=== PATIENT | female | born 1970 | race Caucasian/White ===

== ENCOUNTER 2020-06-24 16:20 | Outpatient (REF) | payer OTHER, SELFPAY | END 2020-06-24 16:21 | disposition home or self-care (01) | LOC: HO.LNP 16:20 | PROVIDERS: Visit Provider Hospitalist | DX: R30.0 Dysuria (principal) | CPT/HCPCS: 87086 ==

== ENCOUNTER 2020-07-11 10:23 | Emergency (ER) | payer OTHER, SELFPAY ==
--- NOTE | ~2020-07-11 | CT_ITS ---
EXAMINATION: CT ABDOMEN AND PELVIS WITHOUT CONTRAST CLINICAL INFORMATION: Left lower quadrant pain COMPARISON: Previous pelvic ultrasound from earlier the same day and previous CT scan of the abdomen and pelvis August 2017 TECHNIQUE: Multidetector volumetric imaging was performed from the superior aspect of the liver through the pubic symphysis. Sagittal and coronal reformatted images were obtained on the technologist's workstation. This CT examination was performed using dose optimization techniques as appropriate, variously including the following: *Automated exposure control *Adjustment of mA and/or kV according to patient size (this includes techniques or standardized protocols for targeted exams where dose is matched to indication/reason for exam; i.e. extremities or head) *Use of iterative reconstruction technique DLP: 131 mGy-cm FINDINGS: LUNG BASES: The visualized lung bases are unremarkable. LIVER, GALLBLADDER, AND BILIARY TREE: The liver is normal in size, shape, and attenuation. No focal hepatic lesion or biliary ductal dilatation is present. The gallbladder is unremarkable with no evidence of radiopaque gallstones, gallbladder wall thickening, or obvious pericholecystic inflammatory changes. PANCREAS: Unremarkable. SPLEEN: Unremarkable. ADRENAL GLANDS: Unremarkable. KIDNEYS AND URETERS: The kidneys are normal in size, shape, and attenuation. No hydronephrosis, hydroureter, or calculi seen. No perinephric stranding. BLADDER: Bladder is empty and not well evaluated. GASTROINTESTINAL TRACT: There is diverticulosis of the colon. There is wall thickening of the sigmoid colon and stranding of the surrounding fat suggestive of mild diverticulitis. No evidence of obstruction, perforation or abscess is seen. There may be a small esophageal hernia. The stomach is otherwise unremarkable. The appendix is not seen. ABDOMINAL WALL: There are several small upper abdominal ventral hernias containing fat. LYMPH NODES: Normal. VASCULAR: Unremarkable. PELVIC VISCERA: The right ovary is normal-appearing. There is question a small 1.2 x 1.3 cm right adnexal cyst versus a small amount of loculated fluid in the pelvis adjacent to the right side of the uterus, for example axial image 79 series 3 and coronal reconstructed image 56.. The uterus and left ovary are unremarkable.. OSSEOUS STRUCTURES: Unremarkable. CT/CT abdomen pelvis wo con IMPRESSION: Diverticulitis of the proximal sigmoid colon.
--- NOTE | ~2020-07-11 | US_ITS ---
EXAMINATION: PELVIC ULTRASOUND CLINICAL INFORMATION: Left-sided pelvic pain/tenderness COMPARISON: Previous CT of the abdomen and pelvis August 2017 TECHNIQUE: Transabdominal and transvaginal pelvic ultrasound was performed. Transvaginal exam was performed for better visualization of the uterus and visualization of the ovaries. Exam is limited due to patient body habitus. FINDINGS: The uterus is anteverted and measures 7.6 x 4.9 x 4.8 cm in dimension. There is a 2.3 x 2.2 x 2.2 cm hyperechoic lesion in the left anterior uterine body suggestive of a fibroid. No other focal uterine lesion is seen. Endometrial thickness is normal measuring 0.5 cm. There are nabothian cysts in the cervix. The ovaries are not identified. There is a 1.9 x 1 x 1.3 cm minimally complex cyst seen in the right pelvis. There is no free fluid in the pelvis. US/US pelvic complete IMPRESSION: Limited exam. 2.2 x 2.3 cm left anterior uterine body fibroid. Ovaries not seen. 1.9 x 1 x 1.3 cm minimally complex cyst in the right pelvis.
--- NOTE | ~2020-07-11 | US_ITS ---
EXAMINATION: PELVIC ULTRASOUND CLINICAL INFORMATION: Left-sided pelvic pain/tenderness COMPARISON: Previous CT of the abdomen and pelvis August 2017 TECHNIQUE: Transabdominal and transvaginal pelvic ultrasound was performed. Transvaginal exam was performed for better visualization of the uterus and visualization of the ovaries. Exam is limited due to patient body habitus. FINDINGS: The uterus is anteverted and measures 7.6 x 4.9 x 4.8 cm in dimension. There is a 2.3 x 2.2 x 2.2 cm hyperechoic lesion in the left anterior uterine body suggestive of a fibroid. No other focal uterine lesion is seen. Endometrial thickness is normal measuring 0.5 cm. There are nabothian cysts in the cervix. The ovaries are not identified. There is a 1.9 x 1 x 1.3 cm minimally complex cyst seen in the right pelvis. There is no free fluid in the pelvis. US/US transvaginal IMPRESSION: Limited exam. 2.2 x 2.3 cm left anterior uterine body fibroid. Ovaries not seen. 1.9 x 1 x 1.3 cm minimally complex cyst in the right pelvis.
[2020-07-11 10:26] VITALS: BP 186/129; PULSE 89; RESP 18; TEMP 36.9; O2SAT 100; BMI 47.9
--- NOTE | 2020-07-11 11:14 | ED.GENADULT ---
HPI - General Adult General Chief complaint: General Medical Stated complaint: pelvic pain Time Seen by Provider: 07/11/20 10:55 Source: patient Mode of arrival: ambulatory Limitations: no limitations History of Present Illness HPI narrative: 49 y/o female presenting with acute onset left sided pelvic pain for the last 2 days since the start of her menses. She reports her periods are irregular and last one was 2 months ago. For her last 3 cycles she has gotten LLQ/left sided pelvic pain however this time it is much worse. She states it comes and goes and it is excruciating at times. She took Tramadol last night with some improvement. She recalls several years ago she thinks she was diagnosed with an ovarian cyst. She denies any chance of , she is homosexual. She denies vaginal discharge. The bleeding is a bit heavier than her last menstrual cycle. She has no N/V/D or other abdominal pain. No fever or chills. MD complaint: left sided pelvic pain Onset (ago): day(s) (2) Location: abdomen and pelvis Radiation: non-radiation Severity: severe and similar to prior episodes Severity scale (1-10): 8 Quality: stabbing and sharp Pain Consistency: intermittent Relieving factors: rest (laying on left side helps) Exacerbating factors: movement Associated symptoms: denies other symptoms Treatments prior to arrival: none Related Data Home Medications Medication Instructions Recorded Confirmed ergocalciferol (vitamin D2) 1,250 1,250 mcg PO QWEEK 06/24/20 07/11/20 mcg (50,000 unit) capsule escitalopram oxalate 20 mg tablet 20 mg PO DAILY 06/24/20 07/11/20 tramadol 50 mg tablet 50 mg PO DAILY PRN 07/11/20 07/11/20 Previous Rx's Medication Instructions Recorded sulfamethoxazole 800 1 tab PO BID #14 tab 06/24/20 mg-trimethoprim 160 mg tablet ciprofloxacin HCl 500 mg PO Q12H #20 tab 07/11/20 ibuprofen 600 mg PO Q8H PRN #20 tab 07/11/20 metronidazole [Flagyl] 500 mg PO BID #20 tab 07/11/20 ondansetron HCl [Zofran] 4 mg PO Q8H PRN #7 tab 07/11/20 oxycodone 5 mg PO Q6H PRN #8 tab 07/11/20 Allergies Allergy/AdvReac Type Severity Reaction Status Date / Time No Known Allergies Allergy Mild NKA Verified 07/11/20 09:59 Review of Systems Review of Systems: Constitutional: No Fever, No Chills ENT/Mouth: No sore throat, No Rhinorrhea, No Swallowing Difficulty Cardiovascular: No Chest Pain, No SOB, No Orthopnea, No Edema Respiratory: No Cough, No Sputum, No Wheezing, No dyspnea Gastrointestinal: No Nausea, No Vomiting, No Diarrhea, + abdominal Pain, No Hematochezia, No Melena Genitourinary: No Dysuria, No Urinary Frequency, No Hematuria, +vaginal bleeding, no vaginal discharge Musculoskeletal: No joint pain, No Myalgias Skin: No Skin Lesions, No rash Neuro: No Weakness, No Numbness, No Dizziness, No Headache Psych: No Anxiety/Panic, No Depression Heme/Lymph: No Bruising, No Lymphadenopathy Endocrine: No Polyuria, No [facility]yd[facility]ia [facility] Social History Social History Alcohol intake: never Smoking Status: Never smoker Use of substances other than those prescribed or required for medical reasons: No Advance Directives: Yes Advance Directives Information Provided: No Advance Directives on File: No Physical Exam Vital Signs: Vital Signs: Last Vital Signs Temp 98.5 F 07/11/20 10:26 Pulse 89 07/11/20 10:26 Resp 18 07/11/20 10:26 BP 186/129 H 07/11/20 10:26 Pulse Ox 100 07/11/20 10:26 Body Mass Index 47.9 Appearance: Alert. Oriented X3. Appears to be in pain Eyes: Pupils equal, round and reactive to light. ENT: Pharynx normal. Neck: Normal inspection. Neck supple. CVS: Normal heart rate and rhythm. Pulses normal. Respiratory: No respiratory distress. Breath sounds normal. Abdomen: Obese, Soft with significant LLQ/left pelvic tenderness. +rebound +BS x4. Pelvic exam deferred at this time, patient declining due to pain Skin: Skin warm and dry. Normal skin color. Normal skin turgor. No rashes. Extremities: No lower extremity edema. Neuro: Oriented X 3. No motor deficit. No sensory deficit. Course Course Course Narrative: 49 y/o female presenting with 2 days of severe LLQ/left pelvic pain since start of her menses. ?hx of ovarian cyst. Will plan to treat pain with oxycodone and tylenol now, check labs, r/o and get pelvic US to assess for cyst and torsion. Pelvic exam deferred per patient request due to pain. Low suspicon for PID, no vaginal discharge, no hx STI, same monogamous partner. Reevaluation(s) Reevaluation #1: WBC 12.4. UA negative for infection. Pelvic ultrasound showed left anterior uterine fibroid which does not explain her tenderness fully. Ovaries unfortunately were not able to be seen. Spoke with Dr. Gamez who is recommending CT scan for further evaluation of possible ovarian masses or other non-gynecologic causes of her pain. Reevaluation #2: CT scan showing acute diverticulitis of the proximal sigmoid colon. No abscess. She has been tolerating PO. No N/V here. Her pain is improved after medications. She has been counseled on the results of her tests and management has been discussed. Warning signs/symptoms have been reviewed to prompt urgent return to the ED. Patient expressed understanding. She is stable for discharge with PO abx, pain control. Medical Decision Making Lab Data Result diagrams: 07/11/20 11:35 07/11/20 11:35 Labs: Lab Results 07/11/20 07/11/20 07/11/20 Range/Units 11:31 11:31 11:35 WBC 12.4 H (4.8-10.8) X10*3/uL RBC 4.79 (4.20-5.50) X10*6/uL Hgb 12.3 (12.0-16.0) g/dl Hct 39.4 (37-47) % MCV 82.3 (80-98) fL MCH 25.7 L (27.0-33.0) pg MCHC 31.2 (31.0-35.0) g/dl RDW 14.0 (11.0-16.0) % Plt Count 366 (160-400) X10*3/uL MPV 9.1 L (9.4-12.3) fL Immature Gran % (Auto) 0.3 (0.0-0.4) % Neut % (Auto) 79.8 H (45-73) % Lymph % (Auto) 13.4 L (20-40) % [place] % (Auto) 5.8 (2-11) % Eos % (Auto) 0.6 (0-4) % Baso % (Auto) 0.1 (0-2) % Lymph # (Auto) 1.7 (1.2-4.9) X10*3/uL [place] # (Auto) 0.7 (0.1-1.2) X10*3/uL Eos # (Auto) 0.1 (0.0-0.4) X10*3/uL Baso # (Auto) 0.0 (0.0-0.2) X10*3/uL Abs Immat Gran (auto) 0.04 H (0.00-0.03) X10*3/uL Absolute Neuts (auto) 9.9 H (2.0-8.3) X10*3/uL Absolute Nucleated RBC 0.000 (0.0-0.012) X10*3/uL Nucleated RBC % (auto) 0.0 (0.0-0.2) /100WBC Hold Blue Top Sodium (135-145) mmol/L Potassium (3.3-5.1) mmol/L Chloride (96-108) mmol/L Carbon Dioxide (22-29) mmol/L Anion Gap (12-20) BUN (9-16) mg/dL Creatinine (0.5-1.4) mg/dL Estim Creat Clear Calc Estimated GFR Random Glucose (60-115) mg/dL Calcium (8.4-10.2) mg/dL Urine Color PINK Urine Appearance CLOUDY Urine pH 7.5 (5.0-8.0) Ur Specific [place] 1.020 (1.005-1.025) Urine Protein TRACE (NEG-TRACE) MG/DL Urine Glucose (UA) NEG (NEG) MG/DL Urine Ketones NEG (NEG) MG/DL Urine Blood 3+ H (NEG) Urine Nitrite NEG (NEG) Ur Leukocyte Esterase NEG (NEG) Urine RBC TNTC H (0) /HPF Urine WBC 0-2 (0-4) /HPF Ur Squamous Epith Cells TRACE /LPF Urine Bacteria NONE /LPF Urine Test NEGATIVE (NEGATIVE) 07/11/20 07/11/20 Range/Units 11:35 11:35 WBC (4.8-10.8) X10*3/uL RBC (4.20-5.50) X10*6/uL Hgb (12.0-16.0) g/dl Hct (37-47) % MCV (80-98) fL MCH (27.0-33.0) pg MCHC (31.0-35.0) g/dl RDW (11.0-16.0) % Plt Count (160-400) X10*3/uL MPV (9.4-12.3) fL Immature Gran % (Auto) (0.0-0.4) % Neut % (Auto) (45-73) % Lymph % (Auto) (20-40) % [place] % (Auto) (2-11) % Eos % (Auto) (0-4) % Baso % (Auto) (0-2) % Lymph # (Auto) (1.2-4.9) X10*3/uL [place] # (Auto) (0.1-1.2) X10*3/uL Eos # (Auto) (0.0-0.4) X10*3/uL Baso # (Auto) (0.0-0.2) X10*3/uL Abs Immat Gran (auto) (0.00-0.03) X10*3/uL Absolute Neuts (auto) (2.0-8.3) X10*3/uL Absolute Nucleated RBC (0.0-0.012) X10*3/uL Nucleated RBC % (auto) (0.0-0.2) /100WBC Hold Blue Top SEE NOTE Sodium 137 (135-145) mmol/L Potassium 4.3 (3.3-5.1) mmol/L Chloride 102 (96-108) mmol/L Carbon Dioxide 27 (22-29) mmol/L Anion Gap 12 (12-20) BUN 10 (9-16) mg/dL Creatinine 0.78 (0.5-1.4) mg/dL Estim Creat Clear Calc 138.9 Estimated GFR > 60 Random Glucose 126 H (60-115) mg/dL Calcium 8.7 (8.4-10.2) mg/dL Urine Color Urine Appearance Urine pH (5.0-8.0) Ur Specific [place] (1.005-1.025) Urine Protein (NEG-TRACE) MG/DL Urine Glucose (UA) (NEG) MG/DL Urine Ketones (NEG) MG/DL Urine Blood (NEG) Urine Nitrite (NEG) Ur Leukocyte Esterase (NEG) Urine RBC (0) /HPF Urine WBC (0-4) /HPF Ur Squamous Epith Cells /LPF Urine Bacteria /LPF Urine Test (NEGATIVE) Discharge Plan Discharge Clinical Impression: Diverticulitis Patient Disposition: Home, Self-Care Instructions: Diverticulitis (ED) Additional Instructions: Your CT scan showed diverticulitis of your sigmoid colon. Take the prescribed antibiotics for this. Complete the entire course. Take the prescribed anti-inflammatory medications and pain medications as needed Stick to a bland diet while you are feeling unwell. Avoid foods with seeds. Follow up with your doctor this week. If you have worsening symptoms come back to the ER for futher evaluation. Prescriptions: New metronidazole [Flagyl] 500 mg tablet 500 mg PO BID Qty: 20 RF: 0 ciprofloxacin HCl 500 mg tablet 500 mg PO Q12H Qty: 20 RF: 0 ibuprofen 600 mg tablet 600 mg PO Q8H PRN (Reason: pain) Qty: 20 RF: 0 ondansetron HCl [Zofran] 4 mg tablet 4 mg PO Q8H PRN (Reason: nausea and vomiting) Qty: 7 RF: 0 oxycodone 5 mg tablet 5 mg PO Q6H PRN (Reason: pain) Qty: 8 RF: 0 No Action escitalopram oxalate 20 mg tablet 20 mg PO DAILY RF: 0 ergocalciferol (vitamin D2) 1,250 mcg (50,000 unit) capsule 1,250 mcg PO QWEEK RF: 0 sulfamethoxazole-trimethoprim [Bactrim DS] 800-160 mg tablet 1 tab PO BID Qty: 14 RF: 0 tramadol 50 mg tablet 50 mg PO DAILY PRNRF: 0 Referrals: Sugar Muse MD [Physician] - 1 week (diverticulitis )
[2020-07-11] MEDS: oxyCODONE HCl Immed Release 5 MG TABLET PO (11:16)
[2020-07-11] MEDS: Acetaminophen 325 MG TABLET 975 MG PO (11:16)
--- NOTE | 2020-07-11 11:22 | PC.NURSE ---
pt medicated per emar, pct at bedside to draw labs, awaiting us. wctm.
[2020-07-11 11:46] LABS: MANUAL DIFF FLAG NO
[2020-07-11 11:49] LABS: Basophils Percent Auto 0.1 % (0-2); Eosinophils Absolute Auto 0.1 X10*3/uL (0.0-0.4); Eosinophils Percent Auto 0.6 % (0-4); Hematocrit 39.4 % (37-47); Hemoglobin 12.3 g/dl (12.0-16.0); Imm Gran Abs Auto 0.04 X10*3/uL (0.00-0.03); Imm Gran Pct Auto 0.3 % (0.0-0.4); Lymphocytes Absolute Auto 1.7 X10*3/uL (1.2-4.9); Lymphocytes Percent Auto 13.4 % (20-40); Mean Corpuscular HGB Conc 31.2 g/dl (31.0-35.0); Mean Corpuscular Hemoglobin 25.7 pg (27.0-33.0); Mean Corpuscular Volume 82.3 fL (80-98); Mean Platelet Volume 9.1 fL (9.4-12.3); Monocytes Absolute Auto 0.7 X10*3/uL (0.1-1.2); Monocytes Percent Auto 5.8 % (2-11); Neutrophils Absolute Auto 9.9 X10*3/uL (2.0-8.3); Neutrophils Percent Auto 79.8 % (45-73); Platelet Count 366 X10*3/uL (160-400); Red Blood Count 4.79 X10*6/uL (4.20-5.50); White Blood Count 12.4 X10*3/uL (4.8-10.8)
[2020-07-11 11:51] LABS: Glucose Urine UA NEG (NEG); Leukocyte Esterase Urine NEG (NEG); Nitrite Urine NEG (NEG); PH 7.5 (5.0-8.0); Urine Blood 3+ (NEG); Urine Ketones NEG (NEG); Urine Protein TRACE MG/DL (NEG-TRACE)
[2020-07-11 11:52] LABS: Appearance Urine CLOUDY; Color Urine PINK
[2020-07-11 11:53] LABS: UPreg QC Valid YES; Urine Pregnancy NEGATIVE (NEGATIVE)
[2020-07-11 12:08] LABS: RBC Urine TNTC /HPF (0); Squamous Epithelial Cell Urine TRACE /LPF; WBC Urine 0-2 /HPF (0-4)
[2020-07-11 12:15] LABS: Anion Gap 12 (12-20); Blood Urea Nitrogen 10 mg/dL (9-16); Calcium 8.7 mg/dL (8.4-10.2); Carbon Dioxide 27 mmol/L (22-29); Chloride 102 mmol/L (96-108); Creatinine Clr Calc Pharmacy 138.9; Estimated Glomerular Filt Rate > 60; Glucose Random 126 mg/dL (60-115); Potassium 4.3 mmol/L (3.3-5.1); Sodium 137 mmol/L (135-145)
[2020-07-11] MEDS: Ketorolac Tromethamine 60 MG/2 ML VIAL IM (13:42)
--- NOTE | 2020-07-11 13:52 | PM.GYNCN ---
[facility] - CN: HPI Data of Consult Consult date: 07/11/20 Primary Care Provider: Roslyn Butcher NP Consult Narrative Narrative: Consulted regarding Anjali Bah, who is a 49 year old female who presents to the emergency room with left lower quadrant pain severe in nature 2 days prior to menses no other associated symptoms. CBC chemistry urine all within normal. Ultrasound did not visualize the ovaries, right complex 1.9 cm ovarian cyst, anterior uterine fibroid measuring 2.2 cm in size, urine test is negative cc:: CC: [facility] Social History Social History Alcohol intake: never Smoking Status: Never smoker Use of substances other than those prescribed or required for medical reasons: No Advance Directives: Yes Advance Directives Information Provided: No Advance Directives on File: No Meds Allergies Allergy/AdvReac Type Severity Reaction Status Date / Time No Known Allergies Allergy Mild NKA Verified 07/11/20 09:59 Home Medications Medication Instructions Recorded Confirmed Last Taken Type ergocalciferol (vitamin D2) 1,250 1,250 mcg PO QWEEK 06/24/20 07/11/20 Unknown History mcg (50,000 unit) capsule escitalopram oxalate 20 mg tablet 20 mg PO DAILY 06/24/20 07/11/20 Unknown History tramadol 50 mg tablet 50 mg PO DAILY PRN 07/11/20 07/11/20 Unknown History [facility] Physical Exam Vitals Vital signs: Temp Pulse Resp BP Pulse Ox 98.5 F 89 18 186/129 H 100 07/11/20 10:26 07/11/20 10:26 07/11/20 10:26 07/11/20 10:26 07/11/20 10:26 Body Mass Index 47.9 Additional Comments: Per ENRRIQUE Bates lower left lower quadrant tenderness [employer] - Results Labs CBC & Chem 7: 07/11/20 11:35 07/11/20 11:35 Labs: Short CBC 07/11/20 Range/Units 11:35 WBC 12.4 H (4.8-10.8) X10*3/uL Hgb 12.3 (12.0-16.0) g/dl Hct 39.4 (37-47) % Plt Count 366 (160-400) X10*3/uL BMP 07/11/20 11:35 Sodium 137 Potassium 4.3 Chloride 102 Carbon Dioxide 27 BUN 10 Creatinine 0.78 Calcium 8.7 Urine 07/11/20 07/11/20 Range/Units 11:31 11:31 Urine Color PINK Urine Appearance CLOUDY Urine pH 7.5 (5.0-8.0) Ur Specific [place] 1.020 (1.005-1.025) Urine Protein TRACE (NEG-TRACE) MG/DL Urine Glucose (UA) NEG (NEG) MG/DL Urine Test NEGATIVE (NEGATIVE) Assessment and Plan (1) Abdominal pain: Qualifiers: Abdominal location: left lower quadrant Qualified Code(s): R10.32 - Left lower quadrant pain Status: Acute Discussed the case with ENRRIQUE Bates and Recommended the GC and Chlamydia, CT scan of abdomen to better visualized ovaries. If no large ovarian mass on the left side consider other none gynecological causes of the left lower quadrant pain.
[2020-07-11 16:49] LABS: CT PCR NOT DETECTED (Not Detect.); NG PCR NOT DETECTED (Not Detect.)
== END 2020-07-11 16:18 | disposition home or self-care (01) ==
PROVIDERS: Physician Assistant; Emergency Provider Emergency Medicine; PCP Nurse Practitioner Family
DX: K57.32 Diverticulitis of large intestine without perforation or abscess without bleeding (principal)
CPT/HCPCS: 36415; 74176; 76830; 76856; 80048; 81001; 81025; 85025; 87491; 87591; 96372; 99283; 99284; J1885

== ENCOUNTER → 2020-07-25 08:31 | Outpatient (BNVA) | payer OTHER, SELFPAY | PROVIDERS: PCP Nurse Practitioner Family; Visit Provider Physician Assistant | DX: Z12.11 Encounter for screening for malignant neoplasm of colon (principal) ==

== ENCOUNTER 2020-08-25 07:31 | Day surgery (SDC) | payer OTHER, SELFPAY ==
[2020-08-22 13:19] VITALS: BMI 47.3
[2020-08-25 08:25] VITALS: BMI 45.8
[2020-08-25 08:36] VITALS: BP 178/91; PULSE 74; RESP 16; TEMP 36.6; O2SAT 97; BMI 45.8
[2020-08-25 08:45] LABS: UPreg QC Valid YES; Urine Pregnancy NEGATIVE (NEGATIVE)
[2020-08-25] MEDS: Lactated Ringers 1,000 ML 50 ML IV (08:45)
--- NOTE | 2020-08-25 08:48 | HO.ANESPROP2 ---
HPI - Anesthesia Eval Consult details Narrative: h/o diverticulosis PMFSH Active Problems Active Problems: All Active Problems (Updated 08/22/20 @ 13:16 by Shaneka Sears) Dysuria (Acute) Abdominal pain (Acute) Diverticulosis (Acute) Hx of appendectomy (Acute) Past Medical History Medical History Diverticulitis Surgical History Surgical History History of incisional hernia repair History of Florentino fundoplication (Unknown) Social History Social History Alcohol intake: never Smoking Status: Never smoker Advance Directives Information Provided: No Current occupation: [email or web address] Allergies Allergy/AdvReac Type Severity Reaction Status Date / Time No Known Allergies Allergy Mild NKA Verified 07/25/20 08:31 Home Medications Medication Instructions Recorded Confirmed Last Taken Type ergocalciferol (vitamin D2) 1,250 1,250 mcg PO QWEEK 06/24/20 08/22/20 Unknown History mcg (50,000 unit) capsule escitalopram oxalate 20 mg tablet 20 mg PO DAILY 06/24/20 08/22/20 Unknown History tramadol 50 mg tablet 50 mg PO DAILY PRN 07/11/20 08/22/20 Unknown History Exam Exam Date and Time: August 25, 2020 0848 Height,Weight and Vital Signs: Height 5 ft 9 in Weight 140.614 kg Pertinent Lab Results Pertinent Lab Results: Laboratory Tests 08/25/20 08:30 Urine Test NEGATIVE Airway Mallampati Class: III TM Dist: >3cm Neck ROM: Full Loose/Missing/Broken Teeth: Yes Heart: [id number] Lungs: cta b/l Assessment and Plan Assessment Anesthesia Assessment: Anesthesia Plan Discussed and Chart Reviewed Final Anesthetic Review NPO: Yes ASA Class: II Final Preanesthetic Review: No Changes in Pt Med Stat, Meds/Allgs Chart Reviewed, Consent Obtained/Reviewed and Anes Risks/Benef Reviewed Patient Risk: Low Procedure Risk: Low Assessment/Block/Sedation in SS: Assess/Block/Sedation-SS Anesthetic Plan Anesthetic Plan: MAC: and Agree w/ Assess. and Plan Disposition: Standard PACU
--- NOTE | 2020-08-25 09:02 | MHC.SHP ---
Pre-Procedural Eval Section B Chief Complaint: Diverticulosis Relevant Family History (Specify if Yes): No Relevant Social History: None Present Medications: see Short Stay Collaborative assessment Medical History: Significant History (depression, diverticulitis) History of Previous Operations: Relevant previous surgery/procedure and date(s) (History of incisional hernia repair History of Florentino fundoplication) Allergies: Allergies Allergy/AdvReac Type Severity Reaction Status Date / Time No Known Allergies Allergy Mild NKA Verified 07/25/20 08:31 Plan I have reviewed the history and physical and performed a pertinent physical examination on my patient. No changes have occurred unless specified.
--- NOTE | 2020-08-25 09:44 | PM.OP ---
Brief Operative Note Date of Service: 08/25/20 Pre-op diagnosis: hx of diverticulitis Post-op diagnosis: same Procedure: see op note Surgeon: Sugar Muse MD Anesthesia: MAC Estimated blood loss (mL): 0 Condition: stable Disposition: PACU
--- NOTE | 2020-08-25 09:45 | W.PM.OPN ---
Operative Note Operative Note Date of Service: 08/25/20 Narrative: Operative Information Procedure Description: Colonoscopy COLONOSCOPY Instrument: Olympus variable stiffness adult scope 190L Colonoscopy Monitoring: Vital signs and clinical assessment, continuous EKG monitoring, Pulse oximetry, Carbon Dioxide monitoring and blood pressure monitoring were done throughout the procedure. Colon withdrawal time was 10 minutes. Procedure: The patient was placed in the left lateral decubitis position and pre-procedure medications were administered. After a digital rectal examination of the ano-rectum, the video colonoscope was inserted into the rectum and advanced through the colon to the cecum/TI. The colonoscope was slowly withdrawn in a retrograde panoramic fashion and the colon mucosa was carefully examined including a retroflexed view of the rectum. Findings and interventions are described below. Procedure Difficulty:easy Findings: Terminal Ileum-normal Cecum:normal Ascending Colon: normal Transverse Colon -normal Descending Colon:several diverticula seen Sigmoid Colon: moderate severe diverticulosis with tics of varying sizes Rectum: Retroflexion with small internal hemorrhoids, grade II Anorectum - normal Colon preparation: [place] Bowel Preparation Scale Right colon; 1 Transverse colon: 2 Left colon; 1 (0 = Unprepared colon segment with mucosa not seen due to solid stool that cannot be cleared. 1 = Portion of mucosa of the colon segment seen, but other areas of the colon segment not well seen due to staining, residual stool and/or opaque liquid. 2 = Minor amount of residual staining, small fragments of stool and/or opaque liquid, but mucosa of colon segment seen well. 3 = Entire mucosa of colon segment seen well with no residual staining, small fragments of stool or opaque liquid) Impression and Post Procedure Diagnosis: internal hemorrhoids diverticular disease Plan: High fiber diet leaflet Avoid straining at stool, epsom salts and sitz bath, anusol supps or cream Repeat Colonoscopy in 1 year or earlier if clinically indicated, next time should not eat day before-patient had hamburger yesterday Above findings were reviewed with the patient and relevant handouts were provided if indicated.
[2020-08-25 10:18] VITALS: BP 150/82; PULSE 72; RESP 18; TEMP 36.1; O2SAT 100
[2020-08-25 10:33] VITALS: BP 153/84; PULSE 60; RESP 18; TEMP 36.3; O2SAT 97
== END 2020-08-25 10:56 | disposition home or self-care (01) ==
PROVIDERS: Anesthesiology; PCP Nurse Practitioner Family; Visit Provider Internal Medicine Gastroenterology
PROC: 0DJD8ZZ Inspection of Lower Intestinal Tract, Via Natural or Artificial Opening Endoscopic (ICD-10-PCS; CPT 45378; principal; 2020-08-25 10:10)
DX: K57.30 Diverticulosis of large intestine without perforation or abscess without bleeding (principal); K64.1 Second degree hemorrhoids; Z87.19 Personal history of other diseases of the digestive system; Z98.890 Other specified postprocedural states; Z79.899 Other long term (current) drug therapy
CPT/HCPCS: 45378; 81025; J2250; J2405; J3010

== ENCOUNTER → 2020-09-01 13:49 | Outpatient (BNVA) | payer OTHER, SELFPAY | PROVIDERS: PCP Nurse Practitioner Family; Visit Provider Anesthesiology | DX: M47.816 Spondylosis without myelopathy or radiculopathy, lumbar region (principal); G89.29 Other chronic pain; M54.5 Low back pain; E66.01 Morbid (severe) obesity due to excess calories | CPT/HCPCS: 99202 ==

== ENCOUNTER → 2020-09-14 07:38 | Outpatient (BNVA) | payer OTHER, SELFPAY | PROVIDERS: PCP Nurse Practitioner Family; Visit Provider Physician Assistant ==

== ENCOUNTER → 2020-09-28 14:04 | Outpatient (BNVA) | payer OTHER, SELFPAY | PROVIDERS: PCP Nurse Practitioner Family; Visit Provider Physician Assistant | DX: R11.2 Nausea with vomiting, unspecified (principal); K57.90 Diverticulosis of intestine, part unspecified, without perforation or abscess without bleeding; R19.7 Diarrhea, unspecified | CPT/HCPCS: 99212 ==

== ENCOUNTER 2020-10-10 11:37 | Outpatient (REF) | payer OTHER, SELFPAY | END 2020-10-10 11:38 | disposition home or self-care (01) | LOC: HO.LNP 11:37 | PROVIDERS: Visit Provider Hospitalist | DX: R19.7 Diarrhea, unspecified (principal) | CPT/HCPCS: U0003; U0005 ==

== ENCOUNTER 2020-10-28 15:48 | Emergency (ER) | payer OTHER, SELFPAY ==
--- NOTE | ~2020-10-28 | CT_ITS ---
EXAMINATION: CT ABDOMEN AND PELVIS WITHOUT CONTRAST CLINICAL INFORMATION: Left lower quadrant pain COMPARISON: 07/11/2020 TECHNIQUE: Multidetector volumetric imaging was performed from the superior aspect of the liver through the pubic symphysis. Sagittal and coronal reformatted images were obtained on the technologist's workstation. This CT examination was performed using dose optimization techniques as appropriate, variously including the following: *Automated exposure control *Adjustment of mA and/or kV according to patient size (this includes techniques or standardized protocols for targeted exams where dose is matched to indication/reason for exam; i.e. extremities or head) *Use of iterative reconstruction technique DLP: 1462 mGy-cm FINDINGS: LUNG BASES: The visualized lung bases are unremarkable. LIVER, GALLBLADDER, AND BILIARY TREE: The liver is normal in size, shape, and attenuation. No focal hepatic lesion or biliary ductal dilatation is present. The gallbladder is unremarkable with no evidence of radiopaque gallstones, gallbladder wall thickening, or obvious pericholecystic inflammatory changes. PANCREAS: Unremarkable. SPLEEN: Unremarkable. ADRENAL GLANDS: Unremarkable. KIDNEYS AND URETERS: The kidneys are normal in size, shape, and attenuation. No hydronephrosis, hydroureter, or calculi seen. No perinephric stranding. BLADDER: Unremarkable. GASTROINTESTINAL TRACT: The small and large bowel are unremarkable. Normal appendix is not seen but no suspicion around the cecum. Diverticula disease in the sigmoid. No convincing evidence for diverticulitis. ABDOMINAL WALL: No significant hernia is appreciated. LYMPH NODES: Normal. VASCULAR: Unremarkable. PELVIC VISCERA: Unremarkable. OSSEOUS STRUCTURES: Unremarkable. CT/CT abdomen pelvis wo con IMPRESSION: No acute finding. There is diverticulosis here but no evidence for diverticulitis.
[2020-10-28 15:52] VITALS: BP 216/94; PULSE 90; RESP 18; TEMP 37.1; O2SAT 98; BMI 46.6
[2020-10-28 16:35] LABS: COVID-19 Test Negative (Negative)
[2020-10-28 16:57] LABS: MANUAL DIFF FLAG NO
[2020-10-28 16:59] LABS: Basophils Percent Auto 0.2 % (0-2); Eosinophils Absolute Auto 0.1 X10*3/uL (0.0-0.4); Eosinophils Percent Auto 0.8 % (0-4); Hematocrit 34.6 % (37-47); Hemoglobin 10.9 g/dl (12.0-16.0); Imm Gran Abs Auto 0.03 X10*3/uL (0.00-0.03); Imm Gran Pct Auto 0.3 % (0.0-0.4); Lymphocytes Absolute Auto 2.3 X10*3/uL (1.2-4.9); Lymphocytes Percent Auto 22.8 % (20-40); Mean Corpuscular HGB Conc 31.5 g/dl (31.0-35.0); Mean Corpuscular Hemoglobin 26.1 pg (27.0-33.0); Mean Corpuscular Volume 82.8 fL (80-98); Mean Platelet Volume 9.1 fL (9.4-12.3); Monocytes Absolute Auto 0.9 X10*3/uL (0.1-1.2); Neutrophils Absolute Auto 6.9 X10*3/uL (2.0-8.3); Neutrophils Percent Auto 66.9 % (45-73); Platelet Count 358 X10*3/uL (160-400); Red Blood Count 4.18 X10*6/uL (4.20-5.50); Red Cell Distribution Width 13.9 % (11.0-16.0); White Blood Count 10.2 X10*3/uL (4.8-10.8)
[2020-10-28 17:26] LABS: Anion Gap 12 (12-20); Blood Urea Nitrogen 10 mg/dL (9-16); Carbon Dioxide 24 mmol/L (22-29); Chloride 107 mmol/L (96-108); Creatinine Clr Calc Pharmacy 131.8; Estimated Glomerular Filt Rate > 60; Glucose Random 119 mg/dL (60-115); Potassium 3.6 mmol/L (3.3-5.1); Sodium 139 mmol/L (135-145)
[2020-10-28] MEDS: Lactated Ringers 1,000 ML 999 ML IV (18:02)
[2020-10-28] MEDS: ondansetron HCL 4 MG/2 ML VIAL IVPUSH (18:02)
[2020-10-28 18:07] VITALS: BP 191/97; PULSE 65; RESP 16
--- NOTE | 2020-10-28 18:13 | ED.NAVMDI ---
HPI - Nausea/Vomiting/Diarrhea General Chief complaint: Nausea/Vomiting/Diarrhea Stated complaint: vomiting Time Seen by Provider: 10/28/20 16:50 Source: patient and family Mode of arrival: ambulatory Limitations: no limitations History of Present Illness HPI Narrative: Patient is a 50-year-old female with a past medical history of diverticulosis with diverticulitis flares, and HTN who presents with 2 days of nausea vomiting and diarrhea. she also endorses pain in her left lower abdomen. She denies any fevers chest pain shortness of breath headache or dizziness. She took some Imodium with no relief. she states she has had to flares of diverticulitis since she was diagnosed with diverticulosis approximately 3 months ago. She went to urgent care today and they told her come to the emergency room for CT scan. She is worried this might be a complication from her Florentino fundoplication that she had 25 years ago she is also states she has had a ventral hernia repair. Related Data Home Medications Medication Instructions Recorded Confirmed escitalopram oxalate 20 mg tablet 20 mg PO DAILY 06/24/20 10/28/20 tramadol 50 mg tablet 50 mg PO DAILY PRN 07/11/20 10/28/20 Previous Rx's Medication Instructions Recorded ibuprofen 600 mg PO Q8H PRN #20 tab 07/11/20 omeprazole 20 mg capsule,delayed 20 mg PO DAILY 30 Days #30 cap 09/28/20 release lisinopril 20 mg PO DAILY #30 tab 10/28/20 Allergies Allergy/AdvReac Type Severity Reaction Status Date / Time No Known Allergies Allergy Mild NKA Verified 10/28/20 16:13 Review of Systems Review of Systems: Yes all other systems are reviewed and are negative [facility] Past Medical History Medical History Arthropathy of facet joint Diverticulitis Morbid obesity Spondylosis of lumbar region without myelopathy or radiculopathy Surgical History History of incisional hernia repair History of Florentino fundoplication (Unknown) Hx of colonoscopy Family History Family History Mother Hodgkin disease Brother Diabetes Social History Social History Household Members: Significant Other Household Members Other:: partner Alcohol intake: never Patient Tobacco Use Status: Never used Tobacco Smoked in Last 30 Days: No Use of substances other than those prescribed or required for medical reasons: No Advance Directives: No Advance Directives Information Provided: Yes Current occupational status: employed Current occupation: [employer] Physical Exam Vital Signs: Vital Signs: Last Vital Signs Temp 98.9 F 10/28/20 19:16 Pulse 74 10/28/20 19:25 Resp 18 10/28/20 19:16 BP 157/90 H 10/28/20 19:25 Pulse Ox 98 10/28/20 19:16 Body Mass Index 46.6 Const: General: cooperative, healthy appearing, comfortable and no acute distress Nutritional Appearance: obese Orientation/consciousness: patient oriented x3 Limitations: no limitations HENMT: Head: Yes normal to inspection Eyes: General: appearance normal, both eyes and all related structures Neck: Neck: Yes normal visual inspection and Yes full ROM Resp: Effort & Inspection: normal respiratory effort and able to speak in complete sentences Auscultation: clear to auscultation bilaterally Cardio: Rate: regular rate Rhythm: regular rhythm Heart sounds: normal S1 and S2 GI: Inspection: Yes normal to inspection Palpation (GI): Soft to palpation, Tenderness to palpation present (GI) in the LLQ and Guarding due to palpation present (GI) in the LLQ Skin: General skin exam: no rashes or lesions noted Neuro: General: patient oriented x3 Extrem: General: Yes normal to inspection Course Course Course Narrative: Patient is a 50-year-old female with a past medical history of diverticulosis with diverticulitis flares, and HTN who presents with 2 days of nausea vomiting and diarrhea. Vital signs are stable except for elevated blood pressure at 216/94. Physical exam remarkable for left lower quadrant tenderness and guarding. patient otherwise well-appearing. Will give Zofran for nausea, get labs, and CT scan of the abdomen and pelvis. Likely diverticulitis. Reevaluation(s) Reevaluation #1: patient's blood pressure still markedly elevated at 190 , patient states she does not take her hypertension medication anymore, she does not know the name of it but she lost her insurance and she has not taken any meds in many months. She is endorsing a headache at this time. Will give labetalol and likely discharge with hypertension medications for home. Time: 18:18 Reevaluation #2: CT scan showed no diverticulitis, it was unremarkable. this is likely viral, will discharge as vital signs are stable sans elevated blood pressure, will discharge patient with 30 day supply of lisinopril with close follow-up to new PCP, will give [facility] list and number. Time: 18:40 Reevaluation #3: patient's blood pressure still elevated at 197/94, will give hydralazine and recheck. Spoke with patient about the importance of taking her anti hypertensive medication on a daily basis. I advised I would be sending a prescription for lisinopril, she said that was the medication she used to take but she was unsure of the dose. she knows she needs to either find a new PCP your takes her insurance through [employer] or switch the [employer] product to the 1 her existing PCP takes. She understands that she is at a high risk for stroke when she is not in a healthy range with her blood pressures. Time: 18:50 Additional Reevaluation(s): Once patient calmed down and stopped yelling during her blood pressure measurement, her blood pressure came down to 157/90, we did not give the hydralazine. Will discharge patient home as she is able to tolerate p.o.. 7:30pm Pt able to tolerate PO, will discharge MDM - Nausea/Vomiting/Diarrhea Lab Data Result diagrams: 10/28/20 16:52 10/28/20 16:52 Labs: Lab Results 10/28/20 10/28/20 10/28/20 Range/Units 16:01 16:52 16:52 WBC 10.2 (4.8-10.8) X10*3/uL RBC 4.18 L (4.20-5.50) X10*6/uL Hgb 10.9 L (12.0-16.0) g/dl Hct 34.6 L (37-47) % MCV 82.8 (80-98) fL MCH 26.1 L (27.0-33.0) pg MCHC 31.5 (31.0-35.0) g/dl RDW 13.9 (11.0-16.0) % Plt Count 358 (160-400) X10*3/uL MPV 9.1 L (9.4-12.3) fL Immature Gran % (Auto) 0.3 (0.0-0.4) % Neut % (Auto) 66.9 (45-73) % Lymph % (Auto) 22.8 (20-40) % [place] % (Auto) 9.0 (2-11) % Eos % (Auto) 0.8 (0-4) % Baso % (Auto) 0.2 (0-2) % Lymph # (Auto) 2.3 (1.2-4.9) X10*3/uL [place] # (Auto) 0.9 (0.1-1.2) X10*3/uL Eos # (Auto) 0.1 (0.0-0.4) X10*3/uL Baso # (Auto) 0.0 (0.0-0.2) X10*3/uL Abs Immat Gran (auto) 0.03 (0.00-0.03) X10*3/uL Absolute Neuts (auto) 6.9 (2.0-8.3) X10*3/uL Absolute Nucleated RBC 0.000 (0.0-0.012) X10*3/uL Nucleated RBC % (auto) 0.0 (0.0-0.2) /100WBC Sodium 139 (135-145) mmol/L Potassium 3.6 (3.3-5.1) mmol/L Chloride 107 (96-108) mmol/L Carbon Dioxide 24 (22-29) mmol/L Anion Gap 12 (12-20) BUN 10 (9-16) mg/dL Creatinine 0.80 (0.5-1.4) mg/dL Estim Creat Clear Calc 131.8 Estimated GFR > 60 Random Glucose 119 H (60-115) mg/dL Calcium 9.0 (8.4-10.2) mg/dL COVID-19 (DEJUAN) Negative (Negative) COVID-19 Clin Com See Note Imaging Data CT scan - abdomen: Attestation: I personally reviewed and interpreted this imaging study as follows: Radiologist's impression: [address] [id number] Scan ReportSigned Patient: Anjali Bah LMR#: [id number]: 1970Acct:[id number]/Sex: 50 / FADM Date: 10/28/20Loc: EDAtt[facility] Dr: Ordering Physician: Akua Mosher PA-C Date of Service: 10/28/20 Procedure(s): CT abdomen pelvis wo con Accession Number(s): [id number] cc: Akua Mosher PA-C~ EXAMINATION: CT ABDOMEN AND PELVIS WITHOUT CONTRAST CLINICAL INFORMATION: Left lower quadrant pain COMPARISON: 07/11/2020 TECHNIQUE: Multidetector volumetric imaging was performed from the superior aspect of the liver through the pubic symphysis. Sagittal and coronal reformatted images were obtained on the technologist's workstation. This CT examination was performed using dose optimization techniques as appropriate, variously including the following: *Automated exposure control *Adjustment of mA and/or kV according to patient size (this includes techniques or standardized protocols for targeted exams where dose is matched to indication/reason for exam; i.e. extremities or head) *Use of iterative reconstruction technique DLP: 1462 mGy-cm FINDINGS: LUNG BASES: The visualized lung bases are unremarkable. LIVER, GALLBLADDER, AND BILIARY TREE: The liver is normal in size, shape, and attenuation. No focal hepatic lesion or biliary ductal dilatation is present. The gallbladder is unremarkable with no evidence of radiopaque gallstones, gallbladder wall thickening, or obvious pericholecystic inflammatory changes. PANCREAS: Unremarkable. SPLEEN: Unremarkable. ADRENAL GLANDS: Unremarkable. KIDNEYS AND URETERS: The kidneys are normal in size, shape, and attenuation. No hydronephrosis, hydroureter, or calculi seen. No perinephric stranding. BLADDER: Unremarkable. GASTROINTESTINAL TRACT: The small and large bowel are unremarkable. Normal appendix is not seen but no suspicion around the cecum. Diverticula disease in the sigmoid. No convincing evidence for diverticulitis. ABDOMINAL WALL: No significant hernia is appreciated. LYMPH NODES: Normal. VASCULAR: Unremarkable. PELVIC VISCERA: Unremarkable. OSSEOUS STRUCTURES: Unremarkable. CT/CT abdomen pelvis wo con IMPRESSION: No acute finding. There is diverticulosis here but no evidence for diverticulitis. Dictated By:ALEX MISHRA MDSigned By:<Electronically signed by ALEX MISHRA MD in OV>10/28/20 1822 DD/ [id number]/TT: Visual Display Manager: DELMER Discharge Plan Discharge Clinical Impression: Elevated blood pressure reading with diagnosis of hypertension, Viral gastroenteritis, Lab test negative for COVID-19 virus Patient Disposition: Home, Self-Care Instructions: Gastroenteritis (ED), Chronic Hypertension (ED) Additional Instructions: As discussed, I have sent a prescription for 30 days of lisinopril to your pharmacy. Please be sure to take this medication for your elevated blood pressure, as prescribed. Please also be sure to either switch her insurance to 1 that your current PCP will take or switch your PCP to someone who except your insurance as it is very important that you continue taking the lisinopril and have lab work to make sure is not negatively affecting your kidneys after 3-4 weeks of taking it. Your new PCP will need to do this for you. Please be sure to stay well hydrated either using Pedialyte or low sugar electrolyte drink. If you are unable to tolerate solids or liquids are spike a fever that you cannot control with acetaminophen or ibuprofen, please return to the emergency department. Prescriptions: New lisinopril 20 mg tablet 20 mg PO DAILY Qty: 30 RF: 0 No Action ibuprofen 600 mg tablet 600 mg PO Q8H PRN (Reason: pain) Qty: 20 RF: 0 escitalopram oxalate 20 mg tablet 20 mg PO DAILY RF: 0 tramadol 50 mg tablet 50 mg PO DAILY PRN (Reason: Pain) RF: 0 omeprazole 20 mg capsule,delayed release(DR/EC) 20 mg PO DAILY 30 Days Qty: 30 RF: 6 Stand Alone Forms: Work/School Release Interventions: ED Discharge Assessment Last Done: 10/28/20 20:11 Discharge Date/Time: 10/28/20 20:12
[2020-10-28 18:19] VITALS: BP 191/97; PULSE 77
[2020-10-28] MEDS: Labetalol HCL 100 MG/20 ML VIAL 10 MG IVPUSH (18:19)
[2020-10-28] MEDS: Acetaminophen 325 MG TABLET 650 MG PO (18:31)
[2020-10-28 19:16] VITALS: BP 157/90; PULSE 73; RESP 18; TEMP 37.2; O2SAT 98
[2020-10-28 19:25] VITALS: BP 157/90; PULSE 74
--- NOTE | 2020-10-28 19:26 | PC.NURSE ---
Jo, PA made aware of pt's BP. Per Jo, hold hydralazine, Pt to be DC home. Pt agreeable.
== END 2020-10-28 20:12 | disposition home or self-care (01) ==
PROVIDERS: Emergency Provider Internal Medicine; PCP Internal Medicine
DX: A08.4 Viral intestinal infection, unspecified (principal); I10 Essential (primary) hypertension; Z20.822 Contact with and (suspected) exposure to COVID-19
CPT/HCPCS: 36415; 74176; 80048; 85025; 87635; 96361; 96374; 96375; 99284; J2405

== ENCOUNTER 2020-11-06 13:30 | Emergency (ER) | payer OTHER, SELFPAY ==
--- NOTE | ~2020-11-06 | CT_ITS ---
EXAMINATION: CT ABDOMEN AND PELVIS WITH CONTRAST CLINICAL INFORMATION: Left lower quadrant abdominal pain. COMPARISON: CT of the abdomen and pelvis done on 10/28/2020. TECHNIQUE: Multidetector volumetric images were obtained from the superior aspect of the liver through the pubic symphysis following administration 100 mL of Omnipaque 350 intravenous contrast. Sagittal and coronal reformatted images were obtained on the technologist's workstation. Oral contrast: No This CT examination was performed using dose optimization techniques as appropriate, variously including the following: *Automated exposure control *Adjustment of mA and/or kV according to patient size (this includes techniques or standardized protocols for targeted exams where dose is matched to indication/reason for exam; i.e. extremities or head) *Use of iterative reconstruction technique DLP: 1936 mGy-cm FINDINGS: LUNG BASES: The visualized lung bases are unremarkable. LIVER, GALLBLADDER, AND BILIARY TREE: The liver is normal in size, shape, and attenuation. No focal hepatic lesion or biliary ductal dilatation is present. The gallbladder is unremarkable with no evidence of radiopaque gallstones, gallbladder wall thickening, or obvious pericholecystic inflammatory changes. PANCREAS: Unremarkable. SPLEEN: Unremarkable. ADRENAL GLANDS: Unremarkable. KIDNEYS AND URETERS: The kidneys are normal in size, shape, and attenuation. No hydronephrosis, hydroureter, or calculi seen. No perinephric stranding. BLADDER: Unremarkable. GASTROINTESTINAL TRACT: Colonic diverticulosis with superimposed significant pericolonic inflammatory changes are noted within the distal part of the descending and proximal sigmoid colon consistent with acute diverticulitis. No evidence of any pericolonic abscess formation, perforation or fistula formation or obstruction is seen. The remainder of the large bowel is unremarkable. Nonvisualized appendix. ABDOMINAL WALL: No significant hernia is appreciated. LYMPH NODES: Normal. VASCULAR: Unremarkable. PELVIC VISCERA: Trace amount of free fluid is noted within the dependent part of the pelvis. No evidence of any pelvic mass. No free air. OSSEOUS STRUCTURES: No suspicious focal lesion. CT/CT abdomen pelvis w con IMPRESSION: 1. Abnormal contrast enhanced CT scan of the abdomen and pelvis showing evidence of acute noncomplicated colonic diverticulitis involving the distal descending and proximal sigmoid colon, new since prior study dated 10/28/2020. 2. No other significant change.
[2020-11-06 13:37] VITALS: BP 164/95; PULSE 90; RESP 18; TEMP 36.8; O2SAT 98; BMI 46.6
--- NOTE | 2020-11-06 13:39 | PC.NURSE ---
took cipro and tramadol at home with no relief
[2020-11-06 15:50] LABS: MANUAL DIFF FLAG NO
[2020-11-06 15:51] LABS: Basophils Percent Auto 0.2 % (0-2); Eosinophils Absolute Auto 0.1 X10*3/uL (0.0-0.4); Hemoglobin 11.1 g/dl (12.0-16.0); Imm Gran Abs Auto 0.05 X10*3/uL (0.00-0.03); Imm Gran Pct Auto 0.3 % (0.0-0.4); Lymphocytes Absolute Auto 1.9 X10*3/uL (1.2-4.9); Mean Corpuscular HGB Conc 30.8 g/dl (31.0-35.0); Mean Corpuscular Hemoglobin 25.7 pg (27.0-33.0); Mean Corpuscular Volume 83.3 fL (80-98); Mean Platelet Volume 9.3 fL (9.4-12.3); Monocytes Absolute Auto 1.2 X10*3/uL (0.1-1.2); Monocytes Percent Auto 8.4 % (2-11); Neutrophils Absolute Auto 11.1 X10*3/uL (2.0-8.3); Neutrophils Percent Auto 77.1 % (45-73); Platelet Count 347 X10*3/uL (160-400); Red Blood Count 4.32 X10*6/uL (4.20-5.50); Red Cell Distribution Width 13.8 % (11.0-16.0); White Blood Count 14.4 X10*3/uL (4.8-10.8)
[2020-11-06 16:11] LABS: Alanine Aminotransferase 12 U/L (0-31); Albumin Level 3.7 g/dL (3.5-5.0); Alkaline Phosphatase 104 U/L (39-117); Anion Gap 13 (12-20); Aspartate Amino Transferase 13 U/L (5-31); Bilirubin Total 0.5 mg/dL (0.0-1.0); Blood Urea Nitrogen 7 mg/dL (9-16); Calcium 8.8 mg/dL (8.4-10.2); Carbon Dioxide 25 mmol/L (22-29); Chloride 102 mmol/L (96-108); Creatinine Clr Calc Pharmacy 128.5; Estimated Glomerular Filt Rate > 60; Glucose Random 111 mg/dL (60-115); Potassium 4.5 mmol/L (3.3-5.1); Sodium 135 mmol/L (135-145); Total Protein 7.1 g/dL (6.5-8.0)
--- NOTE | 2020-11-06 16:25 | ED.ABDPAIN ---
HPI - Abdominal Pain General Chief Complaint: Abdominal Pain Stated Complaint: L SIDE PAIN Time Seen by Provider: 11/06/20 16:21 Source: patient Limitations: no limitations History of Present Illness HPI narrative: This is a 50-year-old female with a history of diverticulosis and diverticulitis, who complains of worsened pain in her left lower quadrant for the last few days. The patient had been seen here on October 28 for diarrhea and hypertension and had a CT scan which showed diverticulosis but no diverticulitis. The patient denies any nausea or vomiting. She denies fever. She denies any urinary symptoms. She has had diarrhea recently though it has been improving the last day and today she not have anymore out. Pain is moderately severe, worse with movement. Patient has history of hypertension. Related Data Home Medications Medication Instructions Recorded Confirmed escitalopram oxalate 20 mg tablet 20 mg PO DAILY 06/24/20 10/28/20 tramadol 50 mg tablet 50 mg PO DAILY PRN 07/11/20 10/28/20 Previous Rx's Medication Instructions Recorded ibuprofen 600 mg PO Q8H PRN #20 tab 07/11/20 omeprazole 20 mg capsule,delayed 20 mg PO DAILY 30 Days #30 cap 09/28/20 release lisinopril 20 mg PO DAILY #30 tab 10/28/20 ibuprofen 800 mg PO Q8H PRN #30 tab 11/06/20 levofloxacin 750 mg PO DAILY #7 tab 11/06/20 metronidazole 500 mg PO Q8H #20 tab 11/06/20 oxycodone-acetaminophen [Percocet] 1 tab PO Q6H PRN #12 tab 11/06/20 Allergies Allergy/AdvReac Type Severity Reaction Status Date / Time No Known Allergies Allergy Mild NKA Verified 10/28/20 16:13 Review of Systems Review of Systems Yes all other systems are reviewed and are negative Constitutional: Reports as per HPI and Denies fever(s) Eyes: Reports as per HPI and Reports no additional eye complaints Reports system reviewed and no additional complaints, except as documented, Reports as per HPI, Denies nasal congestion, Denies nasal discharge and Denies sore throat Cardiovascular: Reports as per HPI, Denies chest pain and Denies dyspnea Respiratory: Reports as per HPI, Denies cough and Denies dyspnea Gastrointestinal: Reports as per HPI, Reports abdominal pain, Reports diarrhea (Improved now) and Denies vomiting Genitourinary: Reports as per HPI, Denies hematuria, Denies urinary frequency and Denies dysuria Musculoskeletal: Reports no additional musculoskeletal complaints and Denies numbness Skin/Breast: Reports as per HPI and Denies rash Reports as per HPI, Denies focal weakness, Denies numbness and Denies Sensory deficit (Neuro) Psychiatric: Reports no additional psychiatric complaints and Reports as per HPI Endocrine: Reports no additional endocrine complaints and Reports as per HPI Hematologic/Lymphatic: Reports no additional hematologic/lymphatic complaints, Reports as per HPI and Reports other (No peripheral edema) Physical Exam Vital Signs: Vital Signs: Last Vital Signs Temp 98.2 F 11/06/20 13:37 Pulse 76 11/06/20 17:57 Resp 18 11/06/20 17:57 BP 130/54 L 11/06/20 17:57 Pulse Ox 99 11/06/20 17:57 Body Mass Index 46.6 Const: Other: Patient to bees, not toxic appearing General: cooperative, no acute distress and alert Orientation/consciousness: patient oriented x3 HENMT: Head: Yes normal to inspection Eyes: General: appearance normal, both eyes and all related structures Eyelids: Yes eyelids normal Conjunctivae: conjunctivae normal Pupils: Equal, round and reactive pupils present Neck: Neck: Yes normal visual inspection and Yes supple Chest: Chest palpation & inspection: normal inspection of the chest Resp: Effort & Inspection: normal respiratory effort Auscultation: clear to auscultation bilaterally Cardio: Rate: regular rate Rhythm: regular rhythm Heart sounds: S1 normal heart sound present, S2 normal heart sound present, no gallops, no murmurs and no rubs GI: Palpation (GI): Soft to palpation, Tenderness to palpation present (GI) (Markedly tender left lower quadrant) and Other GI palpation findings present (Non-distended) Skin: General skin exam: no rashes or lesions noted Neuro: General: patient oriented x3, no focal motor deficits and CN's II-XI intact bilaterally Cranial nerves: Yes Equal, round and reactive pupils present Cognition (Neuro): normal cognition Motor exam (neuro): 5/5 motor strength present throughout Sensory Exam: No Sensory deficit (Neuro) Extrem: General: Yes normal to inspection and Yes no pedal edema Psych: Appearance: grossly normal Affect: normal affect MDM - Abdominal Pain MDM Narrative Medical decision making narrative: Patient with history of diverticulosis and diverticulitis, had recent diarrhea, then had worse left lower quadrant pain. Patient had had a CT on October 28 which have not shown diverticulitis, however given her degree of tenderness today, as well as her white blood cell count, I felt CT was necessary to evaluate not only for diverticulitis, but also to rule out abscess or perforation. CT did show diverticulitis, no perforation or abscess. Patient's white blood cell count was elevated at around 14. Patient is being started on Levaquin and Flagyl and pain medicine. Lab Data Result diagrams: 11/06/20 15:41 11/06/20 15:41 Labs: Lab Results 11/06/20 11/06/20 11/06/20 Range/Units 15:41 15:41 17:57 WBC 14.4 H (4.8-10.8) X10*3/uL RBC 4.32 (4.20-5.50) X10*6/uL Hgb 11.1 L (12.0-16.0) g/dl Hct 36.0 L (37-47) % MCV 83.3 (80-98) fL MCH 25.7 L (27.0-33.0) pg MCHC 30.8 L (31.0-35.0) g/dl RDW 13.8 (11.0-16.0) % Plt Count 347 (160-400) X10*3/uL MPV 9.3 L (9.4-12.3) fL Immature Gran % (Auto) 0.3 (0.0-0.4) % Neut % (Auto) 77.1 H (45-73) % Lymph % (Auto) 13.0 L (20-40) % [place] % (Auto) 8.4 (2-11) % Eos % (Auto) 1.0 (0-4) % Baso % (Auto) 0.2 (0-2) % Lymph # (Auto) 1.9 (1.2-4.9) X10*3/uL [place] # (Auto) 1.2 (0.1-1.2) X10*3/uL Eos # (Auto) 0.1 (0.0-0.4) X10*3/uL Baso # (Auto) 0.0 (0.0-0.2) X10*3/uL Abs Immat Gran (auto) 0.05 H (0.00-0.03) X10*3/uL Absolute Neuts (auto) 11.1 H (2.0-8.3) X10*3/uL Absolute Nucleated RBC 0.000 (0.0-0.012) X10*3/uL Nucleated RBC % (auto) 0.0 (0.0-0.2) /100WBC Sodium 135 (135-145) mmol/L Potassium 4.5 D (3.3-5.1) mmol/L Chloride 102 (96-108) mmol/L Carbon Dioxide 25 (22-29) mmol/L Anion Gap 13 (12-20) BUN 7 L (9-16) mg/dL Creatinine 0.82 (0.5-1.4) mg/dL Estim Creat Clear Calc 128.5 Estimated GFR > 60 Random Glucose 111 (60-115) mg/dL Calcium 8.8 (8.4-10.2) mg/dL Total Bilirubin 0.5 (0.0-1.0) mg/dL AST 13 (5-31) U/L ALT 12 (0-31) U/L Alkaline Phosphatase 104 (39-117) U/L Total Protein 7.1 (6.5-8.0) g/dL Albumin 3.7 (3.5-5.0) g/dL Urine Color YELLOW Urine Appearance CLEAR Urine pH 6.0 (5.0-8.0) Ur Specific [place] <= 1.005 (1.005-1.025) Urine Protein NEG (NEG-TRACE) MG/DL Urine Glucose (UA) NEG (NEG) MG/DL Urine Ketones NEG (NEG) MG/DL Urine Blood NEG (NEG) Urine Nitrite NEG (NEG) Ur Leukocyte Esterase NEG (NEG) Urine RBC 0 (0) /HPF Urine WBC 0-2 (0-4) /HPF Ur Squamous Epith Cells 1+ /LPF Urine Bacteria TRACE /LPF Discharge Plan Discharge Clinical Impression: Diverticulitis Patient Disposition: Home, Self-Care Instructions: Diverticulitis (ED), Diverticulitis Diet (ED) Additional Instructions: Drink plenty of fluids. Use the Levaquin and metronidazole as prescribed. Do not use alcohol while on metronidazole. Follow-up with primary care physician. Return for any worsened symptoms such as increased abdominal pain, fever. Use ibuprofen and oxycodone/acetaminophen as prescribed for pain Prescriptions: New ibuprofen 800 mg tablet 800 mg PO Q8H PRN (Reason: pain) Qty: 30 RF: 0 levofloxacin 750 mg tablet 750 mg PO DAILY Qty: 7 RF: 0 metronidazole 500 mg tablet 500 mg PO Q8H Qty: 20 RF: 0 oxycodone-acetaminophen [Percocet] 7.5-325 mg tablet 1 tab PO Q6H PRN (Reason: pain) Qty: 12 RF: 0 No Action ibuprofen 600 mg tablet 600 mg PO Q8H PRN (Reason: pain) Qty: 20 RF: 0 lisinopril 20 mg tablet 20 mg PO DAILY Qty: 30 RF: 0 escitalopram oxalate 20 mg tablet 20 mg PO DAILY RF: 0 tramadol 50 mg tablet 50 mg PO DAILY PRN (Reason: Pain) RF: 0 omeprazole 20 mg capsule,delayed release(DR/EC) 20 mg PO DAILY 30 Days Qty: 30 RF: 6 Stand Alone Forms: Work/School Release Interventions: ED Discharge Assessment Last Done: 11/06/20 18:22 Discharge Date/Time: 11/06/20 18:37 [facility] Past Medical History Medical History Arthropathy of facet joint Diverticulitis Morbid obesity Spondylosis of lumbar region without myelopathy or radiculopathy Surgical History History of incisional hernia repair History of Florentino fundoplication (Unknown) Hx of colonoscopy Family History Family History Mother Hodgkin disease Brother Diabetes Social History Social History Household Members: Significant Other Household Members Other:: partner Alcohol intake: never Patient Tobacco Use Status: Never used Tobacco Advance Directives: No Advance Directives Information Provided: Yes Current occupational status: employed Current occupation: [employer]
[2020-11-06] MEDS: Morphine Sulfate 4 MG/ML CARTRIDGE IVPUSH (16:33)
[2020-11-06] MEDS: ondansetron HCL 4 MG/2 ML VIAL IVPUSH (16:33)
[2020-11-06] MEDS: iohexoL 350 MG/ML 100 ML INFUS..BTL IV (17:15)
[2020-11-06 17:57] VITALS: BP 130/54; PULSE 76; RESP 18; O2SAT 99
[2020-11-06] MEDS: metroNIDAZOLE 500 MG TABLET PO (18:14)
[2020-11-06] MEDS: levoFLOXacin 750 MG TABLET PO (18:14)
[2020-11-06 18:23] LABS: Glucose Urine UA NEG (NEG); Leukocyte Esterase Urine NEG (NEG); Nitrite Urine NEG (NEG); Specific Gravity - Urine <= 1.005 (1.005-1.025); Urine Blood NEG (NEG); Urine Ketones NEG (NEG); Urine Protein NEG (NEG-TRACE)
[2020-11-06 18:26] LABS: Appearance Urine CLEAR; Color Urine YELLOW
[2020-11-06 18:36] LABS: Bacteria Urine TRACE /LPF; RBC Urine 0 /HPF (0); Squamous Epithelial Cell Urine 1+ /LPF; WBC Urine 0-2 /HPF (0-4)
== END 2020-11-06 18:37 | disposition home or self-care (01) ==
PROVIDERS: Emergency Provider Emergency Medicine; PCP Internal Medicine
DX: K57.92 Diverticulitis of intestine, part unspecified, without perforation or abscess without bleeding (principal)
CPT/HCPCS: 36415; 74177; 80053; 81001; 85025; 96374; 96375; 99284; J2270; J2405; Q9967

== ENCOUNTER 2020-11-08 18:37 | Inpatient (IN) | payer OTHER, SELFPAY ==
--- NOTE | ~2020-11-08 | CT_ITS ---
EXAMINATION: CT ABDOMEN AND PELVIS WITH CONTRAST CLINICAL INFORMATION: Abdominal pain with diverticulitis with question of perforation COMPARISON: CT abdomen pelvis 11/06/2020 TECHNIQUE: Multidetector volumetric images were obtained from the superior aspect of the liver through the pubic symphysis following administration 100 mL of Omnipaque 350 intravenous contrast. Sagittal and coronal reformatted images were obtained on the technologist's workstation. Oral contrast: No This CT examination was performed using dose optimization techniques as appropriate, variously including the following: *Automated exposure control *Adjustment of mA and/or kV according to patient size (this includes techniques or standardized protocols for targeted exams where dose is matched to indication/reason for exam; i.e. extremities or head) *Use of iterative reconstruction technique DLP: 1888 mGy-cm FINDINGS: LUNG BASES: The visualized lung bases are unremarkable. LIVER, GALLBLADDER, AND BILIARY TREE: The liver is normal in size, shape, and attenuation. A single linear calcification is present in the liver. No focal hepatic lesion or biliary ductal dilatation is present. The gallbladder is unremarkable with no evidence of radiopaque gallstones, gallbladder wall thickening, or obvious pericholecystic inflammatory changes. PANCREAS: Unremarkable. SPLEEN: Unremarkable. ADRENAL GLANDS: Unremarkable. KIDNEYS AND URETERS: The kidneys are normal in size, shape, and attenuation. No hydronephrosis, hydroureter, or calculi seen. No perinephric stranding. BLADDER: Unremarkable. GASTROINTESTINAL TRACT: Again seen are changes of diverticulitis in the distal descending colon and proximal sigmoid colon and with associated inflammatory changes in the fat surrounding the colon and with small lymph nodes seen in the mesentery. Findings are not significantly worse when compared to the prior study and may be slightly improved. No extraluminal air or or pericolonic abscess is seen. The small and large bowel are otherwise unremarkable. The appendix is unremarkable. ABDOMINAL WALL: There is mild diastases of the rectus muscles with some forward bulging in the supraumbilical region LYMPH NODES: Small retroperitoneal lymph nodes are seen but there is no retroperitoneal lymphadenopathy. VASCULAR: Unremarkable. PELVIC VISCERA: An anteverted uterus is present. An abnormal adnexal mass or free intraperitoneal fluid is not seen. A small 1.2 cm adnexal cyst is seen which was not noted on the prior study (3:77). OSSEOUS STRUCTURES: Unremarkable. CT/CT abdomen pelvis w con IMPRESSION: Colonic diverticulitis at the junction of the descending and sigmoid colon. Inflammatory changes appear slightly improved when compared to the prior study and there certainly has been no progression of disease with perforation or pericolonic abscess. Other incidental findings as described above.
[2020-11-08 20:13] VITALS: BP 176/103; PULSE 81; RESP 16; TEMP 37.1; O2SAT 99; BMI 46.2
[2020-11-08 21:46] VITALS: BP 189/90; PULSE 74; RESP 16; TEMP 36.8; O2SAT 100
[2020-11-08 22:10] LABS: MANUAL DIFF FLAG NO
[2020-11-08 22:12] LABS: Basophils Percent Auto 0.1 % (0-2); Eosinophils Absolute Auto 0.1 X10*3/uL (0.0-0.4); Eosinophils Percent Auto 1.5 % (0-4); Hematocrit 35.2 % (37-47); Hemoglobin 11.4 g/dl (12.0-16.0); Imm Gran Abs Auto 0.02 X10*3/uL (0.00-0.03); Imm Gran Pct Auto 0.2 % (0.0-0.4); Lymphocytes Absolute Auto 1.9 X10*3/uL (1.2-4.9); Lymphocytes Percent Auto 20.6 % (20-40); Mean Corpuscular HGB Conc 32.4 g/dl (31.0-35.0); Mean Corpuscular Hemoglobin 26.8 pg (27.0-33.0); Mean Corpuscular Volume 82.8 fL (80-98); Mean Platelet Volume 9.1 fL (9.4-12.3); Monocytes Absolute Auto 0.6 X10*3/uL (0.1-1.2); Monocytes Percent Auto 6.8 % (2-11); Neutrophils Absolute Auto 6.6 X10*3/uL (2.0-8.3); Neutrophils Percent Auto 70.8 % (45-73); Platelet Count 374 X10*3/uL (160-400); Red Blood Count 4.25 X10*6/uL (4.20-5.50); Red Cell Distribution Width 13.5 % (11.0-16.0); White Blood Count 9.4 X10*3/uL (4.8-10.8)
[2020-11-08 22:14] VITALS: BP 176/76; PULSE 77; RESP 20; O2SAT 97
[2020-11-08 22:34] LABS: Lactic Acid 0.8 mmol/L (0.5-2.0)
[2020-11-08 22:39] LABS: Alanine Aminotransferase 17 U/L (0-31); Albumin Level 3.9 g/dL (3.5-5.0); Alkaline Phosphatase 96 U/L (39-117); Anion Gap 13 (12-20); Aspartate Amino Transferase 15 U/L (5-31); Bilirubin Total 0.3 mg/dL (0.0-1.0); Blood Urea Nitrogen 7 mg/dL (9-16); Calcium 9.2 mg/dL (8.4-10.2); Carbon Dioxide 26 mmol/L (22-29); Chloride 103 mmol/L (96-108); Creatinine Clr Calc Pharmacy 127.8; Estimated Glomerular Filt Rate > 60; Glucose Random 108 mg/dL (60-115); Potassium 4.2 mmol/L (3.3-5.1); Sodium 138 mmol/L (135-145); Total Protein 7.4 g/dL (6.5-8.0)
--- NOTE | 2020-11-08 23:21 | ED.GENADULT ---
HPI - General Adult General Chief complaint: Abdominal Pain Stated complaint: Abd Pain Time Seen by Provider: 11/08/20 22:44 Source: patient Mode of arrival: ambulatory Limitations: no limitations History of Present Illness HPI narrative: 42-year-old female who presents emergency department for evaluation of abdominal pain nausea, vomiting and fever. The patient was seen recently in the emergency department on 11/06/2020 and diagnosed with distal descending and sigmoid colon diverticulitis. The patient was treated with Levaquin and Flagyl Orally. She states that today, she had increased pain in her left lower quadrant area of her abdomen. The pain is a constant, sharp pain which is 9/10. The pain is worse with movement. She states that at noon alab Today, she had a fever of 101. she was able to take her morning Levaquin and Flagyl but was not able to eat or drink throughout the rest of the day. She states that she has had no bowel movement in 2 days. She denies feeling distended. The patient states that she has had 4 episodes of diverticulitis over the past 2 months. She had a colonoscopy done in July of 2020 was told that she has extensive left-sided diverticulitis up to the splenic flexure. past surgical history significant for appendectomy, Florentino fundoplication, hernia repair with mesh. Related Data Home Medications Medication Instructions Recorded Confirmed escitalopram oxalate 20 mg tablet 20 mg PO DAILY 06/24/20 10/28/20 tramadol 50 mg tablet 50 mg PO DAILY PRN 07/11/20 10/28/20 Previous Rx's Medication Instructions Recorded ibuprofen 600 mg PO Q8H PRN #20 tab 07/11/20 omeprazole 20 mg capsule,delayed 20 mg PO DAILY 30 Days #30 cap 09/28/20 release lisinopril 20 mg PO DAILY #30 tab 10/28/20 ibuprofen 800 mg PO Q8H PRN #30 tab 11/06/20 levofloxacin 750 mg PO DAILY #7 tab 11/06/20 metronidazole 500 mg PO Q8H #20 tab 11/06/20 oxycodone-acetaminophen [Percocet] 1 tab PO Q6H PRN #12 tab 11/06/20 Allergies Allergy/AdvReac Type Severity Reaction Status Date / Time No Known Allergies Allergy Mild NKA Verified 11/08/20 20:12 Review of Systems Review of Systems: Yes all other systems are reviewed and are negative Neurologic: Reports Abnormal speech present [facility] Past Medical History [facility] Narrative: Past medical history: Hypertension, obesity. Past surgical history: Florentino fundoplication, appendectomy, hernia repair with mesh. Social history : She denies tobacco, alcohol and drug use. Medical History Arthropathy of facet joint Diverticulitis Morbid obesity Spondylosis of lumbar region without myelopathy or radiculopathy Surgical History History of incisional hernia repair History of Florentino fundoplication (Unknown) Hx of colonoscopy Family History Family History Mother Hodgkin disease Brother Diabetes Social History Social History Household Members: Significant Other Household Members Other:: partner Alcohol intake: never Patient Tobacco Use Status: Never used Tobacco Advance Directives: No Advance Directives Information Provided: Yes Current occupational status: employed Current occupation: [employer] Physical Exam Vital Signs: Vital Signs: Last Vital Signs Temp 98.3 F 11/08/20 21:46 Pulse 77 11/08/20 22:14 Resp 16 11/09/20 00:59 BP 176/76 H 11/08/20 22:14 Pulse Ox 97 11/08/20 22:14 Body Mass Index 46.2 Const: Other: Very pleasant and cooperative female, she does appear to be in distress secondary to her pain. HENMT: Head: Yes normal to inspection, Yes normocephalic and Yes atraumatic Ears: external ears normal General nose exam: Normal external nose present Face and sinus: Yes normal facial exam Mouth: Normal oral and palatal mucosa present Throat: Yes posterior oropharynx normal Eyes: Periorbital: periorbital findings normal Eyelids: Yes eyelids normal Conjunctivae: conjunctivae normal Sclerae: sclerae normal Corneas: corneas normal Pupils: Equal, round and reactive pupils present Direct Ophthalmoscopy: normal light reflex Neck: Neck: Yes full ROM, Yes no lymphadenopathy, Yes no meningeal signs, Yes trachea midline and Yes supple Chest: Chest palpation & inspection: normal inspection of the chest and normal palpation of entire chest wall Resp: Effort & Inspection: normal respiratory effort and able to speak in complete sentences Auscultation: clear to auscultation bilaterally Cardio: Rate: regular rate Rhythm: regular rhythm Heart sounds: S1 normal heart sound present, S2 normal heart sound present and no murmurs GI: Inspection: Yes obesity Palpation (GI): Soft to palpation, Tenderness to palpation present (GI) in the epigastrum ( Moderate), in the LLQ ( moderate to severe) and in the LUQ ( moderate), no guarding, not rigid and No hepatosplenomegaly present : General: Yes no CVA tenderness Back/Spine/Pelvis: Back: no CVA tenderness Cervical Spine: normal cervical lordosis Thoracic/Lumbar Spine: thoracic and lumbar spine normal to inspection Skin: Lesions: no lesions Rashes: no rashes Wounds: no wounds Neuro: General: no meningeal signs Cranial nerves: Yes CN's II-XII intact bilaterally and Yes Equal, round and reactive pupils present Speech: Abnormal speech present Motor exam (neuro): 5/5 motor strength present throughout Extrem: General: Yes normal to inspection and Yes full ROM Psych: Appearance: well kempt Mental Status: mental status grossly normal Speech and movement: Normal speech and movement present Affect: normal affect Attitude: cooperative Thought process: Normal thought process present Thought content: Normal thought content present Course Course Course Narrative: 50-year-old female who was recently diagnosed with distal descending and sigmoid colon diverticulitis on 11/06/2020 was been taking oral Levaquin and metronidazole who presents emergency department with increased left-sided abdominal pain, nausea, vomiting and inability eat or drink since this morning. The patient's physical examination did reveal left-sided abdominal tenderness. Laboratory evaluation revealed a normal CBC, CMP and negative urinalysis. My impression is that the patient has failed outpatient oral therapy therefore I ordered Zosyn 4.5 g IV. She also ordered to get morphine 4 mg IV, Zofran 4 mg IV and normal saline 1 L IV. I will discuss the patient's presentation with the covering surgeon. 2340: I did discuss the patient's presentation with Dr. Blackman. after this discussion, I did order a CT scan of the abdomen pelvis with IV contrast to further evaluate patient's diverticulitis. 0103: The CT scan of the patient's abdomen pelvis with IV contrast revealed colonic diverticulitis at the junction of the descending and sigmoid colon with slight improvement compared to the previous study with no progression of disease, perforation or pericolonic abscess. The patient is feeling better after receiving IV morphine. I will discuss these findings with the covering general surgeon. 0136: I did discuss the patient's presentation with Dr. Blackman and the patient will be admitted for further treatment. The patient's pain is coming back therefore I ordered morphine 4 mg IV. Medical Decision Making Lab Data Result diagrams: 11/08/20 22:05 11/08/20 22:05 Labs: Lab Results 11/08/20 11/08/20 11/08/20 Range/Units 22:05 22:05 22:05 WBC 9.4 (4.8-10.8) X10*3/uL RBC 4.25 (4.20-5.50) X10*6/uL Hgb 11.4 L (12.0-16.0) g/dl Hct 35.2 L (37-47) % MCV 82.8 (80-98) fL MCH 26.8 L (27.0-33.0) pg MCHC 32.4 (31.0-35.0) g/dl RDW 13.5 (11.0-16.0) % Plt Count 374 (160-400) X10*3/uL MPV 9.1 L (9.4-12.3) fL Immature Gran % (Auto) 0.2 (0.0-0.4) % Neut % (Auto) 70.8 (45-73) % Lymph % (Auto) 20.6 (20-40) % [place] % (Auto) 6.8 (2-11) % Eos % (Auto) 1.5 (0-4) % Baso % (Auto) 0.1 (0-2) % Lymph # (Auto) 1.9 (1.2-4.9) X10*3/uL [place] # (Auto) 0.6 (0.1-1.2) X10*3/uL Eos # (Auto) 0.1 (0.0-0.4) X10*3/uL Baso # (Auto) 0.0 (0.0-0.2) X10*3/uL Abs Immat Gran (auto) 0.02 (0.00-0.03) X10*3/uL Absolute Neuts (auto) 6.6 (2.0-8.3) X10*3/uL Absolute Nucleated RBC 0.000 (0.0-0.012) X10*3/uL Nucleated RBC % (auto) 0.0 (0.0-0.2) /100WBC Sodium 138 (135-145) mmol/L Potassium 4.2 (3.3-5.1) mmol/L Chloride 103 (96-108) mmol/L Carbon Dioxide 26 (22-29) mmol/L Anion Gap 13 (12-20) BUN 7 L (9-16) mg/dL Creatinine 0.82 (0.5-1.4) mg/dL Estim Creat Clear Calc 127.8 Estimated GFR > 60 Random Glucose 108 (60-115) mg/dL Lactic Acid 0.8 (0.5-2.0) mmol/L Calcium 9.2 (8.4-10.2) mg/dL Total Bilirubin 0.3 (0.0-1.0) mg/dL AST 15 (5-31) U/L ALT 17 (0-31) U/L Alkaline Phosphatase 96 (39-117) U/L Total Protein 7.4 (6.5-8.0) g/dL Albumin 3.9 (3.5-5.0) g/dL Lipase 12 (8-78) U/L Discharge Plan Discharge Clinical Impression: Acute diverticulitis Patient Disposition: Admitted As Inpatient Prescriptions: No Action ibuprofen 600 mg tablet 600 mg PO Q8H PRN (Reason: pain) Qty: 20 RF: 0 lisinopril 20 mg tablet 20 mg PO DAILY Qty: 30 RF: 0 ibuprofen 800 mg tablet 800 mg PO Q8H PRN (Reason: pain) Qty: 30 RF: 0 levofloxacin 750 mg tablet 750 mg PO DAILY Qty: 7 RF: 0 metronidazole 500 mg tablet 500 mg PO Q8H Qty: 20 RF: 0 oxycodone-acetaminophen [Percocet] 7.5-325 mg tablet 1 tab PO Q6H PRN (Reason: pain) Qty: 12 RF: 0 escitalopram oxalate 20 mg tablet 20 mg PO DAILY RF: 0 tramadol 50 mg tablet 50 mg PO DAILY PRN (Reason: Pain) RF: 0 omeprazole 20 mg capsule,delayed release(DR/EC) 20 mg PO DAILY 30 Days Qty: 30 RF: 6
[2020-11-08 23:36] LABS: Lipase 12 U/L (8-78)
[2020-11-08] MEDS: ondansetron HCL 4 MG/2 ML VIAL IVPUSH (23:45)
[2020-11-08 23:47] VITALS: RESP 16
[2020-11-08] MEDS: Morphine Sulfate 4 MG/ML CARTRIDGE IVPUSH (23:47)
[2020-11-08] MEDS: 0.9 % Sodium Chloride 1,000 ML 999 ML IV (23:51)
[2020-11-08] MEDS: Piperacillin Sodium/Tazobactam 4.5 GM in 0.9 % Sodium Chloride 100 ML IV (23:56)
[2020-11-09] VITALS (10 sets, daily range): BP systolic 136–196; BP diastolic 73–97; PULSE 63–76; RESP 12–20; TEMP 36.1–36.6; O2SAT 96–98
[2020-11-09] MEDS: iohexoL 350 MG/ML 100 ML INFUS..BTL IV (00:19)
[2020-11-09] MEDS: Morphine Sulfate 4 MG/ML CARTRIDGE IVPUSH ×4 (01:52→23:06)
[2020-11-09] MEDS: Dextrose 5 % and Lactated Ring 1,000 ML 100 ML IVCONT ×4 (02:19→22:56)
[2020-11-09 04:52] LABS: Glucose Urine UA NEG (NEG); Leukocyte Esterase Urine NEG (NEG); Nitrite Urine NEG (NEG); PH 6.5 (5.0-8.0); Urine Blood NEG (NEG); Urine Ketones NEG (NEG); Urine Protein NEG (NEG-TRACE)
[2020-11-09 04:53] LABS: Appearance Urine CLEAR; Color Urine YELLOW
[2020-11-09 05:38] LABS: COVID-19 Test Negative (Negative)
[2020-11-09] MEDS: Escitalopram Oxalate 20 MG TABLET PO (07:18)
[2020-11-09] MEDS: Enoxaparin Sodium 40 MG/0.4 ML SYRINGE SUBCUT (07:19)
[2020-11-09] MEDS: Piperacillin Sodium/Tazobactam 3.375 GM in 0.9 % Sodium Chloride 50 ML IV ×3 (07:19→18:00)
[2020-11-09] MEDS: lisinopriL 20 MG TABLET PO (07:20)
[2020-11-09] MEDS: Omeprazole 20 MG CAPSULE.DR PO (07:20)
--- NOTE | 2020-11-09 09:14 | PM.HPGS ---
History of Present Illness History of Present Illness Date of Service: 11/09/20 Chief complaint: Diverticulitis Narrative: Anjali Bah is a 50 year old female with complaints of abdominal pain in the left lower quadrant, previously diagnosed with sigmoid diverticulitis. She reports 3 previous episodes of diverticulitis which required oral antibiotics. After the start of the current episode, she was started on Levaquin and flagyl without improvement in her symptoms. She reports a fever of 100.5 yesterday. She presented to the ED because of the persistent pain. WBC was normal but CT did confirm sigmoid diverticulitis. SHe is admitted to the surgical service for IV antibiotics. Previous surgical history is significant for open Florentino Fundoplication. She later developed an incisional hernia which required a large mesh repair. Review of Systems Review of Systems: Yes all other systems are reviewed and are negative Constitutional: Constitutional: Reports anorexia, Reports difficulty sleeping and Reports fever(s) Cardiovascular: Cardiovascular: Reports no additional cardiovascular complaints Respiratory: Respiratory: Reports no additional respiratory complaints Gastrointestinal: Gastrointestinal: Reports as per HPI, Reports abdominal pain, Reports bloating, Reports constipation and Reports nausea Hematologic/Lymphatic: Hematologic/Lymphatic: Reports no additional hematologic/lymphatic complaints and Denies lymphadenopathy PMFSH Past Medical History Medical History Arthropathy of facet joint Diverticulitis Morbid obesity Spondylosis of lumbar region without myelopathy or radiculopathy Family History Family History Mother Hodgkin disease Brother Diabetes Surgical History Surgical History History of incisional hernia repair History of Florentino fundoplication (Unknown) Hx of colonoscopy Social History Social History Household Members: Significant Other Household Members Other:: partner Alcohol intake: never Patient Tobacco Use Status: Never used Tobacco Advance Directives: No Advance Directives Information Provided: Yes service: No Current occupational status: unemployed Current occupation: [employer] Allergies Allergy/AdvReac Type Severity Reaction Status Date / Time No Known Allergies Allergy Mild NKA Verified 11/08/20 20:12 Active Medications: Current Medications Generic Name Dose Route Start Last Admin Trade Name Soco PRN Reason Stop Dose Admin Acetaminophen 650 mg 11/09/20 01:54 Acetaminophen 325 Mg Tablet PO Q6H PRN Fever Enoxaparin Sodium 40 mg 11/09/20 09:00 11/09/20 07:19 Enoxaparin Sodium 40 Mg/0.4 Ml Syringe SUBCUT 40 mg DAILY SHAMIR Administration Escitalopram Oxalate 20 mg 11/09/20 09:00 Escitalopram Oxalate 20 Mg Tablet PO DAILY SHAMIR Piperacillin Sod/Tazobactam 50 mls @ 100 mls/hr 11/09/20 06:00 11/09/20 07:19 Sod 3.375 gm/ Sodium Chloride IV 100 mls/hr Q6H SHAMIR Administration Dextrose/Lactated Ringer's 1,000 mls @ 100 mls/hr 11/09/20 01:54 11/09/20 02:19 D5lr IVCONT 100 mls/hr .Q10H SHAMIR Administration Lisinopril 20 mg 11/09/20 09:00 11/09/20 07:20 Lisinopril 20 Mg Tablet PO 20 mg DAILY SHAMIR Administration Protocol Morphine Sulfate 4 mg 11/09/20 01:54 Morphine Sulfate 4 Mg/Ml Cartridge IVPUSH Q3H PRN Pain, severe Omeprazole 20 mg 11/09/20 07:00 11/09/20 07:20 Omeprazole 20 Mg Capsule.Dr PO 20 mg DAILY@0630 [facility] Administration Ondansetron HCl 4 mg 11/09/20 01:54 Ondansetron Hcl 4 Mg/2 Ml Vial IVPUSH Q8H PRN Nausea Oxycodone HCl 10 mg 11/09/20 01:54 Oxycodone Hcl Immed Release 5 Mg Tablet PO Q4H PRN Pain, Severe (Pain Scale 7-10) Home Medications Medication Instructions Recorded Confirmed Last Taken Type escitalopram oxalate 20 mg tablet 20 mg PO DAILY 06/24/20 11/09/20 2 Days Ago History ~11/07/20 tramadol 50 mg tablet 50 mg PO DAILY PRN 07/11/20 11/09/20 Unknown History Physical Exam Vital Signs: Vital Signs: Last Vital Signs Temp 98.3 F 11/08/20 21:46 Pulse 70 11/09/20 07:20 Resp 16 11/09/20 03:23 BP 160/85 H 11/09/20 07:20 Pulse Ox 97 11/09/20 02:47 Body Mass Index 46.2 Const: General: cooperative, alert and awake; No comfortable Nutritional Appearance: obese Orientation/consciousness: patient oriented x3 Limitations: no limitations Neck: Neck: Yes normal visual inspection and Yes full ROM Resp: Effort & Inspection: normal respiratory effort, no cough and not labored GI: Inspection: Yes Abdominal panniculus present Palpation (GI): Soft to palpation, Tenderness to palpation present (GI) in the LLQ and no guarding Percussion: Yes normal to percussion Rectal Exam - Female: deferred Skin: General skin exam: no rashes or lesions noted Neuro: General: patient oriented x3 Extrem: General: Yes no clubbing, cyanosis or edema Results Results Labs: Short CBC 11/08/20 Range/Units 22:05 WBC 9.4 (4.8-10.8) X10*3/uL Hgb 11.4 L (12.0-16.0) g/dl Hct 35.2 L (37-47) % Plt Count 374 (160-400) X10*3/uL BMP 11/08/20 22:05 Sodium 138 Potassium 4.2 Chloride 103 Carbon Dioxide 26 BUN 7 L Creatinine 0.82 Calcium 9.2 Liver Function 11/08/20 Range/Units 22:05 Total Bilirubin 0.3 (0.0-1.0) mg/dL AST 15 (5-31) U/L ALT 17 (0-31) U/L Alkaline Phosphatase 96 (39-117) U/L Albumin 3.9 (3.5-5.0) g/dL Urine 11/09/20 Range/Units 04:46 Urine Color YELLOW Urine Appearance CLEAR Urine pH 6.5 (5.0-8.0) Ur Specific [place] 1.010 (1.005-1.025) Urine Protein NEG (NEG-TRACE) MG/DL Urine Glucose (UA) NEG (NEG) MG/DL Assessment and Plan (1) Acute diverticulitis: Status: Acute 50 year old female presenting with recurrent episode of abdominal pain in the left lower quadrant found to have acute sigmoid diverticulitis. She complains of persistent pain although WBC is normal. Will admit for IV antibiotics and follow clinical exam. If no improvement, may require resection. Patient underwent several abdominal procedures including Florentino and hernia repair with mesh making surgical exploration more difficult. Quality Stroke Does the patient have a stroke diagnosis?: No VTE Prior VTE?: No VTE Risk Level:: Surgical - moderate VTE Device Contraindication: N/A - Device Ordered VTE Drug Contraindication: N/A - Med Ordered Procedures Date of Service Date of Service: 11/09/20
--- NOTE | 2020-11-09 10:00 | MHC.CM.PN ---
pt lives c her s.o. in their home. she reports that she is independent in her care but that if she needs help then her s.o. can help her, this [place] pt denies the need for AD c ambulation. pt also denies the need for vna at [place] dc plan is home no svcs. cm to cont. to follow.
--- NOTE | 2020-11-09 12:54 | PC.NURSE ---
REPORT GIVEN TO LAURA
--- NOTE | 2020-11-09 12:58 | PC.NURSE ---
pt sleeping and easily woken, sr on monitor, alert, speech clear, pt informed that pt can have a pt eval now
[2020-11-10] MEDS: Piperacillin Sodium/Tazobactam 3.375 GM in 0.9 % Sodium Chloride 50 ML IV ×4 (00:03→19:01)
[2020-11-10] MEDS: ondansetron HCL 4 MG/2 ML VIAL IVPUSH (01:57)
[2020-11-10 03:04] VITALS: BP 146/64; PULSE 56; RESP 15; TEMP 36.6; O2SAT 94
[2020-11-10] MEDS: Omeprazole 20 MG CAPSULE.DR PO (05:52)
[2020-11-10] MEDS: Morphine Sulfate 4 MG/ML CARTRIDGE IVPUSH ×3 (05:56→22:25)
[2020-11-10] MEDS: Escitalopram Oxalate 20 MG TABLET PO (07:51)
[2020-11-10] MEDS: lisinopriL 20 MG TABLET PO (07:51)
[2020-11-10] MEDS: Enoxaparin Sodium 40 MG/0.4 ML SYRINGE SUBCUT (07:52)
[2020-11-10] MEDS: oxyCODONE HCl Immed Release 5 MG TABLET 10 MG PO ×3 (07:55→19:09)
[2020-11-10] MEDS: Dextrose 5 % and Lactated Ring 1,000 ML 100 ML IVCONT ×2 (07:57→19:01)
[2020-11-10 08:00] VITALS: BP 164/73; PULSE 62; RESP 17; TEMP 36.6; O2SAT 98
[2020-11-10 12:00] VITALS: BP 165/81; PULSE 62; RESP 16; TEMP 36.1; O2SAT 99
[2020-11-10 14:48] VITALS: BP 134/80; PULSE 60; RESP 17; TEMP 36.6; O2SAT 97
--- NOTE | 2020-11-10 15:29 | PM.PNGS ---
Subjective Subjective Date of Service: 11/10/20 Physical Exam Vital Signs: Vital Signs: Last Vital Signs Temp 97.9 F 11/10/20 14:48 Pulse 60 11/10/20 14:48 Resp 17 11/10/20 14:48 BP 134/80 11/10/20 14:48 Pulse Ox 97 11/10/20 14:48 Body Mass Index 46.2 Const: General: cooperative and comfortable Nutritional Appearance: well nourished Orientation/consciousness: patient oriented x3 Limitations: no limitations Resp: Effort & Inspection: normal respiratory effort GI: Inspection: Yes normal to inspection Palpation (GI): Soft to palpation and Tenderness to palpation present (GI) in the LLQ Percussion: Yes normal to percussion Auscultation: normal bowel sounds Neuro: General: patient oriented x3 Extrem: General: Yes capillary refill normal and Yes no clubbing, cyanosis or edema Progress Note: A&P Assessment and plan (1) Acute diverticulitis: Status: Acute Assessment and Plan: Patient is improving with the IV antibiotics. I discussed the possibilty of an elective sigmoid colectomy once the current episode has resolved to reduce the chances of a recurrent episode. On the other hand, if she does not improve, surgery may need to be performed on this admission and may include a colostomy. She expressed understanding and agrees with the plan. Fall Risk Details Current Medications: Current Medications Generic Name Dose Route Start Last Admin Trade Name Freq PRN Reason Stop Dose Admin Acetaminophen 650 mg 11/09/20 01:54 Acetaminophen 325 Mg Tablet PO Q6H PRN Fever Enoxaparin Sodium 40 mg 11/09/20 09:00 11/10/20 07:52 Enoxaparin Sodium 40 Mg/0.4 Ml Syringe SUBCUT 40 mg DAILY SHAMIR Administration Escitalopram Oxalate 20 mg 11/09/20 09:00 11/10/20 07:51 Escitalopram Oxalate 20 Mg Tablet PO 20 mg DAILY SHAMIR Administration Piperacillin Sod/Tazobactam 50 mls @ 100 mls/hr 11/09/20 06:00 11/10/20 12:40 Sod 3.375 gm/ Sodium Chloride IV Infused Q6H SHAMIR Infusion Dextrose/Lactated Ringer's 1,000 mls @ 100 mls/hr 11/09/20 01:54 11/10/20 12:37 D5lr IVCONT 100 mls/hr .Q10H SHAMIR Infusion Lisinopril 20 mg 11/09/20 09:00 11/10/20 07:51 Lisinopril 20 Mg Tablet PO 20 mg DAILY SHAMIR Administration Protocol Morphine Sulfate 4 mg 11/09/20 01:54 11/10/20 05:56 Morphine Sulfate 4 Mg/Ml Cartridge IVPUSH 4 mg Q3H PRN Administration Pain, severe Omeprazole 20 mg 11/09/20 07:00 11/10/20 05:52 Omeprazole 20 Mg Capsule.Dr PO 20 mg DAILY@0630 SHAMIR Administration Ondansetron HCl 4 mg 11/09/20 01:54 11/10/20 01:57 Ondansetron Hcl 4 Mg/2 Ml Vial IVPUSH 4 mg Q8H PRN Administration Nausea Oxycodone HCl 10 mg 11/09/20 01:54 11/10/20 12:44 Oxycodone Hcl Immed Release 5 Mg Tablet PO 10 mg Q4H PRN Administration Pain, Severe (Pain Scale 7-10) Time Spent With Patient Time: Total time spent is greater than 50% in coordination of care (as documented) at patient's floor/unit and/or counseling patient: Time with patient: 15 - 24 minutes Procedures Date of Service Date of Service: 11/10/20 Quality Stroke Does the patient have a stroke diagnosis?: No VTE Prior VTE?: No VTE Risk Level:: Surgical - moderate VTE Device Contraindication: N/A - Device Ordered VTE Drug Contraindication: N/A - Med Ordered
[2020-11-10 19:11] VITALS: BP 138/78; PULSE 70; RESP 16; TEMP 36.4; O2SAT 96
[2020-11-11] VITALS (9 sets, daily range): BP systolic 143–186; BP diastolic 68–92; PULSE 48–75; RESP 14–18; TEMP 36.2–36.7; O2SAT 95–98
[2020-11-11] MEDS: Acetaminophen 325 MG TABLET 650 MG PO ×2 (00:37→12:17)
[2020-11-11] MEDS: Piperacillin Sodium/Tazobactam 3.375 GM in 0.9 % Sodium Chloride 50 ML IV ×5 (00:37→22:57)
[2020-11-11] MEDS: oxyCODONE HCl Immed Release 5 MG TABLET 10 MG PO ×4 (01:23→18:25)
[2020-11-11] MEDS: Dextrose 5 % and Lactated Ring 1,000 ML 100 ML IVCONT (05:01)
[2020-11-11] MEDS: Morphine Sulfate 4 MG/ML CARTRIDGE IVPUSH ×3 (05:32→22:57)
[2020-11-11] MEDS: Omeprazole 20 MG CAPSULE.DR PO (05:32)
--- NOTE | 2020-11-11 07:24 | PM.PNGS ---
Subjective Subjective Date of Service: 11/11/20 Interval history: Reports some nausea and crampy pain after eating; having loose stool now. Pain is 4/10. She was able to eat all her meal last night. Physical Exam Vital Signs: Vital Signs: Last Vital Signs Temp 98.1 F 11/11/20 07:16 Pulse 58 11/11/20 07:16 Resp 18 11/11/20 07:16 BP 178/81 H 11/11/20 07:16 Pulse Ox 95 11/11/20 07:16 Body Mass Index 46.2 Const: General: healthy appearing, no acute distress and well developed Nutritional Appearance: well nourished Orientation/consciousness: patient oriented x3 Resp: Effort & Inspection: normal respiratory effort GI: Palpation (GI): Soft to palpation, Tenderness to palpation present (GI) in the LLQ; with no rebound tenderness, no guarding, not rigid and no masses Percussion: Yes normal to percussion Skin: General skin exam: no rashes or lesions noted Neuro: General: patient oriented x3 Extrem: General: Yes no clubbing, cyanosis or edema Progress Note: A&P Assessment and plan (1) Acute diverticulitis: Status: Acute Assessment and Plan: Overall patient is much improved with decreased pain, now passing loose stool. Abdomen is soft but tender in the LLQ without rebound or guarding. Will continue with IV antibiotics for another day and anticipate discharge on oral antibiotics in AM if continued improvement. Fall Risk Details Current Medications: Current Medications Generic Name Dose Route Start Last Admin Trade Name Freq PRN Reason Stop Dose Admin Acetaminophen 650 mg 11/09/20 01:54 11/11/20 00:37 Acetaminophen 325 Mg Tablet PO 650 mg Q6H PRN Administration Fever Enoxaparin Sodium 40 mg 11/09/20 09:00 11/10/20 07:52 Enoxaparin Sodium 40 Mg/0.4 Ml Syringe SUBCUT 40 mg DAILY SHAMIR Administration Escitalopram Oxalate 20 mg 11/09/20 09:00 11/10/20 07:51 Escitalopram Oxalate 20 Mg Tablet PO 20 mg DAILY SHAMIR Administration Piperacillin Sod/Tazobactam 50 mls @ 100 mls/hr 11/09/20 06:00 11/11/20 06:06 Sod 3.375 gm/ Sodium Chloride IV Infused Q6H SHAMIR Infusion Dextrose/Lactated Ringer's 1,000 mls @ 100 mls/hr 11/09/20 01:54 11/11/20 05:01 D5lr IVCONT 100 mls/hr .Q10H SHAMIR Administration Lisinopril 20 mg 11/09/20 09:00 11/10/20 07:51 Lisinopril 20 Mg Tablet PO 20 mg DAILY SHAMIR Administration Protocol Morphine Sulfate 4 mg 11/09/20 01:54 11/11/20 05:32 Morphine Sulfate 4 Mg/Ml Cartridge IVPUSH 4 mg Q3H PRN Administration Pain, severe Omeprazole 20 mg 11/09/20 07:00 11/11/20 05:32 Omeprazole 20 Mg Capsule.Dr PO 20 mg DAILY@0630 SHAMIR Administration Ondansetron HCl 4 mg 11/09/20 01:54 11/10/20 01:57 Ondansetron Hcl 4 Mg/2 Ml Vial IVPUSH 4 mg Q8H PRN Administration Nausea Oxycodone HCl 10 mg 11/09/20 01:54 11/11/20 01:23 Oxycodone Hcl Immed Release 5 Mg Tablet PO 10 mg Q4H PRN Administration Pain, Severe (Pain Scale 7-10) Time Spent With Patient Time: Total time spent is greater than 50% in coordination of care (as documented) at patient's floor/unit and/or counseling patient: Time with patient: 15 - 24 minutes Procedures Date of Service Date of Service: 11/11/20 Quality Stroke Does the patient have a stroke diagnosis?: No VTE Prior VTE?: No VTE Risk Level:: Surgical - moderate VTE Device Contraindication: N/A - Device Ordered VTE Drug Contraindication: N/A - Med Ordered
[2020-11-11] MEDS: Enoxaparin Sodium 40 MG/0.4 ML SYRINGE SUBCUT (07:41)
[2020-11-11] MEDS: lisinopriL 20 MG TABLET PO (07:41)
[2020-11-11] MEDS: Escitalopram Oxalate 20 MG TABLET PO (07:41)
[2020-11-12 03:25] VITALS: BP 139/73; PULSE 75; RESP 16; TEMP 36.1; O2SAT 98
[2020-11-12] MEDS: oxyCODONE HCl Immed Release 5 MG TABLET 10 MG PO ×2 (05:00→09:46)
[2020-11-12] MEDS: Omeprazole 20 MG CAPSULE.DR PO (05:01)
[2020-11-12] MEDS: Acetaminophen 325 MG TABLET 650 MG PO (05:01)
[2020-11-12] MEDS: Piperacillin Sodium/Tazobactam 3.375 GM in 0.9 % Sodium Chloride 50 ML IV (05:04)
[2020-11-12 07:28] VITALS: BP 123/61; PULSE 62; RESP 16; TEMP 36; O2SAT 97
--- NOTE | 2020-11-12 08:34 | PM.PNGS ---
Subjective Subjective Date of Service: 11/12/20 Interval history: Patient feels improved but does report several episodes of diarrhea during the night which kept her up. She feels the abdominal pain is improved. She is able to tolerate a diet without nausea or vomiting. Physical Exam Vital Signs: Vital Signs: Last Vital Signs Temp 96.8 F 11/12/20 07:28 Pulse 62 11/12/20 07:28 Resp 16 11/12/20 07:28 BP 123/61 11/12/20 07:28 Pulse Ox 97 11/12/20 07:28 Body Mass Index 46.2 Const: General: cooperative, comfortable and no acute distress Resp: Effort & Inspection: normal respiratory effort, no cough and no stridor GI: Inspection: Yes normal to inspection Palpation (GI): Soft to palpation, Tenderness to palpation present (GI) (Mild tenderness in the left lower quadrant), no guarding, not rigid and hepatosplenomegaly present Percussion: Yes normal to percussion Auscultation: normal bowel sounds Rectal Exam - Female: deferred Skin: General skin exam: no rashes or lesions noted Extrem: General: Yes no clubbing, cyanosis or edema Progress Note: A&P Assessment and plan (1) Diarrhea: Status: Acute (2) Acute diverticulitis: Status: Acute Assessment and Plan: Patient is much improved with decreased abdominal pain, responding to the oral antibiotics. Her bowels are now very loose which may be the results of resolving diverticulitis or possible antibiotic associated colitis. Patient wished to be discharged to home. I recommended checking a stool for C diff prior to discharge. She is agreeable to this. I will see her in the office later in the week to discuss treatment options. Fall Risk Details Current Medications: Current Medications Generic Name Dose Route Start Last Admin Trade Name Freq PRN Reason Stop Dose Admin Acetaminophen 650 mg 11/09/20 01:54 11/12/20 05:01 Acetaminophen 325 Mg Tablet PO 650 mg Q6H PRN Administration Fever Enoxaparin Sodium 40 mg 11/09/20 09:00 11/11/20 07:41 Enoxaparin Sodium 40 Mg/0.4 Ml Syringe SUBCUT 40 mg DAILY SHAMIR Administration Escitalopram Oxalate 20 mg 11/09/20 09:00 11/11/20 07:41 Escitalopram Oxalate 20 Mg Tablet PO 20 mg DAILY SHAMIR Administration Piperacillin Sod/Tazobactam 50 mls @ 100 mls/hr 11/09/20 06:00 11/12/20 05:39 Sod 3.375 gm/ Sodium Chloride IV Infused Q6H SHAMIR Infusion Lisinopril 20 mg 11/09/20 09:00 11/11/20 07:41 Lisinopril 20 Mg Tablet PO 20 mg DAILY SHAMIR Administration Protocol Morphine Sulfate 4 mg 11/09/20 01:54 11/11/20 22:57 Morphine Sulfate 4 Mg/Ml Cartridge IVPUSH 4 mg Q3H PRN Administration Pain, severe Omeprazole 20 mg 11/09/20 07:00 11/12/20 05:01 Omeprazole 20 Mg Capsule.Dr PO 20 mg DAILY@0630 SHAMIR Administration Ondansetron HCl 4 mg 11/09/20 01:54 11/10/20 01:57 Ondansetron Hcl 4 Mg/2 Ml Vial IVPUSH 4 mg Q8H PRN Administration Nausea Oxycodone HCl 10 mg 11/09/20 01:54 11/12/20 05:00 Oxycodone Hcl Immed Release 5 Mg Tablet PO 10 mg Q4H PRN Administration Pain, Severe (Pain Scale 7-10) Time Spent With Patient Time: Total time spent is greater than 50% in coordination of care (as documented) at patient's floor/unit and/or counseling patient: Time with patient: 15 - 24 minutes Procedures Date of Service Date of Service: 11/12/20 Quality Stroke Does the patient have a stroke diagnosis?: No VTE Prior VTE?: No VTE Risk Level:: Surgical - moderate VTE Device Contraindication: N/A - Device Ordered VTE Drug Contraindication: N/A - Med Ordered
--- NOTE | 2020-11-12 08:34 | PM.DS ---
DS: Providers Provider Date of Service: 11/12/20 Date of admission: 11/09/20 01:36 Date of discharge: 11/12/20 Primary care physician: Avtar Lee MD Admitting clinician: Peterson Ariza Discharging clinician: Peterson Ariza DS: Diagnosis Discharge Diagnosis (1) Acute diverticulitis: Status: Acute DS: Medications Discharge Medications Home Medications: Home Medications Medication Instructions Recorded Confirmed escitalopram oxalate 20 mg tablet 20 mg PO DAILY 06/24/20 11/09/20 tramadol 50 mg tablet 50 mg PO DAILY PRN 07/11/20 11/09/20 Previous Rx's Medication Instructions Recorded omeprazole 20 mg capsule,delayed 20 mg PO DAILY 30 Days #30 cap 09/28/20 release lisinopril 20 mg PO DAILY #30 tab 10/28/20 ibuprofen 800 mg PO Q8H PRN #30 tab 11/06/20 oxycodone-acetaminophen [Percocet] 1 tab PO Q6H PRN #12 tab 11/06/20 levofloxacin 750 mg PO DAILY #7 tab 11/12/20 metronidazole 500 mg PO Q8H #20 tab 11/12/20 DS: Summary Hospital Course Hospital Course: Anjali Bah is a 50 year old female with complaints of abdominal pain in the left lower quadrant, previously diagnosed with sigmoid diverticulitis. She reports 3 previous episodes of diverticulitis which required oral antibiotics. After the start of the current episode, she was started on Levaquin and flagyl without improvement in her symptoms. She reports a fever of 100.5 yesterday. She presented to the ED because of the persistent pain. WBC was normal but CT did confirm sigmoid diverticulitis. She was admitted to the surgical service for IV antibiotics. Past surgical history is significant for open an open Florentino Fundoplication. She later developed an incisional hernia which required a large mesh repair. the patient was admitted, made NPO and started on IV fluids. She was also started on IV Zosyn. On the 2nd hospital day the patient did report some improvement in the pain. She began to pass flatus and later developed some loose stool. Over the next 24 hours she had several loose stools throughout the night. She did report decreased abdominal pain however and less abdominal distension. She was subsequently advanced to a regular diet which she tolerated well without nausea or vomiting. A specimen was sent for the C diff titers which was negative. The patient was subsequently discharged to home on 11/12/2020. She was advised to stay on a low residue diet and avoid heavy fiber. She may resume normal activity without restrictions. I have asked her to follow up my office in 1-2 weeks. We discussed possibility of an elective colectomy to prevent further episodes of sigmoid diverticulitis. She should return to the hospital for increased pain nausea, vomiting, fever, chills . Time Spent with Patient Time attestation: Total time spent providing and/or coordinating discharge services: Discharge coordination time: Less than 30 minutes Quality: Stroke Does the patient have a stroke diagnosis?: No Physical Exam Vital Signs: Vital Signs: Last Vital Signs Temp 96.8 F 11/12/20 07:28 Pulse 62 11/12/20 07:28 Resp 16 11/12/20 07:28 BP 123/61 11/12/20 07:28 Pulse Ox 97 11/12/20 07:28 Body Mass Index 46.2 Const: General: cooperative, no acute distress and well developed Nutritional Appearance: obese Orientation/consciousness: patient oriented x3 Limitations: no limitations Resp: Effort & Inspection: normal respiratory effort GI: Inspection: Yes normal to inspection Palpation (GI): Soft to palpation, nontender, no guarding, not rigid and No hepatosplenomegaly present Percussion: Yes normal to percussion Auscultation: normal bowel sounds Skin: General skin exam: no rashes or lesions noted Neuro: General: patient oriented x3 Extrem: General: Yes no clubbing, cyanosis or edema DS: Data Data Completed and Pending Labs on day of discharge: Preliminary micro results at discharge 11/08/20 22:05 Blood Culture - Preliminary Blood - Venous No growth after 48 hours. 11/08/20 22:05 Blood Culture - Preliminary Blood - Venous No growth after 48 hours. Discharge Plan Discharge Patient Disposition: Home, Self-Care Discharge Diagnosis: Acute sigmoid diverticulitis Referrals: Avtar Lee MD [Primary Care Provider] - 1 Week Peterson Ariza MD [Physician] - 1 Week Discharge Medications: New oxycodone 5 mg tablet 5 mg PO Q6H PRN (Reason: pain) Qty: 14 RF: 0 Continued lisinopril 20 mg tablet 20 mg PO DAILY Qty: 30 RF: 0 ibuprofen 800 mg tablet 800 mg PO Q8H PRN (Reason: pain) Qty: 30 RF: 0 oxycodone-acetaminophen [Percocet] 7.5-325 mg tablet 1 tab PO Q6H PRN (Reason: pain) Qty: 12 RF: 0 metronidazole 500 mg tablet 500 mg PO Q8H Qty: 20 RF: 0 levofloxacin 750 mg tablet 750 mg PO DAILY Qty: 7 RF: 0 escitalopram oxalate 20 mg tablet 20 mg PO DAILY RF: 0 tramadol 50 mg tablet 50 mg PO DAILY PRN (Reason: Pain) RF: 0 omeprazole 20 mg capsule,delayed release(DR/EC) 20 mg PO DAILY 30 Days Qty: 30 RF: 6 Discharge Orders: Discharge Order (Routine); Ordered 11/12/20 Ordered By: Peterson Ariza Diet: regular diet Activity on Discharge: As tolerated Stand Alone Forms: Patient Portal Discharge page, Work/School Release Care Plan Goals: return to normal diet and activity Health Concerns: abdominal pain in the left lower abdomen Plan of Treatment: Antibiotics continued after discharged. Follow up in office next week Assessment: Acute sigmoid diverticulitis Discharge Date/Time: 11/12/20 10:00
--- NOTE | 2020-11-12 08:40 | MHC.CM.PN ---
PATIENT IS DISCHARGED HOME WITH NO NEED FOR SERVICES. RN AWARE OF PLAN. PATIENT IS ABLE TO ARRANGE TRANSPORTATION.
[2020-11-12] MEDS: lisinopriL 20 MG TABLET PO (09:46)
[2020-11-12] MEDS: Escitalopram Oxalate 20 MG TABLET PO (09:47)
[2020-11-12 10:30] LABS: CDiff Gene PCR NEGATIVE (Negative)
== END 2020-11-12 10:00 | disposition home or self-care (01) | DRG 244 ==
LOC: HO.ED 11-09 01:37 → HO.EDOVER 11-09 02:22 → HO.S3 11-09 12:27
PROVIDERS: Surgery; Admitting Provider Surgery; Emergency Provider Emergency Medicine Emergency Medical Services; PCP Internal Medicine; Visit Provider Surgery
DX: K57.32 Diverticulitis of large intestine without perforation or abscess without bleeding (principal); Z20.822 Contact with and (suspected) exposure to COVID-19; Z79.1 Long term (current) use of non-steroidal anti-inflammatories (NSAID); Z79.899 Other long term (current) drug therapy
CPT/HCPCS: 36415; 74177; 80053; 81003; 83605; 83690; 85025; 87040; 87493; 87635; 99284; J1650; J2270; J2405; J2543; Q9967

== ENCOUNTER 2020-11-17 16:33 | Inpatient (IN) | payer OTHER, SELFPAY ==
--- NOTE | ~2020-11-17 | CT_ITS ---
EXAMINATION: CT ABDOMEN AND PELVIS WITH CONTRAST CLINICAL INFORMATION: Known diverticulitis with question of abscess COMPARISON: CT abdomen pelvis 11/09/2020 TECHNIQUE: Multidetector volumetric images were obtained from the superior aspect of the liver through the pubic symphysis following administration of 99 mL of Omnipaque 350 intravenous contrast. Sagittal and coronal reformatted images were obtained on the technologist's workstation. Oral contrast: No This CT examination was performed using dose optimization techniques as appropriate, variously including the following: *Automated exposure control *Adjustment of mA and/or kV according to patient size (this includes techniques or standardized protocols for targeted exams where dose is matched to indication/reason for exam; i.e. extremities or head) *Use of iterative reconstruction technique DLP: 1909 mGy-cm FINDINGS: LUNG BASES: The visualized lung bases are unremarkable. LIVER, GALLBLADDER, AND BILIARY TREE: The liver is normal in size, shape, and attenuation. Again seen is a single linear calcification is present in the liver. No focal hepatic lesion or biliary ductal dilatation is present. The gallbladder is unremarkable with no evidence of radiopaque gallstones, gallbladder wall thickening, or obvious pericholecystic inflammatory changes. PANCREAS: Unremarkable. SPLEEN: Unremarkable. ADRENAL GLANDS: Unremarkable. KIDNEYS AND URETERS: The kidneys are normal in size, shape, and attenuation. No hydronephrosis, hydroureter, or calculi seen. No perinephric stranding. BLADDER: Unremarkable. GASTROINTESTINAL TRACT: There has been near complete resolution of the previously seen changes of diverticulitis in the distal descending colon and proximal sigmoid colon. The previously seen inflammatory changes in the fat surrounding the colon have essentially completely resolved. No extraluminal air or or pericolonic abscess is seen. The small and large bowel are otherwise unremarkable. The appendix is not definitely identified but there is no evidence of appendicitis. ABDOMINAL WALL: Again seen is mild diastases of the rectus muscles with some forward bulging in the supraumbilical region LYMPH NODES: Small retroperitoneal lymph nodes are seen but there is no retroperitoneal lymphadenopathy. VASCULAR: Unremarkable. PELVIC VISCERA: An anteverted uterus is present. An abnormal adnexal mass or free intraperitoneal fluid is not seen. A small 1.2 cm adnexal cyst is seen again, but closer to the uterus ([phone]). OSSEOUS STRUCTURES: Unremarkable. CT/CT abdomen pelvis w con IMPRESSION: There has been significant improvement in appearances since the prior study with near clearing of previously seen changes of diverticulitis with only some minimal inflammatory changes remaining. There has been no progression of disease with perforation or pericolonic abscess. Other incidental findings as described above.
[2020-11-17 17:01] VITALS: BP 148/88; PULSE 109; RESP 20; TEMP 37.3; O2SAT 99; BMI 46.2
[2020-11-17] MEDS: Acetaminophen 325 MG TABLET 650 MG PO (20:27)
[2020-11-17 20:29] VITALS: TEMP 37.8
--- NOTE | 2020-11-17 20:29 | PC.NURSE ---
pt requested tylenol for pain/ pt also requested zofran which was not given due to a drug interaction that wouldn't allow the order to proceed, pt also requested repeat temp which was obtained and documented.
[2020-11-17 20:32] LABS: MANUAL DIFF FLAG NO
[2020-11-17 20:33] LABS: Basophils Percent Auto 0.1 % (0-2); Hematocrit 37.4 % (37-47); Imm Gran Abs Auto 0.08 X10*3/uL (0.00-0.03); Imm Gran Pct Auto 0.4 % (0.0-0.4); Lymphocytes Absolute Auto 1.8 X10*3/uL (1.2-4.9); Lymphocytes Percent Auto 8.6 % (20-40); Mean Corpuscular HGB Conc 32.1 g/dl (31.0-35.0); Mean Corpuscular Volume 81.1 fL (80-98); Mean Platelet Volume 9.2 fL (9.4-12.3); Monocytes Percent Auto 4.8 % (2-11); Neutrophils Absolute Auto 18.2 X10*3/uL (2.0-8.3); Neutrophils Percent Auto 86.1 % (45-73); Platelet Count 383 X10*3/uL (160-400); Red Blood Count 4.61 X10*6/uL (4.20-5.50); Red Cell Distribution Width 13.9 % (11.0-16.0); White Blood Count 21.2 X10*3/uL (4.8-10.8)
[2020-11-17 20:35] LABS: Glucose Urine UA NEG (NEG); Leukocyte Esterase Urine NEG (NEG); Nitrite Urine NEG (NEG); Specific Gravity - Urine <= 1.005 (1.005-1.025); Urine Blood 1+ (NEG); Urine Ketones NEG (NEG); Urine Protein NEG (NEG-TRACE)
[2020-11-17 20:46] LABS: Appearance Urine CLEAR; Color Urine YELLOW
[2020-11-17 20:53] LABS: Bacteria Urine TRACE /LPF; RBC Urine 0-2 /HPF (0); Squamous Epithelial Cell Urine TRACE /LPF; WBC Urine 0-2 /HPF (0-4)
[2020-11-17 20:56] LABS: Alanine Aminotransferase 13 U/L (0-31); Albumin Level 4.2 g/dL (3.5-5.0); Alkaline Phosphatase 97 U/L (39-117); Anion Gap 13 (12-20); Aspartate Amino Transferase 12 U/L (5-31); Bilirubin Total 0.4 mg/dL (0.0-1.0); Blood Urea Nitrogen 7 mg/dL (9-16); Calcium 9.1 mg/dL (8.4-10.2); Carbon Dioxide 25 mmol/L (22-29); Chloride 101 mmol/L (96-108); Estimated Glomerular Filt Rate > 60; Glucose Random 111 mg/dL (60-115); Sodium 135 mmol/L (135-145); Total Protein 7.7 g/dL (6.5-8.0)
--- NOTE | 2020-11-17 21:29 | ED.ABDPAIN ---
HPI - Abdominal Pain General Chief Complaint: Abdominal Pain Stated Complaint: abd pain Time Seen by Provider: 11/17/20 21:26 Source: patient and old records reviewed Mode of arrival: ambulatory Limitations: no limitations History of Present Illness MD elicited complaint: abdominal pain Pertinent past history: diverticulitis Onset (ago): day(s) (last week) Pain Consistency: constant Location: LLQ Severity: moderate Quality: cramping Radiation: none Migration to: no migration Exacerbating factors: movement Relieving factors: nothing Context: recent antibiotic use and history of similar episodes Associated symptoms: nausea, fever and chills Treatments prior to arrival: other (on levofloxacin and flagyl) Related Data Home Medications Medication Instructions Recorded Confirmed escitalopram oxalate 20 mg tablet 20 mg PO DAILY 06/24/20 11/17/20 Previous Rx's Medication Instructions Recorded omeprazole 20 mg capsule,delayed 20 mg PO DAILY 30 Days #30 cap 09/28/20 release lisinopril 20 mg PO DAILY #30 tab 10/28/20 ibuprofen 800 mg PO Q8H PRN #30 tab 11/06/20 levofloxacin 750 mg PO DAILY #7 tab 11/12/20 metronidazole 500 mg PO Q8H #20 tab 11/12/20 ondansetron HCl 4 mg tablet 4 mg PO Q8H PRN #20 tab 11/15/20 oxycodone 5 mg tablet 5 mg PO Q6H PRN #14 tab 11/15/20 Allergies Allergy/AdvReac Type Severity Reaction Status Date / Time No Known Allergies Allergy Mild NKA Verified 11/17/20 17:01 Review of Systems Review of Systems Constitutional : No Weight loss, pos Fever, pos Chills ENT/Mouth : No sore throat, No Rhinorrhea Eyes: No Swelling, No Redness Cardiovascular : No Chest Pain, No SOB, NoEdema Respiratory : No Cough, No Sputum, No Wheezing Gastrointestinal : Positive Nausea, Positive Vomiting, no Diarrhea, positive abdominal Pain, No Hematochezia, No Melena Genitourinary : No Dysuria, No Urinary Frequency, No Hematuria, No Urgency Musculoskeletal : No joint pain, No Myalgias, No Joint Swelling Skin : No Skin Lesions, No rash Neuro : No Weakness, No Numbness, No Dizziness, No Headache Psych : No Anxiety/Panic, No Depression Heme/Lymph: No Bruising, No Lymphadenopathy Endocrine : No Polyuria, No Polydipsia All other systems reviewed and are negative. Physical Exam Vital Signs: Vital Signs: Last Vital Signs Temp 98.3 F 11/17/20 22:17 Pulse 87 11/17/20 22:17 Resp 16 11/17/20 22:17 BP 134/81 11/17/20 22:17 Pulse Ox 96 11/17/20 22:17 Body Mass Index 46.2 Appearance: Alert. Oriented X3. No acute distress. Eyes: Pupils equal, round and reactive to light. ENT: Pharynx normal. Neck: Normal inspection. Neck supple. CVS: tachycardic heart rate and rhythm. Pulses normal. Respiratory: No respiratory distress. Breath sounds normal. Abdomen: Soft and moderate LLQ pain with no rebound or guarding Skin: Skin warm and dry. Normal skin color. Normal skin turgor. Extremities: No lower extremity edema. No calf ttp Neuro: Oriented X 3. No motor deficit. No sensory deficit. Course Course Course Narrative: no abscess on exam given clinical symptoms even though CT scan improved fevers WBC count n/v will admit for IV abx MDM - Abdominal Pain MDM Narrative Medical decision making narrative: 50 yo female known diverticulitis here with LLQ pain worsening with recent dx of diverticulitis - on levofloxacin/flagyl c/o worsening pain and fevers - at this time labs, cultures, IVF, IV morphine for pain, CT scan for abscess, IV zosyn ordered, will need admission to the hospital for further management Lab Data Result diagrams: 11/17/20 20:24 11/17/20 20:24 Labs: Lab Results 11/17/20 11/17/20 11/17/20 Range/Units 20:24 20:24 20:24 WBC 21.2 H (4.8-10.8) X10*3/uL RBC 4.61 (4.20-5.50) X10*6/uL Hgb 12.0 (12.0-16.0) g/dl Hct 37.4 (37-47) % MCV 81.1 (80-98) fL MCH 26.0 L (27.0-33.0) pg MCHC 32.1 (31.0-35.0) g/dl RDW 13.9 (11.0-16.0) % Plt Count 383 (160-400) X10*3/uL MPV 9.2 L (9.4-12.3) fL Immature Gran % (Auto) 0.4 (0.0-0.4) % Neut % (Auto) 86.1 H (45-73) % Lymph % (Auto) 8.6 L (20-40) % [place] % (Auto) 4.8 (2-11) % Eos % (Auto) 0.0 (0-4) % Baso % (Auto) 0.1 (0-2) % Lymph # (Auto) 1.8 (1.2-4.9) X10*3/uL [place] # (Auto) 1.0 (0.1-1.2) X10*3/uL Eos # (Auto) 0.0 (0.0-0.4) X10*3/uL Baso # (Auto) 0.0 (0.0-0.2) X10*3/uL Abs Immat Gran (auto) 0.08 H (0.00-0.03) X10*3/uL Absolute Neuts (auto) 18.2 H (2.0-8.3) X10*3/uL Absolute Nucleated RBC 0.000 (0.0-0.012) X10*3/uL Nucleated RBC % (auto) 0.0 (0.0-0.2) /100WBC Sodium 135 (135-145) mmol/L Potassium 4.0 (3.3-5.1) mmol/L Chloride 101 (96-108) mmol/L Carbon Dioxide 25 (22-29) mmol/L Anion Gap 13 (12-20) BUN 7 L (9-16) mg/dL Creatinine 0.97 (0.5-1.4) mg/dL Estim Creat Clear Calc 108.0 Estimated GFR > 60 Random Glucose 111 (60-115) mg/dL Lactic Acid (0.5-2.0) mmol/L Calcium 9.1 (8.4-10.2) mg/dL Total Bilirubin 0.4 (0.0-1.0) mg/dL AST 12 (5-31) U/L ALT 13 (0-31) U/L Alkaline Phosphatase 97 (39-117) U/L Total Protein 7.7 (6.5-8.0) g/dL Albumin 4.2 (3.5-5.0) g/dL Urine Color YELLOW Urine Appearance CLEAR Urine pH 6.0 (5.0-8.0) Ur Specific [place] <= 1.005 (1.005-1.025) Urine Protein NEG (NEG-TRACE) MG/DL Urine Glucose (UA) NEG (NEG) MG/DL Urine Ketones NEG (NEG) MG/DL Urine Blood 1+ H (NEG) Urine Nitrite NEG (NEG) Ur Leukocyte Esterase NEG (NEG) Urine RBC 0-2 (0) /HPF Urine WBC 0-2 (0-4) /HPF Ur Squamous Epith Cells TRACE /LPF Urine Bacteria TRACE /LPF COVID-19 (DEJUAN) (Negative) COVID-19 Clin Com 11/17/20 11/17/20 Range/Units 21:43 21:43 WBC (4.8-10.8) X10*3/uL RBC (4.20-5.50) X10*6/uL Hgb (12.0-16.0) g/dl Hct (37-47) % MCV (80-98) fL MCH (27.0-33.0) pg MCHC (31.0-35.0) g/dl RDW (11.0-16.0) % Plt Count (160-400) X10*3/uL MPV (9.4-12.3) fL Immature Gran % (Auto) (0.0-0.4) % Neut % (Auto) (45-73) % Lymph % (Auto) (20-40) % [place] % (Auto) (2-11) % Eos % (Auto) (0-4) % Baso % (Auto) (0-2) % Lymph # (Auto) (1.2-4.9) X10*3/uL [place] # (Auto) (0.1-1.2) X10*3/uL Eos # (Auto) (0.0-0.4) X10*3/uL Baso # (Auto) (0.0-0.2) X10*3/uL Abs Immat Gran (auto) (0.00-0.03) X10*3/uL Absolute Neuts (auto) (2.0-8.3) X10*3/uL Absolute Nucleated RBC (0.0-0.012) X10*3/uL Nucleated RBC % (auto) (0.0-0.2) /100WBC Sodium (135-145) mmol/L Potassium (3.3-5.1) mmol/L Chloride (96-108) mmol/L Carbon Dioxide (22-29) mmol/L Anion Gap (12-20) BUN (9-16) mg/dL Creatinine (0.5-1.4) mg/dL Estim Creat Clear Calc Estimated GFR Random Glucose (60-115) mg/dL Lactic Acid 1.2 (0.5-2.0) mmol/L Calcium (8.4-10.2) mg/dL Total Bilirubin (0.0-1.0) mg/dL AST (5-31) U/L ALT (0-31) U/L Alkaline Phosphatase (39-117) U/L Total Protein (6.5-8.0) g/dL Albumin (3.5-5.0) g/dL Urine Color Urine Appearance Urine pH (5.0-8.0) Ur Specific [place] (1.005-1.025) Urine Protein (NEG-TRACE) MG/DL Urine Glucose (UA) (NEG) MG/DL Urine Ketones (NEG) MG/DL Urine Blood (NEG) Urine Nitrite (NEG) Ur Leukocyte Esterase (NEG) Urine RBC (0) /HPF Urine WBC (0-4) /HPF Ur Squamous Epith Cells /LPF Urine Bacteria /LPF COVID-19 (DEJUAN) Negative (Negative) COVID-19 Clin Com See Note Discharge Plan Discharge Clinical Impression: Diverticulitis, Abdominal pain, Leukocytosis Patient Disposition: Admitted As Inpatient Prescriptions: No Action oxycodone 5 mg tablet 5 mg PO Q6H PRN (Reason: pain) Qty: 14 RF: 0 ondansetron HCl [Zofran] 4 mg tablet 4 mg PO Q8H PRN (Reason: nausea and vomiting) Qty: 20 RF: 0 lisinopril 20 mg tablet 20 mg PO DAILY Qty: 30 RF: 0 ibuprofen 800 mg tablet 800 mg PO Q8H PRN (Reason: pain) Qty: 30 RF: 0 metronidazole 500 mg tablet 500 mg PO Q8H Qty: 20 RF: 0 levofloxacin 750 mg tablet 750 mg PO DAILY Qty: 7 RF: 0 escitalopram oxalate 20 mg tablet 20 mg PO DAILY RF: 0 omeprazole 20 mg capsule,delayed release(DR/EC) 20 mg PO DAILY 30 Days Qty: 30 RF: 6 PMFSH Past Medical History Attestation statement: The following information was validated with the patient. Medical History Arthropathy of facet joint Diverticulitis Morbid obesity Spondylosis of lumbar region without myelopathy or radiculopathy Surgical History History of incisional hernia repair History of Florentino fundoplication (Unknown) Hx of colonoscopy Family History Family History Mother Hodgkin disease Brother Diabetes Social History Social History Household Members: Family Household Members Other:: partner Housing: House Do you presently have visiting nurse or other home services: No Alcohol intake: never Patient Tobacco Use Status: Never used Tobacco Use of substances other than those prescribed or required for medical reasons: No Advance Directives: No Advance Directives Information Provided: No Patient : No service: No Current occupational status: unemployed Current occupation: [employer]
--- NOTE | 2020-11-17 21:52 | PHA.MEDREC ---
Pharmacy Consult ? Medication Reconciliation Pharmacy has completed the medication reconciliation.
[2020-11-17] MEDS: Piperacillin Sodium/Tazobactam 3.375 GM in 0.9 % Sodium Chloride 50 ML IV (22:01)
[2020-11-17] MEDS: 0.9 % Sodium Chloride 1,000 ML 999 ML IVCONT (22:02)
[2020-11-17] MEDS: ondansetron HCL 4 MG/2 ML VIAL IVPUSH (22:02)
[2020-11-17] MEDS: Morphine Sulfate 4 MG/ML CARTRIDGE IVPUSH (22:02)
[2020-11-17 22:17] VITALS: BP 134/81; PULSE 87; RESP 16; TEMP 36.8; O2SAT 96
[2020-11-17 22:17] LABS: Lactic Acid 1.2 mmol/L (0.5-2.0)
[2020-11-17 22:30] LABS: COVID-19 Test Negative (Negative)
[2020-11-17] MEDS: iohexoL 350 MG/ML 100 ML INFUS..BTL IV (23:23)
[2020-11-18] VITALS (10 sets, daily range): BP systolic 129–145; BP diastolic 57–84; PULSE 61–75; RESP 16–20; TEMP 35.8–36.7; O2SAT 90–98
--- NOTE | 2020-11-18 00:29 | PM.IMHP ---
History of Present Illness Date of Service: 11/18/20 Chief Complaint: Nausea vomiting and abdominal pain 50-year-old female with a past medical history of obesity, hypertension, arthritis; recent admission to the hospital for acute diverticulitis, discharged on 11/12/2020 on levofloxacin and Flagyl; presented to the hospital today with a chief complaint of nausea vomiting and abdominal pain. Patient reports that since discharge she has continued to have nausea vomiting and abdominal discomfort. Unable to tolerate p.o.. As the symptoms were not improving she decided to come to the ER for further evaluation. Patient reports that she has been compliant with her home antibiotics. Denies any fever chills. Denies any cough. Denies any urinary symptoms. Review of all other systems is negative except mentioned above ER course: Per ER team patient noted to have abdominal tenderness; no guarding no rigidity; CT scan showed no evidence of complications but improving diverticulitis compared to the prior CT scan. But patient continued to have the symptoms hence admitted to the hospital for further management patient was given Zosyn in the ER. [facility] Medical History Arthropathy of facet joint Diverticulitis Morbid obesity Spondylosis of lumbar region without myelopathy or radiculopathy Family History Mother Hodgkin disease Brother Diabetes Surgical History History of incisional hernia repair History of Florentino fundoplication (Unknown) Hx of colonoscopy Social History Household Members: Spouse and Family Household Members Other:: partner Housing: House Do you presently have visiting nurse or other home services: No Alcohol intake: never Patient Tobacco Use Status: Never used Tobacco service: Yes Current occupational status: unemployed Current occupation: [employer] Allergies Allergy/AdvReac Type Severity Reaction Status Date / Time No Known Allergies Allergy Mild NKA Verified 11/17/20 17:01 Active Medications: Current Medications Generic Name Dose Route Start Last Admin Trade Name Freq PRN Reason Stop Dose Admin Enoxaparin Sodium 40 mg 11/18/20 00:30 Enoxaparin Sodium 40 Mg/0.4 Ml Syringe SUBCUT Q24H [facility] Escitalopram Oxalate 20 mg 11/18/20 09:00 Escitalopram Oxalate 20 Mg Tablet PO DAILY [facility] Hydromorphone HCl 0.5 mg 11/18/20 05:00 Hydromorphone Hcl 0.5 Mg/0.5 Ml Syringe IVPUSH Q4H PRN Pain, Severe (Pain Scale 7-10) Dextrose/Sodium Chloride 1,000 mls @ 100 mls/hr 11/18/20 00:30 D51/2ns IVCONT .Q10H [facility] Lisinopril 20 mg 11/18/20 09:00 Lisinopril 20 Mg Tablet PO DAILY [facility] Protocol Melatonin 6 mg 11/18/20 00:24 Melatonin 3 Mg Tablet PO BEDTIME PRN Insomnia Omeprazole 20 mg 11/18/20 09:00 Omeprazole 20 Mg Capsule.Dr PO DAILY [facility] Ondansetron HCl 4 mg 11/18/20 00:24 Ondansetron Hcl 4 Mg/2 Ml Vial IVPUSH Q8H PRN Nausea and Vomiting Pharmacy Consult 1 each 11/17/20 21:27 Consult Rx Perform Med Rec MISCELLANE ONCE PRN Consult order Sodium Chloride 3 ml 11/18/20 08:00 0.9 % Sodium Chloride Flush 3 Ml Syringe IVFLUSH QSHIFT [facility] Home Medications Medication Instructions Recorded Confirmed Last Taken Type escitalopram oxalate 20 mg tablet 20 mg PO DAILY 06/24/20 11/17/20 11/17/20 History Physical Exam Vital Signs and Narrative: Vital Signs: Last Vital Signs Temp 98.3 F 11/17/20 22:17 Pulse 87 11/17/20 22:17 Resp 16 11/17/20 22:17 BP 134/81 11/17/20 22:17 Pulse Ox 96 11/17/20 22:17 Body Mass Index 46.2 Gen: Appears be in no acute distress HEENT: NCAT, Moist mucosa. Pulmonary: Vesicular breath sounds, fair air entry CVS: Normal S1-S2 Abdomen: BS+, Soft, tender diffusely; no guarding no rigidity Extremities: Warm well perfused Neuro: Alert and awake. Results Labs CBC and Chem 7: 11/20/20 07:25 11/18/20 06:30 Labs: Laboratory Results - last 24 hr 11/17/20 11/17/20 11/17/20 20:24 20:24 20:24 MCV 81.1 MCH 26.0 L MCHC 32.1 RDW 13.9 Plt Count 383 MPV 9.2 L Immature Gran % (Auto) 0.4 Neut % (Auto) 86.1 H Lymph % (Auto) 8.6 L [place] % (Auto) 4.8 Eos % (Auto) 0.0 Baso % (Auto) 0.1 Lymph # (Auto) 1.8 [place] # (Auto) 1.0 Eos # (Auto) 0.0 Baso # (Auto) 0.0 Abs Immat Gran (auto) 0.08 H Absolute Neuts (auto) 18.2 H Absolute Nucleated RBC 0.000 Nucleated RBC % (auto) 0.0 Anion Gap 13 Estim Creat Clear Calc 108.0 Estimated GFR > 60 Random Glucose 111 Lactic Acid Calcium 9.1 Total Bilirubin 0.4 AST 12 ALT 13 Alkaline Phosphatase 97 Total Protein 7.7 Albumin 4.2 Urine Color YELLOW Urine Appearance CLEAR Urine pH 6.0 Ur Specific [place] <= 1.005 Urine Protein NEG Urine Glucose (UA) NEG Urine Ketones NEG Urine Blood 1+ H Urine Nitrite NEG Ur Leukocyte Esterase NEG Urine RBC 0-2 Urine WBC 0-2 Ur Squamous Epith Cells TRACE Urine Bacteria TRACE COVID-19 (DEJUAN) COVID-19 [employer] Com 11/17/20 11/17/20 21:43 21:43 MCV MCH MCHC RDW Plt Count MPV Immature Gran % (Auto) Neut % (Auto) Lymph % (Auto) [place] % (Auto) Eos % (Auto) Baso % (Auto) Lymph # (Auto) [place] # (Auto) Eos # (Auto) Baso # (Auto) Abs Immat Gran (auto) Absolute Neuts (auto) Absolute Nucleated RBC Nucleated RBC % (auto) Anion Gap Estim Creat Clear Calc Estimated GFR Random Glucose Lactic Acid 1.2 Calcium Total Bilirubin AST ALT Alkaline Phosphatase Total Protein Albumin Urine Color Urine Appearance Urine pH Ur Specific [place] Urine Protein Urine Glucose (UA) Urine Ketones Urine Blood Urine Nitrite Ur Leukocyte Esterase Urine RBC Urine WBC Ur Squamous Epith Cells Urine Bacteria COVID-19 (DEJUAN) Negative COVID-19 Clin Com See Note Imaging Radiologist's Impressions: Impressions Abdomen/Pelvis CT 11/17/20 21:27 IMPRESSION: There has been significant improvement in appearances since the prior study with near clearing of previously seen changes of diverticulitis with only some minimal inflammatory changes remaining. There has been no progression of disease with perforation or pericolonic abscess. Other incidental findings as described above. Assessment and Plan (1) Acute diverticulitis: Status: Acute 50-year-old female with a past medical history of hypertension, obesity, recent admission to the hospital for diverticulitis presented to the hospital with a chief complaint of nausea vomiting and abdominal discomfort. Repeat CT scan showed diverticulitis. Admitted for further management. Diverticulitis: Patient antibiotics were changed from levofloxacin and Flagyl to Zosyn. Will continue for now. Patient repeat CT scan showed improvement in the appearance of the diverticulitis. No evidence of abscess or perforation. Will consult General surgery, as patient was admitted to general surgery service during the last admission. Pain control Zofran p.r.n. NPO IV fluids History of hypertension: Continue home medications. DVT prophylaxis: SCD boots Code status: Full code Quality Stroke Does the patient have a stroke diagnosis?: No VTE Prior VTE?: No VTE Risk Level:: Medical - moderate - high VTE Device Contraindication: N/A - Device Ordered VTE Drug Contraindication: Treatment Not Indicated
[2020-11-18] MEDS: ondansetron HCL 4 MG/2 ML VIAL IVPUSH ×3 (00:58→20:35)
[2020-11-18] MEDS: Dextrose 5 % and 0.45 % NaCl 1,000 ML 100 ML IVCONT ×3 (00:58→20:29)
[2020-11-18] MEDS: HYDROmorphone HCl 0.5 MG/0.5 ML SYRINGE IVPUSH ×5 (00:58→20:26)
[2020-11-18 07:18] LABS: Anion Gap 13 (12-20); Blood Urea Nitrogen 7 mg/dL (9-16); Calcium 8.5 mg/dL (8.4-10.2); Carbon Dioxide 22 mmol/L (22-29); Chloride 105 mmol/L (96-108); Creatinine Clr Calc Pharmacy 134.3; Estimated Glomerular Filt Rate > 60; Glucose Random 115 mg/dL (60-115); Potassium 4.2 mmol/L (3.3-5.1); Sodium 136 mmol/L (135-145)
[2020-11-18] MEDS: 0.9 % Sodium Chloride Flush 3 ML SYRINGE IVFLUSH (07:30)
--- NOTE | 2020-11-18 08:13 | PM.CNGS ---
Assessment and Plan (1) Leukocytosis: Qualifiers: Leukocytosis type: unspecified Qualified Code(s): D72.829 - Elevated white blood cell count, unspecified Status: Acute (2) Diverticulitis: Status: Acute 50-year-old female well known to me with previous history of mild diverticulitis treated with IV antibiotics with apparent improvement in her symptoms now returning with increased abdominal pain, nausea and vomiting with associated leukocytosis. CT of the abdomen and pelvis is unfortunately very unrevealing with no evidence of abscess or free air to indicate a complicated diverticulitis. The previous inflammatory changes are now much improved. No other potential site of infection to explain the leukocytosis is identified. Recommend GI consultation. History of Present Illness Consult details Consult date: 11/18/20 Narrative: 50-year-old female patient with complaints of left lower quadrant abdominal pain, nausea and vomiting. She was previously admitted to the surgical service for treatment of sigmoid diverticulitis. CT at that time revealed mild changes in the sigmoid colon suggestive of a mild uncomplicated sigmoid diverticulitis. She was placed on Zosyn and after several days had improvement in her symptoms. She did have some loose stool initially but this became more solid prior to discharge. She was discharged home on oral antibiotics but reported increased abdominal pain associated with nausea and vomiting. She returns to the emergency department for further evaluation. In the emergency department her WBC was noted to be markedly elevated however the CT of the abdomen and pelvis revealed resolution of the sigmoid diverticulitis without any evidence of abscess or free air. Patient is admitted to the hospitalist service for further management. Currently she reports abdominal pain in the range of 4 out of 10 after having pain medication. Review of Systems Review of Systems: Yes all other systems are reviewed and are negative Constitutional: Constitutional: Reports anorexia, Reports difficulty sleeping and Reports fever(s) Cardiovascular: Cardiovascular: Reports no additional cardiovascular complaints Respiratory: Respiratory: Reports no additional respiratory complaints Gastrointestinal: Gastrointestinal: Reports as per HPI, Reports abdominal pain, Reports bloating, Reports constipation and Reports nausea Hematologic/Lymphatic: Hematologic/Lymphatic: Reports no additional hematologic/lymphatic complaints and Denies lymphadenopathy PMFSH Past Medical History Medical History Arthropathy of facet joint Diverticulitis Morbid obesity Spondylosis of lumbar region without myelopathy or radiculopathy Family History Family History Mother Hodgkin disease Brother Diabetes Surgical History Surgical History History of incisional hernia repair History of Florentino fundoplication (Unknown) Hx of colonoscopy Social History Social History Household Members: Family Household Members Other:: partner Housing: House Do you presently have visiting nurse or other home services: No Alcohol intake: never Patient Tobacco Use Status: Never used Tobacco Use of substances other than those prescribed or required for medical reasons: No Advance Directives: No Advance Directives Information Provided: No Patient : No service: No Current occupational status: unemployed Current occupation: [employer] Allergies Allergy/AdvReac Type Severity Reaction Status Date / Time No Known Allergies Allergy Mild NKA Verified 11/17/20 17:01 Active Medications: Current Medications Generic Name Dose Route Start Last Admin Trade Name Calq PRN Reason Stop Dose Admin Enoxaparin Sodium 40 mg 11/18/20 09:00 Enoxaparin Sodium 40 Mg/0.4 Ml Syringe SUBCUT Q24H SHAMIR Escitalopram Oxalate 20 mg 11/18/20 09:00 Escitalopram Oxalate 20 Mg Tablet PO DAILY SHAMIR Hydromorphone HCl 0.5 mg 11/18/20 05:00 11/18/20 07:36 Hydromorphone Hcl 0.5 Mg/0.5 Ml Syringe IVPUSH 0.5 mg Q4H PRN Administration Pain, Severe (Pain Scale 7-10) Dextrose/Sodium Chloride 1,000 mls @ 100 mls/hr 11/18/20 00:30 11/18/20 00:58 D51/2ns IVCONT 100 mls/hr .Q10H SHAMIR Administration Lisinopril 20 mg 11/18/20 09:00 Lisinopril 20 Mg Tablet PO DAILY SHAMIR Protocol Melatonin 6 mg 11/18/20 00:24 Melatonin 3 Mg Tablet PO BEDTIME PRN Insomnia Omeprazole 20 mg 11/18/20 09:00 Omeprazole 20 Mg Capsule.Dr PO DAILY SHAMIR Ondansetron HCl 4 mg 11/18/20 00:24 11/18/20 00:58 Ondansetron Hcl 4 Mg/2 Ml Vial IVPUSH 4 mg Q8H PRN Administration Nausea and Vomiting Pharmacy Consult 1 each 11/17/20 21:27 Consult Rx Perform Med Rec MISCELLANE ONCE PRN Consult order Sodium Chloride 3 ml 11/18/20 08:00 11/18/20 07:30 0.9 % Sodium Chloride Flush 3 Ml Syringe IVFLUSH 3 ml QSHIFT SHAMIR Administration Home Medications Medication Instructions Recorded Confirmed Last Taken Type escitalopram oxalate 20 mg tablet 20 mg PO DAILY 06/24/20 11/17/20 11/17/20 History Physical Exam Vital Signs: Vital Signs: Last Vital Signs Temp 98.0 F 11/18/20 07:24 Pulse 71 11/18/20 07:24 Resp 16 11/18/20 07:36 BP 135/59 L 11/18/20 07:24 Pulse Ox 97 11/18/20 07:24 Body Mass Index 46.2 Const: General: cooperative and ill appearing Nutritional Appearance: obese Orientation/consciousness: patient oriented x3 Limitations: no limitations Resp: Effort & Inspection: normal respiratory effort, no stridor and not tachypneic GI: Palpation (GI): Soft to palpation, Tenderness to palpation present (GI) in the LLQ and no masses Percussion: Yes normal to percussion Skin: General skin exam: no rashes or lesions noted Neuro: General: patient oriented x3 Results Labs Result diagrams: 11/17/20 20:24 11/18/20 06:30 Labs: Abnormal lab results 11/17/20 11/17/20 11/17/20 Range/Units 20:24 20:24 20:24 WBC 21.2 H (4.8-10.8) X10*3/uL MCH 26.0 L (27.0-33.0) pg MPV 9.2 L (9.4-12.3) fL Neut % (Auto) 86.1 H (45-73) % Lymph % (Auto) 8.6 L (20-40) % Abs Immat Gran (auto) 0.08 H (0.00-0.03) X10*3/uL Absolute Neuts (auto) 18.2 H (2.0-8.3) X10*3/uL BUN 7 L (9-16) mg/dL Urine Blood 1+ H (NEG) 11/18/20 Range/Units 06:30 WBC (4.8-10.8) X10*3/uL MCH (27.0-33.0) pg MPV (9.4-12.3) fL Neut % (Auto) (45-73) % Lymph % (Auto) (20-40) % Abs Immat Gran (auto) (0.00-0.03) X10*3/uL Absolute Neuts (auto) (2.0-8.3) X10*3/uL BUN 7 L (9-16) mg/dL Urine Blood (NEG) Short CBC 11/17/20 Range/Units 20:24 WBC 21.2 H (4.8-10.8) X10*3/uL Hgb 12.0 (12.0-16.0) g/dl Hct 37.4 (37-47) % Plt Count 383 (160-400) X10*3/uL BMP 11/17/20 11/18/20 20:24 06:30 Sodium 135 136 Potassium 4.0 4.2 Chloride 101 105 Carbon Dioxide 25 22 BUN 7 L 7 L Creatinine 0.97 0.78 Calcium 9.1 8.5 D Liver Function 11/17/20 Range/Units 20:24 Total Bilirubin 0.4 (0.0-1.0) mg/dL AST 12 (5-31) U/L ALT 13 (0-31) U/L Alkaline Phosphatase 97 (39-117) U/L Albumin 4.2 (3.5-5.0) g/dL Urine 11/17/20 Range/Units 20:24 Urine Color YELLOW Urine Appearance CLEAR Urine pH 6.0 (5.0-8.0) Ur Specific [place] <= 1.005 (1.005-1.025) Urine Protein NEG (NEG-TRACE) MG/DL Urine Glucose (UA) NEG (NEG) MG/DL All other labs normal. Procedures Date of Service Date of Service: 11/18/20
--- NOTE | 2020-11-18 08:15 | PC.NURSE ---
pt seen by dr. dubois, pt aware of plan of care.
--- NOTE | 2020-11-18 08:36 | PC.NURSE ---
nurse to nurse given to robert alvarenga).
[2020-11-18 09:17] LABS: Basophils Percent Auto 0.1 % (0-2); Eosinophils Absolute Auto 0.1 X10*3/uL (0.0-0.4); Hematocrit 33.7 % (37-47); Hemoglobin 10.6 g/dl (12.0-16.0); Imm Gran Abs Auto 0.04 X10*3/uL (0.00-0.03); Imm Gran Pct Auto 0.4 % (0.0-0.4); Lymphocytes Absolute Auto 1.5 X10*3/uL (1.2-4.9); Lymphocytes Percent Auto 14.5 % (20-40); Mean Corpuscular HGB Conc 31.5 g/dl (31.0-35.0); Mean Corpuscular Hemoglobin 25.7 pg (27.0-33.0); Mean Corpuscular Volume 81.8 fL (80-98); Mean Platelet Volume 9.6 fL (9.4-12.3); Monocytes Absolute Auto 0.9 X10*3/uL (0.1-1.2); Monocytes Percent Auto 8.6 % (2-11); Neutrophils Absolute Auto 7.8 X10*3/uL (2.0-8.3); Neutrophils Percent Auto 75.4 % (45-73); Platelet Count 304 X10*3/uL (160-400); Red Blood Count 4.12 X10*6/uL (4.20-5.50); White Blood Count 10.4 X10*3/uL (4.8-10.8)
[2020-11-18] MEDS: lisinopriL 20 MG TABLET PO (09:47)
[2020-11-18] MEDS: Escitalopram Oxalate 20 MG TABLET PO (09:47)
[2020-11-18] MEDS: Enoxaparin Sodium 40 MG/0.4 ML SYRINGE SUBCUT (09:47)
[2020-11-18] MEDS: Omeprazole 20 MG CAPSULE.DR PO (09:47)
--- NOTE | 2020-11-18 09:59 | MHC.CM.PN ---
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 PATIENT REPORTED SHE FELT LIKJE SHE WAS READY FOR DISCHARGE AND WAS FEELING WELL, UP UNTIL DAY BEORE ADMISSION, SHE IS ACTIVE, INDEPENDENT IN ALL ADLS AND MOBILITY. PATIENT LIVES WITH HER PARTNER AND HER SON. SHE HAS NO VNA . NO DME SERVCIES . DISHARGE PLAN HOME NO SERVICES PCP DR FORREST -PATIENT TO CALL FOR POST DISCHARGE FOLLOW UP TRANSPORTATION FAMILY
--- NOTE | 2020-11-18 16:44 | MHC.CLN ---
NUTRITION CONSULT PATIENT REPORTS WEIGHT LOSS OF 6-7# X 2 WEEKS, NOT SIGNIFICANT. CURRENTLY NPO DUE TO GI CONCERNS. WILL FOLLOW FOR DIET ADVANCEMENT.
[2020-11-19] VITALS (8 sets, daily range): BP systolic 119–153; BP diastolic 53–89; PULSE 53–68; RESP 16–20; TEMP 36–36.6; O2SAT 94–98
[2020-11-19] MEDS: HYDROmorphone HCl 0.5 MG/0.5 ML SYRINGE IVPUSH ×6 (01:03→23:12)
[2020-11-19 04:40] LABS: CDiff Gene PCR NEGATIVE (Negative)
[2020-11-19] MEDS: ondansetron HCL 4 MG/2 ML VIAL IVPUSH ×2 (06:20→14:26)
[2020-11-19] MEDS: Enoxaparin Sodium 40 MG/0.4 ML SYRINGE SUBCUT (08:11)
[2020-11-19] MEDS: Omeprazole 20 MG CAPSULE.DR PO (08:11)
[2020-11-19] MEDS: Escitalopram Oxalate 20 MG TABLET PO (08:11)
[2020-11-19] MEDS: lisinopriL 20 MG TABLET PO (08:12)
[2020-11-19] MEDS: Dextrose 5 % and 0.45 % NaCl 1,000 ML 100 ML IVCONT ×2 (12:29→22:08)
--- NOTE | 2020-11-19 12:30 | P.PNIM_ITS ---
Subjective Subjective Date of Service: 11/19/20 Interval History: F/u on diverticulitis, stil has mod pain, no fever, WBC normal Review of Systems Gen: no fever Resp: no sob, no cough CV: no chest, no SUGGS, no leg edema GI: No n/v, + abd pain Neuro: No confusion Physical Exam Vital Signs: Vital Signs: Last Vital Signs Temp 96.8 F 11/19/20 12:00 Pulse 60 11/19/20 12:00 Resp 18 11/19/20 12:00 BP 125/55 L 11/19/20 12:00 Pulse Ox 98 11/19/20 12:00 Body Mass Index 46.2 Const: Other: General: AO X 3, no acute distress Resp: CTA bilateral CVS: S1,S2,RRR GI: +BS, left sided tenderness, no distention Skin: No rash Neuro: motor grossly intact Psych: appropriate affect Objective Data Current Medications Generic Name Dose Route Start Last Admin Trade Name Freq PRN Reason Stop Dose Admin Enoxaparin Sodium 40 mg 11/18/20 09:00 11/19/20 08:11 Enoxaparin Sodium 40 Mg/0.4 Ml Syringe SUBCUT 40 mg Q24H SHAMIR Administration Escitalopram Oxalate 20 mg 11/18/20 09:00 11/19/20 08:11 Escitalopram Oxalate 20 Mg Tablet PO 20 mg DAILY SHAMIR Administration Hydromorphone HCl 0.5 mg 11/18/20 05:00 11/19/20 10:22 Hydromorphone Hcl 0.5 Mg/0.5 Ml Syringe IVPUSH 0.5 mg Q4H PRN Administration Pain, Severe (Pain Scale 7-10) Dextrose/Sodium Chloride 1,000 mls @ 100 mls/hr 11/18/20 00:30 11/19/20 12:29 D51/2ns IVCONT 100 mls/hr .Q10H SHAMIR Administration Lisinopril 20 mg 11/18/20 09:00 11/19/20 08:12 Lisinopril 20 Mg Tablet PO 20 mg DAILY SHAMIR Administration Protocol Melatonin 6 mg 11/18/20 00:24 Melatonin 3 Mg Tablet PO BEDTIME PRN Insomnia Omeprazole 20 mg 11/18/20 09:00 11/19/20 08:11 Omeprazole 20 Mg Capsule.Dr PO 20 mg DAILY SHAMIR Administration Ondansetron HCl 4 mg 11/18/20 00:24 11/19/20 06:20 Ondansetron Hcl 4 Mg/2 Ml Vial IVPUSH 4 mg Q8H PRN Administration Nausea and Vomiting Pharmacy Consult 1 each 11/17/20 21:27 Consult Rx Perform Med Rec MISCELLANE ONCE PRN Consult order Sodium Chloride 3 ml 11/18/20 08:00 11/19/20 08:11 0.9 % Sodium Chloride Flush 3 Ml Syringe IVFLUSH Not Given QSHIFT [facility] Labs CBC & Chem 7: 11/18/20 08:46 11/18/20 06:30 Labs: Laboratory Results - last 24 hr 11/18/20 19:45 C. difficile Tox B Gene NEGATIVE Microbiology Microbiology Results: Microbiology 11/17/20 21:43 Blood Culture - Preliminary Blood - Venous No growth after 24 hours. 11/17/20 21:43 Blood Culture - Preliminary Blood - Venous No growth after 24 hours. Quality Stroke Does the patient have a stroke diagnosis?: No VTE Prior VTE?: No VTE Risk Level:: Medical - moderate - high VTE Device Contraindication: N/A - Device Ordered VTE Drug Contraindication: Treatment Not Indicated Assessment and Plan (1) Acute diverticulitis: Status: Acute Assessment and Plan: 50-year-old female with a past medical history of hypertension, obesity, recent admission to the hospital for diverticulitis presented to the hospital with a chief complaint of nausea vomiting and abdominal discomfort and CT scan showed diverticulitis associated with marked leukocytosis. . Diverticulitis, still with tenderness, WBC normal now. C dif negative -Advance diet to liquid and full liquid later -IV Zosyn and Flagyl D2, change to oral Augmentin and oral Flagyl tomorrow if making progress -GI consult d/t repeat nature of diverticulitis History of hypertension: continue Lisinopril DVT prophylaxis: SCD boots Code status: Full code
--- NOTE | 2020-11-19 13:46 | P.CNGI_ITS ---
Assessment and Plan (1) Acute diverticulitis: Status: Acute (2) Diarrhea: Status: Acute 50 YF presented with recurrent episodes of diverticulitis since June 2020 (pt notes she has been treated 3-4 times with antibiotics as an outpatient by her PCP) Sigmoid colectomy is planned after resolution of current episode of diverticulitis Pt has been admitted with fever, chills, n, v and recurrent abdominal pain despite being on antibiotic therapy since her last hospitalization on 11/08/20. Her clinic course is suggestive of smoldering diverticulitis/segmental d iverticular colitis. Recurrent fever, chills and abdominal pain can be due to superimposed ischemic colitis due to decreased PO intake and dehydration, early stricture formation or C Diff colitis. Stool studies x 2 have been negative for C Diff toxin - last checked on 11/18/20. RECOMMENDATIONS: 1. Continue IV antibiotics 2. Clear liquid diet and advance diet as tolerated. 3. Patient encouraged to take yogurt with probiotics once she start taking solid food. History of Present Illness Data of Consult Service Date: 11/19/20 Requesting physician: Deven Parsons Primary Care Provider: Avtar Lee MD [facility] Reason for consult: Recurrent diverticulitis 50 YF presented to [facility] ED last night with LLQ pain, fever and chills, nausea and vomiting. Pt was hospitalized at [facility] with acute diverticulitis from 11/08 to 11/12/20 and treated with IV Zosyn and switched to PO antibiotics (levofloxacin and metronidazole x 7 days) on discharge CT scan on admission showed: Colonic diverticulitis at the junction of the descending and sigmoid colon. Inflammatory changes appear slightly improved when compared to the prior study and there certainly has been no progression of disease with perforation or pericolonic abscess. Other incidental findings as described above. Pt had loose stool initially but this became more solid prior to discharge. A C Diff toxin was negative. She was discharged home on oral antibiotics. On 11/17/20 pt had some chicken salad and felt tired, cold with fever, chills and worsening abdominal pain associated with nausea and vomiting. Has been having non blood diarrhea with some mucous - 2 loose BMs yeseterday. She returned to the ER on 11/17/20 for further evaluation. WBC was 21, [address] of the abdomen and pelvis revealed resolution of the sigmoid diverticulitis without any evidence of abscess or free air. Patient was readmitted to the hospitalist service for further management. Patient gives a hx of chronic heartburn and takes Prilosec once a day. She is status post Fundoplication in her 20's for severe heartburn. She denies dysphagia, nausea, vomiting, change in appetite or weight. Patient denies major cardiac or pulmonary problems, loud snoring or sleep apnea Denies problems with anesthesia in the past. Denies being on chronic anticoagulation. 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 Patient denies known family history of colon polyps, colon cancer or other GI malignancies. A brother has GERD. Mom with ?NHL, Dad of [employer] IMAGING STUDIES: 11/17/[address] SCAN SHOWED: There has been significant improvement in appearances since the prior study with near clearing of previously seen changes of diverticulitis with only some minimal inflammatory changes remaining. There has been no progression of disease with perforation or pericolonic abscess. Other incidental findings as described above. ENDOSCOPIC STUDIES: 08/25/[address] DOWNS AND SHOWED: Descending Colon:several diverticula seen Sigmoid Colon: moderate severe diverticulosis with tics of varying sizes Rectum: Retroflexion with small internal hemorrhoids, grade II Anorectum - normal Repeat colonoscopy was advised in 1-2 years due to suboptimal prep Review of Systems Constitutional: Constitutional: Reports chills, Reports fever(s), Denies headache(s) and Denies weight loss Eyes: Eyes: Denies eye discharge and Denies irritation ENT: Reports Normal hearing present, Denies dysphagia, Denies dizziness and Denies headache(s) Cardiovascular: Cardiovascular: Denies chest pain, Denies leg edema and Denies dyspnea on exertion Respiratory: Respiratory: Denies cough and Denies dyspnea on exertion Gastrointestinal: Gastrointestinal: Reports abdominal pain, Reports change in bowel habits, Denies dysphagia, Reports heartburn, Reports diarrhea, Reports nausea and Reports vomiting Genitourinary: Genitourinary: Denies difficulty voiding and Denies dysuria Musculoskeletal: Musculoskeletal: Denies back pain and Denies arthralgias Integumentary/Breasts: Skin/Breast: Denies pruritus, Denies rash and Denies jaundice Neurologic: Reports Normal hearing present, Denies Abnormal speech present, Denies dizziness, Denies headache(s) and Denies seizure-like activity Psychiatric: Psychiatric: Denies anxiety, Denies depression and Denies panic attacks Endocrine: Endocrine: Denies cold intolerance, Denies flushing and Denies heat intolerance Hematologic/Lymphatic: Hematologic/Lymphatic: Denies easy bleeding and Denies easy bruising PMFSH Past Medical History Medical History Arthropathy of facet joint Diverticulitis Morbid obesity Spondylosis of lumbar region without myelopathy or radiculopathy Family History Family History Mother Hodgkin disease Brother Diabetes Surgical History Surgical History History of incisional hernia repair History of Florentino fundoplication (Unknown) Hx of colonoscopy Social History Social History Household Members: Spouse and Family Household Members Other:: partner Housing: House Do you presently have visiting nurse or other home services: No Alcohol intake: never Patient Tobacco Use Status: Never used Tobacco service: Yes Current occupational status: unemployed Current occupation: [employer] Allergies Allergy/AdvReac Type Severity Reaction Status Date / Time No Known Allergies Allergy Mild NKA Verified 11/17/20 17:01 Active Medications: Current Medications Generic Name Dose Route Start Last Admin Trade Name Freq PRN Reason Stop Dose Admin Enoxaparin Sodium 40 mg 11/18/20 09:00 11/19/20 08:11 Enoxaparin Sodium 40 Mg/0.4 Ml Syringe SUBCUT 40 mg Q24H SHAMIR Administration Escitalopram Oxalate 20 mg 11/18/20 09:00 11/19/20 08:11 Escitalopram Oxalate 20 Mg Tablet PO 20 mg DAILY SHAMIR Administration Hydromorphone HCl 0.5 mg 11/18/20 05:00 11/19/20 10:22 Hydromorphone Hcl 0.5 Mg/0.5 Ml Syringe IVPUSH 0.5 mg Q4H PRN Administration Pain, Severe (Pain Scale 7-10) Dextrose/Sodium Chloride 1,000 mls @ 100 mls/hr 11/18/20 00:30 11/19/20 12:29 D51/2ns IVCONT 100 mls/hr .Q10H SHAMIR Administration Lisinopril 20 mg 11/18/20 09:00 11/19/20 08:12 Lisinopril 20 Mg Tablet PO 20 mg DAILY SHAMIR Administration Protocol Melatonin 6 mg 11/18/20 00:24 Melatonin 3 Mg Tablet PO BEDTIME PRN Insomnia Omeprazole 20 mg 11/18/20 09:00 11/19/20 08:11 Omeprazole 20 Mg Capsule.Dr PO 20 mg DAILY SHAMIR Administration Ondansetron HCl 4 mg 11/18/20 00:24 11/19/20 06:20 Ondansetron Hcl 4 Mg/2 Ml Vial IVPUSH 4 mg Q8H PRN Administration Nausea and Vomiting Pharmacy Consult 1 each 11/17/20 21:27 Consult Rx Perform Med Rec MISCELLANE ONCE PRN Consult order Sodium Chloride 3 ml 11/18/20 08:00 11/19/20 08:11 0.9 % Sodium Chloride Flush 3 Ml Syringe IVFLUSH Not Given QSHIFT [facility] Home Medications Medication Instructions Recorded Confirmed Last Taken Type escitalopram oxalate 20 mg tablet 20 mg PO DAILY 06/24/20 11/17/20 11/17/20 History Physical Exam Vital Signs: Vital Signs: Last Vital Signs Temp 96.8 F 11/19/20 12:00 Pulse 60 11/19/20 12:00 Resp 18 11/19/20 12:00 BP 125/55 L 11/19/20 12:00 Pulse Ox 98 11/19/20 12:00 Body Mass Index 46.2 Const: General: no acute distress and ill appearing Nutritional Appearance: obese Orientation/consciousness: patient oriented x3 Limitations: no limitations HENMT: Head: Yes normal to inspection Ears: hearing grossly normal bilaterally Mouth: Normal oral and palatal mucosa present Eyes: Sclerae: sclerae normal Pupils: Equal, round and reactive pupils present Neck: Neck: Yes normal visual inspection Chest: Chest palpation & inspection: normal inspection of the chest Resp: Effort & Inspection: normal respiratory effort Auscultation: clear to auscultation bilaterally Cardio: Palpation: normal PMI Rate: regular rate Rhythm: regular rhythm Heart sounds: S1 normal heart sound present, S2 normal heart sound present and no murmurs GI: Palpation (GI): Soft to palpation, Tenderness to palpation present (GI) (moderate LLQ tenderness) and No hepatosplenomegaly present Auscultation: normal bowel sounds Rectal Exam - Female: deferred Skin: General skin exam: no rashes or lesions noted Neuro: General: patient oriented x3, gait normal and moves all extremities Cranial nerves: Yes Equal, round and reactive pupils present and Yes Normal he aring present Speech: No Abnormal speech present Psych: Appearance: grossly normal Mental Status: mental status grossly normal Results Labs CBC & Chem 7: 11/18/20 08:46 11/18/20 06:30 Microbiology Microbiology Results: Microbiology 11/17/20 21:43 Blood - Venous Blood Culture - Preliminary No growth after 24 hours. 11/17/20 21:43 Blood - Venous Blood Culture - Preliminary No growth after 24 hours. Procedures Date of Service Date of Service: 11/19/20
[2020-11-19] MEDS: 0.9 % Sodium Chloride Flush 3 ML SYRINGE IVFLUSH (14:26)
--- NOTE | 2020-11-19 16:21 | P.PNGS_ITS ---
Progress Note: A&P Assessment and plan (1) Acute diverticulitis: Status: Acute Assessment and Plan: 50 berry old female with acute diverticulitis treated recently and then dc home but returned with worsening pain and elevatedd wbc. ct showing marked impr ovement in colon though, no complications. feeling better now. c diff was negative. agree with cont clear liquids today and tomorrow iv antibx to cont pt most likely will need elective colectomy at some point but it would be good to do as an elective case, bowel prep etc as she has a large piece of mesh in place and she is quite large making an ostomy difficult. she understands and agrees with the plan Fall Risk Details Current Medications: Current Medications Generic Name Dose Route Start Last Admin Trade Name Freq PRN Reason Stop Dose Admin Enoxaparin Sodium 40 mg 11/18/20 09:00 11/19/20 08:11 Enoxaparin Sodium 40 Mg/0.4 Ml Syringe SUBCUT 40 mg Q24H SHAMIR Administration Escitalopram Oxalate 20 mg 11/18/20 09:00 11/19/20 08:11 Escitalopram Oxalate 20 Mg Tablet PO 20 mg DAILY SHAMIR Administration Hydromorphone HCl 0.5 mg 11/18/20 05:00 11/19/20 14:26 Hydromorphone Hcl 0.5 Mg/0.5 Ml Syringe IVPUSH 0.5 mg Q4H PRN Administration Pain, Severe (Pain Scale 7-10) Dextrose/Sodium Chloride 1,000 mls @ 100 mls/hr 11/18/20 00:30 11/19/20 12:29 D51/2ns IVCONT 100 mls/hr .Q10H SHAMIR Administration Lisinopril 20 mg 11/18/20 09:00 11/19/20 08:12 Lisinopril 20 Mg Tablet PO 20 mg DAILY SHAMIR Administration Protocol Melatonin 6 mg 11/18/20 00:24 Melatonin 3 Mg Tablet PO BEDTIME PRN Insomnia Omeprazole 20 mg 11/18/20 09:00 11/19/20 08:11 Omeprazole 20 Mg Capsule.Dr PO 20 mg DAILY SHAMIR Administration Ondansetron HCl 4 mg 11/18/20 00:24 11/19/20 14:26 Ondansetron Hcl 4 Mg/2 Ml Vial IVPUSH 4 mg Q8H PRN Administration Nausea and Vomiting Pharmacy Consult 1 each 11/17/20 21:27 Consult Rx Perform Med Rec MISCELLANE ONCE PRN Consult order Sodium Chloride 3 ml 11/18/20 08:00 11/19/20 14:26 0.9 % Sodium Chloride Flush 3 Ml Syringe IVFLUSH 3 ml QSHIFT SHAMIR Administration Time Spent With Patient Time: Total time spent is greater than 50% in coordination of care (as documented) at patient's floor/unit and/or counseling patient: Time with patient: 25 - 35 minutes Subjective Subjective Date of Service: 11/19/20 Interval history: feeling better, no nausea or vomiting less pain and no fever or chills Physical Exam Vital Signs: Vital Signs: Last Vital Signs Temp 97 F 11/19/20 16:00 Pulse 59 11/19/20 16:00 Resp 20 11/19/20 16:00 BP 123/53 L 11/19/20 16:00 Pulse Ox 95 11/19/20 16:00 Body Mass Index 46.2 GI: Other: abdom - obese soft tender with guarding left lower quadrant no peritoneal signs Procedures Date of Service Date of Service: 11/19/20 Quality Stroke Does the patient have a stroke diagnosis?: No VTE Prior VTE?: No VTE Risk Level:: Medical - moderate - high VTE Device Contraindication: N/A - Device Ordered VTE Drug Contraindication: Treatment Not Indicated
[2020-11-20] VITALS (7 sets, daily range): BP systolic 132–177; BP diastolic 62–114; PULSE 57–73; RESP 18–20; TEMP 36.2–36.4; O2SAT 97–100
[2020-11-20] MEDS: HYDROmorphone HCl 0.5 MG/0.5 ML SYRINGE IVPUSH ×5 (03:59→21:08)
[2020-11-20 07:49] LABS: Hematocrit 31.6 % (37-47); Hemoglobin 9.9 g/dl (12.0-16.0); Mean Corpuscular HGB Conc 31.3 g/dl (31.0-35.0); Mean Corpuscular Hemoglobin 26.1 pg (27.0-33.0); Mean Corpuscular Volume 83.4 fL (80-98); Mean Platelet Volume 9.3 fL (9.4-12.3); Platelet Count 296 X10*3/uL (160-400); Red Blood Count 3.79 X10*6/uL (4.20-5.50); White Blood Count 7.2 X10*3/uL (4.8-10.8)
[2020-11-20] MEDS: lisinopriL 20 MG TABLET PO (08:42)
[2020-11-20] MEDS: Escitalopram Oxalate 20 MG TABLET PO (08:42)
[2020-11-20] MEDS: Enoxaparin Sodium 40 MG/0.4 ML SYRINGE SUBCUT (08:42)
[2020-11-20] MEDS: Omeprazole 20 MG CAPSULE.DR PO (08:42)
[2020-11-20] MEDS: 0.9 % Sodium Chloride Flush 3 ML SYRINGE IVFLUSH ×3 (08:43→21:10)
[2020-11-20] MEDS: Dextrose 5 % and 0.45 % NaCl 1,000 ML 100 ML IVCONT ×2 (09:29→22:14)
--- NOTE | 2020-11-20 09:36 | P.PNIM_ITS ---
Subjective Subjective Date of Service: 11/20/20 Interval History: Seen in f/u for colitis, persistent diarrhea, pain is better, WBC still low Review of Systems Gen: no fever Resp: no sob, no cough CV: no chest, no SUGGS, no leg edema GI: No diarrhea, abd pain Neuro: No confusion Physical Exam Vital Signs: Vital Signs: Last Vital Signs Temp 97.2 F 11/20/20 08:00 Pulse 67 11/20/20 08:42 Resp 18 11/20/20 08:00 BP 148/62 H 11/20/20 08:42 Pulse Ox 99 11/20/20 08:00 Body Mass Index 46.2 Const: Other: General: AO X 3, no acute distress Resp: CTA bilateral CVS: S1,S2,RRR GI: +BS, NT, mild tenderness Skin: No rash Neuro: motor grossly intact Psych: appropriate affect Objective Data Current Medications Generic Name Dose Route Start Last Admin Trade Name Freq PRN Reason Stop Dose Admin Cefuroxime Axetil 500 mg 11/20/20 09:45 Cefuroxime Axetil 500 Mg Tablet PO Q12H SHAMIR Enoxaparin Sodium 40 mg 11/18/20 09:00 11/20/20 08:42 Enoxaparin Sodium 40 Mg/0.4 Ml Syringe SUBCUT 40 mg Q24H SHAMIR Administration Escitalopram Oxalate 20 mg 11/18/20 09:00 11/20/20 08:42 Escitalopram Oxalate 20 Mg Tablet PO 20 mg DAILY SHAMIR Administration Hydromorphone HCl 0.5 mg 11/18/20 05:00 11/20/20 08:42 Hydromorphone Hcl 0.5 Mg/0.5 Ml Syringe IVPUSH 0.5 mg Q4H PRN Administration Pain, Severe (Pain Scale 7-10) Dextrose/Sodium Chloride 1,000 mls @ 100 mls/hr 11/18/20 00:30 11/20/20 09:29 D51/2ns IVCONT 100 mls/hr .Q10H SHAMIR Administration Lisinopril 20 mg 11/18/20 09:00 11/20/20 08:42 Lisinopril 20 Mg Tablet PO 20 mg DAILY SHAMIR Administration Protocol Loperamide HCl 2 mg 11/20/20 09:34 Loperamide Hcl 2 Mg Capsule PO Q4H PRN Diarrhea Melatonin 6 mg 11/18/20 00:24 Melatonin 3 Mg Tablet PO BEDTIME PRN Insomnia Metronidazole 500 mg 11/20/20 09:45 Metronidazole 500 Mg Tablet PO Q12H [facility] Omeprazole 20 mg 11/18/20 09:00 11/20/20 08:42 Omeprazole 20 Mg Capsule.Dr PO 20 mg DAILY SHAMIR Administration Ondansetron HCl 4 mg 11/18/20 00:24 11/19/20 14:26 Ondansetron Hcl 4 Mg/2 Ml Vial IVPUSH 4 mg Q8H PRN Administration Nausea and Vomiting Pharmacy Consult 1 each 11/17/20 21:27 Consult Rx Perform Med Rec MISCELLANE ONCE PRN Consult order Sodium Chloride 3 ml 11/18/20 08:00 11/20/20 08:43 0.9 % Sodium Chloride Flush 3 Ml Syringe IVFLUSH 3 ml QSHIFT SHAMIR Administration Labs CBC & Chem 7: 11/20/20 07:25 11/18/20 06:30 Labs: Laboratory Results - last 24 hr 11/20/20 07:25 WBC 7.2 RBC 3.79 L Hgb 9.9 L Hct 31.6 L MCV 83.4 MCH 26.1 L MCHC 31.3 RDW 14.0 Plt Count 296 MPV 9.3 L Absolute Nucleated RBC 0.000 Nucleated RBC % (auto) 0.0 Microbiology Microbiology Results: Microbiology 11/17/20 21:43 Blood Culture - Preliminary Blood - Venous No growth after 48 hours. 11/17/20 21:43 Blood Culture - Preliminary Blood - Venous No growth after 48 hours. Quality Stroke Does the patient have a stroke diagnosis?: No VTE Prior VTE?: No VTE Risk Level:: Medical - moderate - high VTE Device Contraindication: N/A - Device Ordered VTE Drug Contraindication: Treatment Not Indicated Assessment and Plan (1) Acute diverticulitis: Status: Acute Assessment and Plan: 50-year-old female with a past medical history of hypertension, obesity, recent admission to the hospital for diverticulitis presented to the hospital with a chief complaint of nausea vomiting and abdominal discomfort and CT scan showed diverticulitis associated with marked leukocytosis. . Diverticulitis, still with tenderness, WBC normal now. C dif negative -Advance diet to liquid and full liquid later -IV Zosyn and PO Flagyl, change to PO Ceftin and Flagyl at dc -Imodium for diarrhea possibly home later today if not tomorrow morning
[2020-11-20] MEDS: Piperacillin Sodium/Tazobactam 3.375 GM in 0.9 % Sodium Chloride 50 ML IV ×3 (10:37→21:11)
[2020-11-20] MEDS: metroNIDAZOLE 500 MG TABLET PO ×2 (10:37→22:19)
[2020-11-20] MEDS: ondansetron HCL 4 MG/2 ML VIAL IVPUSH ×2 (11:16→21:10)
[2020-11-20] MEDS: Loperamide HCl 2 MG CAPSULE PO (12:10)
--- NOTE | 2020-11-20 15:36 | P.PNGS_ITS ---
Progress Note: A&P Assessment and plan (1) Diverticulitis: Status: Acute Assessment and Plan: improving diverticulitis - cont medical management but will most likely need elective resection as outpt. Fall Risk Details Current Medications: Current Medications Generic Name Dose Route Start Last Admin Trade Name Freq PRN Reason Stop Dose Admin Enoxaparin Sodium 40 mg 11/18/20 09:00 11/20/20 08:42 Enoxaparin Sodium 40 Mg/0.4 Ml Syringe SUBCUT 40 mg Q24H SHAMIR Administration Escitalopram Oxalate 20 mg 11/18/20 09:00 11/20/20 08:42 Escitalopram Oxalate 20 Mg Tablet PO 20 mg DAILY SHAMIR Administration Hydromorphone HCl 0.5 mg 11/18/20 05:00 11/20/20 12:39 Hydromorphone Hcl 0.5 Mg/0.5 Ml Syringe IVPUSH 0.5 mg Q4H PRN Administration Pain, Severe (Pain Scale 7-10) Dextrose/Sodium Chloride 1,000 mls @ 100 mls/hr 11/18/20 00:30 11/20/20 09:29 D51/2ns IVCONT 100 mls/hr .Q10H SHAMIR Administration Piperacillin Sod/Tazobactam 50 mls @ 100 mls/hr 11/20/20 10:00 11/20/20 11:18 Sod 3.375 gm/ Sodium Chloride IV Infused Q6H SHAMIR Infusion Lisinopril 20 mg 11/18/20 09:00 11/20/20 08:42 Lisinopril 20 Mg Tablet PO 20 mg DAILY SHAMIR Administration Protocol Loperamide HCl 2 mg 11/20/20 09:34 11/20/20 12:10 Loperamide Hcl 2 Mg Capsule PO 2 mg Q4H PRN Administration Diarrhea Melatonin 6 mg 11/18/20 00:24 Melatonin 3 Mg Tablet PO BEDTIME PRN Insomnia Metronidazole 500 mg 11/20/20 10:00 11/20/20 10:37 Metronidazole 500 Mg Tablet PO 500 mg Q12H SHAMIR Administration Omeprazole 20 mg 11/18/20 09:00 11/20/20 08:42 Omeprazole 20 Mg Capsule.Dr PO 20 mg DAILY SHAMIR Administration Ondansetron HCl 4 mg 11/18/20 00:24 11/20/20 11:16 Ondansetron Hcl 4 Mg/2 Ml Vial IVPUSH 4 mg Q8H PRN Administration Nausea and Vomiting Pharmacy Consult 1 each 11/17/20 21:27 Consult Rx Perform Med Rec MISCELLANE ONCE PRN Consult order Sodium Chloride 3 ml 11/18/20 08:00 11/20/20 08:43 0.9 % Sodium Chloride Flush 3 Ml Syringe IVFLUSH 3 ml QSHIFT SHAMIR Administration Time Spent With Patient Time: Total time spent is greater than 50% in coordination of care (as documented) at patient's floor/unit and/or counseling patient: Time with patient: 15 - 24 minutes Subjective Subjective Date of Service: 11/20/20 Interval history: says feeling a little better, tolerating liquids better, had a small bowel movement, no fever or chills Physical Exam Vital Signs: Vital Signs: Last Vital Signs Temp 97.2 F 11/20/20 12:00 Pulse 57 11/20/20 12:00 Resp 18 11/20/20 12:00 BP 132/78 11/20/20 12:00 Pulse Ox 100 11/20/20 12:00 Body Mass Index 46.2 GI: Other: abdo soft, obese, moderately less tender to deep palpation to abd omen even suprapubic and rlq Procedures Date of Service Date of Service: 11/20/20 Quality Stroke Does the patient have a stroke diagnosis?: No VTE Prior VTE?: No VTE Risk Level:: Medical - moderate - high VTE Device Contraindication: N/A - Device Ordered VTE Drug Contraindication: Treatment Not Indicated
[2020-11-21] VITALS: BP 165/89; PULSE 68; RESP 18; TEMP 36.2; O2SAT 98
[2020-11-21] MEDS: HYDROmorphone HCl 0.5 MG/0.5 ML SYRINGE IVPUSH ×6 (01:35→23:47)
[2020-11-21 03:46] VITALS: BP 140/77; PULSE 68; RESP 16; TEMP 36; O2SAT 97
[2020-11-21] MEDS: Piperacillin Sodium/Tazobactam 3.375 GM in 0.9 % Sodium Chloride 50 ML IV ×4 (05:05→23:10)
--- NOTE | 2020-11-21 07:40 | PM.PNGS ---
Subjective Subjective Date of Service: 11/21/20 <Estefany Calderon PA-C - Last Filed: 11/21/20 10:57> 11/21/20 <Peterson Ariza MD - Last Filed: 11/21/20 13:58> Interval history: Continues to feel better. Had some worsening of pain initially with initiation of full liquid diet but better now. Denies nausea, vomiting. Continues with diarrhea. Has been OOB and ambulating. Wants to try solid food. <Estefany Calderon PA-C - Last Filed: 11/21/20 10:57> Physical Exam Vital Signs: Vital Signs: Last Vital Signs Temp 96.8 F 11/21/20 03:46 Pulse 68 11/21/20 03:46 Resp 16 11/21/20 03:46 BP 140/77 H 11/21/20 03:46 Pulse Ox 97 11/21/20 03:46 Body Mass Index 46.2 <Estefany Calderon PA-C - Last Filed: 11/21/20 10:57> Const: General: comfortable and no acute distress <Estefany Calderon PA-C - Last Filed: 11/21/20 10:57> Orientation/consciousness: patient oriented x3 <SOPHIA Maxwell Last Filed: 11/21/20 10:57> Eyes: Sclerae: sclerae normal <Estefany Calderon PA-C - Last Filed: 11/21/20 10:57> Resp: Effort & Inspection: normal respiratory effort <Estefany Calderon PA-C - Last Filed: 11/21/20 10:57> Cardio: Rate: regular rate <Estefany Calderon PA-C - Last Filed: 11/21/20 10:57> GI: Inspection: Yes scar (midline) <SOPHIA Maxwell Last Filed: 11/21/20 10:57> Palpation (GI): Soft to palpation, Tenderness to palpation present (GI) in the LLQ and no guarding <Estefany Calderon PA-C - Last Filed: 11/21/20 10:57> Percussion: Yes normal to percussion <SOPHIA Maxwell Last Filed: 11/21/20 10:57> Auscultation: normal bowel sounds <Estefany Calderon PA-C - Last Filed: 11/21/20 10:57> Skin: General skin exam: no rashes or lesions noted <Estefany Calderon PA-C - Last Filed: 11/21/20 10:57> Neuro: General: patient oriented x3 <Estefany Calderon PA-C - Last Filed: 11/21/20 10:57> Extrem: General: Yes no clubbing, cyanosis or edema <Estefany Calderon PA-C - Last Filed: 11/21/20 10:57> Procedures Date of Service Date of Service: 11/21/20 <Estefany Calderon PA-C - Last Filed: 11/21/20 10:57> Progress Note: A&P Assessment and plan (1) Acute diverticulitis: Status: Acute <Estefany Calderon PA-C - Last Filed: 11/21/20 10:57> Assessment and Plan: 50-year-old female well known to surgical service with recurrent diverticulitis. CT of the abdomen and pelvis with no evidence of abscess or free air to indicate a complicated diverticulitis, previous inflammatory changes are now much improved. On zosyn, flagyl. C diff negative. She feels improved and is tolerating full liquids. Leukocytosis resolved. Will advance to low residue diet. If tolerating without increased pain, possible d/c to home today on PO course of abx and f/u in office to discuss eventual resection. <Estefany Calderon PA-C - Last Filed: 11/21/20 10:57> Overall the patient feels much improved this morning with decreased abdominal pain. She is still having some left lower quadrant abdominal pain but not to the degree of her initial presentation. She denies any fever or chills. She continues to have the diarrhea the C diff titers have been negative. Patient's WBC is also return to normal. She is tolerating some food (approximately 25% of her meal). Continue antibiotic management as per hospitalist team. Elective sigmoid colectomy discussed in approximately 2-3 months. <Peterson Ariza MD - Last Filed: 11/21/20 13:58> Fall Risk Details Current Medications: Current Medications Generic Name Dose Route Start Last Admin Trade Name Freq PRN Reason Stop Dose Admin Enoxaparin Sodium 40 mg 11/18/20 09:00 11/20/20 08:42 Enoxaparin Sodium 40 Mg/0.4 Ml Syringe SUBCUT 40 mg Q24H SHAMIR Administration Escitalopram Oxalate 20 mg 11/18/20 09:00 11/20/20 08:42 Escitalopram Oxalate 20 Mg Tablet PO 20 mg DAILY SHAMIR Administration Hydromorphone HCl 0.5 mg 11/18/20 05:00 11/21/20 05:05 Hydromorphone Hcl 0.5 Mg/0.5 Ml Syringe IVPUSH 0.5 mg Q4H PRN Administration Pain, Severe (Pain Scale 7-10) Piperacillin Sod/Tazobactam 50 mls @ 100 mls/hr 11/20/20 10:00 11/21/20 05:48 Sod 3.375 gm/ Sodium Chloride IV Infused Q6H SHAMIR Infusion Lisinopril 20 mg 11/18/20 09:00 11/20/20 08:42 Lisinopril 20 Mg Tablet PO 20 mg DAILY SHAMIR Administration Protocol Loperamide HCl 2 mg 11/20/20 09:34 11/20/20 12:10 Loperamide Hcl 2 Mg Capsule PO 2 mg Q4H PRN Administration Diarrhea Melatonin 6 mg 11/18/20 00:24 Melatonin 3 Mg Tablet PO BEDTIME PRN Insomnia Metronidazole 500 mg 11/20/20 10:00 11/20/20 22:19 Metronidazole 500 Mg Tablet PO 500 mg Q12H SHAMIR Administration Omeprazole 20 mg 11/18/20 09:00 11/20/20 08:42 Omeprazole 20 Mg Capsule.Dr PO 20 mg DAILY SHAMIR Administration Ondansetron HCl 4 mg 11/18/20 00:24 11/20/20 21:10 Ondansetron Hcl 4 Mg/2 Ml Vial IVPUSH 4 mg Q8H PRN Administration Nausea and Vomiting Pharmacy Consult 1 each 11/17/20 21:27 Consult Rx Perform Med Rec MISCELLANE ONCE PRN Consult order Sodium Chloride 3 ml 11/18/20 08:00 11/20/20 21:10 0.9 % Sodium Chloride Flush 3 Ml Syringe IVFLUSH 3 ml QSHIFT SHAMIR Administration <Estefany Calderon PA-C - Last Filed: 11/21/20 10:57> Time Spent With Patient Time: Total time spent is greater than 50% in coordination of care (as documented) at patient's floor/unit and/or counseling patient: <Estefany Calderon PA-C - Last Filed: 11/21/20 10:57> Time with patient: 15 - 24 minutes <Estefany Calderon PA-C - Last Filed: 11/21/20 10:57> Quality Stroke Does the patient have a stroke diagnosis?: No <Estefany Calderon PA-C - Last Filed: 11/21/20 10:57> VTE Prior VTE?: No <Estefany Calderon PA-C - Last Filed: 11/21/20 10:57> VTE Risk Level:: Medical - moderate - high <Estefany Calderon PA-C - Last Filed: 11/21/20 10:57> VTE Device Contraindication: N/A - Device Ordered <Estefany Calderon PA-C - Last Filed: 11/21/20 10:57> VTE Drug Contraindication: Treatment Not Indicated <Estefany Calderon PA-C - Last Filed: 11/21/20 10:57>
[2020-11-21] MEDS: Enoxaparin Sodium 40 MG/0.4 ML SYRINGE SUBCUT (08:35)
[2020-11-21] MEDS: lisinopriL 20 MG TABLET PO (08:36)
[2020-11-21] MEDS: Omeprazole 20 MG CAPSULE.DR PO (08:36)
[2020-11-21] MEDS: Escitalopram Oxalate 20 MG TABLET PO (08:36)
[2020-11-21] MEDS: metroNIDAZOLE 500 MG TABLET PO ×2 (09:28→23:47)
[2020-11-21 11:44] VITALS: BP 176/89; PULSE 71; RESP 18; TEMP 36.7; O2SAT 99
[2020-11-21] MEDS: ondansetron HCL 4 MG/2 ML VIAL IVPUSH ×2 (14:00→23:58)
[2020-11-21 16:00] VITALS: BP 147/64; PULSE 77; RESP 16; TEMP 37; O2SAT 95
[2020-11-21] MEDS: 0.9 % Sodium Chloride Flush 3 ML SYRINGE IVFLUSH (16:17)
[2020-11-21 19:41] VITALS: BP 143/58; PULSE 78; RESP 18; TEMP 37.1; O2SAT 91
[2020-11-21 23:52] VITALS: BP 152/80; PULSE 68; RESP 16; TEMP 36.3; O2SAT 97
[2020-11-22 04:00] VITALS: BP 153/73; PULSE 75; RESP 16; TEMP 36; O2SAT 97
[2020-11-22] MEDS: HYDROmorphone HCl 0.5 MG/0.5 ML SYRINGE IVPUSH ×2 (04:46→09:09)
[2020-11-22] MEDS: Piperacillin Sodium/Tazobactam 3.375 GM in 0.9 % Sodium Chloride 50 ML IV ×2 (04:47→10:34)
[2020-11-22 07:52] VITALS: BP 153/83; PULSE 76; RESP 19; TEMP 36.9; O2SAT 98
[2020-11-22] MEDS: Escitalopram Oxalate 20 MG TABLET PO (08:58)
[2020-11-22] MEDS: lisinopriL 20 MG TABLET PO (08:59)
[2020-11-22] MEDS: Omeprazole 20 MG CAPSULE.DR PO (08:59)
[2020-11-22] MEDS: Enoxaparin Sodium 40 MG/0.4 ML SYRINGE SUBCUT (09:00)
[2020-11-22] MEDS: 0.9 % Sodium Chloride Flush 3 ML SYRINGE IVFLUSH (09:00)
--- NOTE | 2020-11-22 09:31 | PM.DS ---
DS: Providers Provider Date of Service: 11/22/20 Date of admission: 11/18/20 00:24 Primary care physician: Avtar Lee MD Consults: 11/18/20 00:28 Consult to General Surgery Routine Consulting Provider: Peterson Ariza Reason for consultation: diverticulitis 11/19/20 12:30 Consult to Gastroenterology Routine Consulting Provider: Claudia Yuan Reason for consultation: Diverticulitis Has provider been notified: No DS: Diagnosis Discharge Diagnosis (1) Acute diverticulitis: Status: Acute DS: Medications Discharge Medications Home Medications: Home Medications Medication Instructions Recorded Confirmed escitalopram oxalate 20 mg tablet 20 mg PO DAILY 06/24/20 11/17/20 Previous Rx's Medication Instructions Recorded omeprazole 20 mg capsule,delayed 20 mg PO DAILY 30 Days #30 cap 09/28/20 release lisinopril 20 mg PO DAILY #30 tab 10/28/20 ibuprofen 800 mg PO Q8H PRN #30 tab 11/06/20 metronidazole 500 mg PO Q8H #20 tab 11/12/20 ondansetron HCl 4 mg tablet 4 mg PO Q8H PRN #20 tab 11/15/20 oxycodone 5 mg tablet 5 mg PO Q6H PRN #14 tab 11/15/20 cefuroxime axetil 500 mg PO BID 7 Days #8 tab 11/22/20 oxycodone-acetaminophen [Endocet] 1 tab PO Q8H PRN #12 tab 11/22/20 DS: Summary Hospital Course Hospital Course: Chief Complaint: Nausea vomiting and abdominal pain 50-year-old female with a past medical history of obesity, hypertension, arthritis; recent admission to the hospital for acute diverticulitis, discharged on 11/12/2020 on levofloxacin and Flagyl; presented to the hospital today with a chief complaint of nausea vomiting and abdominal pain. Patient reports that since discharge she has continued to have nausea vomiting and abdominal discomfort. Unable to tolerate p.o.. As the symptoms were not improving she decided to come to the ER for further evaluation. Patient reports that she has been compliant with her home antibiotics. Denies any fever chills. Denies any cough. Denies any urinary symptoms. Hospital course: Patient presented with abdominal pain,n/v and diarrhea, she has been recently treated for acute diverticulitis with Levaquin and Flagyl. CT of abdomen and pelvis showed improvement in the diverticulitis, yet she was not able to take food or liquid by mouth and therefore was admitted for IV and hydration. She wa streated with Zosyn and Flagyl, she was evaluated by Dr. Yuan from GI, Cdif toxin was negative, over the course of hospitalizatio, her symptoms have improved, altough she still has some pain. Diet has been advanced and she will be discharge with Ceftin rather than Levaquin and to continue Flagyl that she still has at home and to follow up with PCP and Dr. Yuan (GI). Weight loss adivised Final diagnosis: Acute diverticulitis Diarrhea abdominal pain HTN Class 3 obesity Time Spent with Patient Time attestation: Total time spent providing and/or coordinating discharge services: Discharge coordination time: Greater than 30 minutes Quality: Stroke Does the patient have a stroke diagnosis?: No Physical Exam Vital Signs: Vital Signs: Last Vital Signs Temp 98.4 F 11/22/20 07:52 Pulse 76 11/22/20 07:52 Resp 19 11/22/20 07:52 BP 153/83 H 11/22/20 07:52 Pulse Ox 98 11/22/20 07:52 Body Mass Index 46.2 Const: Other: General: AO X 3, no acute distress Resp: CTA bilateral CVS: S1,S2,RRR GI: +BS, NT, no distention Skin: No rash Neuro: motor grossly intact Psych: appropriate affect DS: Data Data Completed and Pending Labs on day of discharge: Preliminary micro results at discharge 11/17/20 21:43 Blood Culture - Preliminary Blood - Venous No growth after 48 hours. 11/17/20 21:43 Blood Culture - Preliminary Blood - Venous No growth after 48 hours. Discharge Plan Discharge Anticipated Discharge Date/Time: 11/22/20 09:16 Patient Disposition: Home, Self-Care Discharge Diagnosis: Acute diverticulitis Referrals: Avtar Lee MD [Primary Care Provider] - 1 Week Claudia Yuan MD [Physician] - 2 Weeks Discharge Medications: New cefuroxime axetil 500 mg tablet 500 mg PO BID 7 Days Qty: 8 RF: 0 oxycodone-acetaminophen [Endocet] 5-325 mg tablet 1 tab PO Q8H PRN (Reason: pain (scale score 7-10)) Qty: 12 RF: 0 Continued oxycodone 5 mg tablet 5 mg PO Q6H PRN (Reason: pain) Qty: 14 RF: 0 ondansetron HCl [Zofran] 4 mg tablet 4 mg PO Q8H PRN (Reason: nausea and vomiting) Qty: 20 RF: 0 lisinopril 20 mg tablet 20 mg PO DAILY Qty: 30 RF: 0 ibuprofen 800 mg tablet 800 mg PO Q8H PRN (Reason: pain) Qty: 30 RF: 0 metronidazole 500 mg tablet 500 mg PO Q8H Qty: 20 RF: 0 escitalopram oxalate 20 mg tablet 20 mg PO DAILY RF: 0 omeprazole 20 mg capsule,delayed release(DR/EC) 20 mg PO DAILY 30 Days Qty: 30 RF: 6 Discontinued levofloxacin 750 mg tablet 750 mg PO DAILY Qty: 7 RF: 0 Discharge Orders: Discharge Order (Routine); Ordered 11/22/20 Ordered By: Deven Parsons Diet: advance to usual diet Activity on Discharge: As tolerated Stand Alone Forms: Patient Portal Discharge page Care Plan Goals: Full recovery from diverticulitis Health Concerns: Diverticulitis Plan of Treatment: Take Ceftin and Flagyl as recommended and follow up with your Doctor in a week, 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
--- NOTE | 2020-11-22 09:44 | MHC.CM.PN ---
electronic medical record reviewed and discharge instructiobs met with patient she is aware that she will be discharged home today no service discharge plN HOME NO SERVIOICES PCP DR FORREST- P5ient to call for post hospitla discharge follow up transportation family
--- NOTE | 2020-11-22 09:51 | MHC.CM.PN ---
PT DISCHARGING TODAY HOME SELF-CARE, PT TO ARRANGE TRANSPORT. PT DISCHARGING ON 7DAYS PO CEFUROXIME 500MG BID AND PRN ENDOCET
[2020-11-22] MEDS: metroNIDAZOLE 500 MG TABLET PO (10:34)
== END 2020-11-22 13:10 | disposition home or self-care (01) | DRG 244 ==
LOC: HO.ED 11-18 00:07 → HO.EDOVER 11-18 00:54 → HO.S3 11-18 07:07
PROVIDERS: Admitting Provider Hospitalist; Emergency Provider Emergency Medicine; PCP Internal Medicine; Visit Provider Internal Medicine
DX: K57.32 Diverticulitis of large intestine without perforation or abscess without bleeding (principal); Z68.42 Body mass index [BMI] 45.0-49.9, adult; E66.9 Obesity, unspecified; D72.829 Elevated white blood cell count, unspecified; Z20.822 Contact with and (suspected) exposure to COVID-19; Z79.1 Long term (current) use of non-steroidal anti-inflammatories (NSAID); Z79.899 Other long term (current) drug therapy
CPT/HCPCS: 36415; 74177; 80048; 80053; 81001; 83605; 85025; 85027; 87040; 87493; 87635; 99285; J1170; J1650; J2270; J2405; J2543; Q9967

== ENCOUNTER → 2020-11-30 14:35 | Outpatient (BNVA) | payer OTHER, SELFPAY | PROVIDERS: PCP Internal Medicine; Referring Provider Internal Medicine; Visit Provider Physician Assistant | DX: K57.90 Diverticulosis of intestine, part unspecified, without perforation or abscess without bleeding (principal) | CPT/HCPCS: 99212 ==

== ENCOUNTER → 2020-12-01 13:28 | Outpatient (BNVA) | payer OTHER, SELFPAY | PROVIDERS: PCP Internal Medicine; Referring Provider Internal Medicine; Visit Provider Surgery | DX: K57.92 Diverticulitis of intestine, part unspecified, without perforation or abscess without bleeding (principal) | CPT/HCPCS: 99212 ==

== ENCOUNTER 2021-01-06 12:06 | Day surgery (SDC) | payer OTHER, SELFPAY ==
[2020-12-30 10:55] VITALS: BMI 45.8
--- NOTE | 2021-01-05 12:13 | HO.ANESPROP2 ---
Documented by User: Leona Demarco NP 01/05/21 12:14 HPI - Anesthesia Eval Consult details Narrative: 50yo F for Lumbar Spinal Cord Stimulation Trial s/p colo with TIVA 07/2020 PMF Active Problems Active Problems: All Active Problems (Updated 12/30/20 @ 10:55 by Brooke Black, RN) Dysuria (Acute) Diverticulosis (Acute) Hx of appendectomy (Acute) Nausea & vomiting (Acute) Abdominal pain complicating (Acute) Lab test negative for COVID-19 virus (Acute) Acute diverticulitis (Acute) Morbid obesity (Acute) Arthropathy of facet joint (Acute) Spondylosis of lumbar region without myelopathy or radiculopathy (Acute) Past Medical History Medical History (Updated 12/30/20 @ 10:55 by Brooke Black RN) Anxiety Arthropathy of facet joint Back pain Diverticulitis HTN (hypertension) Morbid obesity Spondylosis of lumbar region without myelopathy or radiculopathy Family History Family History Mother Hodgkin disease Brother Diabetes Surgical History Surgical History History of incisional hernia repair History of Florentino fundoplication (Unknown) Hx of colonoscopy Social History Social History Household Members: Spouse and Family Household Members Other:: partner Housing: House Do you presently have visiting nurse or other home services: No Alcohol intake: never Patient Tobacco Use Status: Never used Tobacco Use of substances other than those prescribed or required for medical reasons: No Are you DNR?: No Advance Directives: No Advance Directives Information Provided: No Advance Directives on File: No Patient : No FDLMP: 12/12/2020 service: Yes Current occupational status: unemployed Current occupation: [employer] Allergies Allergy/AdvReac Type Severity Reaction Status Date / Time No Known Allergies Allergy Mild NKA Verified 01/06/21 13:29 Home Medications Medication Instructions Recorded Confirmed Last Taken Type escitalopram oxalate 20 mg tablet 20 mg PO DAILY 06/24/20 12/30/20 01/06/21 07:30 History loperamide 2 mg tablet (Imodium 2 mg PO QID PRN 12/30/20 12/30/20 Unknown History A-D) Exam Exam Date and Time: January 05, 2021 1213 Height,Weight and Vital Signs: Height 5 ft 9 in Weight 140.614 kg Pertinent Lab Results Pertinent Lab Results: Laboratory Tests 11/18/20 11/20/20 06:30 07:25 WBC 7.2 Hgb 9.9 L Hct 31.6 L Plt Count 296 Sodium 136 Potassium 4.2 Chloride 105 Carbon Dioxide 22 BUN 7 L Creatinine 0.78 Assessment and Plan Assessment Anesthesia Assessment: Chart Reviewed Documented by User: Narinder Baltazar MD 01/06/21 14:55 PMFSH Past Medical History Medical History (Updated 12/30/20 @ 10:55 by Brooke Black RN) Anxiety Arthropathy of facet joint Back pain Diverticulitis HTN (hypertension) Morbid obesity Spondylosis of lumbar region without myelopathy or radiculopathy Family History Family History Mother Hodgkin disease Brother Diabetes Surgical History Surgical History History of incisional hernia repair History of Florentino fundoplication (Unknown) Hx of colonoscopy Social History Social History Household Members: Spouse and Family Household Members Other:: partner Housing: House Do you presently have visiting nurse or other home services: No Alcohol intake: never Patient Tobacco Use Status: Never used Tobacco Use of substances other than those prescribed or required for medical reasons: No Are you DNR?: No Advance Directives: No Advance Directives Information Provided: No Advance Directives on File: No Patient : No FDLMP: 12/12/2020 service: Yes Current occupational status: unemployed Current occupation: [employer] Meds Allergies Allergy/AdvReac Type Severity Reaction Status Date / Time No Known Allergies Allergy Mild NKA Verified 01/06/21 13:29 Home Medications Medication Instructions Recorded Confirmed Last Taken Type escitalopram oxalate 20 mg tablet 20 mg PO DAILY 06/24/20 12/30/20 01/06/21 07:30 History loperamide 2 mg tablet (Imodium 2 mg PO QID PRN 12/30/20 12/30/20 Unknown History A-D) Exam Airway Mallampati Class: III TM Dist: >3cm Neck ROM: Full
[2021-01-06] VITALS (10 sets, daily range): BP systolic 143–174; BP diastolic 67–90; PULSE 72–86; RESP 16–18; TEMP 36–37.1; O2SAT 95–98
--- NOTE | ~2021-01-06 | FL_ITS ---
EXAMINATION: XR FLUOROSCOPY WITH IMAGES CLINICAL INFORMATION: Lumbar cord stimulation trial. COMPARISON: None. TECHNIQUE: Fluoroscopy performed by Dr. Dontae Haddad. Fluoroscopy time: 5.0 minutes DAP: 629.3 mGycm2 Images: 3 FINDINGS: There are 2 needles positioned posterior to the T12-L1 disc levels with subsequent images revealing posterior epidural serrated stimulation cords for pain management. FL/FL guidance in OR IMPRESSION: Fluoroscopy was provided to Dr. Haddad for pain management.
--- NOTE | 2021-01-06 13:27 | P.OP_ITS ---
Operative Note Operative Note Date of Service: 01/06/21 Narrative: Ms. 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 After obtaining informed consent patient was brought to the operating room, SHE was positioned supine on the stretcher ,[place] [employer] m onitors were applied and patient was administered general anesthesia with endotracheal intubation. After that the patient was transferred prone on the operating room table, all pressure points protected. Time-out was performed delineating correct site, side, the nature of the procedure, patient's allergy, preoperative antibiotic if needed.? All operating room staff was participating in OR time-out procedure. Patient's entire back was prepped with ChloraPrep twice and draped with full body fenestrated drape.? Sterilely draped C-arm was brought over operating field and sqare picture of T11-T12 L1 L2 vertebrae as were demonstrated on the screen.? Attention FIRST? was concentrated on the T12-L1 epidural interspace. Extensive spondylosis was noted with intervertebral space shortened and limited and interlaminar windows very short and narrow. location of the projection of the right pedicle center of the L2 vertebra was found on the skin using C-arm.? This location was injected with mixture of lidocaine 2% and Marcaine 0.5% 5 cc.? After that 11 blade was used to make a bang on the skin.? 6 in 14 gauge curved introducer epidural needle was inserted through the bang and advanced to L1- L2 epidural interspace.? The advancement of the needle was performed on anterior posterior and lateral views. It was very difficult advancement and multiple bone obstacle needed to be overcome to advance the needle into the epidural space. Finally wire and loss of resistance technique were demonstrated the epidural space.? When guitar wire was spread in the epidural fashion, epidural lead was inserted through the skin and it was advanced to midbody T9 position SLIGHTLY RIGHT OF THE MIDLINE.? After that location of the projection of the LEFT pedicle center of the vertebra was found on the skin using C-arm.? This location was injected with mixture of lidocaine 2% and Marcaine 0.5% 5 cc.? After that 11 blade was used to make a bang on the skin.? 6 in cm 14 gauge straight introducer epidural needle was inserted through the bang and advanced to T12-L1 epidural interspace.? Unfortunately on this side very narrow interlaminar space was not allowing me to insert the needle into the epidural space it was going either into the lamina below or lamina above. This needle was removed and it was replaced with the same size 6 in coude epidural needle. with rotation of the coude needle I was able to advance it to the epidural space on the left side. Guitar wire was spread in the epidural space in the epidural fashion and a loss of resistance to air syringe was demonstrating epidural space. The advancement of the needle was done on anterior posterior and lateral views. After that epidural lead was inserted through the needle and advanced to the midbody T8 epidural interspace slightly left to the midline. At this moment patient was awaken and the epidural leads were connected to the testing device.? The impedance was satisfactory. After satisfactory position of the leads were established the needles were withdrawn, the stylette wires were removed from the epidural leads.? The anchoring devices were dislodged on the leads and advanced to the level of the skin.? The anchoring devices were sutured with two 0-0 silk sutures to the skin of the patient.? The anchoring screws on the anchoring devices were tight until for clicks were heard. The leads were connected to testing device.? Bacitracin ointment was applied to the entrance point of bilateral needles.? Sterile dressing was applied to the patient's back.? The testing device was also glued to the patient's back.? Upon completion of the procedure the [facility] awaken, extubated and she was transfered to the PACU where she recovered uneventfully.
[2021-01-06 13:34] LABS: UPreg QC Valid YES; Urine Pregnancy NEGATIVE (NEGATIVE)
[2021-01-06] MEDS: Lactated Ringers 1,000 ML 100 ML IVCONT (13:57)
--- NOTE | 2021-01-06 15:48 | MHC.SHP ---
Pre-Procedural Eval Section A Date of Service: 01/06/21 Section B Chief Complaint: lumbar spondylosis Details of Present Illness: as above Relevant Family History (Specify if Yes): No Relevant Social History: None Present Medications: see Short Stay Collaborative assessment Medical History: No relevant PMH History of Previous Operations: No relevant previous surgery Allergies: Allergies Allergy/AdvReac Type Severity Reaction Status Date / Time No Known Allergies Allergy Mild NKA Verified 01/06/21 13:29 Review of Systems Sugical H&P ROS: Negative: Cardiovascular, Respiratory, Neurological, Psychiatric, Hem-Onc, Allergic/Immunologic, Gastrointestinal, Genitourinary, Musculoskeletal, Integumentary, Endocrine and Eyes/Ears/Nose/Throat and Yes, Specify: Constitution (Morbid obesity) Exam Surgical H&P Exam: Normal: HEENT, Normal: Heart, Normal: Lungs, Normal: Abdomen, Normal: Skin and Normal: Neurological and Significant Findings: Extremities (Greatly enlarged 2 to fat) Plan Diagnosis/Plan: Unchanged I have reviewed the history and physical and performed a pertinent physical examination on my patient. No changes have occurred unless specified.
--- NOTE | 2021-01-06 16:00 | PM.OP ---
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 Post-op diagnosis: same Procedure: Trial of Nevro HF 10 spinal cord stimulator Implants: None per Surgeon: Dontae Haddad MD Anesthesia: GETA Was an Concrete Technician used for this Procedure?: No Estimated blood loss (mL): 2 Pathology: none sent Condition: stable Disposition: PACU
[2021-01-06] MEDS: fentaNYL citrate/PF 100 MCG/2 ML VIAL 50 MCG IVPUSH (18:34)
[2021-01-06] MEDS: oxyCODONE HCl Immed Release 5 MG TABLET 10 MG PO (18:48)
== END 2021-01-06 19:34 | disposition home or self-care (01) ==
PROVIDERS: Nurse Practitioner; PCP Internal Medicine; Visit Provider Anesthesiology
PROC: (CPT 63650; principal; 2021-01-06 13:50)
DX: M47.816 Spondylosis without myelopathy or radiculopathy, lumbar region (principal); M54.5 Low back pain
CPT/HCPCS: 63650 ×2; 81025; C1713; C1778; J0131; J0690; J2250; J2405; J3010; J3300; Q9967

== ENCOUNTER → 2021-01-12 09:59 | Outpatient (BNVA) | payer OTHER, SELFPAY | PROVIDERS: PCP Internal Medicine; Visit Provider Anesthesiology | DX: M47.816 Spondylosis without myelopathy or radiculopathy, lumbar region (principal); E66.01 Morbid (severe) obesity due to excess calories; I10 Essential (primary) hypertension; Z68.42 Body mass index [BMI] 45.0-49.9, adult | CPT/HCPCS: 99212 ==

== ENCOUNTER 2021-01-18 06:25 | Inpatient (IN) | payer OTHER, SELFPAY ==
[2021-01-12 11:36] VITALS: BMI 47.1
--- NOTE | 2021-01-17 08:43 | P.CONAN_ITS ---
Documented by User: Leona Demarco NP 01/17/21 08:47 HPI - Anesthesia Eval Consult details Narrative: 50yo F for Hand Assisted Laparoscopic Sigmoid Colectomy (divertic) s/p spinal stim trial 01/06/21 with GA- ETT 7 PMFSH Active Problems Active Problems: All Active Problems (Updated 01/12/21 @ 11:29 by Kika Nichole RN) Dysuria (Acute) Diverticulosis (Acute) Hx of appendectomy (Acute) Nausea & vomiting (Acute) Abdominal pain complicating (Acute) Lab test negative for COVID-19 virus (Acute) Acute diverticulitis (Acute) Diarrhea (Acute) Morbid obesity (Acute) Arthropathy of facet joint (Acute) Spondylosis of lumbar region without myelopathy or radiculopathy (Acute) Past Medical History Medical History Anxiety Arthropathy of facet joint Back pain COVID-19 vaccine series completed Diverticulitis HTN (hypertension) Morbid obesity Spondylosis of lumbar region without myelopathy or radiculopathy Family History Family History Mother Hodgkin disease Brother Diabetes Surgical History Surgical History History of incisional hernia repair History of Florentino fundoplication Hx of colonoscopy Social History Social History Household Members: Spouse and Family Household Members Other:: partner Housing: House Are you a primary wound care physician to a significant other at home: No Do you presently have visiting nurse or other home services: No Alcohol intake: never Patient Tobacco Use Status: Never used Tobacco Use of substances other than those prescribed or required for medical reasons: No Have you been hit, kicked, punched, or otherwise hurt by someone within the past year? If so, by whom?: No Are you DNR?: No Advance Directives: No Advance Directives Information Provided: No Advance Directives on File: No Recently lost weight without trying: No Eating poorly because of decreased appetite: No Nutrition Risks: No Nutritional Risk Patient : No service: Yes Current occupational status: unemployed Current occupation: [employer] Meds Allergies Allergy/AdvReac Type Severity Reaction Status Date / Time No Known Allergies Allergy Mild NKA Verified 01/09/21 12:50 Home Medications Medication Instructions Recorded Confirmed Last Taken Type escitalopram oxalate 20 mg tablet 20 mg PO DAILY 06/24/20 01/12/21 01/06/21 07:30 History loperamide 2 mg tablet (Imodium 2 mg PO QID PRN 12/30/20 01/12/21 Unknown History A-D) Exam Exam Date and Time: January 17, 2021 0843 Height,Weight and Vital Signs: Height 5 ft 9 in Weight 144.696 kg Assessment and Plan Assessment Anesthesia Assessment: Chart Reviewed Documented by User: Radha Soto MD 01/18/21 12:51 [facility] Active Problems Active Problems: All Active Problems (Updated 01/12/21 @ 11:29 by Kika charles, RN) Dysuria (Acute) Diverticulosis (Acute) Hx of appendectomy (Acute) Nausea & vomiting (Acute) Abdominal pain complicating (Acute) Lab test negative for COVID-19 virus (Acute) Acute diverticulitis (Acute) Diarrhea (Acute). Denies h/o STEFFANIE Morbid obesity (Acute) Arthropathy of facet joint (Acute) Spondylosis of lumbar region without myelopathy or radiculopathy (Acute) Hypertension Past Medical History Medical History Anxiety Arthropathy of facet joint Back pain COVID-19 vaccine series completed Diverticulitis HTN (hypertension) Morbid obesity Spondylosis of lumbar region without myelopathy or radiculopathy Family History Family History Mother Hodgkin disease Brother Diabetes Family history of problems with anesthesia: No Surgical History Surgical History History of incisional hernia repair History of Florentino fundoplication Hx of colonoscopy History of Problems with Anesthesia: No Social History Social History Household Members: Spouse and Family Household Members Other:: partner Housing: House Are you a primary wound care physician to a significant other at home: No Do you presently have visiting nurse or other home services: No Alcohol intake: never Patient Tobacco Use Status: Never used Tobacco Use of substances other than those prescribed or required for medical reasons: No Have you been hit, kicked, punched, or otherwise hurt by someone within the past year? If so, by whom?: No Are you DNR?: No Advance Directives: No Advance Directives Information Provided: No Advance Directives on File: No Recently lost weight without trying: No Eating poorly because of decreased appetite: No Nutrition Risks: No Nutritional Risk Patient : No service: Yes Current occupational status: unemployed Current occupation: [employer] Allergies Allergy/AdvReac Type Severity Reaction Status Date / Time No Known Allergies Allergy Mild NKA Verified 01/09/21 12:50 Home Medications Medication Instructions Recorded Confirmed Last Taken Type escitalopram oxalate 20 mg tablet 20 mg PO DAILY 06/24/20 01/12/21 01/06/21 07:30 History loperamide 2 mg tablet (Imodium 2 mg PO QID PRN 12/30/20 01/12/21 Unknown History A-D) Exam Height,Weight and Vital Signs: Height 5 ft 9 in Weight 144.696 kg Vital Signs Temp Pulse Resp BP Pulse Ox 01/18/21 06:36 96.8 F 91 16 149/81 H 97 Pertinent Lab Results Pertinent Lab Results: Lab Results 01/18/21 01/18/21 01/18/21 Range/Units 06:17 06:17 06:25 WBC 9.4 (4.8-10.8) X10*3/uL RBC 4.69 D (4.20-5.50) X10*6/uL Hgb 12.1 D (12.0-16.0) g/dl Hct 38.6 D (37-47) % MCV 82.3 (80-98) fL MCH 25.8 L (27.0-33.0) pg MCHC 31.3 (31.0-35.0) g/dl RDW 14.0 (11.0-16.0) % Plt Count 465 H D (160-400) X10*3/uL MPV 9.0 L (9.4-12.3) fL Absolute Nucleated RBC 0.000 (0.0-0.012) X10*3/uL Nucleated RBC % (auto) 0.0 (0.0-0.2) /100WBC Sodium (135-145) mmol/L Potassium (3.3-5.1) mmol/L Chloride (96-108) mmol/L Carbon Dioxide (22-29) mmol/L Anion Gap (12-20) BUN (9-16) mg/dL Creatinine (0.5-1.4) mg/dL Estim Creat Clear Calc Estimated GFR Fasting Glucose (60-99) mg/dL Calcium (8.4-10.2) mg/dL Urine Test NEGATIVE (NEGATIVE) COVID-19 (DEJUAN) Negative (Negative) COVID-19 Clin Com See Note Blood Type Antibody Screen 01/18/21 01/18/21 Range/Units 06:25 06:25 WBC (4.8-10.8) X10*3/uL RBC (4.20-5.50) X10*6/uL Hgb (12.0-16.0) g/dl Hct (37-47) % MCV (80-98) fL MCH (27.0-33.0) pg MCHC (31.0-35.0) g/dl RDW (11.0-16.0) % Plt Count (160-400) X10*3/uL MPV (9.4-12.3) fL Absolute Nucleated RBC (0.0-0.012) X10*3/uL Nucleated RBC % (auto) (0.0-0.2) /100WBC Sodium 136 (135-145) mmol/L Potassium 4.2 (3.3-5.1) mmol/L Chloride 104 (96-108) mmol/L Carbon Dioxide 20 L (22-29) mmol/L Anion Gap 16 (12-20) BUN 8 L (9-16) mg/dL Creatinine 0.94 (0.5-1.4) mg/dL Estim Creat Clear Calc 112.7 Estimated GFR > 60 Fasting Glucose 130 H (60-99) mg/dL Calcium 9.6 D (8.4-10.2) mg/dL Urine Test (NEGATIVE) COVID-19 (DEJUAN) (Negative) COVID-19 Clin Com Blood Type A Positive Antibody Screen NEGATIVE Date of Service: 01/18/21 Procedure(s): ECG 12 lead EKG Vent. Rate : 082 BPM ? ? Atrial Rate : 082 BPM ?? P-R Int : 126 ms? QRS Dur : 084 ms ? ? QT Int : 394 ms ? ? ? P-R-T Axes : 019 -03 055 degrees ?? QTc Int : 460 ms ? Normal sinus rhythm Minimal voltage criteria for LVH, may be normal variant ( R in aVL ) Nonspecific ST and T wave abnormality Abnormal ECG When compared with ECG of 15-DEC-2017 19:23, No significant change was found Airway Mallampati Class: II TM Dist: >3cm Neck ROM: Full Loose/Missing/Broken Teeth: Yes (Broken lower back right, missing some) Heart: RRR Lungs: CTAB Assessment and Plan Assessment Anesthesia Assessment: Anesthesia Plan Discussed Final Anesthetic Review Family History of Problems with Anesthesia: No History of Problems with Anesthesia: No NPO: Yes ASA Class: III Final Preanesthetic Review: No Changes in Pt Med Stat, Meds/Allgs Chart Reviewed, Consent Obtained/Reviewed and Anes Risks/Benef Reviewed Patient Risk: Intermediate Procedure Risk: Intermediate Assessment/Block/Sedation in SS: Assess/Block/Sedation-SS Anesthetic Plan Anesthetic Plan: GA Disposition: Inp. Admit - Standard Bed
[2021-01-18] VITALS (20 sets, daily range): BP systolic 135–197; BP diastolic 58–106; PULSE 72–92; RESP 13–20; TEMP 36–36.8; O2SAT 92–99
--- NOTE | 2021-01-18 | ECG_ITS ---
Test Reason : preop Blood Pressure : / mmHG Vent. Rate : 082 BPM Atrial Rate : 082 BPM P-R Int : 126 ms QRS Dur : 084 ms QT Int : 394 ms P-R-T Axes : 019 -03 055 degrees QTc Int : 460 ms Normal sinus rhythm Minimal voltage criteria for LVH, may be normal variant ( R in aVL ) Abnormal ECG When compared with ECG of 15-DEC-2017 19:23, No significant change was found Referred By: Leona Demarco Electronically Signed By:KHADAR GOMEZ
[2021-01-18 06:46] LABS: UPreg QC Valid YES; Urine Pregnancy NEGATIVE (NEGATIVE)
[2021-01-18 06:53] LABS: Hematocrit 38.6 % (37-47); Hemoglobin 12.1 g/dl (12.0-16.0); Mean Corpuscular HGB Conc 31.3 g/dl (31.0-35.0); Mean Corpuscular Hemoglobin 25.8 pg (27.0-33.0); Mean Corpuscular Volume 82.3 fL (80-98); Platelet Count 465 X10*3/uL (160-400); Red Blood Count 4.69 X10*6/uL (4.20-5.50); White Blood Count 9.4 X10*3/uL (4.8-10.8)
[2021-01-18 06:55] LABS: Anion Gap 16 (12-20); Blood Urea Nitrogen 8 mg/dL (9-16); Calcium 9.6 mg/dL (8.4-10.2); Carbon Dioxide 20 mmol/L (22-29); Chloride 104 mmol/L (96-108); Creatinine Clr Calc Pharmacy 112.7; Estimated Glomerular Filt Rate > 60; Glucose Fasting 130 mg/dL (60-99); Potassium 4.2 mmol/L (3.3-5.1); Sodium 136 mmol/L (135-145)
[2021-01-18] MEDS: Lactated Ringers 1,000 ML 100 ML IVCONT (06:57)
[2021-01-18 06:58] LABS: COVID-19 Test Negative (Negative)
--- NOTE | 2021-01-18 07:25 | MHC.SHP ---
Pre-Procedural Eval Section A Date of Service: 01/18/21 The patient is an INPATIENT: No Changes since office visit: Yes Patient answered all questions; No Cold of Flu in the past 2 weeks, No New Medical Problems and No Changes in Medication The History & Physical has been completed within 30 days and I have reviewed it.: No Section B Chief Complaint: Sigmoid diverticulitis Relevant Family History (Specify if Yes): No Relevant Social History: None Present Medications: see Short Stay Collaborative assessment (morbid obesiy) Medical History: Significant History History of Previous Operations: Relevant previous surgery/procedure and date(s) (incisional hernia repair) Allergies: Allergies Allergy/AdvReac Type Severity Reaction Status Date / Time No Known Allergies Allergy Mild NKA Verified 01/09/21 12:50 Review of Systems Sugical H&P ROS: Negative: Constitution, Cardiovascular, Respiratory, Neurological, Psychiatric, Hem-Onc, Allergic/Immunologic, Genitourinary, Musculoskeletal, Integumentary, Endocrine and Eyes/Ears/Nose/Throat and Yes, Specify: Gastrointestinal (abdominal pain) Exam Surgical H&P Exam: Normal: HEENT, Normal: Heart, Normal: Lungs, Normal: Extremities, Normal: Skin and Normal: Neurological and Significant Findings: Abdomen (tender llq) Plan Diagnosis/Plan: Unchanged I have reviewed the history and physical and performed a pertinent physical examination on my patient. No changes have occurred unless specified.
[2021-01-18] MEDS: cefoTEtan disodium 2 GM in 0.9 % Sodium Chloride 50 ML IV (07:37)
--- NOTE | 2021-01-18 12:31 | P.OP_ITS ---
Operative Note Operative Note Date of Service: 01/18/21 Narrative: Preoperative diagnosis: Sigmoid diverticulitis, morbid obesity Postoperative diagnosis: Same Procedure: Hand assisted laparoscopic sigmoid colectomy, laparoscopic mobilization of splenic flexure, colorectal anastomosis Surgeon: Peterson Ariza MD Digital Research Analyst: Estefany Calderon PA-C Anesthesia: General endotracheal Indications for procedure: 50-year-old female patient a prior history of acute sigmoid diverticulitis now with persistent abdominal pain in the left lower quadrant patient is mid for elective sigmoid colectomy. The patient had previous abdominal surgery including appendectomy and ventral hernia repair with a large intraperitoneal mesh in the upper abdomen. As a result there were multiple adhesions to the upper abdomen. Operative findings: Mild diverticular changes with loop of sigmoid colon to the left tube and ovary. No abscess appreciated. Specimen: Sigmoid colon Estimated blood loss: 50 mL Complications: None Procedure details: Patient was brought to the OR placed in a supine position. After administering general anesthesia the patient's abdomen was prepped with ChloraPrep and draped in a sterile fashion. The peritoneum was prepped with Betadine and also draped in a sterile fashion. A surgical time-out was called the consent confirmed. Patient received preoperative antibiotics and Venodyne boots were in place. Local anesthesia consisting of 0.5% Sensorcaine plain was infiltrated in the lower midline. A 7.5 cm incision was then made with a scalpel. This was then carried down past Kiesha's fascia and through linea alba. Peritoneum was then entered. A hand port was then inserted. It was then insufflated to a pressure of 15 mm of mercury. A 12 mm trocar was placed in the left lower quadrant a 2nd 12 mm trocar was placed in the right lower quadrant a 3rd 12 mm trocar was placed in the left upper quadrant and a 5 mm trocar placed in the upper midline. Multiple adhesions were noted in the upper abdomen from the prior abdominal surgery including the hernia mesh. These were taken down using the LigaSure. An extensive lysis of adhesions was required. The patient was then placed in a right lateral decubitus position. The sigmoid colon was then mobilized in the LigaSure along the abdominal wall attachments. This was continued along the white line of Toldt up to the splenic flexure. The splenic flexure extended up to the diaphragm. The transverse colon was also mobilized using LigaSure up to the distal transverse colon and splenic flexure. Attention was then directed to the sigmoid colon which was completely mobilized down to the peritoneal reflection. An area of soft bowel in the proximal sigmoid colon was identified. An Endo-SASKIA was then obtained. A opening was made in the mesentery below the proximal sigmoid colon and the Endo-SASKIA placed in this location. The stapler was then fired. The sigmoid colon was then mobilized gently using the LigaSure. This was continued down over the pelvic brim towards the rectum. The curved stapler was then used to divide the bowel distally at the rectosigmoid junction. The specimen was then removed and sent to pathology for further examination. The distal descending colon was further mobilized as was the splenic flexure to allow a comfortable anastomosis without tension. The pursestring clamp was then applied to the distal descending colon an a Prolene suture with a Nilesh needle placed. The staple line was then excised with a scissor. The bowel was then dilated using the EEA sizers. A 28 mm circular stapler was then obtained. The anvil was placed in the distal descending colon and the pursestring tied. Attention Was then directed to the anal rectal region. This was then dilated again using the anorectal dilators. The EEA device was then advanced into the rectum and the spike advanced through the anterior wall of the proximal rectum. The anvil was then connected to the stapling device. The device was then fired and 2 complete rings identified. A leak test was then performed by instilling air into the rectum while filling the pelvis with saline solution. No leak could be identified. CO2 was then evacuated the abdominal cavity irrigated with saline solution suctioned dry. No bleeding could be identified. Peritoneum was then closed in the midline incision using a running 0 Polysorb suture. Fascia was then closed using a running 1 Maxon suture. The wounds were then irrigated with saline solution suctioned dry. Kiesha's fascia and dermis reapproximated using interrupted 3-0 Polysorb sutures. Skin was closed using skin alex. Trocar incisions were closed using skin alex. Sterile dressings were applied. The patient tolerated the procedure well. Sponge, instrument, needle counts reported as correct. The patient was transferred to the PACU in stable condition.
[2021-01-18] MEDS: HYDROmorphone HCl 0.5 MG/0.5 ML SYRINGE 0.25 MG IVPUSH ×4 (12:49→13:02)
[2021-01-18] MEDS: fentaNYL citrate/PF 100 MCG/2 ML VIAL 25 MCG IVPUSH (13:14)
--- NOTE | 2021-01-18 17:37 | PHA.MEDREC ---
Pharmacy Consult ? Medication Reconciliation Pharmacy has completed the medication reconciliation.Per patient, still on lexapro
[2021-01-18] MEDS: Dextrose 5 % and Lactated Ring 1,000 ML 125 ML IVCONT (18:21)
[2021-01-18] MEDS: 0.9 % Sodium Chloride Flush 3 ML SYRINGE IVFLUSH (18:21)
[2021-01-19] VITALS (9 sets, daily range): BP systolic 100–163; BP diastolic 52–88; PULSE 73–85; RESP 18–20; TEMP 36.1–36.7; O2SAT 90–98
[2021-01-19] MEDS: Dextrose 5 % and Lactated Ring 1,000 ML 125 ML IVCONT ×3 (02:26→19:39)
[2021-01-19] MEDS: Omeprazole 20 MG CAPSULE.DR PO (06:04)
[2021-01-19 06:07] LABS: Basophils Percent Auto 0.1 % (0-2); Eosinophils Percent Auto 0.1 % (0-4); Hematocrit 31.6 % (37-47); Imm Gran Abs Auto 0.04 X10*3/uL (0.00-0.03); Imm Gran Pct Auto 0.3 % (0.0-0.4); Lymphocytes Absolute Auto 1.4 X10*3/uL (1.2-4.9); Lymphocytes Percent Auto 10.9 % (20-40); MANUAL DIFF FLAG SCAN; Mean Corpuscular HGB Conc 31.6 g/dl (31.0-35.0); Mean Corpuscular Hemoglobin 26.3 pg (27.0-33.0); Mean Corpuscular Volume 83.2 fL (80-98); Mean Platelet Volume 9.3 fL (9.4-12.3); Monocytes Absolute Auto 1.7 X10*3/uL (0.1-1.2); Monocytes Percent Auto 13.3 % (2-11); Neutrophils Absolute Auto 9.4 X10*3/uL (2.0-8.3); Neutrophils Percent Auto 75.3 % (45-73); Platelet Count 358 X10*3/uL (160-400); Red Cell Distribution Width 14.1 % (11.0-16.0); SCAN SMEAR FLAG 1; White Blood Count 12.4 X10*3/uL (4.8-10.8)
[2021-01-19 07:02] LABS: Anion Gap 12 (12-20); Blood Urea Nitrogen 7 mg/dL (9-16); Carbon Dioxide 24 mmol/L (22-29); Chloride 104 mmol/L (96-108); Creatinine Clr Calc Pharmacy 145.2; Estimated Glomerular Filt Rate > 60; Glucose Random 159 mg/dL (60-115); Potassium 4.3 mmol/L (3.3-5.1); Sodium 136 mmol/L (135-145)
[2021-01-19 07:27] LABS: SLIDE REVIEW VERIFIED
[2021-01-19] MEDS: HYDROmorphone HCl/NS 10 MG/50 ML PIGGYBACK 1.5 MG IV ×2 (07:42→16:55)
--- NOTE | 2021-01-19 08:09 | P.PNGS_ITS ---
Subjective Subjective Date of Service: 01/19/21 <Estefany Calderon PA-C - Last Filed: 01/19/21 08:13> 01/19/21 <Peterson Ariza MD - Last Filed: 01/19/21 08:22> Interval history: Very sore this morning. [employer] helping when she remembers to use it. Denies nausea, tolerating a small amount of clears. Passing some flatus. Has not been OOB yet. <Estefany Calderon PA-C - Last Filed: 01/19/21 08:13> Physical Exam Vital Signs: Vital Signs: Last Vital Signs Temp 97.9 F 01/19/21 04:00 Pulse 84 01/19/21 06:00 Resp 18 01/19/21 07:57 BP 148/74 H 01/19/21 06:00 Pulse Ox 98 01/19/21 06:00 Body Mass Index 47.1 <Estefany Calderon PA-C - Last Filed: 01/19/21 08:13> Const: General: comfortable, no acute distress and alert <Estefany Calderon PA-C - Last Filed: 01/19/21 08:13> Orientation/consciousness: patient oriented x3 <SOPHIA Maxwell Last Filed: 01/19/21 08:13> Eyes: Sclerae: sclerae normal <Estefany Calderon PA-C - Last Filed: 01/19/21 08:13> Resp: Effort & Inspection: normal respiratory effort <Estefany Calderon PA-C - Last Filed: 01/19/21 08:13> GI: Inspection: No distended, Yes incision (dressings c/d/i) and Yes obesity <SOPHIA Maxwell Last Filed: 01/19/21 08:13> Palpation (GI): Soft to palpation, Tenderness to palpation present (GI) (incisional), no guarding and not rigid <SOPHIA Maxwell Last Filed: 01/19/21 08:13> Percussion: Yes normal to percussion <SOPHIA Maxwell Last Filed: 01/19/21 08:13> Skin: General skin exam: no rashes or lesions noted <Estefany Calderon PA-C - Last Filed: 01/19/21 08:13> Neuro: General: patient oriented x3 <SOPHIA Maxwell Last Filed: 01/19/21 08:13> Extrem: General: Yes no clubbing, cyanosis or edema <Estefany Calderon PA-C - Last Filed: 01/19/21 08:13> Procedures Date of Service Date of Service: 01/19/21 <Estefany Calderon PA-C - Last Filed: 01/19/21 08:13> Progress Note: A&P Assessment and plan (1) Morbid obesity: Status: Acute <SOPHIA Maxwell Last Filed: 01/19/21 08:13> (2) Acute diverticulitis: Status: Acute <SOPHIA Maxwell Last Filed: 01/19/21 08:13> (3) S/P laparoscopic-assisted sigmoidectomy: Status: Acute <SOPHIA Maxwell Last Filed: 01/19/21 08:13> Assessment and Plan: 50 year old female who is POD #1 s/p hand assisted laparoscopic sigmoid colectomy, laparoscopic mobilization of splenic flexure, colorectal anastomosis for sigmoid diverticulitis. She is doing fairly well post op. VSS. Abd exam benign with dressings c/d/i, appropriate post op tenderness. Continue [employer] for pain control. Cont clear liquids for now. Strongly encouraged OOB/ambulation today. Will reassess later today, if more comfortable will d/c palacio. Await bowel movement. <Estefany Calderon PA-C - Last Filed: 01/19/21 08:13> 50 year old female who is POD #1 s/p hand assisted laparoscopic sigmoid colectomy, laparoscopic mobilization of splenic flexure, colorectal anastomosis for sigmoid diverticulitis. She is doing fairly well post op. VSS. Abd exam benign with dressings c/d/i, appropriate post op tenderness. Continue [employer] for pain control. Cont clear liquids for now. Strongly encouraged OOB/ambulation today. Will reassess later today, if more comfortable will d/c palacio. Await bowel movement. Patient is hemodynamically stable postoperative day 1. Patient has been on pain medication prior to surgery therefore per pain management may be more difficult initially. Agree with the [employer] for another 24 hours. Palacio catheter out today. Wounds are clean and intact without redness or discharge. Agree with ambulation and incentive spirometry. Agree with the above assessment and plan. <Peterson Ariza MD - Last Filed: 01/19/21 08:22> Fall Risk Details Current Medications: Current Medications Escitalopram Oxalate (Escitalopram Oxalate 20 Mg Tablet) 20 mg PO DAILY [facility] Acetaminophen (Ofirmev) 1,000 mg in 100 mls @ 400 mls/hr IV Q6H [facility] Last Infusion: 01/19/21 06:02 Dose: Infused Documented by: Hydromorphone HCl (Dilaudid) 10 mg in 50 mls @ 0 mls/hr IV .Q0M [facility]; Protocol Last Admin: 01/19/21 07:42 Dose: 0.3 mg/hr, 1.5 mls/hr Documented by: Dextrose/Lactated Ringer's (D5lr) 1,000 mls @ 125 mls/hr IVCONT .Q8H [facility] Last Admin: 01/19/21 02:26 Dose: 125 mls/hr Documented by: Lisinopril (Lisinopril 20 Mg Tablet) 20 mg PO DAILY [facility]; Protocol Naloxone HCl (Naloxone Hcl 0.4 Mg/Ml Vial) 0.2 mg IVPUSH Q2M PRN PRN Reason: Excessive sedation or RR < 8 Omeprazole (Omeprazole 20 Mg Capsule.Dr) 20 mg PO DAILY@0630 [facility] Last Admin: 01/19/21 06:04 Dose: 20 mg Documented by: Ondansetron HCl (Ondansetron Hcl 4 Mg/2 Ml Vial) 4 mg IVPUSH Q8H PRN PRN Reason: Nausea and Vomiting Pharmacy Consult (Consult Rx Perform Med Rec) 1 each MISCELLANE ONCE PRN PRN Reason: Consult order Sodium Chloride (0.9 % Sodium Chloride Flush 3 Ml Syringe) 3 ml IVFLUSH QSHIFT [facility] Last Admin: 01/19/21 00:04 Dose: Not Given Documented by: Zolpidem Tartrate (Zolpidem Tartrate 5 Mg Tablet) 5 mg PO BEDTIME PRN PRN Reason: Insomnia <Estefany Calderon PA-C - Last Filed: 01/19/21 08:13> Time Spent With Patient Time: Total time spent is greater than 50% in coordination of care (as documented) at patient's floor/unit and/or counseling patient: <Estefany Calderon PA-C - Last Filed: 01/19/21 08:13> Time with patient: 15 - 24 minutes <Estefany Calderon PA-C - Last Filed: 01/19/21 08:13> Quality Stroke Does the patient have a stroke diagnosis?: No <Estefany Calderon PA-C - Last Filed: 01/19/21 08:13> VTE Prior VTE?: No <Estefany Calderon PA-C - Last Filed: 01/19/21 08:13> VTE Risk Level:: Surgical - high <Estefany Calderon PA-C - Last Filed: 01/19/21 08:13> VTE Device Contraindication: N/A - Device Ordered <Estefany Calderon PA-C - Last Filed: 01/19/21 08:13> VTE Drug Contraindication: Treatment Not Indicated <Estefany Calderon PA-C - Last Filed: 01/19/21 08:13>
[2021-01-19] MEDS: lisinopriL 20 MG TABLET PO (11:07)
[2021-01-19] MEDS: Escitalopram Oxalate 20 MG TABLET PO (11:07)
--- NOTE | 2021-01-19 14:01 | MHC.CM.PN ---
met with pt who ris indepdent she lives with her partner and her mom she will self arrange her own transport home cm intervention is not indicated at this time
--- NOTE | 2021-01-19 15:11 | HO.POSTANES ---
Post Anesthesia Evaluation Post Anesthesia Evaluation Vital Signs: Vital Signs Temp Pulse Resp BP Pulse Ox 01/19/21 12:00 97.2 F 75 18 115/57 L 97 01/19/21 08:00 97.8 F 77 20 119/67 94 01/19/21 07:57 18 01/19/21 06:00 84 18 148/74 H 98 01/19/21 04:00 97.9 F 74 18 144/74 H 96 Anesthesia: General Endotracheal-GETA Mental Status: Awake Pain Control: Satisfactory Nausea/Vomiting: None Anesthesia-Related Issues: No Anes. Related Issues
[2021-01-19] MEDS: 0.9 % Sodium Chloride Flush 3 ML SYRINGE IVFLUSH (16:53)
--- NOTE | 2021-01-19 18:22 | PC.NURSE ---
palacio catheter removed at 1535 without issue. pt tolerated well. tubing intact. catheter contained 200mL (documented in I+O). pt due to void at 2130. will cont to monitor and assess
[2021-01-20] VITALS (9 sets, daily range): BP systolic 102–146; BP diastolic 50–70; PULSE 66–77; RESP 16–19; TEMP 36.2–36.8; O2SAT 95–99
[2021-01-20] MEDS: Dextrose 5 % and Lactated Ring 1,000 ML 125 ML IVCONT ×2 (02:12→10:02)
[2021-01-20] MEDS: HYDROmorphone HCl/NS 10 MG/50 ML PIGGYBACK 1.5 MG IV (04:44)
[2021-01-20] MEDS: Omeprazole 20 MG CAPSULE.DR PO (04:53)
[2021-01-20 06:06] LABS: MANUAL DIFF FLAG NO
[2021-01-20 06:25] LABS: Basophils Percent Auto 0.2 % (0-2); Eosinophils Absolute Auto 0.1 X10*3/uL (0.0-0.4); Eosinophils Percent Auto 1.3 % (0-4); Hematocrit 28.2 % (37-47); Hemoglobin 8.5 g/dl (12.0-16.0); Imm Gran Abs Auto 0.04 X10*3/uL (0.00-0.03); Imm Gran Pct Auto 0.4 % (0.0-0.4); Lymphocytes Absolute Auto 1.9 X10*3/uL (1.2-4.9); Lymphocytes Percent Auto 17.4 % (20-40); Mean Corpuscular HGB Conc 30.1 g/dl (31.0-35.0); Mean Corpuscular Hemoglobin 25.7 pg (27.0-33.0); Mean Corpuscular Volume 85.2 fL (80-98); Mean Platelet Volume 9.2 fL (9.4-12.3); Monocytes Absolute Auto 1.2 X10*3/uL (0.1-1.2); Monocytes Percent Auto 10.8 % (2-11); Neutrophils Absolute Auto 7.7 X10*3/uL (2.0-8.3); Neutrophils Percent Auto 69.9 % (45-73); Platelet Count 320 X10*3/uL (160-400); Red Blood Count 3.31 X10*6/uL (4.20-5.50); Red Cell Distribution Width 14.4 % (11.0-16.0)
--- NOTE | 2021-01-20 07:30 | PM.PNGS ---
Subjective Subjective Date of Service: 01/20/21 <Estefany Calderon PA-C - Last Filed: 01/20/21 07:34> 01/20/21 <Peterson Ariza MD - Last Filed: 01/20/21 14:53> Interval history: Difficulty with pain overnight- [employer] ran out. Now back working and having good pain control. Was OOB yesterday, has been ambulating to bathroom now that palacio removed. Tolerating clear liquids without n/v and would like to try solids. <Estefany Calderon PA-C - Last Filed: 01/20/21 07:34> Physical Exam Vital Signs: Vital Signs: Last Vital Signs Temp 97.7 F 01/20/21 04:00 Pulse 68 01/20/21 04:00 Resp 19 01/20/21 04:00 BP 114/56 L 01/20/21 04:00 Pulse Ox 97 01/20/21 04:00 Body Mass Index 47.1 <Estefany Calderon PA-C - Last Filed: 01/20/21 07:34> Const: General: comfortable, no acute distress and alert <Estefany Calderon PA-C - Last Filed: 01/20/21 07:34> Orientation/consciousness: patient oriented x3 <Estefany Calderon PA-C - Last Filed: 01/20/21 07:34> Eyes: Sclerae: sclerae normal <Estefany Calderon PA-C - Last Filed: 01/20/21 07:34> GI: Inspection: No distended, Yes incision (clean) and Yes obesity <Estefany Calderon PA-C - Last Filed: 01/20/21 07:34> Palpation (GI): Soft to palpation and Tenderness to palpation present (GI) (incisional) <SOPHIA Maxwell Last Filed: 01/20/21 07:34> Skin: Other: normal color, warm and dry <Estefany Calderon PA-C - Last Filed: 01/20/21 07:34> General skin exam: no rashes or lesions noted <Estefany Calderon PA-C - Last Filed: 01/20/21 07:34> Neuro: General: patient oriented x3 <Estefany Calderon PA-C - Last Filed: 01/20/21 07:34> Extrem: General: Yes no clubbing, cyanosis or edema <SOPHIA Maxwell Last Filed: 01/20/21 07:34> Procedures Date of Service Date of Service: 01/20/21 <Estefany Calderon PA-C - Last Filed: 01/20/21 07:34> Progress Note: A&P Assessment and plan (1) S/P laparoscopic-assisted sigmoidectomy: Status: Acute <SOPHIA Maxwell Last Filed: 01/20/21 07:34> (2) Acute diverticulitis: Status: Acute <SOPHIA Maxwell Last Filed: 01/20/21 07:34> (3) Morbid obesity: Status: Acute <SOPHIA Maxwell Last Filed: 01/20/21 07:34> Assessment and Plan: 50 year old female who is POD #2 s/p hand assisted laparoscopic sigmoid colectomy, laparoscopic mobilization of splenic flexure, colorectal anastomosis for sigmoid diverticulitis. She continues to do well post op, no acute issues. VSS. Abd exam benign with clean incisions. Continue [employer] for pain control, ofirmev. Will advance to low residue diet. Strongly encouraged OOB/ambulation today and IS use. Await bowel movement. WBC downtrending, likely reactive. <Estefany Calderon PA-C - Last Filed: 01/20/21 07:34> 50 year old female who is POD #2 s/p hand assisted laparoscopic sigmoid colectomy, laparoscopic mobilization of splenic flexure, colorectal anastomosis for sigmoid diverticulitis. She continues to do well post op, no acute issues. VSS. Abd exam benign with clean incisions. Continue [employer] for pain control, ofirmev. Will advance to low residue diet. Strongly encouraged OOB/ambulation today and IS use. Await bowel movement. WBC downtrending, likely reactive. Overall the patient is improved but did have increased pain when her [employer] ran out of medication. Abdominal wounds are clean, dry, and intact with no evidence of infection. Agree with the above assessment and plan. Encourage patient to ambulate further today. Awaiting return of bowel function, agree with advancing diet. <Peterson Ariza MD - Last Filed: 01/20/21 14:53> Fall Risk Details Current Medications: Current Medications Escitalopram Oxalate (Escitalopram Oxalate 20 Mg Tablet) 20 mg PO DAILY [facility] Last Admin: 01/19/21 11:07 Dose: 20 mg Documented by: Hydromorphone HCl (Dilaudid) 10 mg in 50 mls @ 0 mls/hr IV .Q0M [facility]; Protocol Last Admin: 01/20/21 04:44 Dose: 0.3 mg/hr, 1.5 mls/hr Documented by: Dextrose/Lactated Ringer's (D5lr) 1,000 mls @ 60 mls/hr IVCONT .[id number] [facility] Last Admin: 01/20/21 02:12 Dose: 125 mls/hr Documented by: Acetaminophen (Ofirmev) 1,000 mg in 100 mls @ 400 mls/hr IV Q6H [facility] Last Infusion: 01/20/21 04:42 Dose: Infused Documented by: Lisinopril (Lisinopril 20 Mg Tablet) 20 mg PO DAILY [facility]; Protocol Last Admin: 01/19/21 11:07 Dose: 20 mg Documented by: Naloxone HCl (Naloxone Hcl 0.4 Mg/Ml Vial) 0.2 mg IVPUSH Q2M PRN PRN Reason: Excessive sedation or RR < 8 Omeprazole (Omeprazole 20 Mg Capsule.Dr) 20 mg PO DAILY@0630 [facility] Last Admin: 01/20/21 04:53 Dose: 20 mg Documented by: Ondansetron HCl (Ondansetron Hcl 4 Mg/2 Ml Vial) 4 mg IVPUSH Q8H PRN PRN Reason: Nausea and Vomiting Pharmacy Consult (Consult Rx Perform Med Rec) 1 each MISCELLANE ONCE PRN PRN Reason: Consult order Sodium Chloride (0.9 % Sodium Chloride Flush 3 Ml Syringe) 3 ml IVFLUSH QSHIFT [facility] Last Admin: 01/19/21 23:08 Dose: Not Given Documented by: Zolpidem Tartrate (Zolpidem Tartrate 5 Mg Tablet) 5 mg PO BEDTIME PRN PRN Reason: Insomnia <Estefany Calderon PA-C - Last Filed: 01/20/21 07:34> Time Spent With Patient Time: Total time spent is greater than 50% in coordination of care (as documented) at patient's floor/unit and/or counseling patient: <Estefany Calderon PA-C - Last Filed: 01/20/21 07:34> Time with patient: 15 - 24 minutes <Estefany Calderon PA-C - Last Filed: 01/20/21 07:34> Quality Stroke Does the patient have a stroke diagnosis?: No <Estefany Calderon PA-C - Last Filed: 01/20/21 07:34> VTE Prior VTE?: No <Estefany Calderon PA-C - Last Filed: 01/20/21 07:34> VTE Risk Level:: Surgical - high <Estefany Calderon PA-C - Last Filed: 01/20/21 07:34> VTE Device Contraindication: N/A - Device Ordered <Estefany Calderon PA-C - Last Filed: 01/20/21 07:34> VTE Drug Contraindication: Treatment Not Indicated <Estefany Calderon PA-C - Last Filed: 01/20/21 07:34>
[2021-01-20] MEDS: lisinopriL 20 MG TABLET PO (09:58)
[2021-01-20] MEDS: Escitalopram Oxalate 20 MG TABLET PO (09:59)
[2021-01-20] MEDS: HYDROmorphone HCl 0.5 MG/0.5 ML SYRINGE IVPUSH ×3 (15:52→23:36)
[2021-01-20] MEDS: oxyCODONE HCl Immed Release 5 MG TABLET 10 MG PO ×2 (17:41→21:24)
[2021-01-20] MEDS: Zolpidem Tartrate 5 MG TABLET PO (20:06)
[2021-01-20] MEDS: 0.9 % Sodium Chloride Flush 3 ML SYRINGE IVFLUSH (22:48)
[2021-01-20] MEDS: Dextrose 5 % and Lactated Ring 1,000 ML 60 ML IVCONT (22:49)
[2021-01-21] VITALS (12 sets, daily range): BP systolic 142–193; BP diastolic 59–81; PULSE 63–84; RESP 18–21; TEMP 36.1–37.3; O2SAT 95–99
[2021-01-21] MEDS: HYDROmorphone HCl 0.5 MG/0.5 ML SYRINGE IVPUSH ×4 (02:13→17:54)
[2021-01-21] MEDS: Omeprazole 20 MG CAPSULE.DR PO (04:51)
[2021-01-21] MEDS: lisinopriL 20 MG TABLET PO (07:46)
[2021-01-21] MEDS: Escitalopram Oxalate 20 MG TABLET PO (07:46)
[2021-01-21] MEDS: oxyCODONE HCl Immed Release 5 MG TABLET 10 MG PO ×4 (07:46→21:06)
--- NOTE | 2021-01-21 10:37 | P.PNGS_ITS ---
Subjective Subjective Date of Service: 01/21/21 Interval history: feels well, still with some pain when walking but had a bowel movement, passing gas, no n/v with regular diet Physical Exam Vital Signs: Vital Signs: Last Vital Signs Temp 97 F 01/21/21 07:44 Pulse 84 01/21/21 07:46 Resp 18 01/21/21 10:20 BP 149/74 H 01/21/21 08:53 Pulse Ox 98 01/21/21 07:44 Oxygen Flow Rate 2 01/20/21 12:00 Body Mass Index 47.1 Const: General: cooperative, healthy appearing, comfortable, no acute distress and alert Nutritional Appearance: obese Resp: Effort & Inspection: normal respiratory effort and able to speak in complete sentences Auscultation: clear to auscultation bilaterally Cardio: Rate: regular rate Rhythm: regular rhythm GI: Other: soft nontender nondistended, obese, active bowel sounds, incisions look good Procedures Date of Service Date of Service: 01/21/21 Progress Note: A&P Assessment and plan (1) S/P laparoscopic-assisted sigmoidectomy: Status: Acute Assessment and Plan: 50 yo female wpod#3 s/p lap sig for diverticulitis doing well heplock, adv diet po pain meds, if does ok dc home tomorrow she understands and agrees with plan Fall Risk Details Current Medications: Current Medications Escitalopram Oxalate (Escitalopram Oxalate 20 Mg Tablet) 20 mg PO DAILY [facility] Last Admin: 01/21/21 07:46 Dose: 20 mg Documented by: Hydromorphone HCl (Hydromorphone Hcl 0.5 Mg/0.5 Ml Syringe) 0.5 mg IVPUSH Q3H PRN; Protocol PRN Reason: Pain, Severe (Pain Scale 7-10) Last Admin: 01/21/21 10:20 Dose: 0.5 mg Documented by: Acetaminophen (Ofirmev) 1,000 mg in 100 mls @ 400 mls/hr IV Q6H [facility] Last Infusion: 01/21/21 04:52 Dose: Infused Documented by: Lisinopril (Lisinopril 20 Mg Tablet) 20 mg PO DAILY [facility]; Protocol Last Admin: 01/21/21 07:46 Dose: 20 mg Documented by: Naloxone HCl (Naloxone Hcl 0.4 Mg/Ml Vial) 0.2 mg IVPUSH Q2M PRN PRN Reason: Excessive sedation or RR < 8 Omeprazole (Omeprazole 20 Mg Capsule.Dr) 20 mg PO DAILY@0630 [facility] Last Admin: 01/21/21 04:51 Dose: 20 mg Documented by: Ondansetron HCl (Ondansetron Hcl 4 Mg/2 Ml Vial) 4 mg IVPUSH Q8H PRN PRN Reason: Nausea and Vomiting Oxycodone HCl (Oxycodone Hcl Immed Release 5 Mg Tablet) 5 mg PO Q4H PRN PRN Reason: Pain, Moderate (Pain Scale 4-6 Oxycodone HCl (Oxycodone Hcl Immed Release 5 Mg Tablet) 10 mg PO Q4H PRN PRN Reason: Pain, Severe (Pain Scale 7-10) Last Admin: 01/21/21 07:46 Dose: 10 mg Documented by: Pharmacy Consult (Consult Rx Perform Med Rec) 1 each MISCELLANE ONCE PRN PRN Reason: Consult order Sodium Chloride (0.9 % Sodium Chloride Flush 3 Ml [facility]) [facility] Last Admin: 01/21/21 07:47 Dose: Not Given Documented by: Zolpidem Tartrate (Zolpidem Tartrate 5 Mg Tablet) 5 mg PO BEDTIME PRN PRN Reason: Insomnia Last Admin: 01/20/21 20:06 Dose: 5 mg Documented by: Time Spent With Patient Time: Total time spent is greater than 50% in coordination of care (as documented) at patient's floor/unit and/or counseling patient: Time with patient: 15 - 24 minutes Quality Stroke Does the patient have a stroke diagnosis?: No VTE Prior VTE?: No VTE Risk Level:: Surgical - high VTE Device Contraindication: N/A - Device Ordered VTE Drug Contraindication: Treatment Not Indicated
[2021-01-21] MEDS: 0.9 % Sodium Chloride Flush 3 ML SYRINGE IVFLUSH ×2 (16:07→22:03)
[2021-01-21] MEDS: Zolpidem Tartrate 5 MG TABLET PO (21:06)
[2021-01-22] VITALS (10 sets, daily range): BP systolic 159–185; BP diastolic 63–79; PULSE 56–67; RESP 16–18; TEMP 36.4–37.2; O2SAT 95–98
[2021-01-22] MEDS: oxyCODONE HCl Immed Release 5 MG TABLET 10 MG PO ×5 (01:21→20:44)
[2021-01-22] MEDS: Omeprazole 20 MG CAPSULE.DR PO (06:26)
[2021-01-22] MEDS: Escitalopram Oxalate 20 MG TABLET PO (07:28)
[2021-01-22] MEDS: lisinopriL 20 MG TABLET PO (07:28)
[2021-01-22] MEDS: 0.9 % Sodium Chloride Flush 3 ML SYRINGE IVFLUSH ×3 (07:28→23:59)
--- NOTE | 2021-01-22 09:01 | P.PNGS_ITS ---
Subjective Subjective Date of Service: 01/22/21 Interval history: compalining of pain lower pelvic area but tolerating a little po later yesterday and had a small bowel movement and passing gas. doesnt think she can go home today. Physical Exam Vital Signs: Vital Signs: Last Vital Signs Temp 97.6 F 01/22/21 07:21 Pulse 64 01/22/21 07:28 Resp 17 01/22/21 07:21 BP 159/65 H 01/22/21 07:28 Pulse Ox 95 01/22/21 07:21 Oxygen Flow Rate 2 01/20/21 12:00 Body Mass Index 47.1 Const: General: cooperative, healthy appearing and no acute distress Resp: Auscultation: clear to auscultation bilaterally Cardio: Rate: regular rate Rhythm: regular rhythm GI: Other: abdo soft, obese , mild diffuse tenderness, incisions look good - active bowel sounds Skin: General skin exam: no rashes or lesions noted Procedures Date of Service Date of Service: 01/22/21 Progress Note: A&P Assessment and plan (1) S/P laparoscopic-assisted sigmoidectomy: Status: Acute Assessment and Plan: pod#4 s/p lap assisted sig colectomy - doing well plan to day to adv diet - little meals multiple times per day ambulate po pain meds and iv tylenol to continue she understands and agrees with plan Fall Risk Details Current Medications: Current Medications Escitalopram Oxalate (Escitalopram Oxalate 20 Mg Tablet) 20 mg PO DAILY [facility] Last Admin: 01/22/21 07:28 Dose: 20 mg Documented by: Hydromorphone HCl (Hydromorphone Hcl 0.5 Mg/0.5 Ml Syringe) 0.5 mg IVPUSH Q3H PRN; Protocol PRN Reason: Pain, Severe (Pain Scale 7-10) Last Admin: 01/21/21 17:54 Dose: 0.5 mg Documented by: Acetaminophen (Ofirmev) 1,000 mg in 100 mls @ 400 mls/hr IV Q6H [facility] Last Infusion: 01/22/21 06:42 Dose: Infused Documented by: Lisinopril (Lisinopril 20 Mg Tablet) 20 mg PO DAILY [facility]; Protocol Last Admin: 01/22/21 07:28 Dose: 20 mg Documented by: Naloxone HCl (Naloxone Hcl 0.4 Mg/Ml Vial) 0.2 mg IVPUSH Q2M PRN PRN Reason: Excessive sedation or RR < 8 Omeprazole (Omeprazole 20 Mg Capsule.Dr) 20 mg PO DAILY@0630 [facility] Last Admin: 01/22/21 06:26 Dose: 20 mg Documented by: Ondansetron HCl (Ondansetron Hcl 4 Mg/2 Ml Vial) 4 mg IVPUSH Q8H PRN PRN Reason: Nausea and Vomiting Oxycodone HCl (Oxycodone Hcl Immed Release 5 Mg Tablet) 5 mg PO Q4H PRN PRN Reason: Pain, Moderate (Pain Scale 4-6 Oxycodone HCl (Oxycodone Hcl Immed Release 5 Mg Tablet) 10 mg PO Q4H PRN PRN Reason: Pain, Severe (Pain Scale 7-10) Last Admin: 01/22/21 06:26 Dose: 10 mg Documented by: Pharmacy Consult (Consult Rx Perform Med Rec) 1 each MISCELLANE ONCE PRN PRN Reason: Consult order Sodium Chloride (0.9 % Sodium Chloride Flush 3 Ml Syringe) 3 ml IVFLUSH [facility] Last Admin: 01/22/21 07:28 Dose: 3 ml Documented by: Zolpidem Tartrate (Zolpidem Tartrate 5 Mg Tablet) 5 mg PO BEDTIME PRN PRN Reason: Insomnia Last Admin: 01/21/21 21:06 Dose: 5 mg Documented by: Time Spent With Patient Time: Total time spent is greater than 50% in coordination of care (as doc umented) at patient's floor/unit and/or counseling patient: Time with patient: 15 - 24 minutes Quality Stroke Does the patient have a stroke diagnosis?: No VTE Prior VTE?: No VTE Risk Level:: Surgical - high VTE Device Contraindication: N/A - Device Ordered VTE Drug Contraindication: Treatment Not Indicated
[2021-01-22] MEDS: Ketorolac Tromethamine 15 MG/ML VIAL 30 MG IVPUSH (09:45)
[2021-01-23] VITALS: BP 162/85; PULSE 58; RESP 17; TEMP 35.9; O2SAT 97
[2021-01-23] MEDS: HYDROmorphone HCl 0.5 MG/0.5 ML SYRINGE IVPUSH ×6 (00:03→23:38)
[2021-01-23 04:00] VITALS: BP 183/84; PULSE 63; RESP 17; TEMP 36.3; O2SAT 97
[2021-01-23] MEDS: Omeprazole 20 MG CAPSULE.DR PO (06:05)
[2021-01-23 07:47] LABS: MANUAL DIFF FLAG NO
[2021-01-23 07:49] LABS: Basophils Percent Auto 0.2 % (0-2); Eosinophils Absolute Auto 0.2 X10*3/uL (0.0-0.4); Eosinophils Percent Auto 2.6 % (0-4); Hematocrit 31.2 % (37-47); Imm Gran Abs Auto 0.03 X10*3/uL (0.00-0.03); Imm Gran Pct Auto 0.4 % (0.0-0.4); Lymphocytes Absolute Auto 1.8 X10*3/uL (1.2-4.9); Lymphocytes Percent Auto 22.1 % (20-40); Mean Corpuscular HGB Conc 32.1 g/dl (31.0-35.0); Mean Corpuscular Hemoglobin 26.2 pg (27.0-33.0); Mean Corpuscular Volume 81.9 fL (80-98); Mean Platelet Volume 9.2 fL (9.4-12.3); Monocytes Absolute Auto 0.6 X10*3/uL (0.1-1.2); Monocytes Percent Auto 7.8 % (2-11); Neutrophils Absolute Auto 5.4 X10*3/uL (2.0-8.3); Neutrophils Percent Auto 66.9 % (45-73); Platelet Count 412 X10*3/uL (160-400); Red Blood Count 3.81 X10*6/uL (4.20-5.50); Red Cell Distribution Width 13.7 % (11.0-16.0); White Blood Count 8.1 X10*3/uL (4.8-10.8)
--- NOTE | 2021-01-23 07:56 | P.PNGS_ITS ---
Subjective Subjective Date of Service: 01/23/21 Interval history: Still having difficulty with pain- was given toradol over the weekend which does not help at all. Pain relieved by the oxycodone/dilaudid. Tolerating small amount of solid food but reports nausea following each meal and PO intake low. OOB and ambulating. Passing flatus and had a very small, hard BM yesterday. Physical Exam Vital Signs: Vital Signs: Last Vital Signs Temp 97.3 F 01/23/21 04:00 Pulse 63 01/23/21 04:00 Resp 17 01/23/21 04:00 BP 183/84 H 01/23/21 04:00 Pulse Ox 97 01/23/21 04:00 Oxygen Flow Rate 2 01/20/21 12:00 Body Mass Index 47.1 Const: General: comfortable, no acute distress and alert Orientation/consciousness: patient oriented x3 Resp: Effort & Inspection: normal respiratory effort GI: Other: abdomen round Inspection: No distended and Yes incision (clean) Palpation (GI): Soft to palpation, Tenderness to palpation present (GI) (mild incisional/ right sided) Negative for with no rebound tenderness, no guarding and not rigid Percussion: Yes normal to percussion Skin: General skin exam: no rashes or lesions noted Neuro: General: patient oriented x3 Extrem: General: Yes no clubbing, cyanosis or edema Procedures Date of Service Date of Service: 01/23/21 Progress Note: A&P Assessment and plan (1) S/P laparoscopic-assisted sigmoidectomy: Status: Acute (2) Acute diverticulitis: Status: Acute Assessment and Plan: 50 year old female who is POD #5 s/p hand assisted laparoscopic sigmoid colectomy, laparoscopic mobilization of splenic flexure, colorectal anastomosis for sigmoid diverticulitis. Reports difficulty with pain control over weekend and was therefore started on toradol which we will d/c. Her abdomen is very benign with clean incisions. Add Tylenol ATC for pain, supplement as needed with PRN narcotics. Added colace, MOM for bowel regimen. Encouraged OOB/ambulation. Anticipate discharge in the next 1-2 days. Fall Risk Details Current Medications: Current Medications Escitalopram Oxalate (Escitalopram Oxalate 20 Mg Tablet) 20 mg PO DAILY [facility] Last Admin: 01/22/21 07:28 Dose: 20 mg Documented by: Hydromorphone HCl (Hydromorphone Hcl 0.5 Mg/0.5 Ml Syringe) 0.5 mg IVPUSH Q3H PRN; Protocol PRN Reason: Pain, Severe (Pain Scale 7-10) Last Admin: 01/23/21 03:52 Dose: 0.5 mg Documented by: Ketorolac Tromethamine (Ketorolac Tromethamine 15 Mg/Ml Vial) 30 mg IVPUSH Q6H PRN PRN Reason: Pain, Moderate (Pain Scale 4-6 Last Admin: 01/22/21 09:45 Dose: 30 mg Documented by: Lisinopril (Lisinopril 20 Mg Tablet) 20 mg PO DAILY [facility]; Protocol Last Admin: 01/22/21 07:28 Dose: 20 mg Documented by: Naloxone HCl (Naloxone Hcl 0.4 Mg/Ml Vial) 0.2 mg IVPUSH Q2M PRN PRN Reason: Excessive sedation or RR < 8 Omeprazole (Omeprazole 20 Mg Capsule.Dr) 20 mg PO DAILY@0630 [facility] Last Admin: 01/23/21 06:05 Dose: 20 mg Documented by: Ondansetron HCl (Ondansetron Hcl 4 Mg/2 Ml Vial) 4 mg IVPUSH Q8H PRN PRN Reason: Nausea and Vomiting Oxycodone HCl (Oxycodone Hcl Immed Release 5 Mg Tablet) 5 mg PO Q4H PRN PRN Reason: Pain, Moderate (Pain Scale 4-6 Oxycodone HCl (Oxycodone Hcl Immed Release 5 Mg Tablet) 10 mg PO Q4H PRN PRN Reason: Pain, Severe (Pain Scale 7-10) Last Admin: 01/22/21 20:44 Dose: 10 mg Documented by: Pharmacy Consult (Consult Rx Perform Med Rec) 1 each MISCELLANE ONCE PRN PRN Reason: Consult order Sodium Chloride (0.9 % Sodium Chloride Flush 3 Ml Syringe) 3 ml [facility] Last Admin: 01/22/21 23:59 Dose: 3 ml Documented by: Zolpidem Tartrate (Zolpidem Tartrate 5 Mg Tablet) 5 mg PO BEDTIME PRN PRN Reason: Insomnia Last Admin: 01/21/21 21:06 Dose: 5 mg Documented by: Time Spent With Patient Time: Total time spent is greater than 50% in coordination of care (as documented) at patient's floor/unit and/or counseling patient: Time with patient: 15 - 24 minutes Quality Stroke Does the patient have a stroke diagnosis?: No VTE Prior VTE?: No VTE Risk Level:: Surgical - high VTE Device Contraindication: N/A - Device Ordered VTE Drug Contraindication: Treatment Not Indicated
[2021-01-23 08:00] VITALS: BP 176/76; PULSE 61; RESP 18; TEMP 36.5; O2SAT 96
[2021-01-23] MEDS: oxyCODONE HCl Immed Release 5 MG TABLET 10 MG PO (08:20)
[2021-01-23] MEDS: Acetaminophen 325 MG TABLET 650 MG PO ×3 (08:20→21:12)
[2021-01-23] MEDS: Milk of Magnesia 30 ML ORAL.SUSP PO (08:21)
[2021-01-23] MEDS: Docusate Sodium 100 MG CAPSULE PO ×2 (08:21→21:12)
[2021-01-23] MEDS: lisinopriL 20 MG TABLET PO (08:21)
[2021-01-23] MEDS: Escitalopram Oxalate 20 MG TABLET PO (08:21)
[2021-01-23] MEDS: 0.9 % Sodium Chloride Flush 3 ML SYRINGE IVFLUSH ×3 (08:23→21:13)
[2021-01-23 12:00] VITALS: BP 170/90; PULSE 63; RESP 18; TEMP 36.4; O2SAT 97
[2021-01-23 15:14] VITALS: PULSE 78; RESP 17; TEMP 36.4; O2SAT 97
[2021-01-23 19:28] VITALS: BP 156/88; PULSE 72; RESP 16; TEMP 37.3; O2SAT 96
[2021-01-24] VITALS: BP 164/83; PULSE 65; RESP 16; TEMP 36.6; O2SAT 98
[2021-01-24] MEDS: HYDROmorphone HCl 0.5 MG/0.5 ML SYRINGE IVPUSH (03:31)
[2021-01-24 03:51] VITALS: BP 164/84; PULSE 69; RESP 16; TEMP 36.1; O2SAT 99
[2021-01-24] MEDS: Omeprazole 20 MG CAPSULE.DR PO (05:53)
[2021-01-24] MEDS: Acetaminophen 325 MG TABLET 650 MG PO (07:37)
[2021-01-24] MEDS: oxyCODONE HCl Immed Release 5 MG TABLET 10 MG PO (07:38)
[2021-01-24] MEDS: Escitalopram Oxalate 20 MG TABLET PO (07:38)
[2021-01-24] MEDS: lisinopriL 20 MG TABLET PO (07:39)
[2021-01-24] MEDS: Docusate Sodium 100 MG CAPSULE PO (07:39)
[2021-01-24] MEDS: 0.9 % Sodium Chloride Flush 3 ML SYRINGE IVFLUSH (07:40)
[2021-01-24 07:46] VITALS: BP 140/90; PULSE 74; RESP 18; TEMP 35.9; O2SAT 97
--- NOTE | 2021-01-24 08:40 | MHC.CM.PN ---
PATIENT IS DISCHARGED HOME. PER REVIEW OF NOTES, PATIENT IS ARRANGING FOR HER TRANSPORTATION HOME. RN AWARE OF PLAN.
--- NOTE | 2021-01-24 10:05 | P.DS_ITS ---
DS: Providers Provider Date of Service: 01/24/21 Date of admission: 01/18/21 06:25 Date of discharge: 01/24/21 Primary care physician: Avtar Lee MD Attending physician on admission: Peterson Ariza DS: Diagnosis Discharge Diagnosis (1) S/P laparoscopic-assisted sigmoidectomy: Status: Acute (2) Acute diverticulitis: Status: Acute DS: Summary Hospital Course Hospital Course: BRIEF HPI: 50-year-old female patient a prior history of acute sigmoid diverticulitis> the patient had persistent abdominal pain in the left lower quadrant and she now presents for elective sigmoid colectomy.? HOSPITAL COURSE: On 01/18/21, Hand assisted laparoscopic sigmoid colectomy, laparoscopic mobilization of splenic flexure, colorectal anastomosis was performed by Dr. Ariza without complication. The patient tolerated the procedure well, was transferred to PACU for recovery and then admitted to the medical/surgical floor for observation. In her recovery in PACU, she had a difficult time with pain control as she had been on narcotics pre operatively and was started on a [employer]. The patient had an uncomplicated but slow recovery course and struggled with pain control. She was tolerating clear liquids on POD #1 but did not have much PO intake. She was ambulated. Her palacio was removed on POD #2. She began to pass increasing amounts of flatus and she was advanced to a solid, low residue diet which she was tolerating. 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 Her activity was slowly increased. She began to move her bowels. On the day of discharge, she was tolerating a solid diet without N/V, she had good GI function and good pain control on PO analgesics. She was discharged to home on 01/24/21 in stable condition. Status at Discharge Functional status at discharge: independent ambulation Overall status at discharge: patient is progressing back to baseline Time Spent with Patient Time attestation: Total time spent providing and/or coordinating discharge services: Discharge coordination time: Greater than 30 minutes Quality: Stroke Does the patient have a stroke diagnosis?: No Physical Exam Vital Signs: Vital Signs: Last Vital Signs Temp 96.6 F L 01/24/21 07:46 Pulse 74 01/24/21 07:46 Resp 18 01/24/21 07:46 BP 140/90 H 01/24/21 07:46 Pulse Ox 97 01/24/21 07:46 Oxygen Flow Rate 2 01/20/21 12:00 Body Mass Index 47.1 Const: General: comfortable, no acute distress and alert Orientation/consciousness: patient oriented x3 Resp: Effort & Inspection: normal respiratory effort GI: Inspection: No distended and Yes incision (clean, some mild ecchymosis) Palpation (GI): Soft to palpation, Tenderness to palpation present (GI) (mild, right sided and incisional), no guarding and not rigid Percussion: Yes normal to percussion Skin: General skin exam: no rashes or lesions noted Neuro: General: patient oriented x3 Extrem: General: Yes no clubbing, cyanosis or edema DS: Data Data Completed and Pending Completed studies during hospitalization [Text1]: 01/18/21 10:25 Surgical [PTH] Routine Colon, sigmoid, resection:? Diverticular-associated segmental colitis. Discharge Plan Discharge Patient Disposition: Home, Self-Care Discharge Diagnosis: s/p DARCY sigmoid resection Referrals: Avtar Lee MD [Primary Care Provider] - 1 Week Peterson Ariza MD [Physician] - 01/26/21 Discharge Medications: New oxycodone 5 mg Tablet 5 mg PO Q4H PRN (Reason: Pain, Moderate (Pain Scale 4-6) Qty: 30 RF: 0 Continued ondansetron HCl [Zofran] 4 mg tablet 4 mg PO Q8H PRN (Reason: nausea and vomiting) Qty: 20 RF: 0 lisinopril 20 mg tablet 20 mg PO DAILY Qty: 30 RF: 0 escitalopram oxalate 20 mg tablet 20 mg PO DAILY RF: 0 omeprazole 20 mg capsule,delayed release(DR/EC) 20 mg PO DAILY 30 Days Qty: 30 RF: 6 Discontinued cephalexin 500 mg tablet 1,000 mg PO Q8H 7 Days Qty: 42 RF: 0 acetaminophen-codeine 300-30 mg tablet 1 tab PO Q8H PRN (Reason: pain) Qty: 20 RF: 0 loperamide [Imodium A-D] 2 mg Tablet 2 mg PO QID PRN (Reason: Diarrhea) RF: 0 Discharge Orders: Discharge Order (Routine); Ordered 01/24/21 Ordered By: Peterson Ariza Diet: other Activity on Discharge: No heavy lifting Stand Alone Forms: Patient Portal Discharge page Activity Restrictions/Additional Instructions: If the incision area is tender, you may apply an ice pack for short intervals (No more than 20 minutes on, followed by at least 20 minutes off). Do not apply heat. Do not use creams, lotions, or topical antibiotics unless instructed to do so by your surgeon. These can cause infection or allergic reaction. Ok to shower. You have alex closing your incision and these will be removed approximately 10-14 days after surgery. NO HEAVY LIFTING (>10lbs). Follow up in office. ([phone]) Call Your Doctor If: -Your temperature exceeds 101.5? F -You experience excessive pain or swelling -You have an unexpected reaction to medication -You have excessive bleeding -You experience continued vomiting/nausea -Your incision begins to separate -Your incision shows signs of infection such as increased redness, swelling, excessive pain, drainage (light blood or clear fluid is normal) or heat Care Plan Goals: Return to baseline health and gradual return to activity following recovery period. Health Concerns: sigmoid diverticulitis s/p DARCY sigmoid resection Plan of Treatment: Discharge to home, f/u in office Assessment: Doing well post op Discharge Date/Time: 01/24/21 09:45
== END 2021-01-24 09:45 | disposition home or self-care (01) | DRG 231 ==
LOC: HO.SSSA 07:29 → HO.S3 15:02
PROVIDERS: Nurse Practitioner; Physician Assistant Surgical; Admitting Provider Surgery; PCP Internal Medicine; Visit Provider Surgery
PROC: 0DTE4ZZ Resection of Large Intestine, Percutaneous Endoscopic Approach (ICD-10-PCS; principal; 2021-01-18 07:30)
DX: K57.32 Diverticulitis of large intestine without perforation or abscess without bleeding (principal); E66.01 Morbid (severe) obesity due to excess calories; K66.0 Peritoneal adhesions (postprocedural) (postinfection); Z68.42 Body mass index [BMI] 45.0-49.9, adult; Z20.822 Contact with and (suspected) exposure to COVID-19; Z79.899 Other long term (current) drug therapy
CPT/HCPCS: 36415; 80048; 81025; 85025; 85027; 86850; 86900; 86901; 87635; 88307; 93005; J0131; J1100; J1170; J1885; J2250; J2405; J3010

== ENCOUNTER → 2021-01-26 10:18 | Outpatient (BNVA) | payer OTHER, SELFPAY | PROVIDERS: PCP Internal Medicine; Referring Provider Internal Medicine; Visit Provider Surgery | DX: Z48.815 Encounter for surgical aftercare following surgery on the digestive system (principal); Z90.49 Acquired absence of other specified parts of digestive tract | CPT/HCPCS: 99212 ==

== ENCOUNTER → 2021-02-02 15:00 | Outpatient (BNVA) | payer OTHER, SELFPAY | PROVIDERS: PCP Internal Medicine; Visit Provider Surgery | DX: Z48.00 Encounter for change or removal of nonsurgical wound dressing (principal); T14.8XXD Other injury of unspecified body region, subsequent encounter | CPT/HCPCS: 99211 ==

== ENCOUNTER → 2021-02-16 09:37 | Outpatient (BNVA) | payer OTHER, SELFPAY | PROVIDERS: PCP Internal Medicine; Visit Provider Surgery | DX: K57.32 Diverticulitis of large intestine without perforation or abscess without bleeding (principal); E66.01 Morbid (severe) obesity due to excess calories; I10 Essential (primary) hypertension; Z68.42 Body mass index [BMI] 45.0-49.9, adult; Z90.49 Acquired absence of other specified parts of digestive tract | CPT/HCPCS: 99212 ==

== ENCOUNTER 2021-03-16 11:04 | Outpatient (REF) | payer OTHER, SELFPAY ==
[2021-03-16 11:36] LABS: COVID-19 Test Negative (Negative)
== END 2021-03-16 11:05 | disposition home or self-care (01) ==
LOC: HO.LAB 11:04
PROVIDERS: PCP Nurse Practitioner Family; Visit Provider Internal Medicine
DX: Z20.822 Contact with and (suspected) exposure to COVID-19 (principal)
CPT/HCPCS: 36415; 87635; C9803

== ENCOUNTER 2021-03-20 22:53 | Emergency (ER) | payer OTHER, SELFPAY ==
--- NOTE | ~2021-03-20 | CT_ITS ---
EXAMINATION: CT ABDOMEN AND PELVIS WITH CONTRAST CLINICAL INFORMATION: Lower abdominal pain with history of diverticulitis status post resection COMPARISON: 11/17/2020 TECHNIQUE: Multidetector volumetric images were obtained from the superior aspect of the liver through the pubic symphysis following administration 100 mL of Omnipaque 350 intravenous contrast. Sagittal and coronal reformatted images were obtained on the technologist's workstation. Oral contrast: No This CT examination was performed using dose optimization techniques as appropriate, variously including the following: *Automated exposure control *Adjustment of mA and/or kV according to patient size (this includes techniques or standardized protocols for targeted exams where dose is matched to indication/reason for exam; i.e. extremities or head) *Use of iterative reconstruction technique DLP: 1728 mGy-cm FINDINGS: LUNG BASES: The visualized lung bases are unremarkable. LIVER, GALLBLADDER, AND BILIARY TREE: The liver is normal in size, shape, and attenuation. No focal hepatic lesion or biliary ductal dilatation is present. The gallbladder is unremarkable with no evidence of radiopaque gallstones, gallbladder wall thickening, or obvious pericholecystic inflammatory changes. PANCREAS: Unremarkable. SPLEEN: Unremarkable. ADRENAL GLANDS: Unremarkable. KIDNEYS AND URETERS: The kidneys are normal in size, shape, and attenuation. No hydronephrosis, hydroureter, or obstructing calculi seen. No perinephric stranding. BLADDER: Unremarkable. GASTROINTESTINAL TRACT: Small hiatal hernia is present. No evidence of bowel obstruction. There is mild stranding adjacent to the splenic flecture of the colon in the left abdomen with a few diverticula in this region. No free fluid or free air is seen. ABDOMINAL WALL: Focal vertically oriented stranding in the anterior abdominal wall suggests sequelae of prior surgery. LYMPH NODES: Normal. VASCULAR: Mild scattered atherosclerotic calcifications are noted. PELVIC VISCERA: Unremarkable. OSSEOUS STRUCTURES: Scattered degenerative changes are noted in the spine. CT/CT abdomen pelvis w con IMPRESSION: Mild stranding adjacent to the splenic flexure of the colon in the left abdomen, with a few diverticula in this region suggesting mild diverticulitis. Alternative diagnosis such as omental infarct would be difficult to entirely exclude.
[2021-03-20 23:06] VITALS: BP 181/98; PULSE 89; RESP 16; TEMP 36.7; O2SAT 98; BMI 48.6
[2021-03-21 00:44] LABS: MANUAL DIFF FLAG NO
[2021-03-21 00:46] LABS: Basophils Percent Auto 0.2 % (0-2); Eosinophils Absolute Auto 0.1 X10*3/uL (0.0-0.4); Eosinophils Percent Auto 1.2 % (0-4); Hematocrit 35.1 % (37.0-47.0); Hemoglobin 11.1 g/dl (12.0-16.0); Imm Gran Abs Auto 0.04 X10*3/uL (0.00-0.03); Imm Gran Pct Auto 0.3 % (0.0-0.4); Lymphocytes Absolute Auto 2.8 X10*3/uL (1.2-4.9); Lymphocytes Percent Auto 23.7 % (20-40); Mean Corpuscular HGB Conc 31.6 g/dl (31.0-35.0); Mean Corpuscular Hemoglobin 25.9 pg (27.0-33.0); Mean Platelet Volume 8.7 fL (9.4-12.3); Monocytes Absolute Auto 1.2 X10*3/uL (0.1-1.2); Neutrophils Absolute Auto 7.5 x10*3/uL (2.0-8.3); Neutrophils Percent Auto 64.6 % (45-73); Platelet Count 355 X10*3/uL (160-400); Red Blood Count 4.28 X10*6/uL (4.20-5.50); Red Cell Distribution Width 14.3 % (11.0-16.0); White Blood Count 11.7 X10*3/uL (4.8-10.8)
[2021-03-21 00:54] LABS: Lactic Acid 0.7 mmol/L (0.5-2.0)
[2021-03-21 01:00] LABS: Alanine Aminotransferase 24 U/L (0-31); Albumin Level 3.8 g/dL (3.5-5.0); Alkaline Phosphatase 100 U/L (39-117); Anion Gap 12 (12-20); Aspartate Amino Transferase 19 U/L (5-31); Bilirubin Total 0.2 mg/dL (0.0-1.0); Blood Urea Nitrogen 10 mg/dL (9-16); Calcium 8.9 mg/dL (8.4-10.2); Carbon Dioxide 25 mmol/L (22-29); Chloride 106 mmol/L (96-108); Creatinine Clr Calc Pharmacy 133.3; Estimated Glomerular Filt Rate > 60; Glucose Random 137 mg/dL (60-115); Lipase 14 U/L (8-78); Potassium 3.8 mmol/L (3.3-5.1); Sodium 139 mmol/L (135-145); Total Protein 7.3 g/dL (6.5-8.0)
[2021-03-21 01:02] VITALS: RESP 16
[2021-03-21] MEDS: 0.9 % Sodium Chloride 1,000 ML 999 ML IVCONT (01:02)
[2021-03-21] MEDS: Morphine Sulfate 4 MG/ML CARTRIDGE IVPUSH (01:02)
[2021-03-21] MEDS: ondansetron HCL 4 MG/2 ML VIAL IVPUSH (01:03)
[2021-03-21] MEDS: iohexoL 350 MG/ML 100 ML INFUS..BTL IV (01:29)
--- NOTE | 2021-03-21 01:29 | ED.ABDPAIN ---
HPI - Abdominal Pain General Chief Complaint: Abdominal Pain Stated Complaint: Abdominal pain Time Seen by Provider: 03/21/21 00:07 Source: patient Mode of arrival: ambulatory Limitations: no limitations History of Present Illness HPI narrative: Patient history of diverticulitis status post sigmoid resection on 01/18/2021 since then was doing okay for last 4 days noticed lower abdominal pain more on the right side and suprapubic area with slight nausea vomited 3 times and has 4-5 lose bowel movements no blood in the stool no fever or chills patient does not feel hungry pain gets worse on palpation ambulation had low-grade subjective fever today no chills Related Data Home Medications Medication Instructions Recorded Confirmed escitalopram oxalate 20 mg tablet 20 mg PO DAILY 06/24/20 03/08/21 Previous Rx's Medication Instructions Recorded lisinopril 20 mg tablet 20 mg PO DAILY #30 tab 10/28/20 cyclobenzaprine 10 mg tablet 10 mg PO BID 7 Days #14 tab 03/08/21 oxycodone 5 mg tablet 5 mg PO BID PRN 5 Days #10 tab 03/08/21 amoxicillin 875 mg-potassium 1 tab PO BID #20 tab 03/21/21 clavulanate 125 mg tablet (Augmentin) ondansetron 4 mg disintegrating 4 mg PO Q6-8H PRN #7 tab 03/21/21 tablet oxycodone 5 mg tablet 5 mg PO Q6H PRN #20 tab 03/21/21 Allergies Allergy/AdvReac Type Severity Reaction Status Date / Time No Known Allergies Allergy Mild NKA Verified 03/20/21 16:05 Review of Systems Review of Systems Yes all other systems are reviewed and are negative Physical Exam Vital Signs: Vital Signs: Last Vital Signs Temp 98.1 F 03/20/21 23:06 Pulse 75 03/21/21 01:57 Resp 16 03/21/21 01:57 BP 189/79 H 03/21/21 01:57 Pulse Ox 98 03/20/21 23:06 Body Mass Index 48.6 Appearance: Alert. Oriented X3. No acute distress. Eyes: No pallor or icterus ENT: Pharynx normal. Oral Mucosa moist Neck: Normal inspection. Neck supple. CVS: Normal heart rate and rhythm. Pulses normal. Respiratory: No respiratory distress. Equal air entry bilateral, no wheezing/rales/rhonchi Abdomen: Soft, deep tenderness suprapubic and lower quadrants area, Bowel sounds are present, no mass palpable, no CVA tenderness no rebound tenderness or guarding Skin: Skin warm and dry. Normal skin color. Normal skin turgor. Extremities: No lower extremity edema. No calf tenderness Neuro: Oriented X 3. No motor deficit. MDM - Abdominal Pain MDM Narrative Medical decision making narrative: Patient with history of significant diverticulitis status post sigmoid resection comes with lower abdominal pain with slightly elevated WBC count normal lactic acid CT scan showed slight diverticulitis uncomplicated awaiting for the final report. Will give her IV Zosyn 1 dose and discharge her home on p.o. antibiotic Augmentin and advised to have clear liquids advanced as tolerated and follow-up as outpatient with surgeon Medical Records Attestation: I reviewed the patient's medical records. Lab Data Attestation: I reviewed the patient's lab results. Result diagrams: 03/21/21 00:38 03/21/21 00:38 Labs: Lab Results 03/21/21 03/21/21 03/21/21 Range/Units 00:38 00:38 00:38 WBC 11.7 H (4.8-10.8) X10*3/uL RBC 4.28 (4.20-5.50) X10*6/uL Hgb 11.1 L (12.0-16.0) g/dl Hct 35.1 L (37.0-47.0) % MCV 82.0 (80.0-98.0) fL MCH 25.9 L (27.0-33.0) pg MCHC 31.6 (31.0-35.0) g/dl RDW 14.3 (11.0-16.0) % Plt Count 355 (160-400) X10*3/uL MPV 8.7 L (9.4-12.3) fL Immature Gran % (Auto) 0.3 (0.0-0.4) % Neut % (Auto) 64.6 (45-73) % Lymph % (Auto) 23.7 (20-40) % [place] % (Auto) 10.0 (2-11) % Eos % (Auto) 1.2 (0-4) % Baso % (Auto) 0.2 (0-2) % Lymph # (Auto) 2.8 (1.2-4.9) X10*3/uL [place] # (Auto) 1.2 (0.1-1.2) X10*3/uL Eos # (Auto) 0.1 (0.0-0.4) X10*3/uL Baso # (Auto) 0.0 (0.0-0.2) X10*3/uL Abs Immat Gran (auto) 0.04 H (0.00-0.03) X10*3/uL Absolute Neuts (auto) 7.5 (2.0-8.3) x10*3/uL Absolute Nucleated RBC 0.000 (0.0-0.012) X10*3/uL Nucleated RBC % (auto) 0.0 (0.0-0.2) /100WBC Sodium 139 (135-145) mmol/L Potassium 3.8 (3.3-5.1) mmol/L Chloride 106 (96-108) mmol/L Carbon Dioxide 25 (22-29) mmol/L Anion Gap 12 (12-20) BUN 10 (9-16) mg/dL Creatinine 0.81 (0.5-1.4) mg/dL Estim Creat Clear Calc 133.3 Estimated GFR > 60 Random Glucose 137 H (60-115) mg/dL Lactic Acid 0.7 (0.5-2.0) mmol/L Calcium 8.9 D (8.4-10.2) mg/dL Total Bilirubin 0.2 (0.0-1.0) mg/dL AST 19 D (5-31) U/L ALT 24 (0-31) U/L Alkaline Phosphatase 100 (39-117) U/L Total Protein 7.3 (6.5-8.0) g/dL Albumin 3.8 (3.5-5.0) g/dL Lipase 14 (8-78) U/L Discharge Plan Discharge Clinical Impression: Diverticulitis Patient Disposition: Home, Self-Care Instructions: Diverticulitis (ED) Additional Instructions: Drink plenty of fluids clear liquids for now advanced as tolerated Take pain medication antibiotic as prescribed Report to the ER if worsening of the abdominal pain/fever/vomiting Prescriptions: New ondansetron 4 mg tablet,disintegrating 4 mg PO Q6-8H PRN (Reason: nausea and vomiting) Qty: 7 RF: 0 amoxicillin-pot clavulanate [Augmentin] 875-125 mg tablet 1 tab PO BID Qty: 20 RF: 0 oxycodone 5 mg tablet 5 mg PO Q6H PRN (Reason: Abdominal Pain) Qty: 20 RF: 0 No Action lisinopril 20 mg tablet 20 mg PO DAILY Qty: 30 RF: 0 escitalopram oxalate 20 mg tablet 20 mg PO DAILY RF: 0 cyclobenzaprine 10 mg tablet 10 mg PO BID 7 Days Qty: 14 RF: 0 oxycodone 5 mg tablet 5 mg PO BID PRN (Reason: pain) 5 Days Qty: 10 RF: 0 PMFSH Past Medical History Medical History Anxiety Arthropathy of facet joint Back pain COVID-19 vaccine series completed Diverticulitis HTN (hypertension) Morbid obesity Spondylosis of lumbar region without myelopathy or radiculopathy Surgical History History of incisional hernia repair History of Florentino fundoplication Hx of colonoscopy Family History Family History Mother Hodgkin disease Brother Diabetes Social History Social History Household Members: Significant Other Household Members Other:: partner Housing: House Are you a primary healthcare insurance sales agent to a significant other at home: No Do you presently have visiting nurse or other home services: No Alcohol intake: never Patient Tobacco Use Status: Never used Tobacco Use of substances other than those prescribed or required for medical reasons: No Advance Directives: No Advance Directives Information Provided: No Patient : No service: Yes Current occupational status: unemployed Current occupation: [employer]
[2021-03-21 01:57] VITALS: BP 189/79; PULSE 75; RESP 16
[2021-03-21 02:21] VITALS: BP 177/86; BP 189/79; PULSE 75; PULSE 82; RESP 18; TEMP 36.7
[2021-03-21] MEDS: Piperacillin Sodium/Tazobactam 3.375 GM in 0.9 % Sodium Chloride 50 ML IV (02:33)
== END 2021-03-21 03:32 | disposition home or self-care (01) ==
PROVIDERS: Emergency Provider Internal Medicine
DX: K57.32 Diverticulitis of large intestine without perforation or abscess without bleeding (principal); I10 Essential (primary) hypertension; R50.9 Fever, unspecified; Z79.899 Other long term (current) drug therapy
CPT/HCPCS: 36415; 74177; 80053; 83605; 83690; 85025; 96361; 96365; 96375; 99212; 99284; J2270; J2405; J2543; Q9967

== ENCOUNTER 2021-03-27 09:31 | Outpatient (REF) | payer OTHER, SELFPAY ==
[2021-03-27 10:00] LABS: COVID-19 Test Negative (Negative)
== END 2021-03-27 09:32 | disposition home or self-care (01) ==
LOC: HO.LAB 09:31
PROVIDERS: PCP Nurse Practitioner Family; Visit Provider Internal Medicine
DX: Z20.822 Contact with and (suspected) exposure to COVID-19 (principal)
CPT/HCPCS: 36415; 87635; C9803

== ENCOUNTER 2021-03-31 10:16 | Day surgery (SDC) | payer OTHER, SELFPAY ==
[2021-03-27 13:02] VITALS: BMI 47.2
--- NOTE | 2021-03-30 10:39 | P.CONAN_ITS ---
Documented by User: Leona Demarco NP 03/30/21 10:42 HPI - Anesthesia Eval Consult details Narrative: 50yo F for Lumbar Spinal Cord Stimulation Implant s/p lap colectomy 12/2020 with GETA-7.5 PMFSH Active Problems Active Problems: All Active Problems (Updated 03/22/21 @ 00:02 by Background Darobbie) Dysuria (Acute) Diverticulosis (Acute) Hx of appendectomy (Acute) Nausea & vomiting (Acute) Abdominal pain complicating (Acute) Lab test negative for COVID-19 virus (Acute) Diarrhea (Acute) S/P laparoscopic-assisted sigmoidectomy (Acute) Abdominal pain (Acute) Strain of lumbar paraspinal muscle (Acute) Spasm of muscle of lower back (Acute) Morbid obesity (Acute) Arthropathy of facet joint (Acute) Spondylosis of lumbar region without myelopathy or radiculopathy (Acute) Past Medical History Medical History Anxiety Arthropathy of facet joint Back pain COVID-19 vaccine series completed Diverticulitis HTN (hypertension) Morbid obesity Spondylosis of lumbar region without myelopathy or radiculopathy Family History Family History Mother Hodgkin disease Brother Diabetes Family history of problems with anesthesia: No Surgical History Surgical History History of colon surgery History of incisional hernia repair History of Florentino fundoplication Hx of colonoscopy History of Problems with Anesthesia: No Social History Social History Household Members: Significant Other Household Members Other:: partner Housing: House Are you a primary childcare administrator to a significant other at home: No Do you presently have visiting nurse or other home services: No Alcohol intake: never Patient Tobacco Use Status: Never used Tobacco Are you DNR?: No Advance Directives: No Advance Directives Information Provided: Yes Advance Directives on File: No service: Yes Current occupational status: unemployed Current occupation: [employer] Allergies Allergy/AdvReac Type Severity Reaction Status Date / Time No Known Allergies Allergy Mild NKA Verified 03/31/21 10:46 Home Medications Medication Instructions Recorded Confirmed Last Taken Type escitalopram oxalate 20 mg tablet 20 mg PO DAILY 06/24/20 03/31/21 03/31/21 06:00 History Exam Exam Date and Time: March 30, 2021 1039 Height,Weight and Vital Signs: Height 5 ft 9 in Weight 145.15 kg Pertinent Lab Results Pertinent Lab Results: Laboratory Tests 03/21/21 03/21/21 00:38 00:38 WBC 11.7 H Hgb 11.1 L Hct 35.1 L Plt Count 355 Sodium 139 Potassium 3.8 Chloride 106 Carbon Dioxide 25 BUN 10 Creatinine 0.81 Narrative Narrative: EKG 12/2020 Vent. Rate : 082 BPM ? ? Atrial Rate : 082 BPM ?? P-R Int : 126 ms? QRS Dur : 084 ms ? ? QT Int : 394 ms ? ? ? P-R-T Axes : 019 -03 055 degrees ?? QTc Int : 460 ms ? Normal sinus rhythm Minimal voltage criteria for LVH, may be normal variant ( R in aVL ) Abnormal ECG When compared with ECG of 15-DEC-2017 19:23, No significant change was found Assessment and Plan Assessment Anesthesia Assessment: Chart Reviewed Final Anesthetic Review Family History of Problems with Anesthesia: No History of Problems with Anesthesia: No Documented by User: Carol Ochoa MD 03/31/21 12:38 REPLACED BY [facility] Active Problems Active Problems: All Active Problems (Updated 03/22/21 @ 00:02 by Background Daemon) Dysuria (Acute) Diverticulosis (Acute) Hx of appendectomy (Acute) Nausea & vomiting (Acute) Abdominal pain complicating (Acute) Lab test negative for COVID-19 virus (Acute) Diarrhea (Acute) S/P laparoscopic-assisted sigmoidectomy (Acute) Abdominal pain (Acute) Strain of lumbar paraspinal muscle (Acute) Spasm of muscle of lower back (Acute) Morbid obesity (Acute)no no d Arthropathy of facet joint (Acute) Spondylosis of lumbar region without myelopathy or radiculopathy (Acute) Past Medical History Medical History Anxiety Arthropathy of facet joint Back pain COVID-19 vaccine series completed Diverticulitis HTN (hypertension) Morbid obesity Spondylosis of lumbar region without myelopathy or radiculopathy Family History Family History Mother Hodgkin disease Brother Diabetes Family history of problems with anesthesia: Unobtainable Surgical History Surgical History History of colon surgery History of incisional hernia repair History of Florentino fundoplication Hx of colonoscopy Social History Social History Household Members: Significant Other Household Members Other:: partner Housing: House Are you a primary childcare administrator to a significant other at home: No Do you presently have visiting nurse or other home services: No Alcohol intake: never Patient Tobacco Use Status: Never used Tobacco Are you DNR?: No Advance Directives: No Advance Directives Information Provided: Yes Advance Directives on File: No service: Yes Current occupational status: unemployed Current occupation: [employer] Meds Allergies Allergy/AdvReac Type Severity Reaction Status Date / Time No Known Allergies Allergy Mild NKA Verified 03/31/21 10:46 Home Medications Medication Instructions Recorded Confirmed Last Taken Type escitalopram oxalate 20 mg tablet 20 mg PO DAILY 06/24/20 03/31/21 03/31/21 06:00 History Exam Airway Mallampati Class: II TM Dist: >3cm Neck ROM: Full Loose/Missing/Broken Teeth: No Heart: RRR Lungs: CTA Assessment and Plan Assessment Anesthesia Assessment: Anesthesia Plan Discussed Final Anesthetic Review Family History of Problems with Anesthesia: Unobtainable NPO: Yes ASA Class: III Final Preanesthetic Review: Meds/Allgs Chart Reviewed, Consent Obtained/Reviewed and Anes Risks/Benef Reviewed Patient Risk: Intermediate Procedure Risk: Intermediate Anesthetic Plan Anesthetic Plan: GA Disposition: Standard PACU
[2021-03-31] VITALS (11 sets, daily range): BP systolic 123–169; BP diastolic 41–89; PULSE 74–88; RESP 16–20; TEMP 36.4–37; O2SAT 95–100
--- NOTE | ~2021-03-31 | FL_ITS ---
EXAMINATION: XR FLUOROSCOPY WITH IMAGES CLINICAL INFORMATION: Lumbar spinal cord stimulation implant COMPARISON: None. TECHNIQUE: Fluoroscopy performed by Dr. Dontae Haddad. Fluoroscopy time: 5.4 minutes DAP: 33.2 Gycm2 Images: 3 FINDINGS: Spinal stimulator wiring noted terminating over the mid thoracic spine. FL/FL guidance in OR IMPRESSION: Fluoroscopic guidance for spinal stimulator wiring placement. Please refer to procedural report for further information.
--- NOTE | 2021-03-31 08:32 | W.PM.OPN ---
Operative Note Operative Note Date of Service: 03/31/21 Narrative: Anjali is very pleasant 50 years old female who came today into the operating room for implantation of spinal cord stimulator for the treatment of pain related to? postlaminectomy syndrome.? She had successful trial of spinal cord stimulation Nevro. ? Preoperatively patient received antibiotic cefasolin? 3g approximately 30 minutes before the procedure. After obtaining informed consent patient was brought to the operating room, she was supine on the stretcher [employer] monitors were applied and patient was administered general endotracheal anesthesia. After that patient was transferred to the operating table prone, all pressure points were protected. Time-out was performed delineating correct site, side, the nature of the procedure, patient's allergy, preoperative antibiotic.? All operating room staff was participating in OR time-out procedure. Patient's entire back was prepped with DuraPrep twice and draped with full body drape including Ioban film.? Sterilely draped C-arm was brought over operating field and square picture of T12, L1, L2?vertebrae? were demonstrated on the screen.? THE PROJECTION OF?L1- L2??SPINOUS PROCESSES TO THE SKIN WERE INFILTRATED WITH LIDOCAINE 2% MIXED WITH BUPIVACAINE 0.5%.? 7 CM LONG VERTICAL INCISION using a 10 blade scalpel WAS PERFORMED IN STRICT MIDLINE VERTICAL FASHION.? THOROUGH HEMOSTASIS WAS PERFORMED using electrocautery. ?Thorough tissue dissections was performed until prevertebral fascia was freed from overlying tissues.? Attention FIRST? was concentrated on the RIGHT T12-L1 epidural interspace.? The location of the projection of the right pedicle center of the?L2?vertebra was found on the prevertebral fascia using C-arm.? This location was injected with mixture of lidocaine 2% and Marcaine 0.5% 5 cc in approximate direction of needle advancement.? After that ? 10 cm 14 gauge straight introducer epidural needle was inserted through the fascia and advanced toward?T12-L1 epidural interspace.? The advancement of the needle was performed on anterior posterior and lateral views.? Guitar wire and loss of resistance technique were used to locate epidural space.?When loss of resistance was felt in the needle, guitar wire was obtained inserted into the needle.? guitar wire was spread in the epidural fashion, epidural lead was inserted through the skin and it was advanced to the position in the POSTERIOR EPIDURAL SPACE slightly?RIGHT?TO THE MIDLINE at the posterior T8 vertebral body body epidural space. After that location of the projection of the LEFT pedicle center of the L2 vertebra was found -using C-arm.? This location was injected with mixture of lidocaine 2% and Marcaine 0.5% 5 cc.. .? Again here 10 cm 14 gauge straight epidural needle was inserted through the prevertebral fashion and advanced T12-L1 intervertebral interspace.? Loss of resistance to air technique was used to locate epidural space and guitar wire was used to confirm position of the epidural space. .When guitar wire was spread in the epidural fashion, epidural lead was inserted through the needle and advanced to the T9 POSTERIOR EPIDURAL SPACE SLIGHTLY?LEFT to the existing LEAD.? THE LOCATION OF BOTH LEADS WAS VERIFIED ON ANTERIOR POSTERIOR AND LATERAL VIEWS. After satisfactory position of the leads were established the needles were withdrawn, the stylette wires were removed from the epidural leads.? The anchoring devices were dislodged on the leads and advanced to the level of the prevertebral fascia. The anchoring devices were advanced along the epidural leads and dislodged and epidural leads at the level of prevertebral fascia.? They were sutured to prevertebral fascia with 2 separate Tycron sutures per each anchoring device.? The fixating screws was fixed until 3 clicks were heard on each anchoring device. After that the wound was irrigated with copious amount of Vancomycin containing normal saline and packed with Vancomycin soaked 4 x 4. ?After that attention was concentrated on the right loin??of the patient?where she wanted the? battery to be implanted.? 6 cm long horizontal incision was performed 3 cm below the projection to the skin of the 12th right rib. the wound was deepened and widened and thorough hemostasis was performed. The pocket was created to accomodate the battery. Irrigation with vancomycin containing saline was performed.After that the? tunneling device was used to connect midline incision and the left upper buttock incision. Thorough hemostasis was performed. ? The impedance was satisfactory.? After that tunneling device was used to connect both wounds.? .? They were connected to the battery. The impedance was satisfactory. After that both wounds were thoroughly irrigated with normal saline containing vancomycin.? Sutures were applied to the most superior lateral and most superior medial corners of the? wound.? Those sutures were tied after the battery was inserted into the pocket with the epidural leads collected behind the body of the battery.. After that 0 Vicryl sutures were used to close both wounds.?2-0 Vicryl was used to approximate the level of the skin.? [place] were applied to skin level.? Bacitracin ointment was smeared on the staple line.? Sterile dressing was applied.? Abdominal binder was applied.? The patient was transferred to the stretcher, awaken, and in stable condition transferred to PACU.? She recovered uneventfully.? ?
[2021-03-31 10:54] LABS: UPreg QC Valid YES; Urine Pregnancy NEGATIVE (NEGATIVE)
[2021-03-31] MEDS: Lactated Ringers 1,000 ML 100 ML IVCONT (11:06)
--- NOTE | 2021-03-31 11:12 | MHC.SHP ---
Pre-Procedural Eval Section A Date of Service: 03/31/21 Section B Chief Complaint: spondylosis without myelopathy Details of Present Illness: As above Relevant Family History (Specify if Yes): No Relevant Social History: None Present Medications: see Short Stay Collaborative assessment Medical History: No relevant PMH History of Previous Operations: No relevant previous surgery Allergies: Allergies Allergy/AdvReac Type Severity Reaction Status Date / Time No Known Allergies Allergy Mild NKA Verified 03/31/21 10:46 Review of Systems Sugical H&P ROS: Negative: Cardiovascular, Respiratory, Neurological, Psychiatric, Hem-Onc, Allergic/Immunologic, Gastrointestinal, Genitourinary, Musculoskeletal, Integumentary, Endocrine and Eyes/Ears/Nose/Throat and Yes, Specify: Constitution (Morbid obesity) Exam Surgical H&P Exam: Normal: HEENT, Normal: Heart, Normal: Lungs, Normal: Extremities, Normal: Skin and Normal: Neurological and Significant Findings: Abdomen (large due to abdominal and subcutaneous fat) Plan Diagnosis/Plan: Unchanged I have reviewed the history and physical and performed a pertinent physical examination on my patient. No changes have occurred unless specified.
--- NOTE | 2021-03-31 15:02 | P.BOP_ITS ---
Brief Operative Note Date of Service: 03/31/21 Pre-op diagnosis: Spondylosis lumbar spine, chronic pain syndrome. Post-op diagnosis: same Procedure: Implantation of Nevro spinal cord stimulator. Implants: HF 10 Nevro SCS battery and 2 epidural leads. Surgeon: Dontae Haddad MD Anesthesia: GETA Was an Aircraft Ordnance Technician used for this Procedure?: No Estimated blood loss (mL): 15 Pathology: none sent Condition: stable Disposition: PACU
[2021-03-31] MEDS: oxyCODONE HCl Immed Release 5 MG TABLET 10 MG PO (15:10)
[2021-03-31] MEDS: fentaNYL citrate/PF 100 MCG/2 ML VIAL 50 MCG IVPUSH ×2 (15:15→15:25)
== END 2021-03-31 16:34 ==
LOC: HO.SSS 10:17
PROVIDERS: Nurse Practitioner; PCP Internal Medicine; Visit Provider Anesthesiology
PROC: (CPT 63685; principal; 2021-03-31 12:10)
DX: M47.816 Spondylosis without myelopathy or radiculopathy, lumbar region (principal); M54.50 Low back pain, unspecified; M47.819 Spondylosis without myelopathy or radiculopathy, site unspecified; I10 Essential (primary) hypertension; F41.1 Generalized anxiety disorder; E66.01 Morbid (severe) obesity due to excess calories; Z68.42 Body mass index [BMI] 45.0-49.9, adult; Z79.899 Other long term (current) drug therapy
CPT/HCPCS: 63685; 63650 ×2; 81025; C1713; C1778; C1787; C1816; J0690; J1100; J1170; J2250; J2405; J3010; J3370

== ENCOUNTER 2021-04-02 17:47 | Emergency (ER) | payer OTHER, SELFPAY ==
--- NOTE | ~2021-04-02 | XR_ITS ---
EXAMINATION: CR X-RAY LUMBAR AND SACROCOCCYGEAL SPINE CLINICAL INFORMATION: Back pain. COMPARISON: CT scan of the abdomen and pelvis dated 03/21/2021. TECHNIQUE: 2 views each of the lumbar spine and sacrococcygeal spine were obtained. FINDINGS: There is normal lumbar lordosis and spinal alignment. L5-S1 is transitional. The vertebral bodies and intervertebral disc spaces are unremarkable. Mild to moderate bilateral facet arthropathy is seen at L4-L5 and L5-S1. There is normal sacrococcygeal curvature. No acute fracture seen. A spinal stimulation device is seen posteriorly. XR/XR lumbar spine 2-3V IMPRESSION: 1. Transitional L5-S1 as detailed above. Care and numbering of the lumbar levels is recommended. Mild to moderate bilateral facet arthropathy at L4-L5 and L5-S1.
--- NOTE | ~2021-04-02 | XR_ITS ---
EXAMINATION: CR X-RAY LUMBAR AND SACROCOCCYGEAL SPINE CLINICAL INFORMATION: Back pain. COMPARISON: CT scan of the abdomen and pelvis dated 03/21/2021. TECHNIQUE: 2 views each of the lumbar spine and sacrococcygeal spine were obtained. FINDINGS: There is normal lumbar lordosis and spinal alignment. L5-S1 is transitional. The vertebral bodies and intervertebral disc spaces are unremarkable. Mild to moderate bilateral facet arthropathy is seen at L4-L5 and L5-S1. There is normal sacrococcygeal curvature. No acute fracture seen. A spinal stimulation device is seen posteriorly. XR/XR sacrum coccyx min 2V IMPRESSION: 1. Transitional L5-S1 as detailed above. Care and numbering of the lumbar levels is recommended. Mild to moderate bilateral facet arthropathy at L4-L5 and L5-S1.
--- NOTE | ~2021-04-02 | XR_ITS ---
EXAMINATION: XR CHEST CLINICAL INFORMATION: Back pain. Stimulator placed 03/31/2021 COMPARISON: 12/15/2017 TECHNIQUE: Frontal view of the chest was obtained. FINDINGS: No significant abnormality is noted involving the heart, lungs, mediastinum, bony thorax or soft tissues. XR/XR chest 1V IMPRESSION: Unremarkable examination.
[2021-04-02 18:00] VITALS: BP 153/71; BP 182/98; PULSE 88; PULSE 95; RESP 20; TEMP 37.2; O2SAT 100; O2SAT 98; BMI 47.2
--- NOTE | 2021-04-02 18:17 | PC.NURSE ---
pt states she had a nerve stimulator placed in her mid lower back here at [facility] [place] on 03/31. yesterday she started having 10/10 excruciating pain, chills and 101 temp taken earlier today. pt has appoint to have the nerve stimulator checked on this coming Saturday. She states she called the office of the provider who did her procedure but did not get an answer. Pt states she was sent home with oxycodone but she was not sent home on antibiotics. she reports taking pain meds earlier but did not get any relief. pt states she thinks there may be an infection. vss, afebrile. Pt's friend at her bedside.
--- NOTE | 2021-04-02 18:56 | ED.BACK ---
HPI - Back Pain/Injury General Chief Complaint: Back Pain/Injury Stated Complaint: back pain Time Seen by Provider: 04/02/21 18:41 Source: patient and EMS Mode of arrival: EMS Limitations: no limitations History of Present Illness HPI Narrative: 50-year-old female presents via EMS for lower back pain. Had a nerve stimulator placed on 03/31/2021. States that she has been taking her medications as directed however they have not been controlling her pain. Also reported a fever earlier today. MD elicited complaint: back pain Pertinent past history: prior back pain and back surgery Timing: constant and progressively worsening Severity: severe Pain scale (0-10): 10 Similar Symptoms Previously: Yes Quality: stabbing, aching, spasming and throbbing Location: lumbar spine Radiation: none Exacerbating factors: movement, sitting upright and walking Relieving factors: none Associated symptoms: denies other symptoms Treatments prior to arrival: prescription analgesics Work related injury: No Related Data Home Medications Medication Instructions Recorded Confirmed escitalopram oxalate 20 mg tablet 20 mg PO DAILY 06/24/20 03/31/21 Previous Rx's Medication Instructions Recorded lisinopril 20 mg tablet 20 mg PO DAILY #30 tab 10/28/20 ondansetron 4 mg disintegrating 4 mg PO Q6-8H PRN #7 tab 03/21/21 tablet cephalexin 500 mg tablet 1,000 mg PO Q8H 15 Days #90 tab 03/31/21 oxycodone-acetaminophen 7.5 mg-325 1 tab PO Q6H PRN 5 Days #20 tab 03/31/21 mg tablet (Percocet) Allergies Allergy/AdvReac Type Severity Reaction Status Date / Time No Known Allergies Allergy Mild NKA Verified 03/31/21 10:46 Review of Systems Review of Systems: Constitutional: Positive Fever, No Chills ENT/Mouth: No Ear Pain, No Hoarseness, No sore throat Eyes: No Eye Pain, No Swelling, No Redness, No Foreign Body Cardiovascular: No Chest Pain, No SOB Respiratory: No Cough, No Dyspnea Gastrointestinal: No Nausea, No Vomiting, No Diarrhea, No abdominal Pain Genitourinary: No Dysuria, No Hematuria Musculoskeletal: positive lower back pain, No Myalgias, No Joint Swelling Skin: No Skin lacerations, No rash Neuro: No Weakness, No Numbness, No Paresthesias, No Loss of Consciousness, No Dizziness, No Headache Psych: No Anxiety/Panic, No Depression Heme/Lymph: no easy bruising, no Lymphadenopathy Endocrine: No Polyuria, No Polydipsia Yes all other systems are reviewed and are negative [facility] Past Medical History Attestation statement: The following information was validated with the patient. Source: old records reviewed Medical History Anxiety Arthropathy of facet joint Back pain COVID-19 vaccine series completed Diverticulitis HTN (hypertension) Morbid obesity Spondylosis of lumbar region without myelopathy or radiculopathy Surgical History History of colon surgery History of incisional hernia repair History of Florentino fundoplication Hx of colonoscopy Family History Family History Mother Hodgkin disease Brother Diabetes Social History Social History Household Members: Significant Other Household Members Other:: partner Housing: House Are you a primary caregiver assisted living to a significant other at home: No Do you presently have visiting nurse or other home services: No Alcohol intake: never Patient Tobacco Use Status: Never used Tobacco Advance Directives: No Advance Directives Information Provided: Yes service: Yes Current occupational status: unemployed Current occupation: [employer] Physical Exam Vital Signs: Vital Signs: Last Vital Signs Temp 98.9 F 04/02/21 18:00 Pulse 88 04/02/21 18:00 Resp 16 04/02/21 19:34 BP 153/71 H 04/02/21 18:00 Pulse Ox 98 04/02/21 18:00 BMI result Body Mass Index 47.2 Appearance: Alert. Oriented X3. Moderate distress. Eyes: Pupils equal, round and reactive to light. ENT: Pharynx normal. Neck: Normal inspection. Neck supple. CVS: Normal heart rate and rhythm. Pulses normal. Respiratory: No respiratory distress. Breath sounds normal. Abdomen: Soft and nontender. Skin: Skin warm and dry. Normal skin color. Normal skin turgor. Surgical incisions to lumbar and left sacral intact. No indication of infection. No erythema or purulent drainage noted. Extremities: No lower extremity edema. Brisk capillary refill equal sensation to all extremities. Gait well-balanced well coordinated. Neuro: No motor deficit. No sensory deficit. Cranial nerves 2-12 intact. Course Course Course Narrative: 50-year-old female presents with 10/10 lower back pain after a spinal stimulator had been placed on 03/31/2021. States that she has fevers and is unable to control her pain. She does not report any symptoms indicating cauda equina, able to ambulate, has brisk capillary refill and is neurovascularly intact to all extremities. 7:10 p.m. detailed discussion with Dr. Haddad, plan is for x-rays and lab values. If everything returns normal patient will be discharged home. We will not be increasing her pain medication as she was decreased from 20 mg of oxycodone 5 times a day to 7.[address] Maldonado and I feel that pain management at this time would be sufficient, we did discuss the plan of 4 mg of morphine and 10 mg of p.o. oxycodone 1 time only. 9 00 p.m. x-rays are negative for acute findings. I did discuss in detail plan for discharge without increasing her pain medication. Patient appeared to be dissatisfied however understood. Multiple questions regarding why patient had a fever, patient is afebrile at the time of presentation. Patient will follow-up with pain management tomorrow. No indication of infection at the surgical site. Patient patient family verbalized understanding of and agrees to plan of care discharge home. Consultations Consultation #1: Catie Time: 19:06 MDM - Back Pain/Injury MDM Narrative Medical decision making narrative: Nerve stimulator placement, infection Differential Diagnosis Differential diagnosis: Likely lumbar radiculopathy, sciatica and thoracic back pain Medical Records Attestation: I reviewed the patient's medical records. Lab Data Attestation: I reviewed the patient's lab results. Result diagrams: 04/02/21 19:43 04/02/21 19:43 Labs: Lab Results 04/02/21 04/02/21 Range/Units 19:43 19:43 WBC 13.6 H (4.8-10.8) X10*3/uL RBC 4.40 (4.20-5.50) X10*6/uL Hgb 11.3 L (12.0-16.0) g/dl Hct 36.4 L (37.0-47.0) % MCV 82.7 (80.0-98.0) fL MCH 25.7 L (27.0-33.0) pg MCHC 31.0 (31.0-35.0) g/dl RDW 14.1 (11.0-16.0) % Plt Count 350 (160-400) X10*3/uL MPV 9.2 L (9.4-12.3) fL Immature Gran % (Auto) 0.3 (0.0-0.4) % Neut % (Auto) 70.6 (45-73) % Lymph % (Auto) 20.3 (20-40) % [place] % (Auto) 8.0 (2-11) % Eos % (Auto) 0.7 (0-4) % Baso % (Auto) 0.1 (0-2) % Lymph # (Auto) 2.8 (1.2-4.9) X10*3/uL [place] # (Auto) 1.1 (0.1-1.2) X10*3/uL Eos # (Auto) 0.1 (0.0-0.4) X10*3/uL Baso # (Auto) 0.0 (0.0-0.2) X10*3/uL Abs Immat Gran (auto) 0.04 H (0.00-0.03) X10*3/uL Absolute Neuts (auto) 9.6 H (2.0-8.3) x10*3/uL Absolute Nucleated RBC 0.000 (0.0-0.012) X10*3/uL Nucleated RBC % (auto) 0.0 (0.0-0.2) /100WBC Sodium 138 (135-145) mmol/L Potassium 4.0 (3.3-5.1) mmol/L Chloride 103 (96-108) mmol/L Carbon Dioxide 27 (22-29) mmol/L Anion Gap 12 (12-20) BUN 8 L (9-16) mg/dL Creatinine 0.75 (0.5-1.4) mg/dL Estim Creat Clear Calc 141.5 Estimated GFR > 60 Random Glucose 102 (60-115) mg/dL Calcium 8.9 (8.4-10.2) mg/dL Imaging Data Chest x-ray: Attestation: I personally reviewed and interpreted this imaging study as follows: Radiologist's impression: EXAMINATION: XR CHEST CLINICAL INFORMATION: Back pain. Stimulator placed 03/31/2021 COMPARISON: 12/15/2017 TECHNIQUE: Frontal view of the chest was obtained. FINDINGS: No significant abnormality is noted involving the heart, lungs, mediastinum, bony thorax or soft tissues. XR/XR chest 1V IMPRESSION: Unremarkable examination. ? Lumbar and sacral spine x-rays: Attestation: I personally reviewed and interpreted this imaging study as follows: Radiologist's impression: EXAMINATION: CR X-RAY LUMBAR AND SACROCOCCYGEAL SPINE CLINICAL INFORMATION: Back pain.? COMPARISON: CT scan of the abdomen and pelvis dated 03/21/2021.? TECHNIQUE: 2 views each of the lumbar spine and sacrococcygeal spine were obtained.? FINDINGS: There is normal lumbar lordosis and spinal alignment. L5-S1 is transitional. The vertebral bodies and intervertebral disc spaces are unremarkable. Mild to moderate bilateral facet arthropathy is seen at L4-L5 and L5-S1. There is normal sacrococcygeal curvature. No acute fracture seen. A spinal stimulation device is seen posteriorly. XR/XR lumbar spine 2-3V IMPRESSION: 1. Transitional L5-S1 as detailed above. Care and numbering of the lumbar levels is recommended. Mild to moderate bilateral facet arthropathy at L4-L5 and L5-S1. Discharge Plan Discharge Clinical Impression: Back pain Patient Disposition: Home, Self-Care Instructions: Back Pain (ED), Spinal Cord Stimulator Placement (DC) Additional Instructions: You were evaluated for back pain after a nerve stimulator placement. Please call Dr. Blankenship office tomorrow for an appointment. Please continue to take all medications as prescribed. Thank you for choosing this emergency department for evaluation. Please follow-up with primary care physician as needed. Return to the emergency department for any new, concerning, or worsening symptoms. Prescriptions: No Action cephalexin 500 mg tablet 1,000 mg PO Q8H 15 Days Qty: 90 RF: 0 oxycodone-acetaminophen [Percocet] 7.5-325 mg tablet 1 tab PO Q6H PRN (Reason: pain) 5 Days Qty: 20 RF: 0 lisinopril 20 mg tablet 20 mg PO DAILY Qty: 30 RF: 0 ondansetron 4 mg tablet,disintegrating 4 mg PO Q6-8H PRN (Reason: nausea and vomiting) Qty: 7 RF: 0 escitalopram oxalate 20 mg tablet 20 mg PO DAILY RF: 0 Referrals: Dontae Haddad MD [Physician] - 2 days (Lumbar back pain) Interventions: ED Discharge Assessment Last Done: 04/02/21 21:32 Discharge Date/Time: 04/02/21 21:36
[2021-04-02 19:34] VITALS: RESP 16
[2021-04-02] MEDS: oxyCODONE HCl Immed Release 5 MG TABLET 10 MG PO (19:34)
[2021-04-02] MEDS: Morphine Sulfate 4 MG/ML CARTRIDGE IVPUSH (19:34)
--- NOTE | 2021-04-02 19:44 | PC.NURSE ---
PT RETURNED FROM X-RAY. IV PLACED TO RAC, LABS DRAWN TO LAB. PT MEDICATED WITH MEDS PER [facility]AR FOR BACK PAIN RATED 8/10 WILL CONTINUE TO MONITOR PT.
[2021-04-02 19:53] LABS: MANUAL DIFF FLAG NO
[2021-04-02 20:13] LABS: Basophils Percent Auto 0.1 % (0-2); Eosinophils Absolute Auto 0.1 X10*3/uL (0.0-0.4); Eosinophils Percent Auto 0.7 % (0-4); Hematocrit 36.4 % (37.0-47.0); Hemoglobin 11.3 g/dl (12.0-16.0); Imm Gran Abs Auto 0.04 X10*3/uL (0.00-0.03); Imm Gran Pct Auto 0.3 % (0.0-0.4); Lymphocytes Absolute Auto 2.8 X10*3/uL (1.2-4.9); Lymphocytes Percent Auto 20.3 % (20-40); Mean Corpuscular Hemoglobin 25.7 pg (27.0-33.0); Mean Corpuscular Volume 82.7 fL (80.0-98.0); Mean Platelet Volume 9.2 fL (9.4-12.3); Monocytes Absolute Auto 1.1 X10*3/uL (0.1-1.2); Neutrophils Absolute Auto 9.6 x10*3/uL (2.0-8.3); Neutrophils Percent Auto 70.6 % (45-73); Platelet Count 350 X10*3/uL (160-400); Red Cell Distribution Width 14.1 % (11.0-16.0); White Blood Count 13.6 X10*3/uL (4.8-10.8)
[2021-04-02 20:15] LABS: Anion Gap 12 (12-20); Blood Urea Nitrogen 8 mg/dL (9-16); Calcium 8.9 mg/dL (8.4-10.2); Carbon Dioxide 27 mmol/L (22-29); Chloride 103 mmol/L (96-108); Creatinine Clr Calc Pharmacy 141.5; Estimated Glomerular Filt Rate > 60; Glucose Random 102 mg/dL (60-115); Sodium 138 mmol/L (135-145)
--- NOTE | 2021-04-02 20:50 | PC.NURSE ---
pt chg to [place] as per orders by respiratory. pt denies complaints and remains alert, respirations n/l. at this time. pt remains on monitor with pro 92-93% on [place]. Hospitalist in room for eval. Pt eating a turkey sandwich and drinking [place]. will continue to monitor pt.
== END 2021-04-02 21:36 | disposition home or self-care (01) ==
PROVIDERS: Nurse Practitioner Family; Emergency Provider Emergency Medicine Emergency Medical Services
DX: M54.50 Low back pain, unspecified (principal); M47.816 Spondylosis without myelopathy or radiculopathy, lumbar region; I10 Essential (primary) hypertension; Z96.82 Presence of neurostimulator
CPT/HCPCS: 36415; 71045; 72100; 72220; 80048; 85025; 96374; 99283; 99284; J2270

== ENCOUNTER → 2021-04-03 15:28 | Outpatient (BNVA) | payer OTHER, SELFPAY | PROVIDERS: Visit Provider Anesthesiology | DX: M47.816 Spondylosis without myelopathy or radiculopathy, lumbar region (principal); M47.819 Spondylosis without myelopathy or radiculopathy, site unspecified; E66.01 Morbid (severe) obesity due to excess calories | CPT/HCPCS: 99212 ==

== ENCOUNTER 2021-04-12 12:31 | Emergency (ER) | payer OTHER, SELFPAY ==
--- NOTE | ~2021-04-12 | CT_ITS ---
EXAMINATION: CT ABDOMEN AND PELVIS WITHOUT CONTRAST CLINICAL INFORMATION: Left-sided tenderness with diarrhea. COMPARISON: 03/21/2021 TECHNIQUE: Multidetector volumetric imaging was performed from the superior aspect of the liver through the pubic symphysis. Sagittal and coronal reformatted images were obtained on the technologist's workstation. This CT examination was performed using dose optimization techniques as appropriate, variously including the following: *Automated exposure control *Adjustment of mA and/or kV according to patient size (this includes techniques or standardized protocols for targeted exams where dose is matched to indication/reason for exam; i.e. extremities or head) *Use of iterative reconstruction technique DLP: 1826 mGy-cm FINDINGS: LUNG BASES: The visualized lung bases are unremarkable. LIVER, GALLBLADDER, AND BILIARY TREE: The liver is normal in size, shape, and attenuation. No focal hepatic lesion or biliary ductal dilatation is present. The gallbladder is unremarkable with no evidence of radiopaque gallstones, gallbladder wall thickening, or obvious pericholecystic inflammatory changes. PANCREAS: Unremarkable. SPLEEN: Unremarkable. ADRENAL GLANDS: Unremarkable. KIDNEYS AND URETERS: The kidneys are normal in size, shape, and attenuation. No hydronephrosis, hydroureter, or calculi seen. No perinephric stranding. BLADDER: Unremarkable. GASTROINTESTINAL TRACT: Small hiatal hernia. The stomach is otherwise unremarkable. Normal caliber small bowel. No obstruction. Distal colonic anastomosis noted. No colonic wall thickening. Scattered colonic diverticulosis. Redemonstration of mild stranding of the fat adjacent to the splenic flexure of the colon. No free air or free fluid. ABDOMINAL WALL: Rectus diastases. Prior ventral abdominal wall hernia repair noted. Generator in the posterior soft tissues. LYMPH NODES: Normal. VASCULAR: Normal caliber aorta with mild atherosclerotic calcification. PELVIC VISCERA: The uterus and adnexa are unremarkable. OSSEOUS STRUCTURES: No acute or suspicious osseous abnormality. CT/CT abdomen pelvis wo con IMPRESSION: Redemonstration of mild inflammation of the fat adjacent to the splenic flexure of the colon where there is colonic diverticulosis noted. This again could represent mild diverticulitis. Fleischner guidelines were followed.
[2021-04-12 13:16] VITALS: BP 155/94; PULSE 82; RESP 18; TEMP 36.1; O2SAT 98; BMI 48.4
--- NOTE | 2021-04-12 13:22 | ED_ITS ---
HPI - General Adult General Chief complaint: Abdominal Pain <ENRRIQUE Rodas - Last Filed: 04/13/21 11:40> Stated complaint: Diverticulitis flare <ENRRIQUE Rodas - Last Filed: 04/13/21 11:40> Time Seen by Provider: 04/12/21 13:21 <ENRRIQUE Rodas - Last Filed: 04/13/21 11:40> Source: patient <Usama Howard MD - Last Filed: 04/13/21 02:57> Mode of arrival: ambulatory <Usama Howard MD - Last Filed: 04/13/21 02:57> Limitations: no limitations <Usama Howard MD - Last Filed: 04/13/21 02:57> History of Present Illness HPI narrative: Patient with vomiting and diarrhea with left sided abdominal pain. Patient states symptoms started the night before, diarrhea all day. <Usama Howard MD - Last Filed: 04/13/21 02:57> Onset (ago): day(s) <Usama Howard MD - Last Filed: 04/13/21 02:57> Severity: mild <Usama Howard MD - Last Filed: 04/13/21 02:57> Pain Consistency: constant <Usama Howard MD - Last Filed: 04/13/21 02:57> Associated symptoms: nausea/vomiting and other (diarrhea) <Usama Howard MD - Last Filed: 04/13/21 02:57> Related Data Home medications: Home Medications Medication Instructions Recorded Confirmed escitalopram oxalate 20 mg tablet 20 mg PO DAILY 06/24/20 03/31/21 Previous Rx's Medication Instructions Recorded lisinopril 20 mg tablet 20 mg PO DAILY #30 tab 10/28/20 ondansetron 4 mg disintegrating 4 mg PO Q6-8H PRN #7 tab 03/21/21 tablet cephalexin 500 mg tablet 1,000 mg PO Q8H 15 Days #90 tab 03/31/21 clindamycin HCl 300 mg capsule 300 mg PO Q6H 14 Days #56 cap 04/13/21 levofloxacin 500 mg tablet 500 mg PO DAILY #10 tab 04/13/21 metronidazole 500 mg tablet 500 mg PO TID #30 tab 12/16/21 ondansetron HCl 4 mg tablet 4 mg PO Q8H PRN #10 tab 04/13/21 (Zofran) oxycodone-acetaminophen 7.5 mg-325 1 tab PO Q6H PRN 14 Days #56 tab 04/13/21 mg tablet (Percocet) <ENRRIQUE Rodas - Last Filed: 04/13/21 11:40> Allergies/adverse reactions: Allergies Allergy/AdvReac Type Severity Reaction Status Date / Time No Known Allergies Allergy Mild NKA Verified 04/13/21 10:17 <ENRRQIUE Rodas - Last Filed: 04/13/21 11:40> Review of Systems Constitutional: Constitutional: Reports no additional constitutional complaints <Usama Howard MD - Last Filed: 04/13/21 02:57> Eyes: Eyes: Reports no additional eye complaints <Usama Howard MD - Last Filed: 04/13/21 02:57> ENT: Denies dizziness <Usama Howard MD - Last Filed: 04/13/21 02:57> Cardiovascular: Cardiovascular: Reports no additional cardiovascular complaints <Usama Howard MD - Last Filed: 04/13/21 02:57> Respiratory: Respiratory: Reports as per HPI <Usama Howard MD - Last Filed: 04/13/21 02:57> Gastrointestinal: Gastrointestinal: Reports no additional gastrointestinal complaints <Usama Howard MD - Last Filed: 04/13/21 02:57> Genitourinary: Genitourinary: Reports no additional female genitourinary complaints <Usama Howard MD - Last Filed: 04/13/21 02:57> Musculoskeletal: Musculoskeletal: Reports no additional musculoskeletal complaints <Usama Howard MD - Last Filed: 04/13/21 02:57> Integumentary/Breasts: Skin/Breast: Denies rash <Usama Howard MD - Last Filed: 04/13/21 02:57> Neurologic: Reports system reviewed and no additional complaints, except as documented, Denies dizziness and Denies Sensory deficit (Neuro) <Usama Howard MD - Last Filed: 04/13/21 02:57> Psychiatric: Psychiatric: Denies anxiety <Usama Howard MD - Last Filed: 04/13/21 02:57> [facility] Past Medical History Medical History: Medical History Anxiety Arthropathy of facet joint Back pain COVID-19 vaccine series completed Diverticulitis HTN (hypertension) Morbid obesity Spondylosis of lumbar region without myelopathy or radiculopathy <ENRRIQUE Rodas - Last Filed: 04/13/21 11:40> Surgical History: Surgical History History of colon surgery History of incisional hernia repair History of Florentino fundoplication Hx of colonoscopy <ENRRIQUE Rodas - Last Filed: 04/13/21 11:40> Family History Family History: Family History Mother Hodgkin disease Brother Diabetes <ENRRIQUE Rodas - Last Filed: 04/13/21 11:40> Social History Social History: Social History Household Members: Significant Other Household Members Other:: partner Housing: House Are you a primary care clinician to a significant other at home: No Do you presently have visiting nurse or other home services: No Alcohol intake: never Patient Tobacco Use Status: Never used Tobacco service: Yes Current occupational status: unemployed Current occupation: [employer] <ENRRIQUE Rodas - Last Filed: 04/13/21 11:40> Physical Exam Vital Signs: Vital Signs: Last Vital Signs Temp 98.5 F 04/13/21 00:20 Pulse 86 04/13/21 00:20 Resp 18 04/13/21 00:20 BP 168/81 H 04/13/21 00:20 Pulse Ox 98 04/13/21 00:20 BMI result Body Mass Index 48.4 <ENRRIQUE Rodas - Last Filed: 04/13/21 11:40> Vital Signs: Last Vital Signs Temp 98.5 F 04/13/21 00:20 Pulse 86 04/13/21 00:20 Resp 18 04/13/21 00:20 BP 168/81 H 04/13/21 00:20 Pulse Ox 98 04/13/21 00:20 BMI result Body Mass Index 48.4 <Usama Howard MD - Last Filed: 04/13/21 02:57> Const: Other: obese female in no acute distress <Usama Howard MD - Last F iled: 04/13/21 02:57> Orientation/consciousness: oriented to person and patient oriented x3 <Usama Howard MD - Last Filed: 04/13/21 02:57> Limitations: no limitations <Usama Howard MD - Last Filed: 04/13/21 02:57> HENMT: Head: Yes normal to inspection <Usama Howard MD - Last Filed: 04/13/21 02:57> Ears: external ears normal <Usama Howard MD - Last Filed: 04/13/21 02:57> General nose exam: Normal external nose present <Usama Howard MD - Last Filed: 04/13/21 02:57> Mouth: Normal oral and palatal mucosa present and oropharynx normal <Usama Howard MD - Last Filed: 04/13/21 02:57> Throat: Yes posterior oropharynx normal <Usama Howard MD - Last Filed: 04/13/21 02:57> Eyes: General: appearance normal, both eyes and all related structures <Usama Howard MD - Last Filed: 04/13/21 02:57> Neck: Other: supple <Usama Howard MD - Last Filed: 04/13/21 02:57> Neck: Yes normal visual inspection <Usama Howard MD - Last Filed: 04/13/21 02:57> Chest: Chest palpation & inspection: normal inspection of the chest <Usama Howard MD - Last Filed: 04/13/21 02:57> Resp: Auscultation: clear to auscultation bilaterally <Usama Howard MD - Last Filed: 04/13/21 02:57> Cardio: Jugular venous distension: no JVD <Usama Howard MD - Last Filed: 04/13/21 02:57> Rate: regular rate <Usama Howard MD - Last Filed: 04/13/21 02:57> Rhythm: regular rhythm <Usama Howard MD - Last Filed: 04/13/21 02:57> Heart sounds: S1 normal heart sound present and S2 normal heart sound present <Usama Howard MD - Last Filed: 04/13/21 02:57> GI: Other: left sided abdominal pain no guarding or rebound <Usama Howard MD - Last Filed: 04/13/21 02:57> Palpation (GI): Soft to palpation, nontender and No hepatosplenomegaly present <Usama Howard MD - Last Filed: 04/13/21 02:57> Auscultation: normal bowel sounds <Usama Howard MD - Last Filed: 04/13/21 02:57> : General: Yes no CVA tenderness <Usama Howard MD - Last Filed: 04/13/21 02:57> Back/Spine/Pelvis: Back: no CVA tenderness <Usama Howard MD - Last Filed: 04/13/21 02:57> Skin: General skin exam: no rashes or lesions noted <Usama Howard MD - Last Filed: 04/13/21 02:57> Neuro: General: oriented to person and patient oriented x3 <Usama Howard MD - Last Filed: 04/13/21 02:57> Cranial nerves: Yes CN's II-XII intact bilaterally <sUama Howard MD - Last Filed: 04/13/21 02:57> Motor exam (neuro): 5/5 motor strength present throughout <Usama Howard MD - Last Filed: 04/13/21 02:57> Sensory Exam: No Sensory deficit (Neuro) <Usama Howard MD - Last Filed: 04/13/21 02:57> Extrem: General: Yes normal to inspection <Usama Howard MD - Last Filed: 04/13/21 02:57> Psych: Appearance: grossly normal <Usama Howard MD - Last Filed: 04/13/21 02:57> Course Course Course Narrative: Patient with pmh of Diverticulitis presents to the ED for LLQ pain after eating rasberrys. Vital signs stable. Rapid medical screening ordered. <ENRRIQUE Rodas - Last Filed: 04/13/21 11:40> Reevaluation(s) Reevaluation #1: patient with normal vitals, normal WBC, CT shows mild inflammation will dc on levaquin and flagyl <Usama Howard MD - Last Filed: 04/13/21 02:57> Time: 02:50 <Usama Howard MD - Last Filed: 04/13/21 02:57> Medical Decision Making Lab Data Result diagrams: : 04/12/21 15:26 04/12/21 15:26 <ENRRIQUE Rodas - Last Filed: 04/13/21 11:40> Labs: Lab Results 04/12/21 04/12/21 Range/Units 15:26 15:26 WBC 11.2 H (4.8-10.8) X10*3/uL RBC 4.57 (4.20-5.50) X10*6/uL Hgb 11.6 L (12.0-16.0) g/dl Hct 37.0 (37.0-47.0) % MCV 81.0 (80.0-98.0) fL MCH 25.4 L (27.0-33.0) pg MCHC 31.4 (31.0-35.0) g/dl RDW 14.3 (11.0-16.0) % Plt Count 443 H D (160-400) X10*3/uL MPV 8.8 L (9.4-12.3) fL Immature Gran % (Auto) 0.3 (0.0-0.4) % Neut % (Auto) 70.7 (45-73) % Lymph % (Auto) 20.4 (20-40) % Young % (Auto) 7.6 (2-11) % Eos % (Auto) 0.8 (0-4) % Baso % (Auto) 0.2 (0-2) % Lymph # (Auto) 2.3 (1.2-4.9) X10*3/uL Young # (Auto) 0.9 (0.1-1.2) X10*3/uL Eos # (Auto) 0.1 (0.0-0.4) X10*3/uL Baso # (Auto) 0.0 (0.0-0.2) X10*3/uL Abs Immat Gran (auto) 0.03 (0.00-0.03) X10*3/uL Absolute Neuts (auto) 7.9 (2.0-8.3) x10*3/uL Absolute Nucleated RBC 0.000 (0.0-0.012) X10*3/uL Nucleated RBC % (auto) 0.0 (0.0-0.2) /100WBC Sodium 136 (135-145) mmol/L Potassium 4.1 (3.3-5.1) mmol/L Chloride 103 (96-108) mmol/L Carbon Dioxide 26 (22-29) mmol/L Anion Gap 11 L (12-20) BUN 8 L (9-16) mg/dL Creatinine 0.81 (0.5-1.4) mg/dL Estim Creat Clear Calc 133.0 Estimated GFR > 60 Random Glucose 118 H (60-115) mg/dL Calcium 9.5 D (8.4-10.2) mg/dL Total Bilirubin 0.4 (0.0-1.0) mg/dL AST 19 (5-31) U/L ALT 24 (0-31) U/L Alkaline Phosphatase 117 (39-117) U/L Total Protein 7.9 (6.5-8.0) g/dL Albumin 4.2 (3.5-5.0) g/dL Lipase 20 (8-78) U/L <ENRRIQUE Rodas - Last Filed: 04/13/21 11:40> Lab Results 04/12/21 04/12/21 Range/Units 15:26 15:26 WBC 11.2 H (4.8-10.8) X10*3/uL RBC 4.57 (4.20-5.50) X10*6/uL Hgb 11.6 L (12.0-16.0) g/dl Hct 37.0 (37.0-47.0) % MCV 81.0 (80.0-98.0) fL MCH 25.4 L (27.0-33.0) pg MCHC 31.4 (31.0-35.0) g/dl RDW 14.3 (11.0-16.0) % Plt Count 443 H D (160-400) X10*3/uL MPV 8.8 L (9.4-12.3) fL Immature Gran % (Auto) 0.3 (0.0-0.4) % Neut % (Auto) 70.7 (45-73) % Lymph % (Auto) 20.4 (20-40) % Young % (Auto) 7.6 (2-11) % Eos % (Auto) 0.8 (0-4) % Baso % (Auto) 0.2 (0-2) % Lymph # (Auto) 2.3 (1.2-4.9) X10*3/uL Young # (Auto) 0.9 (0.1-1.2) X10*3/uL Eos # (Auto) 0.1 (0.0-0.4) X10*3/uL Baso # (Auto) 0.0 (0.0-0.2) X10*3/uL Abs Immat Gran (auto) 0.03 (0.00-0.03) X10*3/uL Absolute Neuts (auto) 7.9 (2.0-8.3) x10*3/uL Absolute Nucleated RBC 0.000 (0.0-0.012) X10*3/uL Nucleated RBC % (auto) 0.0 (0.0-0.2) /100WBC Sodium 136 (135-145) mmol/L Potassium 4.1 (3.3-5.1) mmol/L Chloride 103 (96-108) mmol/L Carbon Dioxide 26 (22-29) mmol/L Anion Gap 11 L (12-20) BUN 8 L (9-16) mg/dL Creatinine 0.81 (0.5-1.4) mg/dL Estim Creat Clear Calc 133.0 Estimated GFR > 60 Random Glucose 118 H (60-115) mg/dL Calcium 9.5 D (8.4-10.2) mg/dL Total Bilirubin 0.4 (0.0-1.0) mg/dL AST 19 (5-31) U/L ALT 24 (0-31) U/L Alkaline Phosphatase 117 (39-117) U/L Total Protein 7.9 (6.5-8.0) g/dL Albumin 4.2 (3.5-5.0) g/dL Lipase 20 (8-78) U/L <Usama Howard MD - Last Filed: 04/13/21 02:57> Imaging Data CT scan - abdomen: Radiologist's impression: IMPRESSION: Redemonstration of mild inflammation of the fat adjacent to the splenic flexure of the colon where there is colonic diverticulosis noted. This again could represent mild diverticulitis.? <Usama Howard MD - Last Filed: 04/13/21 02:57> Discharge Plan Discharge Clinical Impression: Diverticulitis <ENRRIQUE Rodas - Last Filed: 04/13/21 11:40> Patient Disposition: Home, Self-Care <ENRRIQUE Rodas - Last Filed: 04/13/21 11:40> Instructions: Diverticulitis (ED) <ENRRIQUE Rodas - Last Filed: 04/13/21 11:40> Additional Instructions: clear liquid diet for 72 hours <ENRRIQUE Rodas - Last Filed: 04/13/21 11:40> Prescriptions: New levofloxacin 500 mg tablet 500 mg PO DAILY Qty: 10 RF: 0 metronidazole 500 mg tablet 500 mg PO TID Qty: 30 RF: 0 ondansetron HCl [Zofran] 4 mg tablet 4 mg PO Q8H PRN (Reason: nausea and vomiting) Qty: 10 RF: 0 No Action cephalexin 500 mg tablet 1,000 mg PO Q8H 15 Days Qty: 90 RF: 0 lisinopril 20 mg tablet 20 mg PO DAILY Qty: 30 RF: 0 ondansetron 4 mg tablet,disintegrating 4 mg PO Q6-8H PRN (Reason: nausea and vomiting) Qty: 7 RF: 0 escitalopram oxalate 20 mg tablet 20 mg PO DAILY RF: 0 clindamycin HCl 300 mg capsule 300 mg PO Q6H 14 Days Qty: 56 RF: 0 oxycodone-acetaminophen [Percocet] 7.5-325 mg tablet 1 tab PO Q6H PRN (Reason: pain (scale score 7-10)) 14 Days Qty: 56 RF: 0 <ENRRIQUE Rodas - Last Filed: 04/13/21 11:40> Referrals: Avtar Lee MD [Primary Care Provider] - 1 week Peterson Ariza MD [Physician] - 5 days <ENRRIQUE Rodas - Last Filed: 04/13/21 11:40> Stand Alone Forms: Work/School Release <ENRRIQUE Rodas - Last Filed: 04/13/21 11:40> Interventions: LWBS Worksheet Last Done: 04/12/21 20:24 ED Discharge Assessment Last Done: 04/13/21 03:04 <ENRRIQUE Rodas - Last Filed: 04/13/21 11:40> Discharge Date/Time: 04/13/21 03:05 <ENRRIQUE Rodas - Last Filed: 04/13/21 11:40>
[2021-04-12 15:30] LABS: MANUAL DIFF FLAG NO
[2021-04-12 15:32] LABS: Basophils Percent Auto 0.2 % (0-2); Eosinophils Absolute Auto 0.1 X10*3/uL (0.0-0.4); Eosinophils Percent Auto 0.8 % (0-4); Hemoglobin 11.6 g/dl (12.0-16.0); Imm Gran Abs Auto 0.03 X10*3/uL (0.00-0.03); Imm Gran Pct Auto 0.3 % (0.0-0.4); Lymphocytes Absolute Auto 2.3 X10*3/uL (1.2-4.9); Lymphocytes Percent Auto 20.4 % (20-40); Mean Corpuscular HGB Conc 31.4 g/dl (31.0-35.0); Mean Corpuscular Hemoglobin 25.4 pg (27.0-33.0); Mean Platelet Volume 8.8 fL (9.4-12.3); Monocytes Absolute Auto 0.9 X10*3/uL (0.1-1.2); Monocytes Percent Auto 7.6 % (2-11); Neutrophils Absolute Auto 7.9 x10*3/uL (2.0-8.3); Neutrophils Percent Auto 70.7 % (45-73); Platelet Count 443 X10*3/uL (160-400); Red Blood Count 4.57 X10*6/uL (4.20-5.50); Red Cell Distribution Width 14.3 % (11.0-16.0); White Blood Count 11.2 X10*3/uL (4.8-10.8)
[2021-04-12 15:53] LABS: Alanine Aminotransferase 24 U/L (0-31); Albumin Level 4.2 g/dL (3.5-5.0); Alkaline Phosphatase 117 U/L (39-117); Anion Gap 11 (12-20); Aspartate Amino Transferase 19 U/L (5-31); Bilirubin Total 0.4 mg/dL (0.0-1.0); Blood Urea Nitrogen 8 mg/dL (9-16); Calcium 9.5 mg/dL (8.4-10.2); Carbon Dioxide 26 mmol/L (22-29); Chloride 103 mmol/L (96-108); Estimated Glomerular Filt Rate > 60; Glucose Random 118 mg/dL (60-115); Lipase 20 U/L (8-78); Potassium 4.1 mmol/L (3.3-5.1); Sodium 136 mmol/L (135-145); Total Protein 7.9 g/dL (6.5-8.0)
[2021-04-12 23:35] VITALS: BP 196/97; PULSE 86; RESP 22; O2SAT 97
[2021-04-13 00:20] VITALS: BP 168/81; PULSE 86; RESP 18; TEMP 36.9; O2SAT 98
[2021-04-13] MEDS: Acetaminophen 325 MG TABLET 975 MG PO (01:39)
[2021-04-13] MEDS: ondansetron HCL 4 MG/2 ML VIAL IVPUSH (01:45)
[2021-04-13] MEDS: 0.9 % Sodium Chloride 1,000 ML 999 ML IVCONT (01:46)
[2021-04-13] MEDS: Morphine Sulfate 4 MG/ML CARTRIDGE IVPUSH (01:58)
[2021-04-13] MEDS: metroNIDAZOLE 500 MG TABLET PO (02:59)
[2021-04-13] MEDS: levoFLOXacin 500 MG TABLET PO (02:59)
== END 2021-04-13 03:05 | disposition home or self-care (01) ==
PROVIDERS: Emergency Provider Emergency Medicine; PCP Internal Medicine
DX: K57.92 Diverticulitis of intestine, part unspecified, without perforation or abscess without bleeding (principal); I10 Essential (primary) hypertension; E66.01 Morbid (severe) obesity due to excess calories; Z68.41 Body mass index [BMI] 40.0-44.9, adult
CPT/HCPCS: 36415; 74176; 80053; 83690; 85025; 96361; 96374; 96375; 99284; J2270; J2405

== ENCOUNTER → 2021-04-13 10:15 | Outpatient (BNVA) | payer OTHER, SELFPAY | PROVIDERS: Visit Provider Nurse Practitioner Family | DX: Z48.815 Encounter for surgical aftercare following surgery on the digestive system (principal); K57.90 Diverticulosis of intestine, part unspecified, without perforation or abscess without bleeding; T81.49XA Infection following a procedure, other surgical site, initial encounter; M47.816 Spondylosis without myelopathy or radiculopathy, lumbar region; M47.819 Spondylosis without myelopathy or radiculopathy, site unspecified; E66.01 Morbid (severe) obesity due to excess calories; Z79.2 Long term (current) use of antibiotics; Z68.42 Body mass index [BMI] 45.0-49.9, adult; Z96.82 Presence of neurostimulator; Z90.49 Acquired absence of other specified parts of digestive tract | CPT/HCPCS: 99212 ==

== ENCOUNTER 2021-04-14 13:58 | Outpatient (REF) | payer OTHER, SELFPAY | END 2021-04-14 13:59 | disposition home or self-care (01) | LOC: HO.HMGCLDS 13:58 | PROVIDERS: Visit Provider Internal Medicine | DX: Z20.822 Contact with and (suspected) exposure to COVID-19 (principal) | CPT/HCPCS: C9803; U0003; U0005 ==

== ENCOUNTER → 2021-04-17 14:49 | Outpatient (BNVA) | payer OTHER, SELFPAY | PROVIDERS: PCP Physician Assistant; Visit Provider Anesthesiology | DX: T81.49XD Infection following a procedure, other surgical site, subsequent encounter (principal); M47.816 Spondylosis without myelopathy or radiculopathy, lumbar region; E66.01 Morbid (severe) obesity due to excess calories | CPT/HCPCS: 99212 ==

== ENCOUNTER → 2021-05-09 14:27 | Outpatient (BNVA) | payer OTHER, SELFPAY | PROVIDERS: PCP Internal Medicine; Referring Provider Internal Medicine; Visit Provider Surgery | DX: K57.90 Diverticulosis of intestine, part unspecified, without perforation or abscess without bleeding (principal); Z90.49 Acquired absence of other specified parts of digestive tract | CPT/HCPCS: 99212 ==

== ENCOUNTER → 2021-05-15 16:02 | Outpatient (BNVA) | payer OTHER, SELFPAY | PROVIDERS: PCP Physician Assistant; Visit Provider Anesthesiology | DX: M47.816 Spondylosis without myelopathy or radiculopathy, lumbar region (principal); M47.819 Spondylosis without myelopathy or radiculopathy, site unspecified; E66.01 Morbid (severe) obesity due to excess calories; Z68.42 Body mass index [BMI] 45.0-49.9, adult | CPT/HCPCS: 99212 ==

== ENCOUNTER 2021-05-29 16:24 | Emergency (ER) | payer OTHER, SELFPAY ==
--- NOTE | 2021-05-29 16:25 | ECG_ITS ---
Test Reason : chest pain Blood Pressure : / mmHG Vent. Rate : 075 BPM Atrial Rate : 075 BPM P-R Int : 130 ms QRS Dur : 092 ms QT Int : 402 ms P-R-T Axes : 018 -02 046 degrees QTc Int : 448 ms Normal sinus rhythm Minimal voltage criteria for LVH, may be normal variant ( R in aVL ) Borderline ECG When compared with ECG of 18-JAN-2021 06:43, No significant change was found Referred By: Generic ED Physician Electronically Signed By:MEERA CANDELARIA
== END 2021-05-29 18:29 | disposition left against medical advice (07) ==
PROVIDERS: Emergency Provider Emergency Medicine; PCP Physician Assistant
DX: R07.9 Chest pain, unspecified (principal)
CPT/HCPCS: 93005; 99281; 99283

== ENCOUNTER → 2021-05-30 14:38 | Outpatient (BNVA) | payer OTHER, SELFPAY | PROVIDERS: PCP Physician Assistant; Referring Provider Internal Medicine; Visit Provider Surgery | DX: K57.90 Diverticulosis of intestine, part unspecified, without perforation or abscess without bleeding (principal) | CPT/HCPCS: 99212 ==

== ENCOUNTER → 2021-06-05 12:27 | Outpatient (BNVA) | payer OTHER, SELFPAY | PROVIDERS: PCP Physician Assistant; Visit Provider Physician Assistant | DX: R11.2 Nausea with vomiting, unspecified (principal) | CPT/HCPCS: 99212 ==

== ENCOUNTER 2021-06-11 23:52 | Inpatient (IN) | payer OTHER, SELFPAY ==
[2021-06-12] VITALS (17 sets, daily range): BP systolic 105–146; BP diastolic 46–94; PULSE 52–123; RESP 16–24; TEMP 36.7–38.5; O2SAT 90–98; BMI 32.3
--- NOTE | 2021-06-12 00:04 | ECG_ITS ---
Test Reason : OVERDOSE Blood Pressure : / mmHG Vent. Rate : 109 BPM Atrial Rate : 109 BPM P-R Int : 128 ms QRS Dur : 086 ms QT Int : 370 ms P-R-T Axes : 019 -03 039 degrees QTc Int : 498 ms Poor data quality Sinus tachycardia Otherwise normal ECG When compared with ECG of 29-MAY-2021 16:40, No significant change was found Referred By: Len Piña Electronically Signed By:BEBO FIERRO MD
--- NOTE | 2021-06-12 00:05 | ED_ITS ---
HPI - Overdose General Chief Complaint: Psychiatric Symptoms Stated Complaint: SI Time Seen by Provider: 06/12/21 00:01 Source: patient and EMS Mode of arrival: EMS Limitations: no limitations History of Present Illness HPI Narrative: 50-year-old female who presents emergency department for evaluation of intentional overdose of Lexapro (escitalopram) 20 mg tablets-estimated 22 to 30 pills. The patient states that her girlfriend broke up with her over the phone approximately 2 hours ago. This made her very upset and anxious so she took an overdose of her Lexapro. The patient believes that she may have taken 60 pills but the patient states she has been compliant with the medications and taking them daily which would make the estimated number of pills in the bottle to be around 22-30 pills. She denied taking any other [id number] medications. She did tell the paramedics that this is her 2nd attempt at trying to kill herself and this was many years ago. Patient was brought in on a Section 12 that was filled out by the police and was brought in by ambulance. Paramedics vital signs are as follows: Blood pressure 138/188, pulse 101, respiratory 16, O2 saturation 100% on room air. Point of c are glucose was 242. Patient states that she has been vaccinated for COVID-19 with 2 [employer] vaccina tions. Related Data Home Medications Medication Instructions Recorded Confirmed escitalopram oxalate 20 mg tablet 20 mg PO DAILY 06/24/20 06/06/21 omeprazole 40 mg capsule,delayed 40 mg PO DAILY 06/05/21 06/05/21 release Previous Rx's Medication Instructions Recorded lisinopril 20 mg tablet 20 mg PO DAILY #30 tab 10/28/20 Allergies Allergy/AdvReac Type Severity Reaction Status Date / Time No Known Allergies Allergy Mild NKA Verified 06/05/21 12:34 Review of Systems Review of Systems: Yes all other systems are reviewed and are negative [facility] Past Medical History [facility] Narrative: Social history: She denies tobacco, alcohol and drug use. Medical History Anxiety Arthropathy of facet joint Back pain COVID-19 vaccine series completed Diverticulitis HTN (hypertension) Morbid obesity Spondylosis of lumbar region without myelopathy or radiculopathy Surgical History History of colon surgery History of esophagogastroduodenoscopy (EGD) History of incisional hernia repair History of Florentino fundoplication Hx of colonoscopy Family History Family History Mother Hodgkin disease Brother Diabetes Social History Social History Household Members: Significant Other Household Members Other:: partner Housing: House Are you a primary progressive care unit registered nurse to a significant other at home: No Do you presently have visiting nurse or other home services: No Alcohol intake: never Patient Tobacco Use Status: Never used Tobacco Use of substances other than those prescribed or required for medical reasons: No Advance Directives: No service: Yes Current occupational status: employed Current occupation: [employer] Physical Exam Vital Signs: Vital Signs: Last Vital Signs Temp 98.0 F 06/12/21 04:58 Pulse 106 H 06/12/21 07:33 Resp 20 06/12/21 07:33 BP 105/57 L 06/12/21 04:58 Pulse Ox 97 06/12/21 07:33 BMI result Body Mass Index 32.3 Const: Other: Awake, alert, female patient, the patient is actively dry heaving, she is diaphoretic, she does answer all questions appropriately, she appears to be very anxious. HENMT: Head: Yes normal to inspection, Yes normocephalic and Yes atraumatic Ears: external ears normal General nose exam: Normal external nose present Face and sinus: Yes normal facial exam Mouth: Normal oral and palatal mucosa present Throat: Yes posterior oropharynx normal Eyes: General: appearance normal, both eyes and all related structures Pupils: Equal, round and reactive pupils present Neck: Neck: Yes normal visual inspection, Yes no lymphadenopathy, Yes trachea midline and Yes supple Chest: Chest palpation & inspection: normal inspection of the chest and normal palpation of entire chest wall Resp: Effort & Inspection: normal respiratory effort and able to speak in complete sentences Auscultation: clear to auscultation bilaterally Cardio: Rate: regular rate Rhythm: regular rhythm Heart sounds: S1 normal heart sound present, S2 normal heart sound present and no murmurs GI: Inspection: Yes normal to inspection Palpation (GI): Soft to palpation, nontender and no guarding Auscultation: normal bowel sounds : General: Yes no CVA tenderness Back/Spine/Pelvis: Back: no CVA tenderness Skin: General skin exam: no rashes or lesions noted Neuro: Cranial nerves: Yes CN's II-XII intact bilaterally and Yes Equal, round and reactive pupils present Cognition (Neuro): normal cognition Motor exam (neuro): 5/5 motor strength present throughout Extrem: General: Yes normal to inspection Psych: Appearance: grossly normal Speech and movement: Normal speech and movement present Affect: normal affect Attitude: cooperative Thought process: Normal thought process present Thought content: Suicidality present and no homicidality Course Course Course Narrative: 50-year-old female who presents to the emergency department for evaluation of intentional overdose of her Lexapro 20 mg pills, estimated anywhere from 22-30 pills approximately 1 hour prior to coming to the emergency department. The patient states she overdose because she wanted to kill herself secondary to her girlfriend breaking up with her over the phone approximately 2 hours prior. The patient was brought to the emergency department by ambulance and she is on a Section 12 by the police. I did order laboratory evaluation to include CBC, CMP, urine drug screen, urine test, salicylate and acetaminophen levels and EKG. Patient was ordered to get Ativan 1 mg IV, Zofran 4 mg IV and activated charcoal 50 g orally. The patient will be placed on a cardiac and pulse oximetry monitor. I will presentation will be discussed with poison control. 0039: I did discuss the patient's presentation with poison Control. They agreed with giving the activated charcoal. They recommended observation for 8- 13 hours with cardiac and O2 saturation moderate. They recommended repeating the EKG every 2 hours to follow the QTC interval and to watch for torsades. They also stated that hypothermia can occur and this will be treated with external heating. They also recommended watching for tremors, clonus and seizures which would be treated with Ativan. I recommended maximizing the patient's potassium greater than 4 and to maximize the patient's magnesium to greater than 2 possible. 0648: Laboratory evaluation [place] [address], elevated platelet count of 480900. Bicarb was low at 19, glucose was elevated 228. Magnesium and potassium were normal at 2.0 and 4.2. U tox was positive for fentanyl and negative for salicylates, acetaminophen and alcohol. COVID-19 was negative. The patient is awake and oriented but has been very agitated, she is twitching and very restless. The patient was treated with Ativan IV, she received a total of 5 mg IV and 2 mg orally. She also drank her activated charcoal. The patient has been observed for 7-8 hours and still has not completely metabolized her the Lexapro. The patient will be placed in physician observation 0648: Physician observation started at 0648. Patient placed in physician obser vation because the patient needed more time to be monitored for her Lexapro overdose and eventually for Behavioral Health evaluation. At the time observation was started the patient's vitals were stable, patient is alert and oriented but agitated and restless, Neuro: nonfocal, CV RRR, Lungs clear. At the end of my shift, the patient's care will be turned over to my colleague, Dr. Joanne Fernandez MDM - Overdose Lab Data Result diagrams: 06/12/21 00:30 06/12/21 00:30 Labs: Lab Results 06/12/21 06/12/21 06/12/21 Range/Units 00:30 00:30 00:30 WBC 15.0 H (4.8-10.8) X10*3/uL RBC 4.85 (4.20-5.50) X10*6/uL Hgb 12.4 (12.0-16.0) g/dl Hct 39.6 (37.0-47.0) % MCV 81.6 (80.0-98.0) fL MCH 25.6 L (27.0-33.0) pg MCHC 31.3 (31.0-35.0) g/dl RDW 14.6 (11.0-16.0) % Plt Count 508 H (160-400) X10*3/uL MPV 9.2 L (9.4-12.3) fL Immature Gran % (Auto) 0.3 (0.0-0.4) % Neut % (Auto) 72.7 (45-73) % Lymph % (Auto) 19.5 L (20-40) % [place] % (Auto) 7.0 (2-11) % Eos % (Auto) 0.3 (0-4) % Baso % (Auto) 0.2 (0-2) % Lymph # (Auto) 2.9 (1.2-4.9) X10*3/uL [place] # (Auto) 1.0 (0.1-1.2) X10*3/uL Eos # (Auto) 0.1 (0.0-0.4) X10*3/uL Baso # (Auto) 0.0 (0.0-0.2) X10*3/uL Abs Immat Gran (auto) 0.04 H (0.00-0.03) X10*3/uL Absolute Neuts (auto) 10.9 H (2.0-8.3) x10*3/uL Absolute Nucleated RBC 0.000 (0.0-0.012) X10*3/uL Nucleated RBC % (auto) 0.0 (0.0-0.2) /100WBC Sodium 136 (135-145) mmol/L Potassium 4.2 (3.3-5.1) mmol/L Chloride 102 (96-108) mmol/L Carbon Dioxide 19 L (22-29) mmol/L Anion Gap 19 (12-20) BUN 9 (9-16) mg/dL Creatinine 1.16 (0.5-1.4) mg/dL Estim Creat Clear Calc 76.7 Estimated GFR 50 Random Glucose 228 H (60-115) mg/dL Calcium 9.4 (8.4-10.2) mg/dL Magnesium 2.0 (1.6-2.6) mg/dL Total Bilirubin 0.3 (0.0-1.0) mg/dL AST 19 (5-31) U/L ALT 16 (0-31) U/L Alkaline Phosphatase 114 (39-117) U/L Total Protein 8.1 H (6.5-8.0) g/dL Albumin 4.2 (3.5-5.0) g/dL Urine Test (NEGATIVE) Salicylates < 5.0 L (15-30) mg/dL Urine Opiates Screen (Not Detect) Urine Fentanyl Screen (Not Detect) Acetaminophen < 1 (<30) mcg/mL Ur Barbiturates Screen (Not Detect) Ur Phencyclidine Scrn (Not Detect) Ur Amphetamines Screen (Not Detect) U Benzodiazepines Scrn (Not Detect) Urine Cocaine Screen (Not Detect) U Marijuana (THC) Screen (Not Detect) Ethyl Alcohol < 10 mg/dL COVID-19 (DEJUAN) (Negative) COVID-19 Clin Com 06/12/21 06/12/21 06/12/21 Range/Units 02:40 03:19 03:19 WBC (4.8-10.8) X10*3/uL RBC (4.20-5.50) X10*6/uL Hgb (12.0-16.0) g/dl Hct (37.0-47.0) % MCV (80.0-98.0) fL MCH (27.0-33.0) pg MCHC (31.0-35.0) g/dl RDW (11.0-16.0) % Plt Count (160-400) X10*3/uL MPV (9.4-12.3) fL Immature Gran % (Auto) (0.0-0.4) % Neut % (Auto) (45-73) % Lymph % (Auto) (20-40) % [place] % (Auto) (2-11) % Eos % (Auto) (0-4) % Baso % (Auto) (0-2) % Lymph # (Auto) (1.2-4.9) X10*3/uL [place] # (Auto) (0.1-1.2) X10*3/uL Eos # (Auto) (0.0-0.4) X10*3/uL Baso # (Auto) (0.0-0.2) X10*3/uL Abs Immat Gran (auto) (0.00-0.03) X10*3/uL Absolute Neuts (auto) (2.0-8.3) x10*3/uL Absolute Nucleated RBC (0.0-0.012) X10*3/uL Nucleated RBC % (auto) (0.0-0.2) /100WBC Sodium (135-145) mmol/L Potassium (3.3-5.1) mmol/L Chloride (96-108) mmol/L Carbon Dioxide (22-29) mmol/L Anion Gap (12-20) BUN (9-16) mg/dL Creatinine (0.5-1.4) mg/dL Estim Creat Clear Calc Estimated GFR Random Glucose (60-115) mg/dL Calcium (8.4-10.2) mg/dL Magnesium (1.6-2.6) mg/dL Total Bilirubin (0.0-1.0) mg/dL AST (5-31) U/L ALT (0-31) U/L Alkaline Phosphatase (39-117) U/L Total Protein (6.5-8.0) g/dL Albumin (3.5-5.0) g/dL Urine Test NEGATIVE (NEGATIVE) Salicylates (15-30) mg/dL Urine Opiates Screen Not Detected (Not Detect) Urine Fentanyl Screen POSITIVE H (Not Detect) Acetaminophen (<30) mcg/mL Ur Barbiturates Screen Not Detected (Not Detect) Ur Phencyclidine Scrn Not Detected (Not Detect) Ur Amphetamines Screen Not Detected (Not Detect) U Benzodiazepines Scrn Not Detected (Not Detect) Urine Cocaine Screen Not Detected (Not Detect) U Marijuana (THC) Screen Not Detected (Not Detect) Ethyl Alcohol mg/dL COVID-19 (DEJUAN) Negative (Negative) COVID-19 Clin Com See Note Discharge Plan Discharge Clinical Impression: Overdose, Depression, Suicide gesture Prescriptions: No Action lisinopril 20 mg tablet 20 mg PO DAILY Qty: 30 0RF escitalopram oxalate 20 mg tablet 20 mg PO DAILY 0RF omeprazole 40 mg capsule,delayed release(DR/EC) 40 mg PO DAILY 0RF
[2021-06-12 00:43] LABS: MANUAL DIFF FLAG NO
[2021-06-12 00:45] LABS: Basophils Percent Auto 0.2 % (0-2); Eosinophils Absolute Auto 0.1 X10*3/uL (0.0-0.4); Eosinophils Percent Auto 0.3 % (0-4); Hematocrit 39.6 % (37.0-47.0); Hemoglobin 12.4 g/dl (12.0-16.0); Imm Gran Abs Auto 0.04 X10*3/uL (0.00-0.03); Imm Gran Pct Auto 0.3 % (0.0-0.4); Lymphocytes Absolute Auto 2.9 X10*3/uL (1.2-4.9); Lymphocytes Percent Auto 19.5 % (20-40); Mean Corpuscular HGB Conc 31.3 g/dl (31.0-35.0); Mean Corpuscular Hemoglobin 25.6 pg (27.0-33.0); Mean Corpuscular Volume 81.6 fL (80.0-98.0); Mean Platelet Volume 9.2 fL (9.4-12.3); Neutrophils Absolute Auto 10.9 x10*3/uL (2.0-8.3); Neutrophils Percent Auto 72.7 % (45-73); Platelet Count 508 X10*3/uL (160-400); Red Blood Count 4.85 X10*6/uL (4.20-5.50); Red Cell Distribution Width 14.6 % (11.0-16.0)
[2021-06-12] MEDS: LORazepam 2 MG/ML VIAL 1 MG IVPUSH (00:56)
[2021-06-12] MEDS: Activated charcoaL 50 GM/240 ML ORAL.SUSP PO (00:57)
[2021-06-12] MEDS: ondansetron HCL 4 MG/2 ML VIAL IVPUSH (00:57)
[2021-06-12 01:01] LABS: Ethanol < 10 mg/dL
[2021-06-12 01:13] LABS: Acetaminophen LAB < 1 mcg/mL (<30); Alanine Aminotransferase 16 U/L (0-31); Albumin Level 4.2 g/dL (3.5-5.0); Alkaline Phosphatase 114 U/L (39-117); Anion Gap 19 (12-20); Aspartate Amino Transferase 19 U/L (5-31); Bilirubin Total 0.3 mg/dL (0.0-1.0); Blood Urea Nitrogen 9 mg/dL (9-16); Calcium 9.4 mg/dL (8.4-10.2); Carbon Dioxide 19 mmol/L (22-29); Chloride 102 mmol/L (96-108); Creatinine Clr Calc Pharmacy 76.7; Estimated Glomerular Filt Rate 50; Glucose Random 228 mg/dL (60-115); Potassium 4.2 mmol/L (3.3-5.1); Salicylate < 5.0 mg/dL (15-30); Sodium 136 mmol/L (135-145); Total Protein 8.1 g/dL (6.5-8.0)
--- NOTE | 2021-06-12 02:28 | PC.NURSE ---
Addendum entered by Dave Kenney RN 06/12/21 06:01: The pt continues to exhibit similar behavior/symptoms, including: restlessness, tremors, mild diaphoresis, anxiety. The presentation of the symptoms becomes more and more muted as time passes and she is administered additional Ativan, however she continues to exhibit the symptoms. I have spoken with Poison Control (as has Wang SANCHEZ) and they are up to date on the patients' ER course. They state they will call back for updates. The pt makes eye contact with RN, is oriented x 3, takes PO meds and fluids without difficulty. 1:1 remains at bedside. Will continue to monitor. Addendum entered by Dave Kenney RN 06/12/21 04:04: The pt has been restless, flushed, and diaphoretic. She has been constantly fidgeting in her stretcher, unable to sit still and frequently asking to get OOB. We have not allowed her to get OOB since she is so unsteady (she did ambulate to the bathroom with one stand by assist previously, but since then has become increasingly unsteady.) MD Wang aware. He has requested pt be given additional Ativan IVP. This has been given and pt appears more calm at this time, eyes closed and lying still in her stretcher with 1:1 still at bedside. I will continue to monitor Anjali. Original Note: I assumed care of this pt upon her arrival. She presented with EMS and PD after she states she took 60 or so 20mg Escitalopram with the intent to harm herself. On arrival she denies SI and HI, she states it wasn't really a well thought out plan. She makes eye contact with RN and often stares back at me wide-eyed without responding verbally when I ask her questions. She denies pain. Respirations are non-labored. She is diaphoretic and flushed. HR 90's, SR on bedside monitor. She is mildly, intermittelntly tremulous - this is not her baseline, per the pt. 1:1 remains at bedside. Poison control called by ER MD Piña. pt has taken ordered PO charcoal. Will continue to monitor.
--- NOTE | 2021-06-12 02:30 | ECG_ITS ---
Test Reason : OVERDOSE Blood Pressure : / mmHG Vent. Rate : 112 BPM Atrial Rate : 112 BPM P-R Int : 132 ms QRS Dur : 070 ms QT Int : 370 ms P-R-T Axes : 064 -02 270 degrees QTc Int : 505 ms Poor data quality, interpretation may be adversely affected Sinus tachycardia ST-T wave abnormalities are difficult to interpret Abnormal ECG When compared with ECG of 12-JUN-2021 00:09, Poor data quality in current ECG precludes serial comparison Referred By: Joanne Fernandez Electronically Signed By:BEBO FIERRO MD
[2021-06-12 03:01] LABS: COVID-19 Test Negative (Negative); IDNOW Serial# 9DD0AD1C
[2021-06-12 03:45] LABS: Amphetamine Screen Urine Not Detected (Not Detect); Barbiturates, Urine Not Detected (Not Detect); Benzodiazepines Screen Urine Not Detected (Not Detect); Cannabinoid Screen Urine Not Detected (Not Detect); Cocaine Screen Urine Not Detected (Not Detect); Fentanyl, urine POSITIVE (Not Detect); Opiate Screen Urine Not Detected (Not Detect); Phencyclidine Screen Urine Not Detected (Not Detect)
[2021-06-12 03:46] LABS: UPreg QC Valid YES; Urine Pregnancy NEGATIVE (NEGATIVE)
--- NOTE | 2021-06-12 03:47 | PC.NURSE ---
This Pct and another tech attempted to get an repeat ekg pt would not stay still and we could not get it. aware and rn aware
[2021-06-12] MEDS: LORazepam 2 MG/ML VIAL IVPUSH ×4 (04:04→09:40)
[2021-06-12] MEDS: LORazepam 1 MG TABLET 2 MG PO (06:01)
--- NOTE | 2021-06-12 07:29 | PC.NURSE ---
pt agreeable to ativan to help with restlessness
[2021-06-12] MEDS: Midazolam HCl/PF 2 MG/2 ML VIAL IVPUSH (07:32)
--- NOTE | 2021-06-12 10:02 | PC.NURSE ---
unable to complete [place] scale and psych assessment. pt unable to remain still and answer questions appropriately
[2021-06-12] MEDS: LORazepam 2 MG/ML VIAL 4 MG IVPUSH (10:40)
[2021-06-12 10:57] LABS: Anion Gap 17 (12-20); Blood Urea Nitrogen 12 mg/dL (9-16); Calcium 9.5 mg/dL (8.4-10.2); Carbon Dioxide 20 mmol/L (22-29); Chloride 109 mmol/L (96-108); Creatinine Clr Calc Pharmacy 76.7; Estimated Glomerular Filt Rate 50; Glucose Random 150 mg/dL (60-115); Potassium 4.8 mmol/L (3.3-5.1); Sodium 141 mmol/L (135-145)
--- NOTE | 2021-06-12 11:02 | MHC.CARE ---
Please consult CARE Team when medically stable for crisis asessment.
[2021-06-12 11:03] LABS: Acetaminophen LAB < 1 mcg/mL (<30); Salicylate < 5.0 mg/dL (15-30)
--- NOTE | 2021-06-12 11:28 | PHA.MEDREC ---
Pharmacy Consult ? Medication Reconciliation Pharmacy has completed the medication reconciliation. Spoke to pt directly who was slightly sedated. She was able to name lisinopril and omeprazole (listed in claim history) on her own when asked about home meds, but unable to answer when they were last taken. Gini Gaspar, PharmD
[2021-06-12] MEDS: dexmedeTOMIDidine HCL/NS 400 MCG/100 ML INFUS..BTL 25.52 MCG IVCONT ×2 (14:27→16:45)
[2021-06-12] MEDS: Enoxaparin Sodium 40 MG/0.4 ML SYRINGE SUBCUT (14:31)
[2021-06-12] MEDS: propofoL 200 MG/20 ML VIAL 20 MG IVPUSH (15:04)
[2021-06-12] MEDS: propofoL 200 MG/20 ML VIAL 180 MG IVPUSH (15:15)
--- NOTE | 2021-06-12 16:06 | PM.CCPN ---
Subjective Subjective Date of Service: 06/12/21 Physical Exam Vital Signs: Vital Signs: Last Vital Signs Temp 100.6 F H 06/12/21 15:54 Pulse 60 06/12/21 15:54 Resp 16 06/12/21 15:54 BP 130/58 L 06/12/21 15:54 Pulse Ox 91 L 06/12/21 15:54 BMI result Body Mass Index 32.3 Objective Data Labs CBC & Chem 7: 06/12/21 00:30 06/12/21 10:33 Labs: Laboratory Results - last 24 hr 06/12/21 06/12/21 06/12/21 00:30 00:30 00:30 WBC 15.0 H RBC 4.85 Hgb 12.4 Hct 39.6 MCV 81.6 MCH 25.6 L MCHC 31.3 RDW 14.6 Plt Count 508 H MPV 9.2 L Immature Gran % (Auto) 0.3 Neut % (Auto) 72.7 Lymph % (Auto) 19.5 L [place] % (Auto) 7.0 Eos % (Auto) 0.3 Baso % (Auto) 0.2 Lymph # (Auto) 2.9 Teller # (Auto) 1.0 Eos # (Auto) 0.1 Baso # (Auto) 0.0 Abs Immat Gran (auto) 0.04 H Absolute Neuts (auto) 10.9 H Absolute Nucleated RBC 0.000 Nucleated RBC % (auto) 0.0 Sodium 136 Potassium 4.2 Chloride 102 Carbon Dioxide 19 L Anion Gap 19 BUN 9 Creatinine 1.16 Estim Creat Clear Calc 76.7 Estimated GFR 50 Random Glucose 228 H Calcium 9.4 Magnesium 2.0 Total Bilirubin 0.3 AST 19 ALT 16 Alkaline Phosphatase 114 Total Creatine Kinase Total Protein 8.1 H Albumin 4.2 Urine Test Salicylates < 5.0 L Urine Opiates Screen Urine Fentanyl Screen Acetaminophen < 1 Ur Barbiturates Screen Ur Phencyclidine Scrn Ur Amphetamines Screen U Benzodiazepines Scrn Urine Cocaine Screen U Marijuana (THC) Screen Ethyl Alcohol < 10 COVID-19 (DEJUAN) COVID-19 Clin Com 06/12/21 06/12/21 06/12/21 02:40 03:19 03:19 WBC RBC Hgb Hct MCV MCH MCHC RDW Plt Count MPV Immature Gran % (Auto) Neut % (Auto) Lymph % (Auto) [place]eller % (Auto) Eos % (Auto) Baso % (Auto) Lymph # (Auto) Teller # (Auto) Eos # (Auto) Baso # (Auto) Abs Immat Gran (auto) Absolute Neuts (auto) Absolute Nucleated RBC Nucleated RBC % (auto) Sodium Potassium Chloride Carbon Dioxide Anion Gap BUN Creatinine Estim Creat Clear Calc Estimated GFR Random Glucose Calcium Magnesium Total Bilirubin AST ALT Alkaline Phosphatase Total Creatine Kinase Total Protein Albumin Urine Test NEGATIVE Salicylates Urine Opiates Screen Not Detected Urine Fentanyl Screen POSITIVE H Acetaminophen Ur Barbiturates Screen Not Detected Ur Phencyclidine Scrn Not Detected Ur Amphetamines Screen Not Detected U Benzodiazepines Scrn Not Detected Urine Cocaine Screen Not Detected U Marijuana (THC) Screen Not Detected Ethyl Alcohol COVID-19 (DEJUAN) Negative COVID-Xanic Com See Note 06/12/21 06/12/21 10:33 10:33 WBC RBC Hgb Hct MCV MCH MCHC RDW Plt Count MPV Immature Gran % (Auto) Neut % (Auto) Lymph % (Auto) Teller % (Auto) Eos % (Auto) Baso % (Auto) Lymph # (Auto) Teller # (Auto) Eos # (Auto) Baso # (Auto) Abs Immat Gran (auto) Absolute Neuts (auto) Absolute Nucleated RBC Nucleated RBC % (auto) Sodium 141 Potassium 4.8 Chloride 109 H Carbon Dioxide 20 L Anion Gap 17 BUN 12 Creatinine 1.16 Estim Creat Clear Calc 76.7 Estimated GFR 50 Random Glucose 150 H Calcium 9.5 Magnesium 2.0 Total Bilirubin AST ALT Alkaline Phosphatase Total Creatine Kinase 703 H Total Protein Albumin Urine Test Salicylates < 5.0 L Urine Opiates Screen Urine Fentanyl Screen Acetaminophen < 1 Ur Barbiturates Screen Ur Phencyclidine Scrn Ur Amphetamines Screen U Benzodiazepines Scrn Urine Cocaine Screen U Marijuana (THC) Screen Ethyl Alcohol COVID-19 (DEJUAN) COVID-19 Clin Com Quality VTE VTE Risk Level:: Medical - low VTE Device Contraindication: Treatment Not Indicated VTE Drug Contraindication: Treatment Not Indicated
[2021-06-12] MEDS: Lactated Ringers 1,000 ML 100 ML IVCONT ×2 (16:45→21:50)
[2021-06-12 17:27] LABS: Appearance Urine CLOUDY; Color Urine YELLOW; Glucose Urine UA NEG (NEG); Leukocyte Esterase Urine NEG (NEG); Nitrite Urine NEG (NEG); Specific Gravity - Urine >= 1.030 (1.005-1.025); Urine Blood 3+ (NEG); Urine Ketones NEG (NEG); Urine Protein 1+ MG/DL (NEG-TRACE)
[2021-06-12 17:57] LABS: Amorphous Sediment Urine 4+ /LPF; RBC Urine 0 /HPF (0); WBC Urine 0 /HPF (0-4)
[2021-06-12] MEDS: dexmedeTOMIDidine HCL/NS 400 MCG/100 ML INFUS..BTL 19.14 MCG IVCONT (19:51)
[2021-06-12] MEDS: Lactated Ringers 500 ML 999 ML IV (21:52)
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
[2021-06-13] VITALS (15 sets, daily range): BP systolic 112–167; BP diastolic 46–80; PULSE 52–85; RESP 13–25; TEMP 36.9–37.5; O2SAT 91–97; BMI 44.1
[2021-06-13] MEDS: dexmedeTOMIDidine HCL/NS 400 MCG/100 ML INFUS..BTL 19.14 MCG IVCONT (01:04)
[2021-06-13 05:48] LABS: Hematocrit 32.9 % (37.0-47.0); Hemoglobin 10.3 g/dl (12.0-16.0); Mean Corpuscular HGB Conc 31.3 g/dl (31.0-35.0); Mean Corpuscular Hemoglobin 25.9 pg (27.0-33.0); Mean Corpuscular Volume 82.7 fL (80.0-98.0); Mean Platelet Volume 9.3 fL (9.4-12.3); Platelet Count 311 X10*3/uL (160-400); Red Blood Count 3.98 X10*6/uL (4.20-5.50); Red Cell Distribution Width 14.6 % (11.0-16.0); White Blood Count 11.5 X10*3/uL (4.8-10.8)
[2021-06-13 06:08] LABS: Anion Gap 13 (12-20); Blood Urea Nitrogen 22 mg/dL (9-16); Calcium 9.2 mg/dL (8.4-10.2); Carbon Dioxide 24 mmol/L (22-29); Chloride 109 mmol/L (96-108); Creatinine Clr Calc Pharmacy 73.5; Estimated Glomerular Filt Rate 47; Glucose Random 127 mg/dL (60-115); Magnesium 2.3 mg/dL (1.6-2.6); Phosphorus 3.2 mg/dL (2.7-4.5); Potassium 4.4 mmol/L (3.3-5.1); Sodium 142 mmol/L (135-145)
[2021-06-13] MEDS: Lactated Ringers 1,000 ML 100 ML IVCONT ×2 (07:53→18:02)
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
[2021-06-13] MEDS: Enoxaparin Sodium 40 MG/0.4 ML SYRINGE SUBCUT (12:36)
[2021-06-13] MEDS: Acetaminophen 325 MG TABLET 975 MG PO ×2 (12:37→21:14)
--- NOTE | 2021-06-13 14:30 | PC.NURSE ---
palacio removed at this time, DTV [id number].
--- NOTE | 2021-06-13 15:36 | PM.PSYCN ---
History of Present Illness Date of Service: 04/12/22 Chief Complaint: Acute hyperactive delirium Reason for Consult: disposition Requesting physician: Jose Ledesma Discussed with referring provider: Yes Sources of Information: patient interviewed, chart reviewed and crisis/core team assessment reviewed HPI Narrative: Anjali is a 50 y.o. Female who carries a dx of MDD, recurrent. She presented to [facility] ED on 06/12/21 on a section 12a due to SA via intentional OD on tabs of lexapro 20 mg. Precipitating factors included that her girlfriend broke up with her over the phone approximately 2 hours prior. She was admitted to the ICU due to agitated delirium (behavior agitated and uncontrollable in ED setting despite ?many mg of Ativan,? given 200 mg propofol and precedex infusion), serotonin syndrome, KASSIDY, and toxic encephalopathy. EKG showed sinus bradycardia, septal infarct, and prolonged QTc 539. Urine tox screen was positive for fentanyl, however pt denies illicit substance use. Psych consult placed for disposition I evaluated the pt this afternoon and upon interview she reports ?Im okay.? SHe states her suicide attempt was impulsive and ?I?m glad I didnt ,? feels regretful, ?it was stupid.? Says she has felt depressed 4-5 months and she has a long hx of episodic depression. Says sx of depression impair her functioning and she has difficulty getting out of bed, sleep is ?shitty,? her energy is low, and appetite is poor. Pt states she was with her gf 2 years and they lived together. She had ?caught her cheating on me? about 8 mo prior and they were supposed to be in an open relationship but says her gf ?decided she didnt want nothing that what I have? and that she ?didnt call me or talk to me or anything,? instead found out about the break up through her son, who called pt and said ?mom and you arent going to be together.? Pt says she is ?anxious? and ?angry.? Tearful throughout interview. Denies psychotic sx. No hx of manic or hypomanic episodes endorsed. Pt states she would be voluntary for an inpatient psych admission. Past Psychiatric History: -Per chart, pt has a hx of a previous suicide attempt many years ago. -PCP prescribes her lexapro -Denies hx of previous suicide attempt or self harm. Denies hx of IPLOC. -Remote hx of OP therapy for 2-3 yrs, this was in [place], found it helpful. Has had difficulty obtaining OP therapist in [place]. No hx of seeing a psych provider/ psychiatrist. Medical Evaluation Reviewed: Yes Personal & Social History: -Pt has been living with her gf of 2 yrs at her gf?s mother?s house. She has 2 cats. 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 -Denies illicit substance or alcohol use. Denies cannabis use.? [facility] Medical History Anxiety Arthropathy of facet joint Back pain COVID-19 vaccine series completed Diverticulitis HTN (hypertension) Morbid obesity Spondylosis of lumbar region without myelopathy or radiculopathy Surgical History History of colon surgery History of esophagogastroduodenoscopy (EGD) History of incisional hernia repair History of Florentino fundoplication Hx of colonoscopy Diagnostics Vital Signs (24Hr): Vital Signs - 24 hr 06/12/21 15:54 06/12/21 17:00 06/12/21 18:00 Temperature 100.6 F H 100.6 F H 100.4 F Pulse Rate 60 60 57 Respiratory Rate 16 22 H 20 Blood Pressure 130/58 L 121/94 H 110/50 L Pulse Oximetry 91 L 93 92 06/12/21 18:55 06/12/21 19:51 06/12/21 20:56 Temperature 100.2 F 100 F 100.2 F Pulse Rate 56 56 54 Respiratory Rate 19 20 19 Blood Pressure 110/50 L 117/49 L 114/47 L Pulse Oximetry 92 93 93 06/12/21 22:00 06/12/21 22:59 06/12/21 23:54 Temperature 100.2 F 99.7 F 99.7 F Pulse Rate 54 52 52 Respiratory Rate 19 18 19 Blood Pressure 116/53 L 116/53 L 106/46 L Pulse Oximetry 90 L 92 93 06/13/21 00:55 06/13/21 01:58 06/13/21 02:59 Temperature 99.5 F 99.5 F 99.3 F Pulse Rate 52 52 56 Respiratory Rate 19 21 H Blood Pressure 118/46 L 112/52 L 123/54 L Pulse Oximetry 92 92 93 06/13/21 04:00 06/13/21 05:00 06/13/21 06:00 Temperature 99.3 F Pulse Rate 57 54 55 Respiratory Rate 25 H 20 22 H Blood Pressure 117/56 L 113/53 L 112/50 L Pulse Oximetry 93 95 91 L 06/13/21 07:00 06/13/21 08:00 06/13/21 09:00 Temperature 98.9 F Pulse Rate 58 62 62 Respiratory Rate 20 14 14 Blood Pressure 150/71 H 145/61 H 155/80 H Pulse Oximetry 91 L 94 97 06/13/21 10:00 06/13/21 11:00 06/13/21 12:00 Temperature Pulse Rate 70 80 74 Respiratory Rate 21 H 15 22 H Blood Pressure 149/70 H 152/65 H 167/74 H Pulse Oximetry 97 96 94 06/13/21 13:00 06/13/21 14:55 Temperature Pulse Rate 70 80 Respiratory Rate 25 H 13 Blood Pressure 155/69 H 142/63 H Pulse Oximetry 94 95 BMI result Body Mass Index 44.1 Labs Results: 06/14/21 09:13 06/14/21 09:13 Labs: Laboratory Results - last 48 hr 06/12/21 06/12/21 06/12/21 00:30 00:30 00:30 WBC 15.0 H RBC 4.85 Hgb 12.4 Hct 39.6 MCV 81.6 MCH 25.6 L MCHC 31.3 RDW 14.6 Plt Count 508 H MPV 9.2 L Immature Gran % (Auto) 0.3 Neut % (Auto) 72.7 Lymph % (Auto) 19.5 L Alfalfa % (Auto) 7.0 Eos % (Auto) 0.3 Baso % (Auto) 0.2 Lymph # (Auto) 2.9 Alfalfa # (Auto) 1.0 Eos # (Auto) 0.1 Baso # (Auto) 0.0 Abs Immat Gran (auto) 0.04 H Absolute Neuts (auto) 10.9 H Absolute Nucleated RBC 0.000 Nucleated RBC % (auto) 0.0 Sodium 136 Potassium 4.2 Chloride 102 Carbon Dioxide 19 L Anion Gap 19 BUN 9 Creatinine 1.16 Estim Creat Clear Calc 76.7 Estimated GFR 50 Random Glucose 228 H Calcium 9.4 Phosphorus Magnesium 2.0 Total Bilirubin 0.3 AST 19 ALT 16 Alkaline Phosphatase 114 Total Creatine Kinase Troponin I High Sens Total Protein 8.1 H Albumin 4.2 Urine Color Urine Appearance Urine pH Ur Specific Catron Urine Protein Urine Glucose (UA) Urine Ketones Urine Blood Urine Nitrite Ur Leukocyte Esterase Urine RBC Urine WBC Ur Squamous Epith Cells Amorphous Sediment Urine Bacteria Urine Test Salicylates < 5.0 L Urine Opiates Screen Urine Fentanyl Screen Acetaminophen < 1 Ur Barbiturates Screen Ur Phencyclidine Scrn Ur Amphetamines Screen U Benzodiazepines Scrn Urine Cocaine Screen U Marijuana (THC) Screen Ethyl Alcohol < 10 COVID-19 (DEJUAN) COVID-19 [employer] 06/12/21 06/12/21 06/12/21 02:40 03:19 03:19 WBC RBC Hgb Hct MCV MCH MCHC RDW Plt Count MPV Immature Gran % (Auto) Neut % (Auto) Lymph % (Auto) Alfalfa % (Auto) Eos % (Auto) Baso % (Auto) Lymph # (Auto) Alfalfa # (Auto) Eos # (Auto) Baso # (Auto) Abs Immat Gran (auto) Absolute Neuts (auto) Absolute Nucleated RBC Nucleated RBC % (auto) Sodium Potassium Chloride Carbon Dioxide Anion Gap BUN Creatinine Estim Creat Clear Calc Estimated GFR Random Glucose Calcium Phosphorus Magnesium Total Bilirubin AST ALT Alkaline Phosphatase Total Creatine Kinase Troponin I High Sens Total Protein Albumin Urine Color Urine Appearance Urine pH Ur Specific Catron Urine Protein Urine Glucose (UA) Urine Ketones Urine Blood Urine Nitrite Ur Leukocyte Esterase Urine RBC Urine WBC Ur Squamous Epith Cells Amorphous Sediment Urine Bacteria Urine Test NEGATIVE Salicylates Urine Opiates Screen Not Detected Urine Fentanyl Screen POSITIVE H Acetaminophen Ur Barbiturates Screen Not Detected Ur Phencyclidine Scrn Not Detected Ur Amphetamines Screen Not Detected U Benzodiazepines Scrn Not Detected Urine Cocaine Screen Not Detected U Marijuana (THC) Screen Not Detected Ethyl Alcohol COVID-19 (DEJUAN) Negative COVID-Valcon See Note 06/12/21 06/12/21 06/12/21 10:33 10:33 16:53 WBC RBC Hgb Hct MCV MCH MCHC RDW Plt Count MPV Immature Gran % (Auto) Neut % (Auto) Lymph % (Auto) Alfalfa % (Auto) Eos % (Auto) Baso % (Auto) Lymph # (Auto) Alfalfa # (Auto) Eos # (Auto) Baso # (Auto) Abs Immat Gran (auto) Absolute Neuts (auto) Absolute Nucleated RBC Nucleated RBC % (auto) Sodium 141 Potassium 4.8 Chloride 109 H Carbon Dioxide 20 L Anion Gap 17 BUN 12 Creatinine 1.16 Estim Creat Clear Calc 76.7 Estimated GFR 50 Random Glucose 150 H Calcium 9.5 Phosphorus Magnesium 2.0 Total Bilirubin AST ALT Alkaline Phosphatase Total Creatine Kinase 703 H Troponin I High Sens Total Protein Albumin Urine Color YELLOW Urine Appearance CLOUDY Urine pH 6.0 Ur Specific Catron >= 1.030 H Urine Protein 1+ H Urine Glucose (UA) NEG Urine Ketones NEG Urine Blood 3+ H Urine Nitrite NEG Ur Leukocyte Esterase NEG Urine RBC 0 Urine WBC 0 Ur Squamous Epith Cells NONE Amorphous Sediment 4+ Urine Bacteria NONE Urine Test Salicylates < 5.0 L Urine Opiates Screen Urine Fentanyl Screen Acetaminophen < 1 Ur Barbiturates Screen Ur Phencyclidine Scrn Ur Amphetamines Screen U Benzodiazepines Scrn Urine Cocaine Screen U Marijuana (THC) Screen Ethyl Alcohol COVID-19 (DEJUAN) COVID-19 Clin Com 06/13/21 06/13/21 06/13/21 05:23 05:23 05:23 WBC 11.5 H RBC 3.98 L Hgb 10.3 L Hct 32.9 L MCV 82.7 MCH 25.9 L MCHC 31.3 RDW 14.6 Plt Count 311 D MPV 9.3 L Immature Gran % (Auto) Neut % (Auto) Lymph % (Auto) Alfalfa % (Auto) Eos % (Auto) Baso % (Auto) Lymph # (Auto) Alfalfa # (Auto) Eos # (Auto) Baso # (Auto) Abs Immat Gran (auto) Absolute Neuts (auto) Absolute Nucleated RBC 0.000 Nucleated RBC % (auto) 0.0 Sodium 142 Potassium 4.4 Chloride 109 H Carbon Dioxide 24 Anion Gap 13 BUN 22 H D Creatinine 1.21 Estim Creat Clear Calc 73.5 Estimated GFR 47 Random Glucose 127 H Calcium 9.2 Phosphorus 3.2 Magnesium 2.3 Total Bilirubin AST ALT Alkaline Phosphatase Total Creatine Kinase 1281 H D Troponin I High Sens 6.0 Total Protein Albumin Urine Color Urine Appearance Urine pH Ur Specific Catron Urine Protein Urine Glucose (UA) Urine Ketones Urine Blood Urine Nitrite Ur Leukocyte Esterase Urine RBC Urine WBC Ur Squamous Epith Cells Amorphous Sediment Urine Bacteria Urine Test Salicylates Urine Opiates Screen Urine Fentanyl Screen Acetaminophen Ur Barbiturates Screen Ur Phencyclidine Scrn Ur Amphetamines Screen U Benzodiazepines Scrn Urine Cocaine Screen U Marijuana (THC) Screen Ethyl Alcohol COVID-19 (DEJUAN) COVID-19 Clin Com Mental Status Exam Mental Status Exam Narrative: A&O. Overweight, short hair, lying down in hospital bed. Poor eye contact, difficulty sustaining attention, sedated. No Tics or Tremors. No abnormal involuntary movements. Calm, somewhat guarded but cooperative. Non-pressured speech, non-spontaneous with soft, halting speech and some dysarthria, sedated. Mood is ?angry,? anxious, affect is dysphoric, tearful. Currently denies SI/SIB/HI upon inquiry. Denies A/VH or delusional thought content. Thoughts are coherent, organized. No known cognitive or memory impairment. Insight is fair/ Judgment is poor. Medications Medications Current Medications Acetaminophen (Acetaminophen 325 Mg Tablet) 975 mg PO Q8H PRN PRN Reason: pain or HIGH Last Admin: 06/13/21 12:37 Dose: 975 mg Documented by: Enoxaparin Sodium (Enoxaparin Sodium 40 Mg/0.4 Ml Syringe) 40 mg SUBCUT Q24H [facility] Last Admin: 06/13/21 12:36 Dose: 40 mg Documented by: Gabapentin (Gabapentin 300 Mg Capsule) 300 mg PO BEDTIME PRN PRN Reason: Sleep Lactated Ringer's (Lr) 1,000 mls @ 100 mls/hr IVCONT .Q10H [facility] Stop: 06/14/21 11:14 Last Admin: 06/13/21 11:31 Dose: Not Given Documented by: Lisinopril (Lisinopril 20 Mg Tablet) 20 mg PO DAILY [facility]; Protocol Omeprazole (Omeprazole 20 Mg Capsule.) 20 mg PO DAILY@0630 [facility] Allergies Allergies Allergy/AdvReac Type Severity Reaction Status Date / Time No Known Allergies Allergy Mild NKA Verified 06/05/21 12:34 Assessment & Plan Assessment & Plan (1) MDD (major depressive disorder), recurrent episode, moderate: Status: Acute Code(s): F33.1 - Major depressive disorder, recurrent, moderate Plan Pt had serious suicide attempt, states this was impulsive, however she continues to endorse sx of depression and has limited coping skills and supports. She has no OP psych services. Would benefit from inpatient psych admission for further stabilization of her depression, med management, and referral for OP services. -Continue monitoring medically. Patient is currently medically cleared. -Consult requested for disposition -Patient cannot leave AGAINST MEDICAL ADVICE. -Care Team evaluation for bed search. Patient will be a CV. CARE team informed. initial treatments ordered collateral history needed ? I spent minutes with the patient and/or on the patient floor today, greater than?50% of which was spent counseling/coordinating care. Patient educated on: diagnosis and therapeutic strategies Informed Consent: understands
--- NOTE | 2021-06-13 17:43 | PC.NURSE ---
pt requesting ativan several times, made aware
[2021-06-13] MEDS: LORazepam 0.5 MG TABLET PO (18:02)
[2021-06-13] MEDS: Melatonin 3 MG TABLET 6 MG PO (20:23)
[2021-06-13] MEDS: Gabapentin 300 MG CAPSULE PO (20:23)
[2021-06-14] VITALS: BP 144/70; PULSE 74; RESP 16; O2SAT 94
[2021-06-14] MEDS: LORazepam 0.5 MG TABLET PO ×3 (01:55→18:06)
[2021-06-14 06:00] VITALS: BMI 44.4
[2021-06-14] MEDS: Omeprazole 20 MG CAPSULE.DR PO (06:31)
[2021-06-14] MEDS: Lactated Ringers 1,000 ML 100 ML IVCONT (06:31)
[2021-06-14 07:41] VITALS: BP 180/84; PULSE 80; RESP 25; TEMP 37.1; O2SAT 96
[2021-06-14 09:34] LABS: Hematocrit 36.9 % (37.0-47.0); Hemoglobin 11.6 g/dl (12.0-16.0); Mean Corpuscular HGB Conc 31.4 g/dl (31.0-35.0); Mean Corpuscular Hemoglobin 25.3 pg (27.0-33.0); Mean Corpuscular Volume 80.4 fL (80.0-98.0); Mean Platelet Volume 9.1 fL (9.4-12.3); Platelet Count 340 X10*3/uL (160-400); Red Blood Count 4.59 X10*6/uL (4.20-5.50); Red Cell Distribution Width 14.4 % (11.0-16.0); White Blood Count 12.1 X10*3/uL (4.8-10.8)
[2021-06-14] MEDS: lisinopriL 20 MG TABLET PO (09:53)
[2021-06-14 10:09] LABS: Anion Gap 13 (12-20); Blood Urea Nitrogen 8 mg/dL (9-16); Calcium 9.1 mg/dL (8.4-10.2); Carbon Dioxide 25 mmol/L (22-29); Chloride 104 mmol/L (96-108); Creatinine Clr Calc Pharmacy 133.7; Estimated Glomerular Filt Rate > 60; Glucose Random 139 mg/dL (60-115); Potassium 3.5 mmol/L (3.3-5.1); Sodium 138 mmol/L (135-145)
[2021-06-14] MEDS: Enoxaparin Sodium 40 MG/0.4 ML SYRINGE SUBCUT (11:18)
--- NOTE | 2021-06-14 11:47 | PC.NURSE ---
RN TO RN REPORT GIVEN FOR TRANSFER TO [facility]. SITTER REMAINS BEDSIDE FOR SAFETY.
[2021-06-14 12:00] VITALS: BP 180/90; PULSE 81; RESP 20; TEMP 36.6; O2SAT 97
--- NOTE | 2021-06-14 13:30 | MHC.CARE ---
CARE Team evaluated patient, she will require an inpatient psychiatric hospitalization, will be admitted to later today pending written assessment, MD-MD and insurance authorization.
--- NOTE | 2021-06-14 13:52 | MHC.CM.PN ---
Pt to transfer to [place] : pt is still waiting for psych eval for ? INPT placement d/t SI s/p intentional OD. Pt originally from home with significant other however, pt is stating they have ended their relationship. INCENDIARY [employer] confirmed that former Svetlana Aneta does not wish to serve as pt's contact or decision maker. Discussed other contacts to add with pt: she will consider and let CM know. Pt continues with 1:1 sitter for safety. Pt may require transportation home if she is cleared by psych.
--- NOTE | 2021-06-14 14:39 | P.PNIM_ITS ---
Subjective Subjective Date of Service: 06/14/21 Interval History: cc: suicide attempt interval history: anxious Cardiovascular Cardiovascular: Reports no additional cardiovascular complaints Respiratory Respiratory: Reports no additional respiratory complaints Physical Exam Vital Signs: Vital Signs: Last Vital Signs Temp 97.9 F 06/14/21 12:00 Pulse 81 06/14/21 12:00 Resp 20 06/14/21 12:00 BP 180/90 H 06/14/21 12:00 Pulse Ox 97 06/14/21 12:00 BMI result Body Mass Index 44.4 General: AO X 3, no acute distress Resp: CTA bilateral, no accessory muscles used CVS: S1,S2,RRR GI: soft, non tender, non distended Neuro: motor grossly intact, alert Psych: appropriate affect, appropriate insight Objective Data Active Medications Acetaminophen (Acetaminophen 325 Mg Tablet) 975 mg PO Q8H PRN PRN Reason: pain or HIGH Last Admin: 06/13/21 21:14 Dose: 975 mg Documented by: CHUCK Enoxaparin Sodium (Enoxaparin Sodium 40 Mg/0.4 Ml Syringe) 40 mg SUBCUT Q24H [facility] Last Admin: 06/14/21 11:18 Dose: 40 mg Documented by: FRANNY Gabapentin (Gabapentin 300 Mg Capsule) 300 mg PO BEDTIME PRN PRN Reason: Sleep Last Admin: 06/13/21 20:23 Dose: 300 mg Documented by: CHUCK Lisinopril (Lisinopril 20 Mg Tablet) 20 mg PO DAILY [facility]; Protocol Last Admin: 06/14/21 09:53 Dose: 20 mg Documented by: FARNNY Lorazepam (Lorazepam 0.5 Mg Tablet) 0.5 mg PO Q8H PRN PRN Reason: Anxiety Last Admin: 06/14/21 09:54 Dose: 0.5 mg Documented by: FRANNY Melatonin (Melatonin 3 Mg Tablet) 6 mg PO BEDTIME PRN PRN Reason: Insomnia Last Admin: 06/13/21 20:23 Dose: 6 mg Documented by: CHUCK Omeprazole (Omeprazole 20 Mg Capsule.) 20 mg PO DAILY@0630 [facility] Last Admin: 06/14/21 06:31 Dose: 20 mg Documented by: CHUCK Labs CBC & Chem 7: 06/14/21 09:13 06/14/21 09:13 Labs: Laboratory Results - last 24 hr 06/14/21 06/14/21 09:13 09:13 MCV 80.4 MCH 25.3 L MCHC 31.4 RDW 14.4 Plt Count 340 MPV 9.1 L Absolute Nucleated RBC 0.000 Nucleated RBC % (auto) 0.0 Anion Gap 13 Estim Creat Clear Calc 133.7 Estimated GFR > 60 Random Glucose 139 H Calcium 9.1 Total Creatine Kinase 594 H D Microbiology Microbiology Results: Microbiology 06/12/21 16:53 Urine Culture - Final Urine Catheterized - Hess Catheter No growth. Assessment and Plan (1) Overdose: Status: Acute Plan 50F presented with intentional overdose toxic encephalopathy from intentional overdose on lexapro resolved BHN appreciated plan for inpatient psychiatry admission htn lisinopirl Quality Stroke Does the patient have a stroke diagnosis?: No VTE Prior VTE?: No VTE Risk Level:: Medical - low VTE Device Contraindication: Treatment Not Indicated VTE Drug Contraindication: Treatment Not Indicated
--- NOTE | 2021-06-14 14:43 | P.DS_ITS ---
DS: Providers Provider Date of Service: 06/14/21 Date of admission: 06/12/21 11:52 Primary care physician: Unknown Physician Consults: 06/13/21 12:02 Consult to Psychiatry Routine Consulting Provider: Psych Covering Reason for consultation: Suicide attempt Has provider been notified: No 06/14/21 10:16 Consult to Crisis Stat Reason for consultation: suicide attempt Has provider been notified: No 06/14/21 10:59 Consult to Care Team Routine Comment: Reason for consultation: suicidality DS: Diagnosis Discharge Diagnosis (1) Overdose: Status: Acute DS: Summary Hospital Course Hospital Course: from initial h and p: Ms. Johnson is admitted to the ICU this afternoon for control of agitated delirium after a Lexapro overdose. The patient is a 50 yo female with h/o obesity and previous suicide attempt many years ago. The patient was BIBA on a Section 12 filled out by the police after an intentional overdose of Lexapro (escitalopram) 20 mg tablets, estimated 22-30 pills.? The patient stated that her girlfriend broke up with her over the phone approximately 2 hours prior, which was the inciting factor.? The patient denied taking any other [id number] medications. Vital signs in the ED were unremarkable, and the patient was normal thermic.? She was actively dry heaving and was diaphoretic on arrival.? Otherwise, she was awake and alert and answered questions appropriately. In the ED she was given Zofran and activated charcoal.? Labs in the ED are shown below.? Notably, chemistries are largely normal except for a bicarb of 19, and random glucose of 228.? BUN/creatinine are 9/1.1.? CPK was 703.? Urine tox screen was positive for fentanyl. The patient's behavior was uncontrollable in the ED, despite many mg of Ativan.? I saw the patient in the ED.? The patient would not have been able to be controlled on the medical wards, and therefore needed admission to ICU for close management and monitoring, possible Precedex or propofol. On admission to the ICU, the patient is awake and barely coherent.? Agitated, moving all around the bed and trying to get out of the bed thru the bed rails.? Not responding appropriately to questions or commands.? This is a big girl:? 5- 10?, 102 kg, and very strong.? She lost the one IV she came with and we had to restrain her to get another IV.? Then we gave her a total of about 200 mg propofol to get another IV in.? HR 70, SR, BP 146/73, RR 16, Sat 92% on room air.? Temp 100.8?.? No JVD at 30?.? Chest CTA.? Heart rate and rhythm are regular, with normal-sounding S1 and S2, with no murmur or gallops.? The abdomen is benign.? She has huge muscle mass.? No gross edema. Once we attained IV access, the patient was started on a Precedex infusion and that sedated her very nicely.? She?s been sleeping for hours. hospital course: patient's encephalopathy resolved, she remained anxious, but otherwise asymptomatic, she was seen by n who recommended inpatient psychiatry admission, to which she was discharged. Time Spent with Patient Time attestation: Total time spent providing and/or coordinating discharge services: Discharge coordination time: Greater than 30 minutes Quality: Stroke Does the patient have a stroke diagnosis?: No Physical Exam Vital Signs: Vital Signs: Last Vital Signs Temp 97.9 F 06/14/21 12:00 Pulse 81 06/14/21 12:00 Resp 20 06/14/21 12:00 BP 180/90 H 06/14/21 12:00 Pulse Ox 97 06/14/21 12:00 BMI result Body Mass Index 44.4 General: AO X 3, no acute distress Resp: CTA bilateral, no accessory muscles used CVS: S1,S2,RRR GI: soft, non tender, non distended Neuro: motor grossly intact, alert Psych: appropriate affect, appropriate insight DS: Data Data Completed and Pending Completed studies during hospitalization [Text1]: Procedures Excision of Sigmoid Colon, Open Approach (01/18/21) Release Peritoneum, Open Approach (01/18/21) Labs on day of discharge: Laboratory Results - last 24 hr 06/14/21 06/14/21 09:13 09:13 WBC 12.1 H RBC 4.59 Hgb 11.6 L Hct 36.9 L MCV 80.4 MCH 25.3 L MCHC 31.4 RDW 14.4 Plt Count 340 MPV 9.1 L Absolute Nucleated RBC 0.000 Nucleated RBC % (auto) 0.0 Sodium 138 Potassium 3.5 D Chloride 104 Carbon Dioxide 25 Anion Gap 13 BUN 8 L D Creatinine 0.79 Estim Creat Clear Calc 133.7 Estimated GFR > 60 Random Glucose 139 H Calcium 9.1 Total Creatine Kinase 594 H D Discharge Plan Discharge Patient Disposition: Xfer Psychiatric Hosp Discharge Diagnosis: overdose Referrals: Physician,Unknown J [Primary Care Provider] - 1 Week Discharge Medications: Continued lisinopril 20 mg tablet 20 mg PO DAILY Qty: 30 0RF omeprazole 20 mg capsule,delayed release(DR/EC) 1 cap PO DAILY 0RF escitalopram oxalate 20 mg tablet 20 mg PO DAILY 0RF Discharge Orders: Discharge Order (Routine); Ordered 06/14/21 Ordered By: Fly Salgado Diet: advance to usual diet Activity on Discharge: As tolerated Stand Alone Forms: Patient Portal Discharge page
[2021-06-14 15:08] VITALS: BP 178/74; PULSE 77; RESP 16; TEMP 36.5; O2SAT 94
[2021-06-14 16:08] LABS: COVID-19 Test Negative (Negative); IDNOW Serial# 55D5AD1C
[2021-06-14 18:00] VITALS: PULSE 84; RESP 20; TEMP 37.1; O2SAT 98
== END 2021-06-14 20:15 | DRG 817 ==
LOC: HO.ED 06-12 11:00 → HO.EDOVER 06-12 12:01 → HO.ICU 06-12 12:06 → HO.S3 06-14 11:38
PROVIDERS: Emergency Medicine Emergency Medical Services; Admitting Provider Anesthesiology; Emergency Provider Emergency Medicine; PCP Physician Assistant; Visit Provider Internal Medicine
DX: T43.222A Poisoning by selective serotonin reuptake inhibitors, intentional self-harm, initial encounter (principal); G92.8 Other toxic encephalopathy; N17.9 Acute kidney failure, unspecified; F05 Delirium due to known physiological condition; M62.82 Rhabdomyolysis; R45.851 Suicidal ideations; E86.1 Hypovolemia; E66.9 Obesity, unspecified; Z68.41 Body mass index [BMI] 40.0-44.9, adult; Z20.822 Contact with and (suspected) exposure to COVID-19; Y92.9 Unspecified place or not applicable; Z79.899 Other long term (current) drug therapy; E66.01 Morbid (severe) obesity due to excess calories
CPT/HCPCS: 36415; 80048; 80053; 80143; 80179; 80307; 81001; 81025; 82077; 82550; 83735; 84100; 84484; 85025; 85027; 87086; 87635; 93005; 96361; 96374; 96375; 96376; 99285; C1758; J1650; J2060; J2250; J2405

== ENCOUNTER 2021-06-14 20:26 | Inpatient (IN) | payer OTHER, SELFPAY ==
[2021-06-14 21:49] VITALS: BMI 45.1
[2021-06-14 21:50] VITALS: BP 179/93; PULSE 83; TEMP 37.1; O2SAT 96
[2021-06-14] MEDS: traZODone HCL 50 MG TABLET PO (22:37)
[2021-06-14] MEDS: LORazepam 0.5 MG TABLET PO (22:37)
[2021-06-14] MEDS: Acetaminophen 325 MG TABLET 650 MG PO (22:37)
--- NOTE | 2021-06-15 00:06 | PC.ADMIT ---
this is the first behavioral health admission for this 50 year old female. legal: CV but signed 3 day notice upon admission. was a CARE team referral. a doc to doc and nurse to nurse report was obtained prior to admission from the medical floor. patient is s/p od. reports od on antidepressant was ''impulsive, stupid, I was mad'' reports recent breakup and that they are still in the same house together. reports current medications are prescribed by PCP and that she does not have any behavioral health providers but reports would be open to providers when discharged. reviewed + fentanyl LUJAN, reports she had been given fentanyl ''from a friend to help me get through the weekend'' denies any drug or alcohol issues. presents as cooperative but anxious as patient was picking at her nails and her knee showed constant movement.
--- NOTE | 2021-06-15 00:49 | PC.ADMIT ---
oriented to unit, safety tool completed. treatment plan initiated.
[2021-06-15 07:00] VITALS: BMI 44.9
[2021-06-15 08:38] VITALS: BP 189/86; PULSE 82; RESP 16; TEMP 36.8; O2SAT 98
[2021-06-15] MEDS: Omeprazole 20 MG CAPSULE.DR PO (08:41)
[2021-06-15] MEDS: lisinopriL 20 MG TABLET PO (08:41)
[2021-06-15] MEDS: LORazepam 0.5 MG TABLET PO (08:41)
[2021-06-15] MEDS: Acetaminophen 325 MG TABLET 650 MG PO (08:41)
[2021-06-15 08:57] LABS: Estimated Average Glucose 128 mg/dL; Hemoglobin A1c % 6.1 %
[2021-06-15 09:32] LABS: Cholesterol 171 mg/dL; HDL Cholesterol 39 mg/dL; LDL Cholesterol Calculated 109 mg/dl; Triglycerides 118 mg/dL
[2021-06-15 09:53] LABS: Thyroid Stimulating Hormone 1.67 uIU/mL (0.32-4.0)
[2021-06-15 10:03] LABS: Folate 12.3 ng/mL (> or = 4.0); Vitamin B12 552 pg/mL (200-900)
[2021-06-15] MEDS: Bacitracin Oint 14 GM TUBE 1 APPL TOPICAL ×2 (12:49→20:42)
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
[2021-06-15] MEDS: LORazepam 1 MG TABLET PO ×2 (15:41→20:42)
[2021-06-15] MEDS: traZODone HCL 100 MG TABLET PO (20:42)
[2021-06-15 20:48] VITALS: BP 137/94; PULSE 95; TEMP 36.8; O2SAT 96
[2021-06-15] MEDS: traZODone HCL 50 MG TABLET PO (22:13)
[2021-06-15] MEDS: hydrOXYzine HCL 25 MG TABLET PO (22:13)
[2021-06-16 09:56] VITALS: BP 189/96; PULSE 95; RESP 16; TEMP 36.8; O2SAT 97
[2021-06-16] MEDS: lisinopriL 20 MG TABLET PO (09:58)
[2021-06-16] MEDS: FLUoxetine HCl 20 MG CAPSULE PO (09:59)
[2021-06-16] MEDS: Omeprazole 20 MG CAPSULE.DR PO (09:59)
[2021-06-16] MEDS: LORazepam 1 MG TABLET PO ×3 (10:05→20:06)
[2021-06-16] MEDS: Acetaminophen 325 MG TABLET 650 MG PO ×2 (10:05→21:19)
--- NOTE | 2021-06-16 12:07 | P.PNPSI_ITS ---
Subjective Subjective Date of Service: 06/16/21 Reason For Visit: Acute hperactive delirium,hypersertoninergic Interim History: similar presentation as to yesterday. reports she did hear from her ex, who told her she is not welcome to return to the shared home. she states her brother will be flying out from [place] soon and she will drive back there with him and remain in [place] with family. reports slept well on trazodone 150, so scheduled dosing increased to 150. c/o throat pain, so cepacol Rxed. after looking at chest lesion, bacitracin DCed and hydrocortisone started. appears to be a contact dermatitis; skin intact. planning to discharge next saturday. per staff, 3-day up saturday. isolative. anx/dep. attending groups. Mental Status Exam Mental Status Exam Narrative: dressed in hospital attire. adequately groomed. no PMA/PMR. intense eye contact. cooperative with interview. speech nml in rate, amount, loudness. somewhat monotone. thoughts linear and logical without signs of paranoia or delusions. affect constricted. mood anxious. denies SI since she attempted suicide 3 days ago. denies HI/AVH. Diagnostics Vital Signs (24Hr): Vital Signs - 24 hr 06/15/21 20:48 06/16/21 09:56 Temperature 98.2 F 98.2 F Pulse Rate 95 95 Respiratory Rate 16 Blood Pressure 137/94 H 189/96 H Pulse Oximetry 96 97 BMI result Body Mass Index 44.9 Labs Labs: Laboratory Results - last 48 hr 06/15/21 06/15/21 06/15/21 08:24 08:24 08:24 Estimat Average Glucose 128 Hemoglobin A1c % 6.1 Triglycerides 118 Cholesterol 171 LDL Cholesterol, Calc 109 HDL Cholesterol 39 Vitamin B12 552 Folate 12.3 TSH 1.67 Medications Medications Current Medications Acetaminophen (Acetaminophen 325 Mg Tablet) 650 mg PO Q6H PRN PRN Reason: Headache/Pain Mild Scale (1-3) Last Admin: 06/16/21 10:05 Dose: 650 mg Documented by: Al Hydroxide/Mg Hydroxide (Magnesium Hydrox/Alum Hydrox 30 Ml Oral.Susp) 30 ml PO Q6H PRN PRN Reason: Heartburn/Nausea Benzocaine (Throat Lozenge, Medicated Lozenge) 1 lozenge MUCOUS MEM Q1H PRN PRN Reason: Sore Throat Fluoxetine HCl (Fluoxetine Hcl 20 Mg Capsule) 20 mg PO DAILY [facility] Last Admin: 06/16/21 09:59 Dose: 20 mg Documented by: Hydrocortisone (Hydrocortisone 1 % Ointment 28.35 Gm Tube) 1 appl TOPICAL BID [facility]; Protocol Hydroxyzine HCl (Hydroxyzine Hcl 25 Mg Tablet) 25 mg PO Q6H PRN PRN Reason: Anxiety Last Admin: 06/15/21 22:13 Dose: 25 mg Documented by: Lisinopril (Lisinopril 20 Mg Tablet) 20 mg PO DAILY [facility]; Protocol Last Admin: 06/16/21 09:58 Dose: 20 mg Documented by: Lorazepam (Lorazepam 1 Mg Tablet) 1 mg PO Q4H PRN PRN Reason: Anxiety Last Admin: 06/16/21 10:05 Dose: 1 mg Documented by: Magnesium Hydroxide (Milk Of Magnesia 30 Ml Oral.Susp) 30 ml PO DAILY PRN PRN Reason: Constipation Omeprazole (Omeprazole 20 Mg Capsule.Dr) 20 mg PO DAILY@0630 [facility] Last Admin: 06/16/21 09:59 Dose: 20 mg Documented by: Trazodone HCl (Trazodone Hcl 50 Mg Tablet) 50 mg PO BEDTIME PRN PRN Reason: Insomnia Last Admin: 06/15/21 22:13 Dose: 50 mg Documented by: Trazodone HCl (Trazodone Hcl 50 Mg Tablet) 150 mg PO BEDTIME [facility] Allergies Allergies Allergy/AdvReac Type Severity Reaction Status Date / Time No Known Allergies Allergy Mild NKA Verified 06/05/21 12:34 Assessment & Plan Assessment & Plan (1) Adjustment disorder with mixed disturbance of emotions and conduct: Status: Acute Code(s): F43.25 - Adjustment disorder with mixed disturbance of emotions and conduct (2) Depression: Qualifiers: Depression Type: other depression Qualified Code(s): F32.89 - Other specified depressive episodes Status: Acute Code(s): F32.A - Depression, unspecified Plan DCed lexapro. started prozac 20 mg daily 06/15. started trazodone 100 QHS for insomnia 06/15, increased to 150 QHS as of 06/16. increased ativan from 0.5 mg Q8H PRN to 1 mg Q4H PRN as of 06/15. pt aware she will not be discharging on this medication. groups, milieu therapy. time for stabilization, reconstitution, planning. discharge once stable, currently planning for tuesday 06/20. I spent minutes with the patient and/or on the patient floor today, greater than?50% of which was spent counseling/coordinating care. Reason for contiued inpatient stay Substantial Risk for: harm to self, inability to function and rapid decompensation
[2021-06-16] MEDS: Hydrocortisone 1 % Ointment 28.35 GM TUBE 1 APPL TOPICAL ×2 (14:32→20:11)
[2021-06-16] MEDS: Throat Lozenge, Medicated LOZENGE 1 LOZENGE MUCOUS MEM ×2 (14:33→21:19)
[2021-06-16] MEDS: traZODone HCL 50 MG TABLET 150 MG PO (20:06)
[2021-06-16 20:12] VITALS: BP 178/87; PULSE 91; TEMP 36.5; O2SAT 98
[2021-06-16] MEDS: hydrOXYzine HCL 25 MG TABLET PO (21:19)
[2021-06-16] MEDS: traZODone HCL 50 MG TABLET PO (21:19)
[2021-06-17 09:39] VITALS: BP 187/92; PULSE 90; RESP 17; TEMP 36.8; O2SAT 98
[2021-06-17] MEDS: Acetaminophen 325 MG TABLET 650 MG PO (09:41)
[2021-06-17] MEDS: Throat Lozenge, Medicated LOZENGE 1 LOZENGE MUCOUS MEM ×4 (09:44→21:16)
[2021-06-17] MEDS: FLUoxetine HCl 20 MG CAPSULE PO (09:44)
[2021-06-17] MEDS: lisinopriL 20 MG TABLET PO (09:44)
[2021-06-17] MEDS: Omeprazole 20 MG CAPSULE.DR PO (09:44)
[2021-06-17] MEDS: LORazepam 1 MG TABLET PO ×2 (09:44→16:03)
[2021-06-17 10:21] VITALS: BP 132/82
[2021-06-17] MEDS: traMADoL HCL 50 MG TABLET PO ×3 (13:02→21:37)
--- NOTE | 2021-06-17 13:25 | HO.PSYCHPN ---
Subjective Subjective Date of Service: 06/17/21 Reason For Visit: Acute hperactive delirium,hypersertoninergic Interim History: pt appears as per yesterday. states her ex GF declined to bring in her weigher and charger for her implanted neurostimulator, and her pain is now severe. discuss tramadol, which pt has successfully used in the past, and which MD orders. also updates that brother will be arriving in the area saturday and plan is to discharge saturday to his care, collect her things from ex GF, and then drive rental car back to [place] with brother. c/o insomnia, agrees to advance ativan, trazodone, hydroxyzine availability. per staff, using ativan PRN. had traz, atarax, tylenol last noc. upset doesn't have acccess to the things she brought into the hospital. Mental Status Exam Mental Status Exam Narrative: dressed in hospital attire. adequately groomed. no PMA/PMR. intense eye contact. cooperative with interview. speech nml in rate, amount, loudness. somewhat monotone. thoughts linear and logical without signs of paranoia or delusions. affect constricted. no SI/HI/AVH. Diagnostics Vital Signs (24Hr): Vital Signs - 24 hr 06/16/21 20:12 06/17/21 09:39 06/17/21 10:21 Temperature 97.7 F 98.2 F Pulse Rate 91 90 Respiratory Rate 17 Blood Pressure 178/87 H 187/92 H 132/82 Pulse Oximetry 98 98 BMI result Body Mass Index 44.9 Medications Medications Current Medications Acetaminophen (Acetaminophen 325 Mg Tablet) 650 mg PO Q6H PRN PRN Reason: Headache/Pain Mild Scale (1-3) Last Admin: 06/17/21 09:41 Dose: 650 mg Documented by: Al Hydroxide/Mg Hydroxide (Magnesium Hydrox/Alum Hydrox 30 Ml Oral.Susp) 30 ml PO Q6H PRN PRN Reason: Heartburn/Nausea Benzocaine (Throat Lozenge, Medicated Lozenge) 1 lozenge MUCOUS MEM Q1H PRN PRN Reason: Sore Throat Last Admin: 06/17/21 13:01 Dose: 1 lozenge Documented by: Fluoxetine HCl (Fluoxetine Hcl 20 Mg Capsule) 20 mg PO DAILY [facility] Last Admin: 06/17/21 09:44 Dose: 20 mg Documented by: Hydrocortisone (Hydrocortisone 1 % Ointment 28.35 Gm Tube) 1 appl TOPICAL BID [facility]; Protocol Last Admin: 06/17/21 10:37 Dose: Not Given Documented by: Hydroxyzine HCl (Hydroxyzine Hcl 50 Mg Tablet) 50 mg PO Q6H PRN PRN Reason: Anxiety Lisinopril (Lisinopril 20 Mg Tablet) 20 mg PO DAILY [facility]; Protocol Last Admin: 06/17/21 09:44 Dose: 20 mg Documented by: Lorazepam (Lorazepam 1 Mg Tablet) 1 mg PO Q4H PRN PRN Reason: Anxiety Last Admin: 06/17/21 09:44 Dose: 1 mg Documented by: Lorazepam (Lorazepam 1 Mg Tablet) 2 mg PO BEDTIME [facility] Magnesium Hydroxide (Milk Of Magnesia 30 Ml Oral.Susp) 30 ml PO DAILY PRN PRN Reason: Constipation Omeprazole (Omeprazole 20 Mg Capsule.Dr) 20 mg PO DAILY@0630 [facility] Last Admin: 06/17/21 09:44 Dose: 20 mg Documented by: Tramadol HCl (Tramadol Hcl 50 Mg Tablet) 50 mg PO Q4H PRN PRN Reason: Pain, Severe (Pain Scale 7-10) Last Admin: 06/17/21 13:02 Dose: 50 mg Documented by: Trazodone HCl (Trazodone Hcl 50 Mg Tablet) 50 mg PO BEDTIME PRN PRN Reason: Insomnia Last Admin: 06/16/21 21:19 Dose: 50 mg Documented by: Trazodone HCl (Trazodone Hcl 100 Mg Tablet) 200 mg PO BEDTIME [facility] Allergies Allergies Allergy/AdvReac Type Severity Reaction Status Date / Time No Known Allergies Allergy Mild NKA Verified 06/05/21 12:34 Assessment & Plan Assessment & Plan (1) Adjustment disorder with mixed disturbance of emotions and conduct: Status: Acute Code(s): F43.25 - Adjustment disorder with mixed disturbance of emotions and conduct (2) Depression: Qualifiers: Depression Type: other depression Qualified Code(s): F32.89 - Other specified depressive episodes Status: Acute Code(s): F32.A - Depression, unspecified Plan DCed lexapro. started prozac 20 mg daily 06/15. started trazodone 100 QHS for insomnia 06/15, increased to 150 QHS as of 2/18, 200 QHS as of 06/17. increased ativan from 0.5 mg Q8H PRN to 1 mg Q4H PRN as of 06/15. ativan 2 mg QHS added 06/17. pt aware she will not be discharging on this medication. groups, milieu therapy. time for stabilization, reconstitution, planning. discharge once stable, currently planning for tuesday 06/20. I spent minutes with the patient and/or on the patient floor today, greater than?50% of which was spent counseling/coordinating care. Reason for contiued inpatient stay Substantial Risk for: harm to self, inability to function and rapid decompensation
[2021-06-17] MEDS: Magnesium Hydrox/Alum Hydrox 30 ML ORAL.SUSP PO (19:33)
[2021-06-17 20:05] VITALS: BP 142/92; PULSE 88; RESP 18; TEMP 36.7; O2SAT 96
[2021-06-17] MEDS: traZODone HCL 100 MG TABLET 200 MG PO (20:22)
[2021-06-17] MEDS: LORazepam 1 MG TABLET 2 MG PO (20:22)
[2021-06-17] MEDS: Hydrocortisone 1 % Ointment 28.35 GM TUBE 1 APPL TOPICAL (20:23)
[2021-06-17] MEDS: hydrOXYzine HCL 50 MG TABLET PO (21:37)
[2021-06-18] MEDS: Throat Lozenge, Medicated LOZENGE 1 LOZENGE MUCOUS MEM ×3 (07:37→21:56)
[2021-06-18 08:20] VITALS: BP 164/74; PULSE 87; RESP 18; TEMP 36.8; O2SAT 98
[2021-06-18] MEDS: FLUoxetine HCl 20 MG CAPSULE PO (08:22)
[2021-06-18] MEDS: traMADoL HCL 50 MG TABLET PO ×2 (08:22→12:25)
[2021-06-18] MEDS: Omeprazole 20 MG CAPSULE.DR PO (08:22)
[2021-06-18] MEDS: lisinopriL 20 MG TABLET PO (08:23)
[2021-06-18] MEDS: LORazepam 1 MG TABLET PO ×3 (08:23→16:40)
--- NOTE | 2021-06-18 14:51 | HO.PSYCHPN ---
Subjective Subjective Date of Service: 06/18/21 Reason For Visit: Acute hperactive delirium,hypersertoninergic Interim History: pt states she slept better last night, awakening only due to pain. asks for tramadol to be increased, 75 mg per dose agreed to. heard her ex will be bringing in her neurostimulator battery charger tester this afternoon. denies SI, mood OK. expresses remorse for her actions, regret. brother will be arriving tomorrow, planning for saturday discharge for her to drive back to [place] with him. per staff, taking tramadol and ativan. ex-GF dropping battery charger tester today. Mental Status Exam Mental Status Exam Narrative: dressed in hospital attire. adequately groomed. no PMA/PMR. intense eye contact. cooperative with interview. speech nml in rate, amount, loudness. somewhat monotone. thoughts linear and logical without signs of paranoia or delusions. affect constricted. mood OK. no SI. no HI/AVH expressed. Diagnostics Vital Signs (24Hr): Vital Signs - 24 hr 06/17/21 20:05 06/18/21 08:20 Temperature 98.1 F 98.2 F Pulse Rate 88 87 Respiratory Rate 18 18 Blood Pressure 142/92 H 164/74 H Pulse Oximetry 96 98 BMI result Body Mass Index 44.9 Medications Medications Current Medications Acetaminophen (Acetaminophen 325 Mg Tablet) 650 mg PO Q6H PRN PRN Reason: Headache/Pain Mild Scale (1-3) Last Admin: 06/17/21 09:41 Dose: 650 mg Documented by: Al Hydroxide/Mg Hydroxide (Magnesium Hydrox/Alum Hydrox 30 Ml Oral.Susp) 30 ml PO Q6H PRN PRN Reason: Heartburn/Nausea Last Admin: 06/17/21 19:33 Dose: 30 ml Documented by: Benzocaine (Throat Lozenge, Medicated Lozenge) 1 lozenge MUCOUS MEM Q1H PRN PRN Reason: Sore Throat Last Admin: 06/18/21 14:34 Dose: 1 lozenge Documented by: Fluoxetine HCl (Fluoxetine Hcl 20 Mg Capsule) 20 mg PO DAILY [facility] Last Admin: 06/18/21 08:22 Dose: 20 mg Documented by: Hydrocortisone (Hydrocortisone 1 % Ointment 28.35 Gm Tube) 1 appl TOPICAL BID [facility]; Protocol Last Admin: 06/18/21 11:38 Dose: Not Given Documented by: Hydroxyzine HCl (Hydroxyzine Hcl 50 Mg Tablet) 50 mg PO Q6H PRN PRN Reason: Anxiety Last Admin: 06/17/21 21:37 Dose: 50 mg Documented by: Lisinopril (Lisinopril 20 Mg Tablet) 20 mg PO DAILY [facility]; Protocol Last Admin: 06/18/21 08:23 Dose: 20 mg Documented by: Lorazepam (Lorazepam 1 Mg Tablet) 1 mg PO Q4H PRN PRN Reason: Anxiety Last Admin: 06/18/21 12:25 Dose: 1 mg Documented by: Lorazepam (Lorazepam 1 Mg Tablet) 2 mg PO BEDTIME [facility] Last Admin: 06/17/21 20:22 Dose: 2 mg Documented by: Magnesium Hydroxide (Milk Of Magnesia 30 Ml Oral.Susp) 30 ml PO DAILY PRN PRN Reason: Constipation Omeprazole (Omeprazole 20 Mg Capsule.Dr) 20 mg PO DAILY@0630 [facility] Last Admin: 06/18/21 08:22 Dose: 20 mg Documented by: Tramadol HCl (Tramadol Hcl 50 Mg Tablet) 75 mg PO Q4H PRN PRN Reason: Pain, Severe (Pain Scale 7-10) Trazodone HCl (Trazodone Hcl 50 Mg Tablet) 50 mg PO BEDTIME PRN PRN Reason: Insomnia Last Admin: 06/16/21 21:19 Dose: 50 mg Documented by: Trazodone HCl (Trazodone Hcl 100 Mg Tablet) 200 mg PO BEDTIME [facility] Last Admin: 06/17/21 20:22 Dose: 200 mg Documented by: Allergies Allergies Allergy/AdvReac Type Severity Reaction Status Date / Time No Known Allergies Allergy Mild NKA Verified 06/05/21 12:34 Assessment & Plan Assessment & Plan (1) Adjustment disorder with mixed disturbance of emotions and conduct: Status: Acute Code(s): F43.25 - Adjustment disorder with mixed disturbance of emotions and conduct (2) Depression: Qualifiers: Depression Type: other depression Qualified Code(s): F32.89 - Other specified depressive episodes Status: Acute Code(s): F32.A - Depression, unspecified Plan DCed lexapro. started prozac 20 mg daily 06/15. started trazodone 100 QHS for insomnia 06/15, increased to 150 QHS as of 06/16, 200 QHS as of 06/17. increased ativan from 0.5 mg Q8H PRN to 1 mg Q4H PRN as of 06/15. ativan 2 mg QHS added 06/17. pt aware she will not be discharging on this medication. tramadol 75 mg PRN pending recharge of her neuro-stimulator. groups, milieu therapy. time for stabilization, reconstitution, planning. discharge once stable, currently planning for tuesday 06/20. I spent minutes with the patient and/or on the patient floor today, greater than?50% of which was spent counseling/coordinating care. Reason for contiued inpatient stay Substantial Risk for: harm to self, inability to function and rapid decompensation
[2021-06-18] MEDS: traMADoL HCL 50 MG TABLET 75 MG PO ×2 (16:39→20:23)
[2021-06-18 18:00] VITALS: BP 139/70; PULSE 85; RESP 18; TEMP 36.8; O2SAT 98
[2021-06-18] MEDS: Hydrocortisone 1 % Ointment 28.35 GM TUBE 1 APPL TOPICAL (20:17)
[2021-06-18] MEDS: LORazepam 1 MG TABLET 2 MG PO (20:17)
[2021-06-18] MEDS: traZODone HCL 100 MG TABLET 200 MG PO (20:17)
[2021-06-18] MEDS: traZODone HCL 50 MG TABLET PO (21:23)
[2021-06-18] MEDS: hydrOXYzine HCL 50 MG TABLET PO (21:23)
[2021-06-19 06:00] VITALS: BP 147/67; PULSE 89; RESP 18; TEMP 36.7; O2SAT 98
[2021-06-19] MEDS: Magnesium Hydrox/Alum Hydrox 30 ML ORAL.SUSP PO (06:22)
[2021-06-19] MEDS: traMADoL HCL 50 MG TABLET 75 MG PO ×2 (06:22→10:33)
[2021-06-19] MEDS: LORazepam 1 MG TABLET PO ×4 (06:23→18:23)
[2021-06-19] MEDS: Omeprazole 20 MG CAPSULE.DR PO (06:23)
[2021-06-19 09:19] VITALS: BP 164/110; PULSE 95; RESP 17; TEMP 36.6; O2SAT 97
[2021-06-19] MEDS: FLUoxetine HCl 20 MG CAPSULE PO (09:23)
[2021-06-19] MEDS: lisinopriL 20 MG TABLET PO (09:23)
[2021-06-19] MEDS: Throat Lozenge, Medicated LOZENGE 1 LOZENGE MUCOUS MEM ×3 (10:33→20:12)
[2021-06-19] MEDS: traMADoL HCL 50 MG TABLET 100 MG PO ×2 (15:47→20:09)
[2021-06-19 18:00] VITALS: BP 162/98; PULSE 95; RESP 16; TEMP 36.7; O2SAT 97
[2021-06-19] MEDS: LORazepam 1 MG TABLET 2 MG PO (20:08)
[2021-06-19] MEDS: traZODone HCL 100 MG TABLET 200 MG PO (20:09)
[2021-06-19] MEDS: hydrOXYzine HCL 50 MG TABLET PO (20:09)
--- NOTE | 2021-06-19 20:40 | HO.PSYCHPN ---
Subjective Subjective Date of Service: 06/19/21 Reason For Visit: Acute hperactive delirium,hypersertoninergic Interim History: pt reports her cord was not brought yesterday but is supposed to be brought today. asking to DC early in day so she and her brother can retrieve her things from her ex's house. c/o continued inadequately treated pain, asks to increase tramadol to 100 mg per dose, which is accommodated. per staff, magazine designer for pain control unit not yet arrived. pt's clothes and stuffed animal were brought in. discharge tomorrow. Mental Status Exam Mental Status Exam Narrative: dressed in street clothes. adequately groomed. no PMA/PMR. intense eye contact. cooperative with interview. speech nml in rate, amount, loudness. somewhat monotone. thoughts linear and logical without signs of paranoia or delusions. affect constricted. mood OK. no SI. no HI/AVH expressed. Diagnostics Vital Signs (24Hr): Vital Signs - 24 hr 06/19/21 06:00 06/19/21 09:19 06/19/21 18:00 Temperature 98.0 F 97.9 F 98.0 F Pulse Rate 89 95 95 Respiratory Rate 18 17 16 Blood Pressure 147/67 H 164/110 H 162/98 H Pulse Oximetry 98 97 97 BMI result Body Mass Index 44.9 Medications Medications Current Medications Acetaminophen (Acetaminophen 325 Mg Tablet) 650 mg PO Q6H PRN PRN Reason: Headache/Pain Mild Scale (1-3) Last Admin: 06/17/21 09:41 Dose: 650 mg Documented by: Al Hydroxide/Mg Hydroxide (Magnesium Hydrox/Alum Hydrox 30 Ml Oral.Susp) 30 ml PO Q6H PRN PRN Reason: Heartburn/Nausea Last Admin: 06/19/21 06:22 Dose: 30 ml Documented by: Benzocaine (Throat Lozenge, Medicated Lozenge) 1 lozenge MUCOUS MEM Q1H PRN PRN Reason: Sore Throat Last Admin: 06/19/21 20:12 Dose: 1 lozenge Documented by: Fluoxetine HCl (Fluoxetine Hcl 20 Mg Capsule) 20 mg PO DAILY [facility] Last Admin: 06/19/21 09:23 Dose: 20 mg Documented by: Hydrocortisone (Hydrocortisone 1 % Ointment 28.35 Gm Tube) 1 appl TOPICAL BID [facility]; Protocol Last Admin: 06/19/21 10:11 Dose: Not Given Documented by: Hydroxyzine HCl (Hydroxyzine Hcl 50 Mg Tablet) 50 mg PO Q6H PRN PRN Reason: Anxiety Last Admin: 06/19/21 20:09 Dose: 50 mg Documented by: Lisinopril (Lisinopril 20 Mg Tablet) 20 mg PO DAILY [facility]; Protocol Last Admin: 06/19/21 09:23 Dose: 20 mg Documented by: Lorazepam (Lorazepam 1 Mg Tablet) 1 mg PO Q4H PRN PRN Reason: Anxiety Last Admin: 06/19/21 18:23 Dose: 1 mg Documented by: Lorazepam (Lorazepam 1 Mg Tablet) 2 mg PO BEDTIME [facility] Last Admin: 06/19/21 20:08 Dose: 2 mg Documented by: Magnesium Hydroxide (Milk Of Magnesia 30 Ml Oral.Susp) 30 ml PO DAILY PRN PRN Reason: Constipation Omeprazole (Omeprazole 20 Mg Capsule.Dr) 20 mg PO DAILY@0630 [facility] Last Admin: 06/19/21 06:23 Dose: 20 mg Documented by: Tramadol HCl (Tramadol Hcl 50 Mg Tablet) 100 mg PO Q4H PRN PRN Reason: Pain, Severe (Pain Scale 7-10) Last Admin: 06/19/21 20:09 Dose: 100 mg Documented by: Trazodone HCl (Trazodone Hcl 50 Mg Tablet) 50 mg PO BEDTIME PRN PRN Reason: Insomnia Last Admin: 06/18/21 21:23 Dose: 50 mg Documented by: Trazodone HCl (Trazodone Hcl 100 Mg Tablet) 200 mg PO BEDTIME [facility] Last Admin: 06/19/21 20:09 Dose: 200 mg Documented by: Allergies Allergies Allergy/AdvReac Type Severity Reaction Status Date / Time No Known Allergies Allergy Mild NKA Verified 06/05/21 12:34 Assessment & Plan Assessment & Plan (1) Adjustment disorder with mixed disturbance of emotions and conduct: Status: Acute Code(s): F43.25 - Adjustment disorder with mixed disturbance of emotions and conduct (2) Depression: Qualifiers: Depression Type: other depression Qualified Code(s): F32.89 - Other specified depressive episodes Status: Acute Code(s): F32.A - Depression, unspecified Plan DCed lexapro. started prozac 20 mg daily 06/15. started trazodone 100 QHS for insomnia 06/15, increased to 150 QHS as of 06/16, 200 QHS as of 06/17. increased ativan from 0.5 mg Q8H PRN to 1 mg Q4H PRN as of 06/15. ativan 2 mg QHS added 06/17. tramadol 75 mg PRN pending recharge of her neuro-stimulator. dosing increased to 100 mg each as of 06/19. groups, milieu therapy. time for stabilization, reconstitution, planning. discharge once stable, currently planning for tuesday 06/20. I spent minutes with the patient and/or on the patient floor today, greater than?50% of which was spent counseling/coordinating care. Reason for contiued inpatient stay Substantial Risk for: harm to self and inability to function
[2021-06-20] MEDS: traMADoL HCL 50 MG TABLET 100 MG PO ×2 (02:44→07:57)
[2021-06-20] MEDS: LORazepam 1 MG TABLET PO ×2 (02:44→07:57)
[2021-06-20] MEDS: hydrOXYzine HCL 50 MG TABLET PO (02:47)
[2021-06-20 07:55] VITALS: BP 141/75; PULSE 95; RESP 17; TEMP 36.7; O2SAT 99
[2021-06-20] MEDS: Omeprazole 20 MG CAPSULE.DR PO (07:57)
[2021-06-20] MEDS: lisinopriL 20 MG TABLET PO (07:57)
[2021-06-20] MEDS: FLUoxetine HCl 20 MG CAPSULE PO (07:57)
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
--- NOTE | 2021-06-20 10:43 | PC.NURSE ---
PT ready and aware of discharge. PT with brighter affect and is future focused. Pt denies depression, denies SI/HI and hallucinations. Discharge instructions discussed, all questions answered. Belongings returned. PT ambulated off unit with steady gait.
== END 2021-06-20 10:45 | disposition home or self-care (01) | DRG 755 ==
PROVIDERS: Admitting Provider Psychiatry & Neurology Psychiatry; Visit Provider Psychiatry & Neurology Psychiatry
DX: F43.25 Adjustment disorder with mixed disturbance of emotions and conduct (principal); F32.A Depression, unspecified; Z91.51 Personal history of suicidal behavior; Z79.899 Other long term (current) drug therapy
CPT/HCPCS: 36415; 80061; 82607; 82746; 83036; 84443